=== PATIENT | male | born 1950 | race Caucasian/White ===

== ENCOUNTER 2018-08-09 09:21 | Emergency (ER) | payer MEDICARE, OTHER, SELFPAY ==
[2018-08-09] VITALS (7 sets, daily range): BP systolic 132–161; BP diastolic 91–117; PULSE 80–107; RESP 14–20; TEMP 36.9; O2SAT 94–97; BMI 27.0
--- NOTE | 2018-08-09 09:36 | EKG12_ITS ---
Test Reason : SOB Blood Pressure : / mmHG Vent. Rate : 080 BPM Atrial Rate : 080 BPM P-R Int : 136 ms QRS Dur : 080 ms QT Int : 420 ms P-R-T Axes : 073 059 070 degrees QTc Int : 484 ms Normal sinus rhythm Prolonged QT Abnormal ECG Confirmed by [facility] CHRISTIE, KAMLESH ([id number]), photograph editor JUAN BILLY ([id number]) on 08/11/2018 3:25:50 PM Referred By: DEBORAH Confirmed By:KAMLESH BENTLEY MD
--- NOTE | 2018-08-09 09:37 | CT_ITS ---
STUDY: CTA CHEST REASON FOR EXAM: Male, 67 years old. Dyspnea RADIATION DOSAGE (If Supplied By Facility): CTDIvol = ( 12.91 ) mGy, DLP = ( 697.30 ) mGycm TECHNIQUE: The examination was performed with the intravenous administration of 75ML ml of Isovue 370 contrast material. Post-processing of the angiographic images was performed, with multiplanar reformation and 3D reconstruction. Individualized dose optimization techniques were used for this CT. COMPARISON: The prior studies from January 29, 2013 chest x-ray was not provided for review. FINDINGS: Normal enhancement of the main pulmonary artery and right and left pulmonary arteries. Normal enhancement of the bilateral peripheral pulmonary arteries. There is no demonstrated pulmonary embolism. At the time of this study the distal descending thoracic aorta is noncontrasted. However the proximal aorta is well contrasted. The ascending thoracic aorta measures 3.8 x 4.0 cm. The left vertebral artery has its takeoff from the arch between the left carotid and the left subclavian. Distal to the subclavian aorta becomes mildly aneurysmal at the distal arch measuring up to 3.9 cm. It tapers towards the hiatus. The mid descending thoracic aorta measures 2.4 x 3.0 cm. Aorta is mildly tortuous as it enters the abdomen. There is no visualized proximal dissection. There is borderline cardiac enlargement. At the timing of this cardiac cycle there is a thickened appearance of the left ventricular wall. There are multiple small AP window lymph nodes measuring up to 1 cm. There is a lymph node measuring 1 cm anterior to the trachea. There is a lymph node measuring 1.6 x 1.0 cm. Normal hilar regions. Normal visualized trachea and bronchi. The lungs are well expanded. There is a thickened appearance of the right mainstem bronchus to some degree and thickened appearance of the wall of the right middle lobe bronchus. Within the right upper lobe bronchus image #258 series #2 there is a focus of filling defect within the bronchi. This measures approximately 4.6 mm. There is a thickened appearance of the right lower bronchus. Within the right lung base there are areas of air trapping and emphysematous change. There is mild thickening of the left upper lobe and lingular branches. Normal pleura. Normal chest wall structures. Normal osseous structures. There is a coarse calcification in the right renal parenchyma associated with focal cortical thinning. This calcification measures 1.0 x 0.9 cm. Is a minimal hiatal hernia. The aorta at the hiatus measures 3.[address]/CTA Chest W/WO Contrast IMPRESSION: Portable and aneurysmal dilatation of the ascending thoracic aorta. Mild aneurysmal dilatation of the descending thoracic aorta. Mild aneurysmal dilatation of the suprarenal abdominal aorta. No visualized pulmonary embolism Visualized pulmonary bronchial abnormality consistent with visualized areas in the right than left lung of bronchial wall thickening. On one image there is a small soft tissue density within the right upper lobe small bronchial airways. Findings are suspicious for inflammatory etiologies possible infectious etiology such as Atypical infiltrates, allergic bronchopulmonary aspergillosis, potentially Mycobacterium avium intracellular, given the apparent air trapping in the right greater than left lung bases could potentially consider bronchiolitis obliterans. An endobronchial tumor is thought to be less likely but should be followed accordingly. Recommend consideration for bronchoscopy. Electronically Signed: Denisse Watts MD at 11:23 EDT Tel , Service support ,
[2018-08-09] MEDS: Ipratropium/Albuterol Sulfate 3 ML AMPUL.NEB INHALATION (09:41)
[2018-08-09 09:53] LABS: Absolute Lymphocyte Count 2.44 X10^3/ul (0.83-4.51); Absolute Neutrophil Count 4.3 X10^3/uL (2.0-7.7); Basophil# 0.05 X10^3/uL; Basophil% 0.6 % (0-1); Eosinophil# 0.81 X10^3/uL; Eosinophils% 9.9 % (0-5); Hematocrit 47.8 % (40-54); Hemoglobin 16.5 g/dl (13.0-16.5); Lymphocyte # 2.44 X10^3/ul (4.0); Lymphocyte % 29.7 % (19-41); Mean Corp Hgb Conc 34.5 g/gl (32-36); Mean Corpuscular Hgb 30.1 pg (27.0-32.0); Mean Corpuscular Volume 87.2 fL (80-94); Mean Platelet Vol. 10.6 fl (6.2-12.0); Monocyte# 0.58 X10^3/uL; Monocyte% 7.1 % (0-10); Neutrophil # 4.33 X10^3/uL (2.7-7.7); Neutrophil % 52.6 % (47-70); POSITIVE DIFFERENTIAL NO; Platelet Count 167 K/mm3 (150-450); RBC Distribution Width CV 12.8 % (11.6-14.6); Red Blood Count 5.48 M/mm3 (4.6-6.2); White Blood Count 8.2 K/mm3 (4.4-11.0)
[2018-08-09 09:54] LABS: POSITIVE COUNT NO; POSITIVE MORPHOLOGY NO
[2018-08-09 10:05] LABS: Anion Gap 5 (5-15); BUN 23 mg/dL (7-18); BUN/Creat Ratio 18.9 RATIO (10-20); Calcium,Total 8.5 mg/dL (8.5-10.1); Chloride 101 mmol/L (98-107); Creatinine, Serum 1.22 mg/dL (0.70-1.30); EST Glomerular Filtration Rate 63 mL/min (>60); Est Glom Filt Rate - Afr Amer 77 mL/min (>60); Estimated Creatinine Clearance 72.15 ml/min; Glucose 94 mg/dL (74-106); Sodium Level 135 mmol/L (136-145)
[2018-08-09 10:17] LABS: BNP,B-Type NATRIURETIC PEPTIDE 15.9 pg/mL (0-100)
[2018-08-09] MEDS: predniSONE 20 MG Tablet PO (10:27)
[2018-08-09 10:41] LABS: AST(SGOT) 21 U/L (15-37); Alanine Aminotransfer ALT/SGPT 33 U/L (16-61); Albumin, Serum 3.8 g/dL (3.2-5.0); Alkaline Phosphatase 96 U/L (45-117); Bilirubin, Direct 0.19 mg/dL (0.00-0.30); Globulin 4.1 g/dL (2.2-4.2); Protein, Total 7.9 g/dL (6.4-8.2)
[2018-08-09] MEDS: Albuterol 2.5 MG/3 ML VIAL.NEB. INHALATION ×2 (11:51)
--- NOTE | 2018-08-09 11:54 | ED.DCSUM_ITS ---
- ER Visit Summary Date of Service: 08/09/18 Chief Complaint: [Burtness of breath] History of Present Illness: The patient is a 67 M [presents the emergency department complaint of shortness of breath that started 2 months ago. Patient has been on several rounds of antibiotics. Patient denies any chest pain. He does complain of a cough with wheezing. Patient's seen primary care physician and has ordered CT scan for next week of the chest. Patient is not had a fever. He denies recent travel. Patient does describe exertional dyspnea. Patient states that he had a heart catheterization in 2012 that was unremarkable. Patient states that he has not slept in the last 3 nights as he wakes up feeling very short of breath. Patient thinks he is gained about 15 pounds in the last month. He denies any leg swelling. Patient denies any hemoptysis.] Physical Examination: [HEENT-PERRLA, EOMI. Cranial nerves II through XII grossly intact. TMs clear. Mucous membranes moist. No adenopathy. Cardiovascular-regular rate and rhythm without murmur or ectopy Lungs-breath sounds bilaterally. Patient does have expiratory wheezes bilaterally. Patient has some mild tachypnea. No accessory muscle use or retractions. Abdomen-normoactive bowel sounds, soft, nontender, no rebound or rigidity, no peritoneal signs. Extremities-intact ?4, normal range of motion, normal pulses, atraumatic]. No edema. Test Results: [EKG obtained arrival shows sinus rhythm with a ventricular rate of 80 bpm with a prolonged QT. CBC with differential showing of 8.2, hemoglobin 16, hematocrit 48, platelets 167. Chemistries unremarkable. LFTs were normal. Troponin was 0.015. BNP was 15.9. CTA of the chest obtained showed aneurysmal dilatation of the aorta with no evidence of dissection. There is no evidence of PE. Patient had abnormal lung findings and cannot rule out atypical infiltrates versus bronchopulmonary aspergillosis versus possible Mycobacterium versus bronchiolitis obliterans. Patient had an Endobag bronchial lesion tumor is thought to be less likely but should be followed accordingly and they recommended obtaining bronchoscopy.] Emergency Department Course and Treatment: [Patient received DuoNeb and albuterol in the emergency department was started on prednisone 20 mg p.o. Patient was started on Zosyn 4.5 g IV.] Treatment Plan: [Admit] Disposition: [Admit] Impression: [Dyspnea- COPD exacerbation versus asthmatic bronchitis versus asthma.] This note was generated with [employer] dictation software. It may contain incorrect words, spelling, and punctuation that were not noted in review of the chart prior to signing ED Disposition - Plan for ED Patient: Chief Complaint: Shortness of Breath Referrals: Dax Barney III, MD [Primary Care Provider] -
--- NOTE | 2018-08-09 11:59 | NURSING ---
DR MAXIMO CABRERA
--- NOTE | 2018-08-09 12:36 | ED.VISSUMM ---
- ER Visit Summary Date of Service: 08/09/18 Chief Complaint: [] History of Present Illness: The patient is a 67 M [] Physical Examination: [] Test Results: [] Emergency Department Course and Treatment: [] Treatment Plan: [] Disposition: [] Impression: [] This note was generated with [employer] dictation software. It may contain incorrect words, spelling, and punctuation that were not noted in review of the chart prior to signing ED Disposition - Plan for ED Patient: Disposition: Home or Assisted Living Chief Complaint: Shortness of Breath Diagnosis: Bronchiectasis Prescriptions: Albuterol Inhaler [Ventolin Hfa] 1 - 2 puff INHALATION Q4H PRN PRN 1 Days #1 inhaler PRN Reason: Shortness Of Breath Codeine Phosphate/Guaifenesin [Guaifen-Codeine 100-10 mg/5 ml] 5 - 10 ml PO Q4H PRN PRN #250 ml PRN Reason: Cough Prednisone 10 mg PO DAILY #30 tablet traZODone [Desyrel] 100 mg PO QHS #14 tablet Referrals: Dxa Barney III, MD [Primary Care Provider] - Clayton Salamanca MD [STAFF PHYSICIAN] - 1-2 Weeks
--- NOTE | 2018-08-09 12:38 | PCM.CONS.GEN ---
Problem List (1) Bronchiectasis Status: Acute Qualifiers: Bronchiectasis type: with acute exacerbation Qualified Code(s): J47.1 - Bronchiectasis with (acute) exacerbation Reason for Consult Date of Consultation: 08/09/18 Reason for Consultation: cough. shortness of breath. insomnia. History of Present Illness: The patient is a 67 year old M who presents to the emergency room for persistent cough, shortness of breath and insomnia associated to above. Patient has seen his primary care provider and received rounds of prednisone, only 10 mg at a time as well as cefadroxil and. Patient has not gotten better overall over this time and I sought attention in the emergency room. Patient presented to the emergency room and his vital signs were stable and had new leukocytosis. He did undergo a CT of the chest that showed numerous abnormalities. The hospitalist service was contacted for admission for possible COPD exacerbation. [] Past Medical History Allergies metoclopramide HCl [From Reglan] Allergy (Verified 08/09/18 09:24) Swelling sumatriptan [From Imitrex] Allergy (Verified 08/09/18 09:24) Shortness of breath sumatriptan succinate [From Imitrex] Allergy (Verified 08/09/18 09:24) Shortness of breath prednisone Adverse Reaction (Verified 08/09/18 09:24) Other Home Medications: Ambulatory Orders Medication Instructions Recorded Metoclopramide [Reglan] 10 mg PO TID PRN #30 tablet 06/06/14 Hydrocodone Bitart/Apap 5-325 1 tablet PO Q4H PRN PRN #10 tablet 01/30/15 [[place] 5MG-325MG] Albuterol Inhaler [Ventolin Hfa] 1 - 2 puff INHALATION Q4H PRN PRN 08/09/18 1 Days #1 inhaler Codeine Phosphate/Guaifenesin 5 - 10 ml PO Q4H PRN PRN #250 ml 08/09/18 [Guaifen-Codeine 100-10 mg/5 ml] Prednisone 10 mg PO DAILY #30 tablet 08/09/18 traZODone [Desyrel] 100 mg PO QHS #14 tablet 08/09/18 Psychiatric History: No pertinent psych hx Lives: Spouse/ Significant Other Smoking Status: Former smoker Tobacco Use: Non-smoker Alcohol: None Drugs: None - *Family History Sibling History Items: Cancer - lung Review of Systems Constitutional: Denies: Anorexia, Chills, Fever Eyes: Denies: Blurred vision, Double vision HEENT: Denies: Head Aches, Sinus Congestion, Sinus Drainage Cardiovascular: Denies: Chest Pain, Palpitations Respiratory: Reports: Cough, Wheezing. Denies: Shortness of breath at rest, Sputum production Gastrointestinal: Denies: Abdominal Pain, Nausea, Vomiting Genitourinary: Denies: Dysuria Musculoskeletal: Denies: Joint Pain, Joint Tenderness Skin: Reports: Dryness, Rash Neurological: Denies: Numbness, Tingling, Focal weakness Psychiatric: Denies: Anxiety, Depression Endocrine: Reports: Change in Body Habitus - has gain 20+ pounds over the past several months.. Denies: Heat/ Cold Intolerance Hematologic/ Lymphatic: Denies: Easy Bruising, Easy Bleeding, Hx of blood clot Comment: A 10 point review of systems were negative except as mentioned in the history of present illness and the other review of systems. Patient Problems: Active and Suspected Problems Bronchiectasis (Acute) - Physical Exam General: Alert, Cooperative, No apparent distress, - - No respiratory distress. No conversational dyspnea. HEENT: Atraumatic, Normocephalic, - - No scleral icterus Oral: Moist Mucosa, No Gingival or Mucosal Lesions/ Ulcerations Neck: No Nodes, Thyroid Normal Size and Texture Lungs: Normal air movement, Wheezes Cardiovascular: Regular rate, Regular Rhythm, Normal S1, Normal S2, No murmurs Abdomen: Bowel Sounds Present, Soft, Non Tender, Non-Distended, No Hepato-splenomegaly Extremities: No edema, No Calf Tenderness Skin: No rashes, No breakdown Musculoskeletal: No Tenderness to Palpation of Joints or Extremities, No Muscle Wasting Neurological: - - No clonus. Lower extremity DTRs are intact. Psych/Mental Status: Normal Affect, Appropriate Vital Signs Temp Pulse Resp BP Pulse Ox 36.9 C 87 20 H 151/95 H 97 08/09/18 09:22 08/09/18 12:05 08/09/18 12:05 08/09/18 09:22 08/09/18 12:05 Oxygen Delivery Method Room Air Weight: 98.157 kg Body Mass Index (BMI) 27.0 Laboratory Tests Past 24 Hrs 08/09/18 08/09/18 08/09/18 09:40 09:40 09:40 WBC 8.2 RBC 5.48 Hgb 16.5 Hct 47.8 MCV 87.2 MCH 30.1 MCHC 34.5 RDW 12.8 RDW Differential 41.0 Plt Count 167 MPV 10.6 Immature Gran % (Auto) 0.100 Neut % (Auto) 52.6 Lymph % (Auto) 29.7 [place] % (Auto) 7.1 Eos % (Auto) 9.9 H Baso % (Auto) 0.6 Absolute Neuts (auto) 4.3 Absolute Lymphs (auto) 2.44 Total Counted Not Reportable Sodium 135 L Potassium 4.0 Chloride 101 Carbon Dioxide 29.0 Anion Gap 5 BUN 23 H Creatinine 1.22 Estim Creat Clear Calc 72.15 Est GFR (MDRD) Af Amer 77 Est GFR (MDRD) Non-Af 63 BUN/Creatinine Ratio 18.9 Glucose 94 Calcium 8.5 Total Bilirubin Direct Bilirubin AST ALT Alkaline Phosphatase Troponin I 0.015 B-Natriuretic Peptide 15.9 Total Protein Albumin Globulin 08/09/18 09:40 WBC RBC Hgb Hct MCV MCH MCHC RDW RDW Differential Plt Count MPV Immature Gran % (Auto) Neut % (Auto) Lymph % (Auto) [place] % (Auto) Eos % (Auto) Baso % (Auto) Absolute Neuts (auto) Absolute Lymphs (auto) Total Counted Sodium Potassium Chloride Carbon Dioxide Anion Gap BUN Creatinine Estim Creat Clear Calc Est GFR (MDRD) Af Amer Est GFR (MDRD) Non-Af BUN/Creatinine Ratio Glucose Calcium Total Bilirubin 0.90 Direct Bilirubin 0.19 AST 21 ALT 33 Alkaline Phosphatase 96 Troponin I B-Natriuretic Peptide Total Protein 7.9 Albumin 3.8 Globulin 4.1 Clinical Impression(s) from Imaging Studies Chest CTA 08/09/18 09:37 IMPRESSION: Portable and aneurysmal dilatation of the ascending thoracic aorta. Mild aneurysmal dilatation of the descending thoracic aorta. Mild aneurysmal dilatation of the suprarenal abdominal aorta. No visualized pulmonary embolism Visualized pulmonary bronchial abnormality consistent with visualized areas in the right than left lung of bronchial wall thickening. On one image there is a small soft tissue density within the right upper lobe small bronchial airways. Findings are suspicious for inflammatory etiologies possible infectious etiology such as Atypical infiltrates, allergic bronchopulmonary aspergillosis, potentially Mycobacterium avium intracellular, given the apparent air trapping in the right greater than left lung bases could potentially consider bronchiolitis obliterans. An endobronchial tumor is thought to be less likely but should be followed accordingly. Recommend consideration for bronchoscopy. Electronically Signed: Denisse Watts MD at 11:23 EDT Tel , Service support , Assessment/Plan All Active Problems Bronchiectasis (Acute) Diverticulitis (Acute) 1. Acute exacerbation of bronchiectasis I reviewed the [place] who did not feel that the patient had findings that were mentioned in the body of the report from radiology but felt that the patient had more diffuse bronchiectasis which would explain the patient's symptoms. As patient is afebrile and not septic, patient does not need to be admitted or be placed on additional antibiotics Dr. Salamanca did feel the patient would benefit from steroids and follow-up in their clinic as outpatient Patient is very apprehensive about steroids at the states that he gets very jittery with steroids. Explained to him that that is a common side effect of that. He is also concerned about his insomnia which is that he is just short of breath and wheezing. I did try to bashir some of his concerns with insomnia and see that we can try trazodone to help him sleep at night. Seems also that part of his recent was not sleeping as he is coughing and that patient to continue with the guaifenesin and codeine cough syrup. I did asked patient if he did have a hallucinations or bizarre behavior with the prednisone and it seems to me that some of what he was seeing what may be more associated him just being profoundly sleep deprived rather than direct because of the steroids themselves. Therefore I do not feel the patient had exhibited steroid-induced psychosis. I discussed about the potential for using Medrol but I fear that it would be more of a class effect in regards to steroids and more anxious and jittery with the steroids. Patient was in agreement to use steroids as well as a sleep aid with would be trazodone, while he is on steroids. 2. Thoracic ascending aortic aneurysm Incidental finding Measures 3.8 x [address] imaging in 6 months to ensure stability and if stable then annually thereafter Discharge home. Case discussed with Drs. Salamanca and Christiano. Code Visit Office Visits / Consults: [id number] OP Consult L5
--- NOTE | 2018-08-09 12:42 | CON.PCM_ITS ---
Problem List (1) Bronchiectasis Status: Acute Qualifiers: Bronchiectasis type: with acute exacerbation Qualified Code(s): J47.1 - Bronchiectasis with (acute) exacerbation Reason for Consult Date of Consultation: 08/09/18 Reason for Consultation: cough. shortness of breath. insomnia. History of Present Illness: The patient is a 67 year old M who presents to the emergency room for persistent cough, shortness of breath and insomnia associated to above. Patient has seen his primary care provider and received rounds of prednisone, only 10 mg at a time as well as cefadroxil and. Patient has not gotten better overall over this time and I sought attention in the emergency room. Patient presented to the emergency room and his vital signs were stable and had new leukocytosis. He did undergo a CT of the chest that showed numerous abnormalities. The hospitalist service was contacted for admission for possible COPD exacerbation. [] Past Medical History Allergies metoclopramide HCl [From Reglan] Allergy (Verified 08/09/18 09:24) Swelling sumatriptan [From Imitrex] Allergy (Verified 08/09/18 09:24) Shortness of breath sumatriptan succinate [From Imitrex] Allergy (Verified 08/09/18 09:24) Shortness of breath prednisone Adverse Reaction (Verified 08/09/18 09:24) Other Home Medications: Ambulatory Orders Medication Instructions Recorded Metoclopramide [Reglan] 10 mg PO TID PRN #30 tablet 06/06/14 Hydrocodone Bitart/Apap 5-325 1 tablet PO Q4H PRN PRN #10 tablet 01/30/15 [[place] 5MG-325MG] Albuterol Inhaler [Ventolin Hfa] 1 - 2 puff INHALATION Q4H PRN PRN 08/09/18 1 Days #1 inhaler Codeine Phosphate/Guaifenesin 5 - 10 ml PO Q4H PRN PRN #250 ml 08/09/18 [Guaifen-Codeine 100-10 mg/5 ml] Prednisone 10 mg PO DAILY #30 tablet 08/09/18 traZODone [Desyrel] 100 mg PO QHS #14 tablet 08/09/18 Psychiatric History: No pertinent psych hx Lives: Spouse/ Significant Other Smoking Status: Former smoker Tobacco Use: Non-smoker Alcohol: None Drugs: None - *Family History Sibling History Items: Cancer - lung Review of Systems Constitutional: Denies: Anorexia, Chills, Fever Eyes: Denies: Blurred vision, Double vision HEENT: Denies: Head Aches, Sinus Congestion, Sinus Drainage Cardiovascular: Denies: Chest Pain, Palpitations Respiratory: Reports: Cough, Wheezing. Denies: Shortness of breath at rest, S putum production Gastrointestinal: Denies: Abdominal Pain, Nausea, Vomiting Genitourinary: Denies: Dysuria Musculoskeletal: Denies: Joint Pain, Joint Tenderness Skin: Reports: Dryness, Rash Neurological: Denies: Numbness, Tingling, Focal weakness Psychiatric: Denies: Anxiety, Depression Endocrine: Reports: Change in Body Habitus - has gain 20+ pounds over the past several months.. Denies: Heat/ Cold Intolerance Hematologic/ Lymphatic: Denies: Easy Bruising, Easy Bleeding, Hx of blood clot Comment: A 10 point review of systems were negative except as mentioned in the h istory of present illness and the other review of systems. Patient Problems: Active and Suspected Problems Bronchiectasis (Acute) - Physical Exam General: Alert, Cooperative, No apparent distress, - - No respiratory distress. No conversational dyspnea. HEENT: Atraumatic, Normocephalic, - - No scleral icterus Oral: Moist Mucosa, No Gingival or Mucosal Lesions/ Ulcerations Neck: No Nodes, Thyroid Normal Size and Texture Lungs: Normal air movement, Wheezes Cardiovascular: Regular rate, Regular Rhythm, Normal S1, Normal S2, No murmurs Abdomen: Bowel Sounds Present, Soft, Non Tender, Non-Distended, No Hepato- splenomegaly Extremities: No edema, No Calf Tenderness Skin: No rashes, No breakdown Musculoskeletal: No Tenderness to Palpation of Joints or Extremities, No Muscle Wasting Neurological: - - No clonus. Lower extremity DTRs are intact. Psych/Mental Status: Normal Affect, Appropriate Vital Signs Temp Pulse Resp BP Pulse Ox 36.9 C 87 20 H 151/95 H 97 08/09/18 09:22 08/09/18 12:05 08/09/18 12:05 08/09/18 09:22 08/09/18 12:05 Oxygen Delivery Method Room Air Weight: 98.157 kg Body Mass Index (BMI) 27.0 Laboratory Tests Past 24 Hrs 08/09/18 08/09/18 08/09/18 09:40 09:40 09:40 WBC 8.2 RBC 5.48 Hgb 16.5 Hct 47.8 MCV 87.2 MCH 30.1 MCHC 34.5 RDW 12.8 RDW Differential 41.0 Plt Count 167 MPV 10.6 Immature Gran % (Auto) 0.100 Neut % (Auto) 52.6 Lymph % (Auto) 29.7 [place] % (Auto) 7.1 Eos % (Auto) 9.9 H Baso % (Auto) 0.6 Absolute Neuts (auto) 4.3 Absolute Lymphs (auto) 2.44 Total Counted Not Reportable Sodium 135 L Potassium 4.0 Chloride 101 Carbon Dioxide 29.0 Anion Gap 5 BUN 23 H Creatinine 1.22 Estim Creat Clear Calc 72.15 Est GFR (MDRD) Af Amer 77 Est GFR (MDRD) Non-Af 63 BUN/Creatinine Ratio 18.9 Glucose 94 Calcium 8.5 Total Bilirubin Direct Bilirubin AST ALT Alkaline Phosphatase Troponin I 0.015 B-Natriuretic Peptide 15.9 Total Protein Albumin Globulin 08/09/18 09:40 WBC RBC Hgb Hct MCV MCH MCHC RDW RDW Differential Plt Count MPV Immature Gran % (Auto) Neut % (Auto) Lymph % (Auto) [place] % (Auto) Eos % (Auto) Baso % (Auto) Absolute Neuts (auto) Absolute Lymphs (auto) Total Counted Sodium Potassium Chloride Carbon Dioxide Anion Gap BUN Creatinine Estim Creat Clear Calc Est GFR (MDRD) Af Amer Est GFR (MDRD) Non-Af BUN/Creatinine Ratio Glucose Calcium Total Bilirubin 0.90 Direct Bilirubin 0.19 AST 21 ALT 33 Alkaline Phosphatase 96 Troponin I B-Natriuretic Peptide Total Protein 7.9 Albumin 3.8 Globulin 4.1 Clinical Impression(s) from Imaging Studies Chest CTA 08/09/18 09:37 IMPRESSION: Portable and aneurysmal dilatation of the ascending thoracic aorta. Mild aneurysmal dilatation of the descending thoracic aorta. Mild aneurysmal dilatation of the suprarenal abdominal aorta. No visualized pulmonary embolism Visualized pulmonary bronchial abnormality consistent with visualized areas in the right than left lung of bronchial wall thickening. On one image there is a small soft tissue density within the right upper lobe small bronchial airways. Findings are suspicious for inflammatory etiologies possible infectious etiology such as Atypical infiltrates, allergic bronchopulmonary aspergillosis, potentially Mycobacterium avium intracellular, given the apparent air trapping in the right greater than left lung bases could potentially consider bronchiolitis obliterans. An endobronchial tumor is thought to be less likely but should be followed accordingly. Recommend consideration for bronchoscopy. Electronically Signed: Denisse Watts MD at 11:23 EDT Tel , Service support , Assessment/Plan All Active Problems Bronchiectasis (Acute) Diverticulitis (Acute) 1. Acute exacerbation of bronchiectasis * I reviewed the Cheikh who did not feel that the patient had findings that were mentioned in the body of the report from radiology but felt that the patient had more diffuse bronchiectasis which would explain the patient's symptoms. * As patient is afebrile and not septic, patient does not need to be admitted or be placed on additional antibiotics * Dr. Salamanca did feel the patient would benefit from steroids and follow-up in their clinic as outpatient * Patient is very apprehensive about steroids at the states that he gets very jittery with steroids. Explained to him that that is a common side effect of that. He is also concerned about his insomnia which is that he is just short of breath and wheezing. I did try to bashir some of his concerns with insomnia and see that we can try trazodone to help him sleep at night. Seems also that part of his recent was not sleeping as he is coughing and that patient to continue with the guaifenesin and codeine cough syrup. I did asked patient if he did have a hallucinations or bizarre behavior with the prednisone and it seems to me that some of what he was seeing what may be more associated him just being profoundly sleep deprived rather than direct because of the steroids themselves. Therefore I do not feel the patient had exhibited steroid-induced psychosis. I discussed about the potential for using Medrol but I fear that it would be more of a class effect in regards to steroids and more anxious and jittery with the steroids. Patient was in agreement to use steroids as well as a sleep aid with would be trazodone, while he is on steroids. 2. Thoracic ascending aortic aneurysm * Incidental finding * Measures 3.8 x 4 cm * Recommend repeat CT imaging in 6 months to ensure stability and if stable then annually thereafter Discharge home. Case discussed with Drs. Salamanca and Christiano. Code Visit Office Visits / Consults: [id number] OP Consult L5
== END 2018-08-09 16:16 | disposition home or self-care (01) ==
PROVIDERS: Emergency Provider Emergency Medicine; Family Provider Family Medicine; PCP Family Medicine
DX: J47.1 Bronchiectasis with (acute) exacerbation (principal); I71.2 Thoracic aortic aneurysm, without rupture; R06.00 Dyspnea, unspecified; Z87.891 Personal history of nicotine dependence; Z79.891 Long term (current) use of opiate analgesic; Z79.899 Other long term (current) drug therapy
CPT/HCPCS: 71275; 80048; 80076; 83880; 84484; 85025; 93005; 94640; 96360; 99285; J7040; J7050; Q9967; A4216

== ENCOUNTER → 2018-08-13 10:07 | Outpatient (CLI) | payer SELFPAY | PROVIDERS: Family Provider Family Medicine; PCP Family Medicine; Visit Provider Internal Medicine Critical Care Medicine | DX: J47.1 Bronchiectasis with (acute) exacerbation (principal) | CPT/HCPCS: 87070; 87205 ==

== ENCOUNTER 2018-08-31 17:39 | Inpatient (IN) | payer MEDICARE, OTHER, SELFPAY ==
[2018-08-31 17:39] VITALS: BP 165/97; PULSE 96; RESP 17; TEMP 36.4; O2SAT 96; BMI 26.9
--- NOTE | 2018-08-31 17:52 | EKG12_ITS ---
Test Reason : SOB Blood Pressure : / mmHG Vent. Rate : 086 BPM Atrial Rate : 086 BPM P-R Int : 140 ms QRS Dur : 078 ms QT Int : 388 ms P-R-T Axes : 079 063 080 degrees QTc Int : 464 ms Sinus rhythm with Premature atrial complexes Otherwise normal ECG Confirmed by [facility] CHRISTIE, KAMLESH ([id number]), restaurant expeditor EVANGELINA TAPIA ([id number]) on 09/02/2018 4:21:26 PM Referred By: DIMITRI Confirmed By:KAMLESH BENTLEY MD
[2018-08-31] MEDS: Ipratropium/Albuterol Sulfate 3 ML AMPUL.NEB INHALATION ×2 (18:05→22:10)
[2018-08-31] MEDS: Albuterol 2.5 MG/3 ML VIAL.NEB. INHALATION ×5 (18:05→19:09)
[2018-08-31 18:06] VITALS: PULSE 93; RESP 18
--- NOTE | 2018-08-31 18:17 | ED.VISSUMM ---
- ER Visit Summary Date of Service: 08/31/18 Chief Complaint: Shortness of breath History of Present Illness: The patient is a 67 M presents to the emergency department shortness of breath. Patient was seen about 2 weeks ago. He was diagnosed with bronchiectasis. He was placed on antibiotics and steroids. He states he was doing very well. He finishes steroids 10 days ago. He states that over the past few days, his shortness of breath is worsened. He feels like he cannot take a deep breath. He denies any fevers or chills. He denies any productive sputum but has had a scant cough. He is scheduled to see Dr. Salamanca for pulmonary function testing, but had to be rescheduled because he was on prednisone. He does have a remote history of smoking but does not currently smoke. He takes cholesterol medication but has no history of coronary vascular disease. Physical Examination: Vital signs reviewed General: Well-nourished, well-developed Head: Normocephalic, atraumatic Eyes: Pupils equal and reactive, extraocular muscles intact Neck, supple, no lymphadenopathy Heart: Regular rate and rhythm Respiratory: No distress, wheezing in all lung segal Abdomen: Soft, nontender, nondistended, no peritoneal signs Back: Nontender Extremities: Nontender, no edema, no cords Skin: Normal color no rash Neuro: Alert and oriented, no focal or lateralizing deficits Test Results: [] Emergency Department Course and Treatment: The patient presents with worsening shortness of breath. He has wheezing all lung segal. IV was established. He was given Solu-Medrol. His chest x-ray shows no evidence of focal infiltrative process. His labs are unremarkable. Despite multiple nebulized breathing treatments, the patient has persistent bronchospasm and is now requiring supplemental oxygen. He has a recent diagnosis of bronchiectasis and has been following with pulmonology, but despite outpatient therapy has worsened. I do feel that this patient is going to require admission. Patient was discussed with the hospitalist and will be admitted for continued pulmonary care. Treatment Plan: [] Disposition: Admission Impression: 1. Bronchiectasis with bronchospasm 2. Hypoxia requiring supplemental oxygen This note was generated with [employer] software. It may contain incorrect words, spelling, and punctuation that were not noted in review of the chart prior to signing ED Disposition - Plan for ED Patient: Chief Complaint: Shortness of Breath Referrals: Dax Barney III, MD [Primary Care Provider] -
[2018-08-31] MEDS: MethylPREDNISolone 125 MG/2 ML Vial IV (18:24)
[2018-08-31] MEDS: 0.9% Normal Saline 1,000 ML 150 ML IV (18:24)
[2018-08-31 18:34] LABS: Absolute Neutrophil Count 4.7 X10^3/uL (2.0-7.7); Basophil# 0.03 X10^3/uL; Basophil% 0.4 % (0-1); Eosinophil# 0.66 X10^3/uL; Eosinophils% 8.5 % (0-5); Hemoglobin 15.6 g/dl (13.0-16.5); Lymphocyte % 20.6 % (19-41); Mean Corp Hgb Conc 34.7 g/gl (32-36); Mean Corpuscular Hgb 29.9 pg (27.0-32.0); Mean Corpuscular Volume 86.4 fL (80-94); Mean Platelet Vol. 10.3 fl (6.2-12.0); Monocyte# 0.73 X10^3/uL; Monocyte% 9.4 % (0-10); Neutrophil # 4.72 X10^3/uL (2.7-7.7); Platelet Count 141 K/mm3 (150-450); RBC Distribution Width CV 12.8 % (11.6-14.6); RBC Distribution Width SD 40.6 fl (35.1-43.9); Red Blood Count 5.21 M/mm3 (4.6-6.2); White Blood Count 7.8 K/mm3 (4.4-11.0)
[2018-08-31 18:35] LABS: POSITIVE COUNT NO; POSITIVE DIFFERENTIAL NO; POSITIVE MORPHOLOGY NO
--- NOTE | 2018-08-31 18:40 | RAD_ITS ---
STUDY: X-RAY CHEST REASON FOR EXAM: Male, 67 years old. Worsening SOB. TECHNIQUE: PA and lateral chest. COMPARISON: CT chest 08/09/2018. FINDINGS: The lungs are clear and expanded. There is no demonstrated pleural abnormality. Normal size heart. Normal mediastinum and amrla. Normal visualized pulmonary arteries. Normal visualized aortic arch and descending thoracic aorta. Normal visualized thoracic spine. Normal visualized ribs, clavicles, and shoulders. There is no demonstrated abnormality of the visualized soft tissue structures of the upper abdomen. RAD/Chest PA and Lateral IMPRESSION: Normal x-ray examination of the chest. Electronically Signed: Alyson Kaplan MD at 19:46 EST Tel , Service support ,
[2018-08-31 18:59] LABS: Anion Gap 5 (5-15); BUN 14 mg/dL (7-18); BUN/Creat Ratio 14.1 RATIO (10-20); Calcium,Total 8.6 mg/dL (8.5-10.1); Chloride 106 mmol/L (98-107); Creatinine, Serum 0.99 mg/dL (0.70-1.30); EST Glomerular Filtration Rate 80 mL/min (>60); Est Glom Filt Rate - Afr Amer 97 mL/min (>60); Estimated Creatinine Clearance 88.91 ml/min; Glucose 94 mg/dL (74-106); Sodium Level 138 mmol/L (136-145)
[2018-08-31 19:08] VITALS: PULSE 99; RESP 18
--- NOTE | 2018-08-31 19:18 | HP.PCM_ITS ---
Problem List (1) Bronchiectasis Status: Acute Qualifiers: Bronchiectasis type: with acute exacerbation Qualified Code(s): J47.1 - Bronchiectasis with (acute) exacerbation (2) Former tobacco use Status: Chronic (3) Thoracoabdominal aortic aneurysm (TAAA) Status: Chronic Qualifiers: Presence of rupture: without rupture Qualified Code(s): I71.6 - Thoracoabdominal aortic aneurysm, without rupture (4) HLD (hyperlipidemia) Status: Chronic Qualifiers: Hyperlipidemia type: unspecified Qualified Code(s): E78.5 - Hyperlipidemia, unspecified (5) Dengue fever Status: Chronic History of Present Illness Date of Admission: 08/31/18 Chief Complaint: Dyspnea, wheezing, coughing without productive sputum The patient is a 67 y/o M w/ PMHx: Tobacco use (15 pack year), Known Thoracic ascending aortic aneurysm, HLD, history of ED visit 2 weeks prior secondary to dyspnea and productive cough with abx therapies ongoing x 3 months without marked improvement with then placement on oral steroids with CT upon ED evaluation w/ notable bronchiectasis with improvement w/ higher dose taper w/ recent follow-up with Pulmonary Medicine on 08/14/18 w/ planned sputum culture requested w/ planned PFTs in 2-3 weeks to establish baseline with possible need for inhaled corticosteroids with history of living in [facility] x 3 years with history of 2 week admission for dengue fever who now presents to the [facility] ED on 08/31/18 with history of progressively worsening dyspnea, inability to take a deep breath with minimally productive cough which began to worsen since last dose of his steroid taper. Markedly worsened over the last 25 hours. He notes the sputum he gave Dr. Salamanca was not marked appearing and he has difficulty bringing anything up. Work-up in the ED included T 97.6, heart rate 96, BP 165/97, respiratory rate 17, 96% on room air, CBC with WBC 7.8, hemoglobin 15.6, platelet 141 without market left shift but noted elevated eosinophils, BMP unremarkable, troponin < 0.015, ENT pending, prior BMP obtained on 08/09/18 was unremarkable, EKG with SR without acute evidence of ischemia, chest x-ray with no acute findings. In the ED patient administered Solu-Medrol, DuoNeb, albuterol as well as normal saline therapies. Past Medical History Past Medical History (Chronic Problems): Chronic Problems (Last Updated 08/12/18 @ 10:23 by Stephie Dai) Former tobacco use (Chronic) Thoracoabdominal aortic aneurysm (TAAA) (Chronic) HLD (hyperlipidemia) (Chronic) Dengue fever (Chronic) Medical History: Medical History (Last Updated 08/12/18 @ 10:23 by Stephie Dai) Diverticulitis (Acute) K57.92 HLD (hyperlipidemia) E78.5 Allergies metoclopramide HCl [From Reglan] Allergy (Verified 08/31/18 17:55) Swelling sumatriptan [From Imitrex] Allergy (Verified 08/31/18 17:55) Shortness of breath sumatriptan succinate [From Imitrex] Allergy (Verified 08/31/18 17:55) Shortness of breath prednisone Adverse Reaction (Verified 08/31/18 17:55) insomnia Home Medications: Ambulatory Orders Medication Instructions Recorded Codeine Phosphate/Guaifenesin 5 - 10 ml PO Q4H PRN PRN #250 ml 08/09/18 [Guaifen-Codeine 100-10 mg/5 ml] Prednisone 10 mg PO DAILY #30 tab 08/09/18 traZODone [Desyrel] 100 mg PO QHS #14 tab 08/09/18 atorvastatin 10 mg tablet 10 mg PO DAILY 08/12/18 Acapella #1 ea 08/27/18 Surgical History: Surgical History (Last Updated 08/12/18 @ 10:23 by Stephie Dai) H/O hernia repair Z98.890, Z87.19 age 11 Hx of cardiac cath Z98.890 Dr. Finley 2011 Veins stripped bilateral knee surgery Surgical History: - - R Inguinal hernia repair, cardiac catheterization without intervention, vein stripping, bilateral knee arthroscopic surgery, R eyelid cancer removal. Psychiatric History: No pertinent psych hx Lives: Spouse/ Significant Other Smoking Status: Former smoker - Quit October 2015 with a [id number] history. Tobacco Use: Non-smoker Alcohol: Occasional Drugs: None - *Family History Sibling Family History: Family History (Last Updated 08/12/18 @ 10:24 by Stephie Dai) Sister Lung cancer Father Lung cancer History Items: Cancer - lung Paternal Family History: Family History (Last Updated 08/12/18 @ 10:24 by Stephie Dai) Sister Lung cancer Father Lung cancer History Items: Cancer Maternal Family History: Family History (Last Updated 08/12/18 @ 10:24 by Stephie Dai) Sister Lung cancer Father Lung cancer History Items: - - Mother with history of parkinson's disease. Review of Systems Constitutional: Reports: Anorexia, Malaise, Weakness, Fatigue. Denies: Chills, Fever, Weight Change HEENT: Denies: Head Aches, Sinus Congestion, Sinus Drainage Cardiovascular: Denies: Chest Pain, Palpitations Respiratory: Reports: Cough, Shortness of Breath, Shortness of breath at rest, Shortness of breath upon exertion, Wheezing. Denies: Sputum production Gastrointestinal: Denies: Abdominal Pain, Nausea, Vomiting Genitourinary: Denies: Dysuria Musculoskeletal: Denies: Joint Pain, Joint Tenderness Skin: Denies: Rash, Wounds Neurological: Denies: Numbness, Tingling, Focal weakness Psychiatric: Denies: Anxiety, Depression, Homicidal Ideations, Suicidal Ideations Hematologic/ Lymphatic: Denies: Easy Bruising, Easy Bleeding VTE Information - Inpt Only VTE Present on Admission: No VTE Mechan Device Prophylaxis: SCD's VTE Pharm Prophylaxis ordered?: Yes Subjective: Seated upright in the ED bed, harsh cough ongoing, audible expiratory wheezing noted, fatigued appearance. Objective: Physical Examination: General: awake, alert, oriented x 3 and cooperative, seated upright in ED bed, fatigued appearance, harsh coughing. Skin: normal color, turgor, no icterus, cyanosis. HEENT: AT/NC, EOMI, PERRLA, dry MM, no carotid bruits or JVD noted. Lungs: Diminished BS diffusely, harsh non-productive cough ongoing, increased effort, expiratory wheezing throughout. Heart: Regular rate and rhythm; no gallop, rub audible. Abdomen: soft, NTTP, ND, normal BS, no HSM. Extremities: no cyanosis, clubbing, or edema. Neurological: patient awake, alert, oriented x 3; cognitive function intact; pupils equally reactive to light and accomodation; cranial nerves II-XII grossly normal, moving all 4 extremities, no focal deficits, strength moderately to severely globally decreased secondary to acute presentation. Psychiatric: affect appears fatigued, no acute evidence of depressive or anxiety feelings. - Physical Exam Vital Signs Temp Pulse Resp BP Pulse Ox 97.6 F L 96 17 165/97 H 96 08/31/18 17:39 08/31/18 17:39 08/31/18 17:39 08/31/18 17:39 08/31/18 17:39 Oxygen Delivery Method Room Air Weight: 215 lb Body Mass Index (BMI) 26.9 Laboratory Tests Past 24 Hrs 08/31/18 08/31/18 08/31/18 18:10 18:10 18:10 WBC 7.8 RBC 5.21 Hgb 15.6 Hct 45.0 MCV 86.4 MCH 29.9 MCHC 34.7 RDW 12.8 RDW Differential 40.6 Plt Count 141 L MPV 10.3 Immature Gran % (Auto) 0.100 Neut % (Auto) 61.0 Lymph % (Auto) 20.6 [place] % (Auto) 9.4 Eos % (Auto) 8.5 H Baso % (Auto) 0.4 Absolute Neuts (auto) 4.7 Absolute Lymphs (auto) 1.60 Total Counted Not Reportable Sodium 138 Potassium 4.0 Chloride 106 Carbon Dioxide 27.0 Anion Gap 5 BUN 14 Creatinine 0.99 Estim Creat Clear Calc 88.91 Est GFR (MDRD) Af Amer 97 Est GFR (MDRD) Non-Af 80 BUN/Creatinine Ratio 14.1 Glucose 94 Calcium 8.6 Troponin I < 0.015 B-Natriuretic Peptide Pending Assessment/Plan All Active Problems (Last Updated 08/12/18 @ 10:23 by Stephie Dai) Bronchiectasis (Acute) Diverticulitis (Acute) The patient is a 67 y/o M w/ PMHx: Tobacco use (15 pack year), Known Thoracic ascending aortic aneurysm, HLD, Dx bronchiectasis ~ [address] chest in the ED secondary to notable URI symptoms w/ recent follow-up with Pulmonary Medicine on 08/14/18 w/ planned sputum culture requested w/ planned PFTs in 2-3 weeks to establish baseline with possible need for inhaled corticosteroids with history of living in [facility] x 3 years with history of 2 week admission for dengue fever who now presents to the [facility] ED on 08/31/18 with history of progressively worsening dyspnea, inability to take a deep breath with minimally productive cough which began to worsen since last dose of his steroid taper. Markedly worsened over the last 25 hours. (1) Bronchiectasis with Acute exacerbation w/ Hypoxia: CXR w/ chronic changes, CBC on admission w/ no marked WBC elevation or L shift, increased eosinophils. Will admit to [facility], maintain on oxygen with wean as tolerated to room air, continue ATC duonebs, PRN albuterol, IV methylprednisolone with prednisone transition once appropriate with likely need for prolonged slow taper but defer to pulmonary, HOB, IS parameters, recent pulmonary sputum unremarkable but he notes poor sample thus will repeat sputum cultures, obtain respiratory viral panel. Pulmonary consulted, pending. (2) Elevated BP without diagnosis hypertension: Elevated BP upon ED presentation, will continue to monitor and if remains elevated over the next 24 hours may consider initiation of oral therapy, PRN hydralazine in interim. (3) Thoracic ascending aortic aneurysm: ED evaluation for pulmonary symptoms with noted ascending aortic aneurysm of 3.8 x 4 cm, encourage continued follow- up outpatient. (4) Hyperlipidemia: Continue home statin regimen. (5) Former Tobacco use: Encouraged continued cessation. Planned PFTs outpatient with pulmonary medicine once appropriate. (6) History of Dengue Fever: Lived in [facility] for 3 years, contracted Dengue fever, complicates presentation and may be associated per Dr. Cheikh cedillo pulmonary note with #1. (7) DVT Prophylaxis: SCDs, lovenox. Code Visit Inpatient E&M: 68998 Init Hosp L3
[2018-08-31 19:30] LABS: BNP,B-Type NATRIURETIC PEPTIDE 40.1 pg/mL (0-100)
[2018-08-31 19:40] VITALS: BP 131/90; PULSE 76; RESP 24; O2SAT 96
[2018-08-31 20:40] VITALS: BP 134/78; PULSE 88; RESP 20; TEMP 36.7; O2SAT 95
[2018-08-31 20:57] VITALS: BMI 26.9
[2018-08-31 21:25] VITALS: BMI 27.0
[2018-08-31 22:15] VITALS: PULSE 83; RESP 16; O2SAT 96
[2018-08-31] MEDS: traZODone 100 MG Tablet PO (22:48)
[2018-08-31] MEDS: 0.9% Normal Saline 1,000 ML 100 ML IV (22:48)
[2018-08-31] MEDS: Temazepam 15 MG Capsule PO (23:58)
[2018-09-01] VITALS (11 sets, daily range): BP systolic 100–117; BP diastolic 56–75; PULSE 82–96; RESP 16–22; TEMP 36.6–37.1; O2SAT 93–97
[2018-09-01] MEDS: Ipratropium/Albuterol Sulfate 3 ML AMPUL.NEB INHALATION ×6 (02:25→23:07)
[2018-09-01] MEDS: Acetaminophen 325 MG Tablet 650 MG PO ×2 (02:47→13:29)
[2018-09-01 06:42] LABS: Anion Gap 13 (5-15); BUN 19 mg/dL (7-18); BUN/Creat Ratio 16.4 RATIO (10-20); Calcium,Total 8.4 mg/dL (8.5-10.1); Chloride 106 mmol/L (98-107); Creatinine, Serum 1.16 mg/dL (0.70-1.30); EST Glomerular Filtration Rate 67 mL/min (>60); Est Glom Filt Rate - Afr Amer 81 mL/min (>60); Estimated Creatinine Clearance 75.88 ml/min; Glucose 191 mg/dL (74-106); Potassium 4.3 mmol/L (3.5-5.1); Sodium Level 140 mmol/L (136-145)
[2018-09-01 07:37] LABS: Absolute Lymphocyte Count 0.45 X10^3/ul (0.83-4.51); Absolute Neutrophil Count 6.3 X10^3/uL (2.0-7.7); Eosinophil# 0.01 X10^3/uL; Eosinophils% 0.1 % (0-5); Hematocrit 38.6 % (40-54); Lymphocyte # 0.45 X10^3/ul (4.0); Lymphocyte % 6.6 % (19-41); Mean Corp Hgb Conc 33.7 g/gl (32-36); Mean Corpuscular Hgb 29.3 pg (27.0-32.0); Mean Corpuscular Volume 87.1 fL (80-94); Mean Platelet Vol. 10.6 fl (6.2-12.0); Monocyte# 0.06 X10^3/uL; Monocyte% 0.9 % (0-10); Neutrophil % 92.4 % (47-70); Platelet Count 141 K/mm3 (150-450); RBC Distribution Width CV 12.9 % (11.6-14.6); RBC Distribution Width SD 41.8 fl (35.1-43.9); Red Blood Count 4.43 M/mm3 (4.6-6.2); White Blood Count 6.8 K/mm3 (4.4-11.0)
[2018-09-01 07:38] LABS: Differential Indicated SCAN CRITERIA MET; POSITIVE COUNT NO; POSITIVE DIFFERENTIAL YES; POSITIVE MORPHOLOGY NO
--- NOTE | 2018-09-01 09:30 | PN_ITS ---
Subjective: Chief complaint: Follow-up after admission for acute exacerbation of bronchiectasis with hypoxia. Patient seen and examined. No acute events overnight. Today, he states that his breathing is better, breathing easier and he has no more wheezing. He reported dry cough without sputum production. Denies fever chills. Denied chest pain or palpitations. He is maintaining his pulse ox at 93% on 2 L, blood pressure improved, other vital signs are stable. - Physical Exam General: Alert, Oriented x3, Cooperative, - - Minimally short of breath. HEENT: Atraumatic, PERRLA, EOMI, Normocephalic Oral: Moist Mucosa, No Gingival or Mucosal Lesions/ Ulcerations Neck: Supple, No JVD, Negative Carotid Bruits, Trachea Midline, Thyroid Normal Size and Texture Lungs: No wheeze, No rales, Diminished, Rhonchi, - - Diminished breath sounds bilateral, scattered rhonchi, otherwise clear. Cardiovascular: Regular rate, Regular Rhythm, Normal S1, Normal S2, No murmurs, PMI Normal Abdomen: Bowel Sounds Present, Soft, Non Tender, Non-Distended, No Hepato- splenomegaly Extremities: No clubbing, No cyanosis, No edema Skin: No rashes, No breakdown Lymphatic: No Cervical, Supraclavicular, or Inguinal Adenopathy Neurological: Cranial nerves II-XII grossly intact, Motor Exam 5/5 strength throughout Psych/Mental Status: Normal Affect, Appropriate, Alert and oriented to time, place, person, mood and affect Vital Signs Temp Pulse Resp BP Pulse Ox 98 F 82 17 114/75 93 09/01/18 02:38 09/01/18 06:40 09/01/18 06:40 09/01/18 02:38 09/01/18 08:01 Oxygen Flow Rate (L/min) 2 Oxygen Delivery Method Nasal Cannula Weight: 215 lb 13.321 oz Body Mass Index (BMI) 26.9 Intake and Output for Last 24 Hours 08/30/18 08/31/18 09/01/18 23:59 23:59 23:59 Intake Total 601 / 601 845 / 845 Output Total 375 / 375 650 / 650 Balance 226 / 226 195 / 195 Laboratory Tests Past 24 Hrs 08/31/18 08/31/18 08/31/18 18:10 18:10 18:10 WBC 7.8 RBC 5.21 Hgb 15.6 Hct 45.0 MCV 86.4 MCH 29.9 MCHC 34.7 RDW 12.8 RDW Differential 40.6 Plt Count 141 L MPV 10.3 Immature Gran % (Auto) 0.100 Neut % (Auto) 61.0 Lymph % (Auto) 20.6 [place] % (Auto) 9.4 Eos % (Auto) 8.5 H Baso % (Auto) 0.4 Absolute Neuts (auto) 4.7 Absolute Lymphs (auto) 1.60 Total Counted Not Reportable Differential Comment Sodium 138 Potassium 4.0 Chloride 106 Carbon Dioxide 27.0 Anion Gap 5 BUN 14 Creatinine 0.99 Estim Creat Clear Calc 88.91 Est GFR (MDRD) Af Amer 97 Est GFR (MDRD) Non-Af 80 BUN/Creatinine Ratio 14.1 Glucose 94 Calcium 8.6 Magnesium Troponin I < 0.015 B-Natriuretic Peptide 40.1 08/31/18 09/01/18 09/01/18 18:10 05:46 05:46 WBC 6.8 RBC 4.43 L Hgb 13.0 Hct 38.6 L MCV 87.1 MCH 29.3 MCHC 33.7 RDW 12.9 RDW Differential 41.8 Plt Count 141 L MPV 10.6 Immature Gran % (Auto) 0.000 Neut % (Auto) 92.4 H Lymph % (Auto) 6.[address] [place] % (Auto) 0.9 Eos % (Auto) 0.1 Baso % (Auto) 0.0 Absolute Neuts (auto) 6.3 Absolute Lymphs (auto) 0.45 L Total Counted Not Reportable Differential Comment COMMENT Sodium 140 Potassium 4.3 Chloride 106 Carbon Dioxide 21.0 Anion Gap 13 BUN 19 H Creatinine 1.16 Estim Creat Clear Calc 75.88 Est GFR (MDRD) Af Amer 81 Est GFR (MDRD) Non-Af 67 BUN/Creatinine Ratio 16.4 Glucose 191 H Calcium 8.4 L Magnesium 2.0 Troponin I B-Natriuretic Peptide Clinical Impression(s) from Imaging Studies Chest X-Ray 08/31/18 18:40 IMPRESSION: Normal x-ray examination of the chest. Electronically Signed: Alyson Kaplan MD at 19:46 EST Tel , Service support , Medical Necessity - Tobacco Use Smoking Status: Former smoker Tobacco Use: Non-smoker Assessment/Plan All Active Problems (Last Updated 08/12/18 @ 10:23 by Stephie Dai) Bronchiectasis (Acute) This is a 67 years old male patient presented to the emergency room because of shortness of breath, wheezing and dry cough and he was found to have acute exacerbation of bronchiectasis with hypoxia. #1 acute exacerbation of bronchiectasis/hypoxia: Patient was recently diagnosed with probable bronchiectasis. Chest x-ray done on admission and showed no acute findings, no infiltrate or consolidation. He is on bronchodilators and IV steroids. Respiratory panel for viruses is pending. Sputum cultures ordered. His routine blood work was unremarkable, no leukocytosis. His shortness of breath and wheezing improved, pulse ox is maintained at 95% on 2 L at this time. Blood pressure improved, has been afebrile. Pulmonology consulted. Plan to continue same treatment, wean off oxygen as tolerated. #2 thoracic aortic aneurysm: Stable, no acute issues. Had CTA chest on August 21, 2018 that revealed mild aneurysmal dilatation of the descending colon, ascending thoracic aorta measures 3.8 x 4 cm. No evidence of dissection. #3 hyperlipidemia: Continue statins. #4 history of Dengue fever: Patient lived in [facility] for 4 years,. This may have relation to the new diagnosis of bronchiectasis. Plan as above. #5 DVT prophylaxis: Subcu Lovenox. This note was generated with [employer] dictation software. It may contain incorrect words, spelling, and punctuation that were not noted in checking the note before signing. Code Visit Inpatient E&M: 44014 Subs Hosp L2
--- NOTE | 2018-09-01 10:15 | CASEMGMT ---
RN JEFFY Face to Face with patient for initial transition planning/care coordination assessment. RN CM introduced self and role at [facility]. Patient lying in bed, alert and oriented. Patient willing to participate in assessment and is able to answer all questions appropriately. Care providers, pharmacy, and demographics verified. Patient wishes to discharge home, denies need for home health at this time. Patient states he has no further needs or concerns at this time. CM to follow for discharge planning needs that may arise. PCP: Savita Specialists: Cheikh rheumatology nurse Preferred Pharmacy: [facility] Insurance: [facility] Prescription Benefit: [facility] Living Will/HPOA: None, would like to complete while at [facility] [place]: Living Arrangements: Patient lives with in 1 story home with ramp to enter the home. Patient independent at home. Transportation: Self/ DME/HHC: Patient has no DME at home. Currently on oxygen. Will monitor for need for home oxygen and nebulizer. Patient agreeable to [employer] for DME needs Disposition Plan: Patient to discharge home with family support and follow-up plans on place. Dorothy KAN, RN, CM
[2018-09-01] MEDS: 0.9% Normal Saline 1,000 ML 100 ML IV ×2 (10:35→21:22)
[2018-09-01] MEDS: Enoxaparin 40 MG/0.4 ML Syringe SC (10:36)
[2018-09-01] MEDS: guaiFENesin/Codeine 5 ML UDC PO (10:36)
[2018-09-01] MEDS: 0.9% NaCl Peripheral Flush Adult/Peds IV (13:24)
--- NOTE | 2018-09-01 14:07 | CON.PCM_ITS ---
Problem List (1) Former tobacco use Status: Chronic (2) Thoracoabdominal aortic aneurysm (TAAA) Status: Chronic Qualifiers: Presence of rupture: without rupture Qualified Code(s): I71.6 - Thoracoabdominal aortic aneurysm, without rupture (3) HLD (hyperlipidemia) Status: Chronic Qualifiers: Hyperlipidemia type: unspecified Qualified Code(s): E78.5 - Hyperlipidemia, unspecified (4) Dengue fever Status: Resolved (5) Bronchiectasis Status: Chronic Qualifiers: Bronchiectasis type: with acute exacerbation Qualified Code(s): J47.1 - Bronchiectasis with (acute) exacerbation Reason for Consult Date of Consultation: 09/01/18 Reason for Consultation: Bronchiectasis exacerbation History of Present Illness: The patient is a 67 year old M, with past medical history listed below, who presented to [facility] on 08/31/2018 secondary to shortness of breath. Patient has been seen by myself as an outpatient on one occasion and diagnosed with bronchiectasis. At that time, patient was on antibiotics and steroids and was doing very well. Patient stated that he completed his antibiotics and then a few days after started to get worsening shortness of breath. On presentation to the ER, patient reportedly had no fevers or chills, but did have a significant cough with scant production of sputum. The ER noted wheezing in all lung segal. Patient was placed on Solu-Medrol and admitted to the floor for evaluation. Since being admitted to the hospital, patient reports some improvement in overall condition. Patient has continued to have a cough that is minimally productive. Patient denies any current chest pain, abdominal pain, nausea or vomiting. Patient has not had any posttussive emesis, but is requiring low-dose nasal cannula oxygen to maintain saturations. History is grossly unchanged compared to my outpatient evaluation. 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 Patient had reported some people being sick over the holidays, but was unaware of any other diagnoses. Patient does have a history of smoking remotely. Review of systems otherwise negative x10 systems. Past Medical History Past Medical History (Chronic Problems): Chronic Problems (Last Updated 09/01/18 @ 11:27 by Garcia Henao MD) Former tobacco use (Chronic) Thoracoabdominal aortic aneurysm (TAAA) (Chronic) HLD (hyperlipidemia) (Chronic) Bronchiectasis (Chronic) Medical History: Medical History (Last Updated 09/01/18 @ 11:27 by Garcia Henao MD) HLD (hyperlipidemia) E78.5 Allergies metoclopramide HCl [From Reglan] Allergy (Verified 08/31/18 17:55) Swelling sumatriptan [From Imitrex] Allergy (Verified 08/31/18 17:55) Shortness of breath sumatriptan succinate [From Imitrex] Allergy (Verified 08/31/18 17:55) Shortness of breath Home Medications: Ambulatory Orders Medication Instructions Recorded Codeine Phosphate/Guaifenesin 5 - 10 ml PO Q4H PRN PRN #250 ml 08/09/18 [Guaifen-Codeine 100-10 mg/5 ml] atorvastatin 10 mg tablet 10 mg PO DAILY 08/12/18 traZODone [Desyrel] 100 mg PO QHS 08/31/18 Surgical History: Surgical History (Last Updated 08/12/18 @ 10:23 by Stephie Dai) H/O hernia repair Z98.890, Z87.19 age 11 Hx of cardiac cath Z98.890 Dr. Finley 2011 Veins stripped bilateral knee surgery Surgical History: - - R Inguinal hernia repair, cardiac catheterization without intervention, vein stripping, bilateral knee arthroscopic surgery, R eyelid cancer removal. Psychiatric History: No pertinent psych hx Lives: Spouse/ Significant Other Smoking Status: Former smoker Tobacco Use: Non-smoker Alcohol: Occasional Drugs: None - *Family History Sibling Family History: Family History (Last Updated 08/12/18 @ 10:24 by Stephie Dai) Sister Lung cancer Father Lung cancer History Items: Cancer - lung Paternal Family History: Family History (Last Updated 08/12/18 @ 10:24 by Stephie Dai) Sister Lung cancer Father Lung cancer History Items: Cancer Maternal Family History: Family History (Last Updated 08/12/18 @ 10:24 by Stephie Dai) Sister Lung cancer Father Lung cancer History Items: - - Mother with history of parkinson's disease. Review of Systems Comment: See HPI Objective: Chest x-ray was personally reviewed in addition to CTA from 08/09/2018. CTA showed significant bronchiectasis in all lung segal with no groundglass or fibrotic changes. No mediastinal lymphadenopathy was appreciated at that time. Patient does not have any recent echocardiogram or cardiac workup. Patient did have a left heart cath in 2013. - Physical Exam General: Alert, Oriented x3, Cooperative, Well developed, Well nourished, - - Some conversational dyspnea appreciated. HEENT: Atraumatic, PERRLA, EOMI, Normocephalic, - - No scleral icterus or i njection noted. Oral: Moist Mucosa, No Gingival or Mucosal Lesions/ Ulcerations Neck: Supple, No JVD, No Nodes, Trachea Midline Lungs: No rhonchi, No rales, Diminished, Wheezes, - - Symmetric expansion. No dullness to percussion. Cardiovascular: Regular rate, Regular Rhythm, Normal S1, Normal S2, No murmurs, No rub noted, No Gallop Abdomen: Bowel Sounds Present, Soft, Non Tender, Non-Distended, Obese Extremities: No clubbing, No cyanosis, No edema, Capillary Refill Less than 3 Seconds Skin: No rashes, No breakdown Musculoskeletal: No Tenderness to Palpation of Joints or Extremities Lymphatic: No Cervical, Supraclavicular, or Inguinal Adenopathy Neurological: Cranial nerves II-XII grossly intact, Neuro grossly intact, Motor Exam 5/5 strength throughout Psych/Mental Status: Alert and oriented to time, place, person, mood and affect Vital Signs Temp Pulse Resp BP Pulse Ox 36.9 C 89 22 H 117/68 95 09/01/18 09:07 09/01/18 11:47 09/01/18 11:47 09/01/18 09:07 09/01/18 09:07 Oxygen Flow Rate (L/min) 2 Oxygen Delivery Method Nasal Cannula Weight: 97.9 kg Body Mass Index (BMI) 26.9 Intake and Output for Last 24 Hours 08/30/18 08/31/18 09/01/18 23:59 23:59 23:59 Intake Total 601 / 601 1871 / 1871 Output Total 375 / 375 650 / 650 Balance 226 / 226 1221 / 1221 Microbiology Past 72 Hours 08/31/18 22:20 Respiratory Panel (PCR) - Final Mucosa - Nasopharyngeal Parainfluenza 3 Laboratory Tests Past 24 Hrs 08/31/18 08/31/18 08/31/18 18:10 18:10 18:10 WBC 7.8 RBC 5.21 Hgb 15.6 Hct 45.0 MCV 86.4 MCH 29.9 MCHC 34.7 RDW 12.8 RDW Differential 40.6 Plt Count 141 L MPV 10.3 Immature Gran % (Auto) 0.100 Neut % (Auto) 61.0 Lymph % (Auto) 20.6 [place] % (Auto) 9.4 Eos % (Auto) 8.5 H Baso % (Auto) 0.4 Absolute Neuts (auto) 4.7 Absolute Lymphs (auto) 1.60 Total Counted Not Reportable Differential Comment Sodium 138 Potassium 4.0 Chloride 106 Carbon Dioxide 27.0 Anion Gap 5 BUN 14 Creatinine 0.99 Estim Creat Clear Calc 88.91 Est GFR (MDRD) Af Amer 97 Est GFR (MDRD) Non-Af 80 BUN/Creatinine Ratio 14.1 Glucose 94 Calcium 8.6 Magnesium Troponin I < 0.015 B-Natriuretic Peptide 40.1 08/31/18 09/01/18 09/01/18 18:10 05:46 05:46 WBC 6.8 RBC 4.43 L Hgb 13.0 Hct 38.6 L MCV 87.1 MCH 29.3 MCHC 33.7 RDW 12.9 RDW Differential 41.8 Plt Count 141 L MPV 10.6 Immature Gran % (Auto) 0.000 Neut % (Auto) 92.4 H Lymph % (Auto) 6.6 L [place] % (Auto) 0.9 Eos % (Auto) 0.1 Baso % (Auto) 0.0 Absolute Neuts (auto) 6.3 Absolute Lymphs (auto) 0.45 L Total Counted Not Reportable Differential Comment COMMENT Sodium 140 Potassium 4.3 Chloride 106 Carbon Dioxide 21.0 Anion Gap 13 BUN 19 H Creatinine 1.16 Estim Creat Clear Calc 75.88 Est GFR (MDRD) Af Amer 81 Est GFR (MDRD) Non-Af 67 BUN/Creatinine Ratio 16.4 Glucose 191 H Calcium 8.4 L Magnesium 2.0 Troponin I B-Natriuretic Peptide Clinical Impression(s) from Imaging Studies Chest X-Ray 08/31/18 18:40 IMPRESSION: Normal x-ray examination of the chest. Electronically Signed: Alyson Kaplan MD at 19:46 EST Tel , Service support , Assessment/Plan All Active Problems (Last Updated 09/01/18 @ 11:27 by Garcia Henao MD) Dengue fever (Resolved) RECOMMENDATIONS: 1. Continue bronchodilators, IV steroids and transitioned to mucolytic only 2. Add vest therapy 3. Respiratory isolation 4. Outpatient complete PFT IMPRESSIONS: 1. Bronchiectasis exacerbation secondary to parainfluenza virus Patient does have sputum pending, but has also come back positive for parainfluenza virus. This may be a viral exacerbation alone. Await the results of sputum culture prior to initiation of any antibiotics. Agree with steroid therapy. Patient likely should not have codeine as a cough suppressant given high risk for multidrug-resistant organisms with scattered bronchiectasis. Mucolytic would be appropriate. Will attempt to add vest therapy for pulmonary toileting. Patient does not have any acute infiltrates on chest x-ray to suggest acute pneumonia at this time. No significant leukocytosis is noted, but patient is having elevated eosinophils on presentation. Outpatient pulmonary function testing would be appropriate for quantification and clarification of lung function. 2. History of dengue fever/hyperlipidemia/thoracic AAA/former tobacco use Complicates care, management, recovery and prognosis. Okay to continue with baseline medications. Code Visit Inpatient E&M: 75856 Init Hosp L2
--- NOTE | 2018-09-01 15:46 | CASEMGMT ---
Social Work Consult to see patient for advanced care planning. Met with patient and patient spouse in room. This social services explaining advance directives and the value of having advanced directives in place. Patient and patient spouse voicing understanding to this and interested in completing advanced directive documents, but not wanting to complete documents at this time due to friend coming to visit with patient at this time. Patient requesting for social work to follow up later with patient. Support given. Social work to continue to follow. Ynes Fofana, HALL WORKER, SPECIAL PROCEDURES NURSE
[2018-09-01] MEDS: Ibuprofen 600 MG Tablet PO (18:29)
[2018-09-01] MEDS: guaiFENesin 1,200 MG Tablet 1200 MG PO (21:20)
[2018-09-01] MEDS: traZODone 100 MG Tablet PO (21:20)
[2018-09-01] MEDS: Ketorolac 30 MG/ML Syringe IV (21:20)
[2018-09-01] MEDS: Atorvastatin Calcium 10 MG Tablet PO (21:20)
[2018-09-02] VITALS (10 sets, daily range): BP systolic 90–135; BP diastolic 52–80; PULSE 78–90; RESP 16–22; TEMP 36.4–37.2; O2SAT 93–98
[2018-09-02] MEDS: Ipratropium/Albuterol Sulfate 3 ML AMPUL.NEB INHALATION ×5 (02:51→19:00)
[2018-09-02] MEDS: 0.9% Normal Saline 1,000 ML 100 ML IV ×3 (06:19→22:08)
--- NOTE | 2018-09-02 07:54 | CPS ---
pt declined Vest @this time, will do during next tx.
[2018-09-02] MEDS: guaiFENesin 1,200 MG Tablet 1200 MG PO ×2 (10:39→20:04)
[2018-09-02] MEDS: Enoxaparin 40 MG/0.4 ML Syringe SC (10:39)
--- NOTE | 2018-09-02 11:07 | PCM.PROGNOTE ---
Subjective: Patient did okay overnight. Patient continues to report episodes of paroxysmal coughing with little to no sputum production. Patient remains on supplemental oxygen. Patient reports development of pleuritic chest pain at the right lower lung segal. Localized to the costochondral margin without radiation - Physical Exam General: Alert, Oriented x3, Cooperative, Well developed, Well nourished, - - Frequent coughing during examination HEENT: Atraumatic, PERRLA, EOMI, Normocephalic, - - No scleral icterus or injection noted. Oral: Moist Mucosa, No Gingival or Mucosal Lesions/ Ulcerations Neck: Supple, No JVD, No Nodes, Trachea Midline Lungs: No rhonchi, No rales, Diminished, Wheezes, - - Pain reproducible in right costochondritic margin Cardiovascular: Regular rate, Regular Rhythm, Normal S1, Normal S2, No murmurs, No rub noted, No Gallop Abdomen: Bowel Sounds Present, Soft, Non Tender, Non-Distended Extremities: No clubbing, No cyanosis, No edema, Capillary Refill Less than 3 Seconds Skin: No rashes, No breakdown Musculoskeletal: No Tenderness to Palpation of Joints or Extremities Lymphatic: No Cervical, Supraclavicular, or Inguinal Adenopathy Neurological: Cranial nerves II-XII grossly intact, Neuro grossly intact, Motor Exam 5/5 strength throughout Psych/Mental Status: Alert and oriented to time, place, person, mood and affect Vital Signs Temp Pulse Resp BP Pulse Ox 37.2 C 86 20 H 90/64 94 09/02/18 09:56 09/02/18 10:51 09/02/18 10:51 09/02/18 09:56 09/02/18 09:56 Oxygen Flow Rate (L/min) 1 Oxygen Delivery Method Nasal Cannula Weight: 97.9 kg Body Mass Index (BMI) 26.9 Intake and Output for Last 24 Hours 08/31/18 09/01/18 09/02/18 23:59 23:59 23:59 Intake Total 601 / 601 2776 / 2776 1606 / 1606 Output Total 375 / 375 650 / 650 1375 / 1375 Balance 226 / 226 2126 / 2126 231 / 231 Microbiology Past 72 Hours 09/01/18 11:30 Gram Stain - Final Sputum, Expectorated/Coughed Respiratory Culture - Preliminary Gram negative daniel 08/31/18 22:20 Respiratory Panel (PCR) - Final Mucosa - Nasopharyngeal Parainfluenza 3 Medical Necessity - Tobacco Use Smoking Status: Former smoker Tobacco Use: Non-smoker Assessment/Plan All Active Problems (Last Updated 09/01/18 @ 11:27 by Garcia Henao MD) Dengue fever (Resolved) RECOMMENDATIONS: 1. Continue bronchodilators, IV steroids and mucolytic 2. Continue Motrin, add Vicodin for pain control 3. Respiratory isolation, no antibiotics until species and sensitivity noted 4. Outpatient complete PFT IMPRESSIONS: 1. Bronchiectasis exacerbation secondary to parainfluenza virus Patient continues to have paroxysmal type coughing, which would be expected with parainfluenza. Patient did have significant eosinophilia on presentation, so ABPA as an etiology of bronchiectasis will need to be considered as an outpatient. Patient has a gram-negative growing in the sputum. High clinical suspicion for Pseudomonas. However patient is not acting like an acute pneumonia at this time and this may not need to be treated. This would be helpful for future exacerbations knowing susceptibility patterns. 2. History of dengue fever/hyperlipidemia/thoracic AAA/former tobacco use Complicates care, management, recovery and prognosis. Okay to continue with baseline medications.
[2018-09-02] MEDS: HYDROcodone Bitartrate/Apap 5/325 Tablet PO ×2 (12:26→20:04)
--- NOTE | 2018-09-02 13:45 | PCM.PROGNOTE ---
Subjective: Chief complaint: Follow-up after admission for acute exacerbation of bronchiectasis with hypoxia. Patient seen and examined. No acute events overnight. Today, he complained of right lateral chest discomfort which is probably due to muscle pull secondary to vigorous coughing. He mentioned that his breathing is getting better. Still complaining of cough without sputum. He has been afebrile, blood pressure stable, oxygen, has been decreasing, he is down to 1 L of oxygen and pulse ox is 94%. - Physical Exam General: Alert, Oriented x3, Cooperative, No apparent distress HEENT: Atraumatic, PERRLA, EOMI, Normocephalic Oral: Moist Mucosa, No Gingival or Mucosal Lesions/ Ulcerations Neck: Supple, No JVD, Negative Carotid Bruits, Trachea Midline, Thyroid Normal Size and Texture Lungs: Clear to auscultation, No rhonchi, No rales, Diminished, Periods of apnea, Wheezes Cardiovascular: Regular rate, Regular Rhythm, Normal S1, Normal S2, No murmurs Abdomen: Bowel Sounds Present, Soft, Non Tender, Non-Distended, No Hepato-splenomegaly Extremities: No clubbing, No cyanosis, No edema Skin: No rashes, No breakdown Lymphatic: No Cervical, Supraclavicular, or Inguinal Adenopathy Neurological: Cranial nerves II-XII grossly intact, Motor Exam 5/5 strength throughout Psych/Mental Status: Normal Affect, Appropriate, Alert and oriented to time, place, person, mood and affect Vital Signs Temp Pulse Resp BP Pulse Ox 98.6 F 86 18 135/52 H 94 09/02/18 12:17 09/02/18 12:17 09/02/18 12:17 09/02/18 12:17 09/02/18 12:17 Oxygen Flow Rate (L/min) 1 Oxygen Delivery Method Nasal Cannula Weight: 215 lb 13.321 oz Body Mass Index (BMI) 26.9 Intake and Output for Last 24 Hours 08/31/18 09/01/18 09/02/18 23:59 23:59 23:59 Intake Total 601 / 601 2776 / 2776 3020 / 3020 Output Total 375 / 375 650 / 650 2675 / 2675 Balance 226 / 226 2126 / 2126 345 / 345 Microbiology Past 72 Hours 09/01/18 11:30 Gram Stain - Final Sputum, Expectorated/Coughed Respiratory Culture - Preliminary Gram negative daniel 11/25/18 22:20 Respiratory Panel (PCR) - Final Mucosa - Nasopharyngeal Parainfluenza 3 Medical Necessity - Tobacco Use Smoking Status: Former smoker Tobacco Use: Non-smoker Assessment/Plan All Active Problems (Last Updated 09/01/18 @ 11:27 by Garcia Henao MD) Dengue fever (Resolved) This is a 67 years old male patient presented to the emergency room because of shortness of breath, wheezing and dry cough and he was found to have acute exacerbation of bronchiectasis with hypoxia. #1 acute exacerbation of bronchiectasis/hypoxia: Probably triggered by parainfluenza. He is on IV steroids and bronchodilators. Symptoms improved, oxygen requirement has been decreasing and he is down to monitor for oxygen with pulse ox of 94%. Respiratory panel for viruses came back positive for parainfluenza 3. Sputum culture revealed gram-negative rods, final is pending. No indication for IV antibiotics and is currently in the process likely a colonization. Pulmonary on the case. Plan to continue same treatment, wean off oxygen, ambulate. #2 thoracic aortic aneurysm: Stable, no acute issues. Had CTA chest on August 21, 2018 that revealed mild aneurysmal dilatation of the descending colon, ascending thoracic aorta measures 3.8 x 4 cm. No evidence of dissection. #3 hyperlipidemia: Continue statins. #4 history of Dengue fever: Patient lived in [facility] for 4 years,. This may have relation to the new diagnosis of bronchiectasis. Plan as above. #5 DVT prophylaxis: Subcu Lovenox. This note was generated with [employer] dictation software. It may contain incorrect words, spelling, and punctuation that were not noted in checking the note before signing. Code Visit Inpatient E&M: 28276 Subs Hosp L2
--- NOTE | 2018-09-02 13:48 | PN_ITS ---
Subjective: Chief complaint: Follow-up after admission for acute exacerbation of bronchiectasis with hypoxia. Patient seen and examined. No acute events overnight. Today, he complained of right lateral chest discomfort which is probably due to muscle pull secondary to vigorous coughing. He mentioned that his breathing is getting better. Still complaining of cough without sputum. He has been afebrile, blood pressure stable, oxygen, has been decreasing, he is down to 1 L of oxygen and pulse ox is 94%. - Physical Exam General: Alert, Oriented x3, Cooperative, No apparent distress HEENT: Atraumatic, PERRLA, EOMI, Normocephalic Oral: Moist Mucosa, No Gingival or Mucosal Lesions/ Ulcerations Neck: Supple, No JVD, Negative Carotid Bruits, Trachea Midline, Thyroid Normal Size and Texture Lungs: Clear to auscultation, No rhonchi, No rales, Diminished, Periods of apnea, Wheezes Cardiovascular: Regular rate, Regular Rhythm, Normal S1, Normal S2, No murmurs Abdomen: Bowel Sounds Present, Soft, Non Tender, Non-Distended, No Hepato- splenomegaly Extremities: No clubbing, No cyanosis, No edema Skin: No rashes, No breakdown Lymphatic: No Cervical, Supraclavicular, or Inguinal Adenopathy Neurological: Cranial nerves II-XII grossly intact, Motor Exam 5/5 strength throughout Psych/Mental Status: Normal Affect, Appropriate, Alert and oriented to time, place, person, mood and affect Vital Signs Temp Pulse Resp BP Pulse Ox 98.6 F 86 18 135/52 H 94 09/02/18 12:17 09/02/18 12:17 09/02/18 12:17 09/02/18 12:17 09/02/18 12:17 Oxygen Flow Rate (L/min) 1 Oxygen Delivery Method Nasal Cannula Weight: 215 lb 13.321 oz Body Mass Index (BMI) 26.9 Intake and Output for Last 24 Hours 08/31/18 09/01/18 09/02/18 23:59 23:59 23:59 Intake Total 601 / 601 2776 / 2776 3020 / 3020 Output Total 375 / 375 650 / 650 2675 / 2675 Balance 226 / 226 2126 / 2126 345 / 345 Microbiology Past 72 Hours 09/01/18 11:30 Gram Stain - Final Sputum, Expectorated/Coughed Respiratory Culture - Preliminary Gram negative daniel 11/25/18 22:20 Respiratory Panel (PCR) - Final Mucosa - Nasopharyngeal Parainfluenza 3 Medical Necessity - Tobacco Use Smoking Status: Former smoker Tobacco Use: Non-smoker Assessment/Plan All Active Problems (Last Updated 09/01/18 @ 11:27 by Garcia Henao MD) Dengue fever (Resolved) This is a 67 years old male patient presented to the emergency room because of shortness of breath, wheezing and dry cough and he was found to have acute exacerbation of bronchiectasis with hypoxia. #1 acute exacerbation of bronchiectasis/hypoxia: Probably triggered by parainfluenza. He is on IV steroids and bronchodilators. Symptoms improved, oxygen requirement has been decreasing and he is down to monitor for oxygen with pulse ox of 94%. Respiratory panel for viruses came back positive for parainfluenza 3. Sputum culture revealed gram-negative rods, final is pending. No indication for IV antibiotics and is currently in the process likely a colonization. Pulmonary on the case. Plan to continue same treatment, wean off oxygen, ambulate. #2 thoracic aortic aneurysm: Stable, no acute issues. Had CTA chest on August 21, 2018 that revealed mild aneurysmal dilatation of the descending colon, ascending thoracic aorta measures 3.8 x 4 cm. No evidence of dissection. #3 hyperlipidemia: Continue statins. #4 history of Dengue fever: Patient lived in [facility]Note 3] for 4 years,. This may have relation to the new diagnosis of bronchiectasis. Plan as above. #5 DVT prophylaxis: Subcu Lovenox. This note was generated with [employer] dictation software. It may contain incorrect words, spelling, and punctuation that were not noted in checking the note before signing. Code Visit Inpatient E&M: 54980 Subs Hosp L2
[2018-09-02] MEDS: 0.9% NaCl Peripheral Flush Adult/Peds IV (14:23)
[2018-09-02] MEDS: Ibuprofen 600 MG Tablet PO (18:19)
[2018-09-02] MEDS: Atorvastatin Calcium 10 MG Tablet PO (20:04)
[2018-09-03] VITALS (8 sets, daily range): BP systolic 105–137; BP diastolic 73–82; PULSE 68–88; RESP 16–20; TEMP 36.5–36.9; O2SAT 90–94
[2018-09-03] MEDS: HYDROcodone Bitartrate/Apap 5/325 Tablet PO ×3 (01:45→14:44)
[2018-09-03] MEDS: 0.9% Normal Saline 1,000 ML 100 ML IV (06:02)
[2018-09-03 07:09] LABS: Absolute Lymphocyte Count 0.84 X10^3/ul (0.83-4.51); Absolute Neutrophil Count 13.5 X10^3/uL (2.0-7.7); Hematocrit 36.3 % (40-54); Hemoglobin 11.9 g/dl (13.0-16.5); Lymphocyte # 0.84 X10^3/ul (4.0); Lymphocyte % 5.5 % (19-41); Mean Corp Hgb Conc 32.8 g/gl (32-36); Mean Corpuscular Hgb 29.7 pg (27.0-32.0); Mean Corpuscular Volume 90.5 fL (80-94); Monocyte# 0.81 X10^3/uL; Monocyte% 5.3 % (0-10); Neutrophil # 13.52 X10^3/uL (2.7-7.7); Neutrophil % 88.9 % (47-70); Platelet Count 143 K/mm3 (150-450); RBC Distribution Width CV 13.6 % (11.6-14.6); RBC Distribution Width SD 44.7 fl (35.1-43.9); Red Blood Count 4.01 M/mm3 (4.6-6.2); White Blood Count 15.2 K/mm3 (4.4-11.0)
[2018-09-03] MEDS: Ipratropium/Albuterol Sulfate 3 ML AMPUL.NEB INHALATION ×3 (07:10→15:40)
[2018-09-03 07:15] LABS: POSITIVE COUNT NO; POSITIVE DIFFERENTIAL NO; POSITIVE MORPHOLOGY NO
[2018-09-03 07:29] LABS: Anion Gap 5 (5-15); BUN 23 mg/dL (7-18); BUN/Creat Ratio 26.1 RATIO (10-20); Calcium,Total 8.2 mg/dL (8.5-10.1); Chloride 109 mmol/L (98-107); Creatinine, Serum 0.88 mg/dL (0.70-1.30); EST Glomerular Filtration Rate 92 mL/min (>60); Est Glom Filt Rate - Afr Amer 111 mL/min (>60); Estimated Creatinine Clearance 100.02 ml/min; Glucose 114 mg/dL (74-106); Potassium 4.2 mmol/L (3.5-5.1); Sodium Level 140 mmol/L (136-145)
[2018-09-03] MEDS: Enoxaparin 40 MG/0.4 ML Syringe SC (10:55)
[2018-09-03] MEDS: guaiFENesin 1,200 MG Tablet 1200 MG PO (10:55)
[2018-09-03] MEDS: Ibuprofen 600 MG Tablet PO (11:02)
--- NOTE | 2018-09-03 11:50 | DCINST_ITS ---
- Discharge Diagnoses Current Active Problems: Current Active and Chronic Problems (Last Updated 09/01/18 @ 11:27 by Garcia Henao MD) Former tobacco use (Chronic) Thoracoabdominal aortic aneurysm (TAAA) (Chronic) HLD (hyperlipidemia) (Chronic) You will use the following diet at home:: Regular Your food should be the consistency of: Regular Discharge Activity: Return to Normal Activity Weight Bearing Status: Weight bearing as tolerated Call your doctor if you observe: Fever of 101 or Higher, Shortness of breath, Dizziness, Fainting spells, Swelling in the ankles, Chest pain, Increased palpitations (irregular heartbeat), Uncontrolled pain Instructions: Discharge Instructions for Bronchiectasis Allergies/Adverse Reactions: Allergies metoclopramide HCl [From Reglan] Allergy (Verified 08/31/18 17:55) Swelling sumatriptan [From Imitrex] Allergy (Verified 08/31/18 17:55) Shortness of breath sumatriptan succinate [From Imitrex] Allergy (Verified 08/31/18 17:55) Shortness of breath Medications to take at Discharge Codeine Phosphate/Guaifenesin [Guaifen-Codeine 100-10 mg/5 ml] 5 - 10 ml PO Q4H PRN PRN #250 ml 08/09/18 atorvastatin 10 mg tablet 10 mg PO DAILY 08/12/18 traZODone [Desyrel] 100 mg PO QHS 08/31/18 Prednisone 10 mg PO DAILY #30 tab 09/03/18 The following prescriptions were given: Prednisone 10 mg PO DAILY #30 tab Primary Care Physician: Dax Barney III, MD [Primary Care Provider] - Please follow up with your Primary Care Physician in: 2 WEEKS. Test Results: Test results from this visit will be discussed in further detail at your follow- up appointment, if applicable. Please Follow Up With: Clayton Salamanca MD When: please call his office.
--- NOTE | 2018-09-03 13:45 | PN_ITS ---
Subjective: Patient feels subjectively improved compared to previous. Patient continues to have paroxysmal dry cough, but is not required any supplemental oxygen. Patient's chest pain is slightly improved compared to previous. Patient denies any hemoptysis. - Physical Exam General: Alert, Oriented x3, Cooperative, No apparent distress, Well developed, Well nourished, - - No conversational dyspnea HEENT: Atraumatic, PERRLA, EOMI, Normocephalic Oral: Moist Mucosa, No Gingival or Mucosal Lesions/ Ulcerations Neck: Supple, No JVD, No Nodes, Trachea Midline Lungs: No rhonchi, No rales, Diminished, Wheezes, - - Symmetric expansion. No dullness to percussion. Cardiovascular: Regular rate, Regular Rhythm, Normal S1, Normal S2, No murmurs, No rub noted, No Gallop Abdomen: Bowel Sounds Present, Soft, Non Tender, Non-Distended Extremities: No clubbing, No cyanosis, No edema, Capillary Refill Less than 3 Seconds Skin: No rashes, No breakdown Musculoskeletal: No Tenderness to Palpation of Joints or Extremities, No Muscle Wasting Lymphatic: No Cervical, Supraclavicular, or Inguinal Adenopathy Neurological: Cranial nerves II-XII grossly intact, Neuro grossly intact, Motor Exam 5/5 strength throughout Psych/Mental Status: Alert and oriented to time, place, person, mood and affect Vital Signs Temp Pulse Resp BP Pulse Ox 36.9 C 82 17 137/82 H 91 09/03/18 08:12 09/03/18 11:10 09/03/18 11:10 09/03/18 08:12 09/03/18 11:08 Oxygen Flow Rate (L/min) 2 Oxygen Delivery Method Room Air Weight: 97.9 kg Body Mass Index (BMI) 26.9 Intake and Output for Last 24 Hours 09/01/18 09/02/18 09/03/18 23:59 23:59 23:59 Intake Total 2776 / 2776 4400 / 4400 2153 / 2153 Output Total 650 / 650 2675 / 2675 1400 / 1400 Balance 6 / 2126 1725 / 1725 753 / 753 Microbiology Past 72 Hours 09/01/18 11:30 Gram Stain - Final Sputum, Expectorated/Coughed Respiratory Culture - Preliminary Pseudomonas aeroginosa 08/31/18 22:20 Respiratory Panel (PCR) - Final Mucosa - Nasopharyngeal Parainfluenza 3 Laboratory Tests Past 24 Hrs 09/03/18 09/03/18 06:52 06:52 WBC 15.2 H RBC 4.01 L Hgb 11.9 L Hct 36.3 L MCV 90.5 MCH 29.7 MCHC 32.8 RDW 13.6 RDW Differential 44.7 H Plt Count 143 L MPV 11.0 Immature Gran % (Auto) 0.300 Neut % (Auto) 88.9 H Lymph % (Auto) 5.[address] [place] % (Auto) 5.3 Eos % (Auto) 0.0 Baso % (Auto) 0.0 Absolute Neuts (auto) 13.5 H Absolute Lymphs (auto) 0.84 Total Counted Not Reportable Sodium 140 Potassium 4.2 Chloride 109 H Carbon Dioxide 26.0 Anion Gap 5 BUN 23 H Creatinine 0.88 Estim Creat Clear Calc 100.02 Est GFR (MDRD) Af Amer 111 Est GFR (MDRD) Non-Af 92 BUN/Creatinine Ratio 26.1 H Glucose 114 H Calcium 8.2 L Medical Necessity - Tobacco Use Smoking Status: Former smoker Tobacco Use: Non-smoker Assessment/Plan All Active Problems (Last Updated 09/01/18 @ 11:27 by Garcia Henao MD) Dengue fever (Resolved) RECOMMENDATIONS: 1. Continue bronchodilators and mucolytic 2. Continue Motrin, add Vicodin for pain control 3. Respiratory isolation, no antibiotics until species and sensitivity noted 4. Outpatient complete PFT 5. Transition to p.o. prednisone and wean over the next 12-14 days 6. Follow-up with nurse practitioner 2 weeks after discharge, okay to not complete PFT prior to follow-up IMPRESSIONS: 1. Bronchiectasis exacerbation secondary to parainfluenza virus Patient continues to have paroxysmal type coughing, which would be expected with parainfluenza. Patient did have significant eosinophilia on presentation, so ABPA as an etiology of bronchiectasis will need to be considered as an outpatient. Patient is growing a pansensitive Pseudomonas, but this is likely not the inciting organism. Clinical suspicion for colonization. Patient can be transition to prednisone therapy and wean over the next 12-14 days. Patient should follow-up in our office in 2 weeks. It is okay not to complete the pulmonary function test prior to that follow-up. Patient will need a CBC in the future, off steroids, to evaluate for eosinophilia. 2. History of dengue fever/hyperlipidemia/thoracic AAA/former tobacco use Complicates care, management, recovery and prognosis. Okay to continue with baseline medications. Code Visit Inpatient E&M: 75019 Subs Hosp L2
[2018-09-03] MEDS: 0.9% NaCl Peripheral Flush Adult/Peds IV (14:44)
--- NOTE | 2018-09-03 14:59 | PCM.DC.SUM ---
Discharge Date and Diagnosis Date of Admission: 08/31/18 Date of Discharge: 09/03/18 - Primary Discharge Diagnosis #1 acute exacerbation of bronchiectasis triggered by parainfluenza viral infection. #2 hypoxia. - Secondary Discharge Diagnosis Chronic Problems (Last Updated 09/01/18 @ 11:27 by Garcia Henao MD) Former tobacco use (Chronic) Thoracoabdominal aortic aneurysm (TAAA) (Chronic) HLD (hyperlipidemia) (Chronic) Bronchiectasis (Chronic) Hospital Course and Treatment Imaging Results: Clinical Impression(s) from Imaging Studies Chest X-Ray 08/31/18 18:40 IMPRESSION: Normal x-ray examination of the chest. Electronically Signed: Alyson Kaplan MD at 19:46 EST Tel , Service support , Dr. Salamanca, pulmonology. Operations: None Procedures: None Summary of Care Provided: Patient seen and examined on the day of discharge and appeared to be stable to be discharged home. Shortness of breath continued to improve. Still complaining of cough with minimal sputum. Walking pulse oximeter performed and his pulse ox was 91% on room air with ambulation and he did not qualify for home oxygen. His other vital signs were stable. The patient is a 67 year old M admitted because of shortness of breath, wheezing and dry cough and he was found to have acute exacerbation of bronchiectasis which is triggered by parainfluenza upper respiratory tract infection and complicated by hypoxia. His chest x-ray showed no acute findings. Pneumonia ruled out. He was treated with IV steroids, bronchodilators and mucolytic's. His sputum culture revealed Pseudomonas aeruginosa. Pulmonology consulted and recommended that there is no indication to treat the pseudomonas aeruginosa in the sputum at this time. His routine blood work was unremarkable. Apart from hypoxia, his other vital signs remained stable throughout admission and he remained afebrile. With above-mentioned treatment, patient symptoms improved slowly and he was able to come off oxygen. His walking pulse oximeter performed before discharge and his pulse ox was 91% with ambulation on room air and he did not qualify for home oxygen. Patient discharged home in a stable medical condition, discharged on tapering course of prednisone for 12 days, recommended follow-up with PCP in 2 weeks and follow-up with pulmonology according to Dr. Salamanca's recommendation. - Physical Exam General: Alert, Oriented x3, Cooperative, No apparent distress HEENT: Atraumatic, PERRLA, EOMI, Normocephalic Oral: Moist Mucosa, No Gingival or Mucosal Lesions/ Ulcerations Neck: Supple, No JVD, Negative Carotid Bruits, Trachea Midline, Thyroid Normal Size and Texture Lungs: Clear to auscultation, No rhonchi, No wheeze, No rales, Diminished Cardiovascular: Regular rate, Regular Rhythm, Normal S1, Normal S2, PMI Normal Abdomen: Bowel Sounds Present, Soft, Non Tender, Non-Distended, No Hepato-splenomegaly Extremities: No clubbing, No cyanosis, No edema Skin: No rashes, No breakdown Lymphatic: No Cervical, Supraclavicular, or Inguinal Adenopathy Neurological: Cranial nerves II-XII grossly intact, Neuro grossly intact Psych/Mental Status: Normal Affect, Appropriate Vital Signs Temp Pulse Resp BP Pulse Ox 98.5 F 68 20 H 105/73 94 09/03/18 14:42 09/03/18 14:42 09/03/18 14:42 09/03/18 14:42 09/03/18 14:42 Oxygen Flow Rate (L/min) 2 Oxygen Delivery Method Room Air Weight: 215 lb 13.321 oz Body Mass Index (BMI) 26.9 Intake and Output for Last 24 Hours 09/01/18 09/02/18 09/03/18 23:59 23:59 23:59 Intake Total 2776 / 2776 4400 / 4400 2153 / 2153 Output Total 650 / 650 2675 / 2675 1400 / 1400 Balance 2126 / 2126 1725 / 1725 753 / 753 Microbiology Past 72 Hours 09/01/18 11:30 Gram Stain - Final Sputum, Expectorated/Coughed Respiratory Culture - Preliminary Pseudomonas aeroginosa 08/31/18 22:20 Respiratory Panel (PCR) - Final Mucosa - Nasopharyngeal Parainfluenza 3 Laboratory Tests Past 24 Hrs 09/03/18 09/03/18 06:52 06:52 WBC 15.2 H RBC 4.01 L Hgb 11.9 L Hct 36.3 L MCV 90.5 MCH 29.7 MCHC 32.8 RDW 13.6 RDW Differential 44.7 H Plt Count 143 L MPV 11.0 Immature Gran % (Auto) 0.300 Neut % (Auto) 88.9 H Lymph % (Auto) 5.5 L [place] % (Auto) 5.3 Eos % (Auto) 0.0 Baso % (Auto) 0.0 Absolute Neuts (auto) 13.5 H Absolute Lymphs (auto) 0.84 Total Counted Not Reportable Sodium 140 Potassium 4.2 Chloride 109 H Carbon Dioxide 26.0 Anion Gap 5 BUN 23 H Creatinine 0.88 Estim Creat Clear Calc 100.02 Est GFR (MDRD) Af Amer 111 Est GFR (MDRD) Non-Af 92 BUN/Creatinine Ratio 26.1 H Glucose 114 H Calcium 8.2 L Microbiology 09/01/18 11:30 Sputum, Expectorated/Coughed Gram Stain - Final 09/01/18 11:30 Sputum, Expectorated/Coughed Respiratory Culture - Final Pseudomonas aeroginosa 08/31/18 22:20 Mucosa - Nasopharyngeal Respiratory Panel (PCR) - Final Parainfluenza 3 Discharge Activity: Return to Normal Activity Weight Bearing Status: Weight bearing as tolerated Call your doctor if you observe: Fever of 101 or Higher, Shortness of breath, Dizziness, Fainting spells, Swelling in the ankles, Chest pain, Increased palpitations (irregular heartbeat), Uncontrolled pain Home Medications: Medications to take at Discharge Codeine Phosphate/Guaifenesin [Guaifen-Codeine 100-10 mg/5 ml] 5 - 10 ml PO Q4H PRN PRN #250 ml 08/09/18 atorvastatin 10 mg tablet 10 mg PO DAILY 08/12/18 traZODone [Desyrel] 100 mg PO QHS 08/31/18 Prednisone 10 mg PO DAILY #30 tab 09/03/18 Following Prescrptions Were Given to Patient: Prednisone 10 mg PO DAILY #30 tab Primary Care Physician: Dax Barney III, MD [Primary Care Provider] - Please follow up with your Primary Care Physician in: 2 WEEKS. Please Follow Up With: Clayton Salamanca MD When: 2 weeks Please Follow Up With: Dax Barney III, MD When: 09/17/18 Patient Instructions: Discharge Instructions for Bronchiectasis Disposition: Home Minutes spent on discharge:: 27 Patient Condition:: Stable Medical Necessity - Tobacco Use Smoking Status: Former smoker Tobacco Use: Non-smoker Meaningful Use Info Meaningful Use Diagnoses (Choose all that apply): None applicable Code Visit Inpatient E&M: 85380 Disch Hosp
--- NOTE | 2018-09-04 16:55 | CASEMGMT ---
EUNICE BARDALES Discharge Follow-up Phone Call: BRO: Lianna Strata: 3 Call Date: 09/04/18 Discharge Date: 09/03/18 Time of Call: [id number] Duration: 3 minutes ? Admitting Diagnosis: Exacerbation of bronchiectasis secondary to parainfluenza virus This EUNICE BARDALES contacted pt via telephone for discharge follow-up. Pt states he feels about the same but does not feel worse which he felt was positive. He has obtained his prednisone and is taking it although states it makes him jittery and keeps him up at night. States he has his follow-up appointments and knows that if he begins to feel worse he can contact his physicians. Pt denied any questions, concerns or needs. Katie Larsen RN
== END 2018-09-03 16:10 | disposition home or self-care (01) | DRG 192 ==
LOC: ED 18:16 → MS3 20:16
PROVIDERS: Internal Medicine Critical Care Medicine; Admitting Provider Family Medicine; Emergency Provider Emergency Medicine; Family Provider Family Medicine; PCP Family Medicine; Visit Provider Hospitalist
DX: J47.1 Bronchiectasis with (acute) exacerbation (principal); E78.5 Hyperlipidemia, unspecified; R09.02 Hypoxemia; I71.6 Thoracoabdominal aortic aneurysm, without rupture; B34.8 Other viral infections of unspecified site; J98.01 Acute bronchospasm; Z86.19 Personal history of other infectious and parasitic diseases; Z87.891 Personal history of nicotine dependence; Z23 Encounter for immunization
CPT/HCPCS: 36415; 71046; 80048; 83735; 83880; 84484; 85025; 87070; 87077; 87184; 87186; 87205; 87633; 93005; 94640; 94667; 94668; 97802; 99283; J7030; 90686; A4216

== ENCOUNTER → 2018-10-02 10:47 | Outpatient (CLI) | payer MEDICARE, OTHER, SELFPAY ==
[2018-08-12 10:12] VITALS: BMI 27.3
--- NOTE | 2018-10-02 13:24 | PFTCOMP_ITS ---
COMPLETE PULMONARY FUNCTION TEST INTERPRETATION Brief HPI: Patient is a 68 year old male, currently under the care of myself, who presents to [facility] for complete pulmonary function tests secondary to diagnosis of bronchiectasis. Respiratory therapist reports good effort and reproducible results. Interpretation: Forced expiration spirometry shows a moderate large airways obstructive ventilatory defect with an FEV1 of 75% predicted. There is a significant bronchodilator response in FVC and FEV1 by strict ATS criteria. Spirograms are of good quality and plateau slowly, indicating slowly emptying areas of the lungs. The respiratory flow volume loop shows decreased expiratory flow rates at all lung volumes consistent with airway obstruction. Lung volumes by body plethysmography show a normal total lung capacity at 8.72 L, 109% predicted. FRC and RV are elevated out of proportion. Lung volume measurements are consistent with air-trapping. Diffusion capacity by carbon monoxide is normal at 102% predicted. The airway resistance is elevated. No previous pulmonary function tests were available for review. Impression: Partially reversible moderately severe large airways obstructive ventilatory defect resulting in air trapping
--- OUTSIDE RECORDS SUMMARY | 2018-10-31 11:02 | XMS RPT_ITS ---
:1950 Author Organization [place] Support Name Relationship Address Phone PAKO MCCLOUD Unavailable [address] + [place] [address] ANGELINA MCCLOUD Unavailable [address] + [place] [address] R Unavailable Unavailable Unavailable AME PAKO Unavailable [address] + [place] [address] ANGELINA MCCLOUD Unavailable [address] + [place] [address] R Unavailable Unavailable Unavailable PAKO MCCLOUD Unavailable [address] + [place] [address] ANGELINA MCCLOUD Unavailable [address] + [place] [address] R Unavailable Unavailable Unavailable AME PAKO Unavailable [address] + [place] [address] ANGELINA MCCLOUD Unavailable [address] + [place] [address] R Unavailable Unavailable Unavailable AMEMENGPAKO Unavailable [address] + [place] [address] ANGELINA MCCLOUD Unavailable [address] + [place] [address] R Unavailable Unavailable Unavailable AME PAKO Unavailable [address] + [place] [address] ANGELINA MCCLOUD Unavailable [address] + [place] [address] R Unavailable Unavailable Unavailable PAKO MCCLOUD Unavailable [address] + [place] [address] ANGELINA MCCLOUD Unavailable [address] + [place] [address] R Unavailable Unavailable Unavailable AME PAKO Unavailable [address] + [place] [address] ANGELINA CMCLOUD Unavailable [address] + [place] [address] R Unavailable Unavailable Unavailable PAKO MCCLOUD Unavailable [address] + [place] [address] ANGELINA MCCLOUD Unavailable [address] + [place] [address] R Unavailable Unavailable Unavailable PAKO MCCLOUD Unavailable [address] + [place] [address] ANGELINA MCCLOUD Unavailable [address] + [place] [address] R Unavailable Unavailable Unavailable PAKO MCCLOUD Unavailable [address] + [place] [address] ANGELINA MCCLOUD Unavailable [address] + [place] [address] R Unavailable Unavailable Unavailable PAKO MCCLOUD Unavailable [address] + [place] [address] ANGELINA MCCLOUD Unavailable [address] + [place] [address] R Unavailable Unavailable Unavailable PAKO MCCLOUD Unavailable [address] + [place] [address] ANGELINA MCCLOUD Unavailable [address] + [place] [address] R Unavailable Unavailable Unavailable PAKO MCCLOUD Unavailable [address] + [place] [address] ANGELINA MCCLOUD Unavailable [address] + [place] [address] R Unavailable Unavailable Unavailable Care Team Providers Name Role Phone JACINDA BLAKELY III Referring Unavailable CEBUL IIIJACINDA Attending Unavailable CEBUL IIIJACINDA Referring Unavailable LIYAH PAULA Admitting Unavailable LIYAH PAULA Attending Unavailable CEBUL IIIJACINDA Referring Unavailable DIMITRI CEVRANTES (TELEGRAPH OFFICE MANAGER) Attending Unavailable DIMITRI CERVANTES (TELEGRAPH OFFICE MANAGER) Referring Unavailable THELMA SAENZ (PA) Attending Unavailable CEBUL IIIJACINDA Referring Unavailable THELMA SAENZ (PA) Referring Unavailable THELMA SAENZ (PA) Attending Unavailable THELMA SAENZ (PA) Attending Unavailable THELMA SAENZ (PA) Referring Unavailable CEBUL IIIJACINDA Attending Unavailable CEBUL IIIJACINDA Attending Unavailable GARCIA HENAO Referring Unavailable Harriet Nelson Attending Unavailable Cebul III, Jacinda Referring Unavailable Cebul III, Jacinda Primary Care Unavailable Ungur, Remus Attending Unavailable Bull Armando Attending Unavailable Cebul III, Jacinda Primary Care Unavailable Cheikh, Clayton Attending Unavailable Cebul III, Jacinda Referring Unavailable Cheikh, Clayton Attending Unavailable Cebul III, Jacinda Primary Care Unavailable Cheikh, Clayton Attending Unavailable Cheikh, Clayton Referring Unavailable Cebul III, Jacinda Primary Care Unavailable Cheikh, Clayton Attending Unavailable Cheikh, Clayton Referring Unavailable Cebul III, Jacinda Primary Care Unavailable Cebul III, Jacinda Primary Care Unavailable White, Haley Admitting Unavailable Cheikh, Clayton Consulting Unavailable Ashelfah, Ghasem Attending Unavailable White, Haley Attending Unavailable Cebul III, Jacinda Primary Care Unavailable White, Haley Admitting Unavailable Ashelfah, Ghasem Attending Unavailable Cebul III, Jacinda Primary Care Unavailable Cheikh, Clayton Consulting Unavailable Ashelfah, Ghasem Consulting Unavailable White, Haley Admitting Unavailable Cheikh, Clayton Attending Unavailable Cebul III, Jacinda Primary Care Unavailable Cheikh, Clayton Consulting Unavailable Ashelfah, Ghasem Consulting Unavailable White, Haley Admitting Unavailable Ashelfah, Ghasem Attending Unavailable Cebul III, Jacinda Primary Care Unavailable Cheikh, Clayton Consulting Unavailable Ashelfah, Ghasem Consulting Unavailable White, Haley Admitting Unavailable Cheikh, Clayton Attending Unavailable Cebul III, Jacinda Primary Care Unavailable Cheikh, Clayton Consulting Unavailable Ashelfah, Ghasem Consulting Unavailable White, Haley Admitting Unavailable Ashelfah, Ghasem Attending Unavailable Cebul III, Jacinda Primary Care Unavailable Cheikh, Clayton Consulting Unavailable Ashelfah, Ghasem Consulting Unavailable PROBLEMS PROBLEMS DATE TYPE CONDITION / CODE ATTENDING STATUS SOURCE 09/17/2018 Unknown J47.9 - Omar, Active [place] [facility]chiectasis, [facility] uncomplicated / Hospital J47.9(ICD-10) Repository 09/19/2018 Unknown J47.1 - Clayton Salamanca Active [place] Bronchiectasis with [facility] (acute[facility] exacerbation Hospital / J47.1(ICD-10) Repository 08/06/2018 Active Cough / R05(ICD-10) NA Active [facility] Repository 08/06/2018 Active Shortness of breath NA Active [facility] / R06.02(ICD-10) [facility] [place] Repository 08/06/2018 Active Personal history of NA Active [facility] nicotine dependence [facility] / Z87.891(ICD-10) [facility] Repository 07/02/2018 Active Acute bronchitis, NA Active [facility] unspecified / Clinic Main J20.9(ICD-10) [facility] Repository 12/23/2017 Active Encounter for PAULA, Active [facility] screening for LIYAH [facility] malignant neoplasm [facility] of colon / Repository Z12.11(ICD-10) 10/31/2017 Active Wheezing / NA Active [facility] R06.2(ICD-10) [facility] Repository 10/31/2017 Active Other specified NA Active [facility] health status / Clinic Main Z78.9(ICD-10) [facility] Repository 09/08/2014 Active Hyperlipidemia, NA Active [facility] unspecified / [facility] E78.5(ICD-10) [facility] Repository 10/22/2017 Active Encounter for NA Active [facility] general adult [facility] medical examination [facility] with abnormal Repository findings / Z00.01(ICD-10) PROCEDURES PROCEDURES No Procedure Records FoundRESULTS RESULTS PULMONARY VISIT REPORT Observed: 09/17/2018 Status: F Source: [place] 4:31 PM [facility] REPOSITORY [facility] of [address] [place] [address] OFFICE VISIT Date of Service: 09/17/18 MR#: [id number] Acct: [id number] Name: SKYLER MCCLOUD Rep #: [id number] : 1950 Provider: Harriet Nelson Age/Sex: 67/M Location: [facility] [place] Status: Signed Assessment AND Plan Problems 1. Bronchiectasis with acute exacerbation J47.1 Plan Improving. Need to obtain baseline testing, PFTs in the next 3-4 weeks. CBC with differential at approximately the same time. Follow-up with Dr. Salamanca in 6 weeks. Contact the office with any new or worsening symptoms in the meantime. Orders Orders: Plan Detail Follow Up 1 Month (BWA) HPI HPI Comments Details: This is a 67 year old M, currently under the care of Jacinda Blakely, here to follow up after a recent hospitalization at [facility], from August 31 - September 03, 2018 for acute exacerbation of bronchiectasis secondary to parainfluenza viral infection. The hospital stay was complicated by hypoxia. 17 pages of hospital documentation was reviewed, and found to be significant for chest x-ray completed on the 2017 that showed a normal examination of the chest, respiratory panel was positive for parainfluenza 3. Upon discharge, the patient completed a 12 day course of prednisone. Today, presents to the office ambulatory and currently in room air. He states that he is feeling much improved since his hospital stay. He does admit to some right-sided rib pain with coughing. It is improved by splinting. His cough is less frequent now. It has always been nonproductive. He denies any wheezing, chest tightness, or palpitations. He denies any fever, chills or body aches. He completed the prednisone. He is not currently on any maintenance inhalers. He is not currently using a rescue inhaler. Intake Vital Signs09/17/18 Body Mass Index (BMI) 26.9 09/17/18 Height 6 ft 4 in Intake Visit Reasons: Hospital FU Chief Complaint: SOB / cough Is patient in pain?: Yes Allergies metoclopramide HCl [From Reglan] Allergy (Verified 09/17/18 12:45) Swelling sumatriptan [From Imitrex] Allergy (Verified 09/17/18 12:45) Shortness of breath sumatriptan succinate [From Imitrex] Allergy (Verified 09/17/18 12:45) Shortness of breath Medications Codeine Phosphate/Guaifenesin [Guaifen-Codeine 100-10 mg/5 ml] 5 - 10 ml PO Q4H PRN PRN #250 ml 08/09/18 [Rx Confirmed 09/17/18] atorvastatin 10 mg tablet 10 mg PO DAILY 08/12/18 [History Confirmed 09/17/18] traZODone [Desyrel] 100 mg PO QHS 08/31/18 [History Confirmed 09/17/18] meloxicam 7.5 mg tablet 7.5 mg PO BID #10 tab 09/08/18 [Rx Confirmed 09/17/18] PFSH Medical History HLD (hyperlipidemia) (Chronic) Surgical History H/O hernia repair (Resolved) Hx of cardiac cath (Resolved) Veins stripped (Resolved) bilateral knee surgery (Resolved) Family History Sister Lung cancer Father Lung cancer Social History Smoking Status: Former smoker quit date: 10/07/15 pack-years: 12 alcohol intake: current alcohol intake frequency: holidays/special occasions only substance use type: does not use Review of Systems Const CONSTITUTIONAL: Positive fatigue; negative anorexia, body ache, chills, daytime sleepiness, fever(s), night sweats, oral thrush, stops breathing during sleep, weight loss, sleeping in chair, weight loss, weight gain, frequent colds, seasonal allergies, other, headache(s) or orthopnea EETM Ear Nose Throat Mouth: Positive nasal congestion and sinus pressure; negative hard of hearing, hearing normal, hoarseness, dry mouth in morning, change in vision, itchy eyes, eye pain, swallowing Difficulty, ear pain, nose bleed, headache(s), mouth pain, nasal discharge, post nasal drip, sinus pain, sore throat or other Cardio Cardiovascular: Negative chest pain, chest pain at rest, chest pain with activity, irregular heart rhythm, edema, shortness of breath when lying down, palpitations, murmur or other Resp Respiratory: Positive cough cough: Positive non-productive and chest tightness; negative as per HPI, shortness of breath, pain with cough, wheezing, chest congestion, pain on inspiration, inhalers, increase use of rescue inhalers, snoring, apnea or other Gastro Gastrointestional: Negative bloody stools, change in appetite, difficulty swallowing, reflux, hematemesis, melena stool, loose stool, constipation or other Genitourinary: Negative blood in urine, nocturia, pain with urination or other Musc Musculoskeletal: Negative body pain, back pain, neck pain or other Skin/Breast Skin/Breast: Negative dry skin, itching, rash, unusual bruising, breast lump or other Neuro Neurological: Negative restless legs, confusion, weakness or other Psych Psychocological: Negative abnormal sleep pattern, anxiety, thoughts of hurting self/others, hopelessness or other Lymph Lymphatic: Negative easy bleeding, easy bruising, swollen lymph nodes or other Exam Const Constitutional: Positive conversant, cooperative, in no acute respiratory distress, healthy appearing, well developed, well nourished and good hygiene Head Head: Positive normocephalic and atraumatic; negative cyanosis of lips/distal nose Eyes Eye: Positive clear conjunctiva; negative nystagmus or scleral abnormality Ears Ear: Positive external ears normal; negative hard of hearing or hearing normal Nose Nose: Positive external nose normal and no nasal discharge; negative epistaxis Mouth Mouth: Positive oral mucosae normal, no lesions and posterior oropharynx is adequate; negative post nasal drip, malodorous breath or oral thrush present Mallampati Score: I: Mallampati Score Neck Neck: Positive normal visual inspection, full ROM and trachea midline; negative lymphadenopathy, JVD or tender Chest Wall Chest: Positive normal inspection of the chest and symmetric chest movement; negative increased A/P diameter Resp lung sounds: Positive clear to auscultation, good air exchange, normal expiratory time and normal respiratory effort; negative diminished, wheezes, rhonchi, rales, dullness to percussion or wheeze present on forced exhalation Cardio Cardiac: Positive regular rate, regular rhythm, S1 normal and S2 normal; negative murmur GI GI: Positive normal to inspection; negative distended Genitourinary: Positive deferred Musc Musculoskeletal: Positive steady gait and ROM normal; negative kyphosis or scoliosis Skin Pulmonary Skin Exam: Negative rash or intact Pulses Pulse: Yes pulses normal x4 extremities Extremities Extremities: Yes capillary refill normal, No clubbing, No cyanosis, No edema Neuro Neurologic: Yes conversant, Yes no focal neuro deficits, Yes cooperative, Yes normal cognition, Yes normal coordination, Yes normal concentration, Yes understands questions, No tremor Lymph Lymphatic: No lymphadenopathy, No tenderness, No cervical adenopathy Psych Appearance: Positive grossly normal, eye contact and well kempt Mental Status: Positive mental status grossly normal Mood: Positive congruent mood Affect: Positive normal affect Coding Level of Care Code Off vis,est,level 3 Diagnoses Bronchiectasis with acute exacerbation J47.1 Bronchiectasis type: with acute exacerbation 09/17/18 1631 <Electronically signed by Harriet SINGH> Date Harriet SINGH Cosigner Signature: Date (if applicable) CC: Jacinda Blakely III, MD PROGRESS Observed: 09/17/2018 Status: COMPLETED Source: [place] 10:49 AM [facility] [place] REPOSITORY [facility] ID: [id number] Author: Jacinda Blakely III Service: (none) Author Type: Physician Type: Progress Notes Filed: 09/17/2018 12:32 PM Note Text: Visit for Transitional Care Management CC: Skyler is a 67 year old male following 14, days after the Hospital/Halfway Discharge. Records reviewed. Acute exacerbation of bronchiectasis. Tx with prednisone, but which helped the congestion but caused jitteriness. sputum culture grew Pseudomonas and parainfluenza type III. No antibiotics were given. Chest x-ray did not show infiltrate HPI: Freq harsh cough caused R rib pain with click sensation. Severe pain with cough which disrupts sleep. Appt to see Dr Salamanca. 2. pred caused increase anxiety and some depression. Previous antidepressants caused side effects. Not suicidal. PAST MEDICAL HISTORY: PAST MEDICAL HISTORY Diagnosis Date - Bronchiectasis with acute exacerbation (HCC) - Chronic daily headache 01/16/2011 - Chronic depressive personality disorder - Cluster headache 06/09/2014 - Diverticulosis of colon (without mention of hemorrhage) - Hyperlipidemia 09/08/2014 - Internal hemorrhoids without mention of complication - Other abnormal heart sounds - Other rheumatic heart disease childhood - PMH - PAST MEDICAL HISTORY OF rheumatic fever - PMH - PAST MEDICAL HISTORY OF heart mumur - Tobacco abuse 06/05/2012 ALLERGIES: ALLERGIES Allergen Reactions - Prednisone Intolerance irritable MEDICATIONS: Current Outpatient Prescriptions: albuterol HFA (PROAIR HFA) 90 mcg/actuation inhaler Inhale 2 Puffs as instructed every 4 hours as needed. atorvastatin (LIPITOR) 20 mg tablet Take 1 tablet by mouth once daily. For cholesterol. sildenafil (VIAGRA) 50 mg tablet Take 1 tablet by mouth as needed. codeine-guaiFENesin (GUAIFENESIN AC) 10-100 mg/5 mL syrup Take 5 mL by mouth four times daily as needed for Cough for up to 7 days. cyclobenzaprine (FLEXERIL) 10 mg tablet Take 1 tablet by mouth three times daily as needed for Muscle Spasm. (Patient not taking: Reported on 09/17/2018 ) GUAIFENESIN ORAL Take 200 mg by mouth three times daily. Takes 2 tab q 8 hours. predniSONE (DELTASONE) 10 mg tablet DAILY traZODone (DESYREL) 100 mg tablet Take 1 tablet by mouth daily at bedtime. (Patient not taking: Reported on 09/17/2018 ) No current facility-administered medications for this visit. SOCIAL HISTORY: Social History Substance Use Topics - Smoking status: Former Smoker Packs/day: 0.50 Years: 5.00 Types: Cigarettes Quit date: 12/01/2016 - Smokeless tobacco: Never Used Comment: Quit May 2012 - Alcohol use Yes Comment: very rare beer FAMILY HISTORY: FAMILY HISTORY Problem Relation Age of Onset - Cancer Sister stage 4 lung cancer - Cancer Father lung cancer - Cancer Maternal Grandfather lung cancer/black lung - Cancer Paternal Grandfather lung cancer REVIEW OF SYSTEMS: NECK: Negative for lumps, goiter, pain and significant neck swelling RESPIRATORY: See HPI CARDIOVASCULAR: Negative for chest pain, leg swelling, hypertension, CHF or palpitations GI: No nausea, vomiting, or diarrhea PHYSICAL EXAMINATION BP 129/95 Pulse 91 Resp 16 Wt 213 lb (96.6kg) General appearance: well appearing, alert, in no acute distress and well-hydrated, well nourished Skin: Skin color, texture, turgor normal, no suspicious rashes or lesions Head: normal Eyes: Ears: Nose/Sinuses: Oropharynx: Neck: Supple, no adenopathy; thyroid symmetric, normal size, no bruits Back: no pain to palpation, motor and sensory appear to be normal Lungs: clear to auscultation no wheezing or rhonchi Heart: RRR without murmur, gallop, or rubs. No ectopy. No tenderness of the right chest wall to palpation Abdomen: Normal abdominal exam Extremities: No lower leg edema or tenderness IMP: acute exacerbation of bronchiectasis--improving depression--stable anxiety--stable chest muscle strain Plan robitussin AC 1-2 tsp every 4 hrs as needed for cough--use at bedtime naproxyn 500mg twice/day as needed for pain same other medications follow up with Dr Salamanca as appointed Jacinda Blakely III MD Plan September 17, 2018 10:50 AM [facility] Observed: 09/17/2018 Status: COMPLETED Source: [place] 10:40 AM [facility] REPOSITORY Office Visit (FAMPWS) SKYLER MCCLOUD ([id number]) 1950 M NFR Date Time Provider Department 09/17/18 10:40 AM JACINDA BLAKELY III During your visit today, we recorded the following information about you: Pulse Respiration Blood pressure Weight 91/minute 16/minute 129/95 96.6 kg Jacinda Blakely III MD 09/17/2018 12:32 PM Signed Visit for Transitional Care Management CC: Skyler is a 67 year old male following 14, days after the Hospital/Halfway Discharge. Records reviewed. Acute exacerbation of bronchiectasis. Tx with prednisone, but which helped the congestion but caused jitteriness. sputum culture grew Pseudomonas and parainfluenza type III. No antibiotics were given. Chest x-ray did not show infiltrate HPI: Freq harsh cough caused R rib pain with click sensation. Severe pain with cough which disrupts sleep. Appt to see Dr Salamanca. 2. pred caused increase anxiety and some depression. Previous antidepressants caused side effects. Not suicidal. PAST MEDICAL HISTORY: PAST MEDICAL HISTORY Diagnosis Date - Bronchiectasis with acute exacerbation (HCC) - Chronic daily headache 01/16/2011 - Chronic depressive personality disorder - Cluster headache 06/09/2014 - Diverticulosis of colon (without mention of hemorrhage) - Hyperlipidemia 09/08/2014 - Internal hemorrhoids without mention of complication - Other abnormal heart sounds - Other rheumatic heart disease childhood - PMH - PAST MEDICAL HISTORY OF rheumatic fever - PMH - PAST MEDICAL HISTORY OF heart mumur - Tobacco abuse 06/05/2012 ALLERGIES: ALLERGIES Allergen Reactions - Prednisone Intolerance irritable MEDICATIONS: Current Outpatient Prescriptions: albuterol HFA (PROAIR HFA) 90 mcg/actuation inhaler Inhale 2 Puffs as instructed every 4 hours as needed. atorvastatin (LIPITOR) 20 mg tablet Take 1 tablet by mouth once daily. For cholesterol. sildenafil (VIAGRA) 50 mg tablet Take 1 tablet by mouth as needed. codeine-guaiFENesin (GUAIFENESIN AC) 10-100 mg/5 mL syrup Take 5 mL by mouth four times daily as needed for Cough for up to 7 days. cyclobenzaprine (FLEXERIL) 10 mg tablet Take 1 tablet by mouth three times daily as needed for Muscle Spasm. (Patient not taking: Reported on 09/17/2018 ) GUAIFENESIN ORAL Take 200 mg by mouth three times daily. Takes 2 tab q 8 hours. predniSONE (DELTASONE) 10 mg tablet DAILY traZODone (DESYREL) 100 mg tablet Take 1 tablet by mouth daily at bedtime. (Patient not taking: Reported on 09/17/2018 ) No current facility-administered medications for this visit. SOCIAL HISTORY: Social History Substance Use Topics - Smoking status: Former Smoker Packs/day: 0.50 Years: 5.00 Types: Cigarettes Quit date: 12/01/2016 - Smokeless tobacco: Never Used Comment: Quit May 2012 - Alcohol use Yes Comment: very rare beer FAMILY HISTORY: FAMILY HISTORY Problem Relation Age of Onset - Cancer Sister stage 4 lung cancer - Cancer Father lung cancer - Cancer Maternal Grandfather lung cancer/black lung - Cancer Paternal Grandfather lung cancer REVIEW OF SYSTEMS: NECK: Negative for lumps, goiter, pain and significant neck swelling RESPIRATORY: See HPI CARDIOVASCULAR: Negative for chest pain, leg swelling, hypertension, CHF or palpitations GI: No nausea, vomiting, or diarrhea PHYSICAL EXAMINATION BP 129/95 Pulse 91 Resp 16 Wt 213 lb (96.6kg) General appearance: well appearing, alert, in no acute distress and well-hydrated, well nourished Skin: Skin color, texture, turgor normal, no suspicious rashes or lesions Head: normal Eyes: Ears: Nose/Sinuses: Oropharynx: Neck: Supple, no adenopathy; thyroid symmetric, normal size, no bruits Back: no pain to palpation, motor and sensory appear to be normal Lungs: clear to auscultation no wheezing or rhonchi Heart: RRR without murmur, gallop, or rubs. No ectopy. No tenderness of the right chest wall to palpation Abdomen: Normal abdominal exam Extremities: No lower leg edema or tenderness IMP: acute exacerbation of bronchiectasis--improving depression--stable anxiety--stable chest muscle strain Plan robitussin AC 1-2 tsp every 4 hrs as needed for cough--use at bedtime naproxyn 500mg twice/day as needed for pain same other medications follow up with Dr Salamanca as appointed Jacinda Blakely III MD Plan September 17, 2018 10:50 AM Jacinda Blakely III MD 09/17/2018 11:11 AM Signed Plan robitussin AC 1-2 tsp every 4 hrs as needed for cough--use at bedtime naproxyn 500mg twice/day as needed for pain same other medications follow up with Dr Salamanca as appointed Jacinda Blakely III MD Referring Provider: GARCIA HENAO [[id number]] Allergies As of Date: 09/17/2018 Noted Allergy Reaction PREDNISONE 04/16/2006 5 - Intolerance Comments: irritable Date Reviewed: 09/17/2018 Reviewed by: Zofia ([facility]) EARLINE Nelson - Fully Assessed Reason for Visit: Hospital F/U [57] Primary Visit Diagnosis:Hospital discharge follow-up [Z09] Other Visit Diagnoses:Bronchiectasis with acute exacerbation (HCC) [J47.1] Depression, unspecified depression type [F32.9] Muscle strain of chest wall, initial encounter [S29.011A] Order(s):sildenafil (VIAGRA) 50 mg tabletTake 1 tablet by mouth as needed.Disp: 30 tabletRfl: 5 atorvastatin (LIPITOR) 20 mg tabletTake 1 tablet by mouth once daily. For cholesterol.Disp: 90 tabletRfl: 3 codeine-guaiFENesin (GUAIFENESIN AC) 10-100 mg/5 mL syrupTake 5 mL by mouth three times daily as needed for up to 7 days.Disp: 240 mLRfl: 0 naproxen (NAPROSYN) 500 mg tabletTake 1 tablet by mouth twice daily as needed for Pain. Take with food.Disp: 60 tabletRfl: 1 Prescriptions as of 09/17/2018 Sig: ALBUTEROL SULFATE HFA 90 MCG/* Inhale 2 Puffs as instructed * ATORVASTATIN 20 MG TABLET Take 1 tablet by mouth once d* SILDENAFIL 50 MG TABLET Take 1 tablet by mouth as nee* CODEINE 10 MG-GUAIFENESIN 100* Take 5 mL by mouth three time* NAPROXEN 500 MG TABLET Take 1 tablet by mouth twice * Problem List As Of Date 09/17/2018 Noted Resolved Anxiety state [F41.1] INVALID FOR*10/31/2017 Sterilization [Z30.2] INVALID FOR*03/31/2014 Adjustment disorder with depressed mood [F43.21]INVALID FOR*10/31/2017 Phlebitis and thrombophlebitis of superficial v*INVALID FOR*03/31/2014 Varicose veins of lower extremities with other *INVALID FOR*10/31/2017 Chronic daily headache [R51] INVALID FOR*10/31/2017 More... Tobacco abuse [Z72.0] INVALID FOR*10/31/2017 Cluster headache [G44.009] INVALID FOR* Hyperlipidemia [E78.5] INVALID FOR* Vitamin D deficiency [E55.9] INVALID FOR*10/16/2017 Bronchiectasis with acute exacerbation (HCC) [J*INVALID FOR* Depression [F32.9] INVALID FOR* Chronic insomnia [F51.04] INVALID FOR* Thoracoabdominal aortic aneurysm (TAAA) (HCC) [*INVALID FOR* Other instructions from your clinician: Plan robitussin AC 1-2 tsp every 4 hrs as needed for cough--use at bedtime naproxyn 500mg twice/day as needed for pain same other medications follow up with Dr Salamanca as appointed Jacinda Blakely III Prescriptions ordered this encounter Disp Refills Start End SILDENAFIL 50 MG TABLET 30 t* 5 09/17/2018 Class: Print RX Route: ORAL Sig: Take 1 tablet by mouth as needed. ATORVASTATIN 20 MG TABLET 90 t* 3 09/17/2018 Route: ORAL Sig: Take 1 tablet by mouth once daily. For cholesterol. CODEINE 10 MG-GUAIFENESIN 100 MG/5 M* 240 * 0 09/17/2018 09/24/2018 Class: Print RX Route: ORAL Sig: Take 5 mL by mouth three times daily as needed for up to 7 days. NAPROXEN 500 MG TABLET 60 t* 1 09/17/2018 Route: ORAL Sig: Take 1 tablet by mouth twice daily as needed for Pain. Take with food. Medications Discontinued During This Encounter predniSONE (DELTASONE) 10 mg tablet 08/09/2018 09/17/2018 Class: Historical Med Sig: DAILY Disc: Course of therapy completed GUAIFENESIN ORAL 09/17/2018 Class: Historical Med Route: ORAL Sig: Take 200 mg by mouth three times daily. Takes 2 tab q 8 hours. Disc: Course of therapy completed cyclobenzaprine (FLEXERIL) 10 mg tab* 20 t* 0 03/06/2018 09/17/2018 Route: ORAL Sig: Take 1 tablet by mouth three times daily as needed for Muscle Spasm. Patient not taking: Reported on 09/17/2018 Disc: Course of therapy completed codeine-guaiFENesin (GUAIFENESIN AC)* 240 * 0 08/21/2018 09/17/2018 Class: Print RX Route: ORAL Sig: Take 5 mL by mouth four times daily as needed for Cough for up to 7 days. Disc: Course of therapy completed traZODone (DESYREL) 100 mg tablet 30 t* 11 08/21/2018 09/17/2018 Route: ORAL Sig: Take 1 tablet by mouth daily at bedtime. Patient not taking: Reported on 09/17/2018 Disc: Discontinued by Patient sildenafil (VIAGRA) 50 mg tablet 30 t* 5 01/31/2018 09/17/2018 Class: Print RX Route: ORAL Sig: Take 1 tablet by mouth as needed. Disc: Reason for discontinue is not on file. atorvastatin (LIPITOR) 20 mg tablet 90 t* 3 10/31/2017 09/17/2018 Route: ORAL Sig: Take 1 tablet by mouth once daily. For cholesterol. Disc: Reason for discontinue is not on file. Encounter Status:Closed by JACINDA BLAKELY III, MD on 09/17/18 12 LEAD ELECTROCARDIOGRAM Observed: 09/05/2018 Status: F Source: [place] 9:26 AM [facility] REPOSITORY [facility] Cardiovascular Services [address] [place] [address] [id number] Lead EKG 08/31/18 1802 MR#: [id number] Acct: [id number] Name: SKYLER MCCLOUD Rep #: [id number] : 1950 67 From: Rex Finley MD Attending Dr: Garcia Henao Status: DIS IN Ordering Dr: Alfredo Carmona MD Date: 08/31/18 Location: [facility] Sex: M C Admitted: 08/31/18 Test Reason : SOB Blood Pressure : / mmHG Vent. Rate : 086 BPM Atrial Rate : 086 BPM P-R Int : 140 ms QRS Dur : 078 ms QT Int : 388 ms P-R-T Axes : 079 063 080 degrees QTc Int : 464 ms Sinus rhythm with Premature atrial complexes Otherwise normal ECG Confirmed by REX FINLEY MD ([id number]), health editor EVANGELINA TAPIA ([id number]) on 09/02/2018 4:21:26 PM Referred By: DIMITRI Confirmed By:REX FINLEY MD 09/02/18 1621 Date Rex Finley MD CC: Jacinda Blakely III, MD; Garcia Henao; Alfredo Carmona MD Signed DISCHARGE SUMMARY Observed: 09/04/2018 Status: F Source: [place] 1:44 PM [facility] REPOSITORY [facility] Medical Records Department [address] [place] [address] Discharge Summary 09/03/18 1459 MR#: [id number] Acct: [id number] Name: SKYLER MCCLOUD Rep #: [id number] : 1950 67 From: Garcia Henao MD PCP: Jacinda Blakely III, MD Status: DIS IN Y [facility] Discharge Date and Diagnosis Date of Admission: 08/31/18 Date of Discharge: 09/03/18 - Primary Discharge Diagnosis #1 acute exacerbation of bronchiectasis triggered by parainfluenza viral infection. #2 hypoxia. - Secondary Discharge Diagnosis Chronic Problems (Last Updated 09/01/18 @ 11:27 by Garcia Henao MD) Former tobacco use (Chronic) Thoracoabdominal aortic aneurysm (TAAA) (Chronic) HLD (hyperlipidemia) (Chronic) Bronchiectasis (Chronic) Hospital Course and Treatment Imaging Results: Clinical Impression(s) from Imaging Studies Chest X-Ray 08/31/18 18:40 IMPRESSION: Normal x-ray examination of the chest. Electronically Signed: Alyson Kaplan MD at 19:46 EST Tel , Service support , Dr. Salamanca, pulmonology. Operations: None Procedures: None Summary of Care Provided: Patient seen and examined on the day of discharge and appeared to be stable to be discharged home. Shortness of breath continued to improve. Still complaining of cough with minimal sputum. Walking pulse oximeter performed and his pulse ox was 91% on room air with ambulation and he did not qualify for home oxygen. His other vital signs were stable. The patient is a 67 year old M admitted because of shortness of breath, wheezing and dry cough and he was found to have acute exacerbation of bronchiectasis which is triggered by parainfluenza upper respiratory tract infection and complicated by hypoxia. His chest x-ray showed no acute findings. Pneumonia ruled out. He was treated with IV steroids, bronchodilators and mucolytic's. His sputum culture revealed Pseudomonas aeruginosa. Pulmonology consulted and recommended that there is no indication to treat the pseudomonas aeruginosa in the sputum at this time. His routine blood work was unremarkable. Apart from hypoxia, his other vital signs remained stable throughout admission and he remained afebrile. With above-mentioned treatment, patient symptoms improved slowly and he was able to come off oxygen. His walking pulse oximeter performed before discharge and his pulse ox was 91% with ambulation on room air and he did not qualify for home oxygen. Patient discharged home in a stable medical condition, discharged on tapering course of prednisone for 12 days, recommended follow-up with PCP in 2 weeks and follow-up with pulmonology according to Dr. Salamanca's recommendation. - Physical Exam General: Alert, Oriented x3, Cooperative, No apparent distress HEENT: Atraumatic, PERRLA, EOMI, Normocephalic Oral: Moist Mucosa, No Gingival or Mucosal Lesions/ Ulcerations Neck: Supple, No JVD, Negative Carotid Bruits, Trachea Midline, Thyroid Normal Size and Texture Lungs: Clear to auscultation, No rhonchi, No wheeze, No rales, Diminished Cardiovascular: Regular rate, Regular Rhythm, Normal S1, Normal S2, PMI Normal Abdomen: Bowel Sounds Present, Soft, Non Tender, Non-Distended, No Hepato-splenomegaly Extremities: No clubbing, No cyanosis, No edema Skin: No rashes, No breakdown Lymphatic: No Cervical, Supraclavicular, or Inguinal Adenopathy Neurological: Cranial nerves II-XII grossly intact, Neuro grossly intact Psych/Mental Status: Normal Affect, Appropriate Vital Signs Temp Pulse Resp BP Pulse Ox 98.5 F 68 20 H 105/73 94 11/28/18 14:42 09/03/18 14:42 09/03/18 14:42 09/03/18 14:42 09/03/18 14:42 Oxygen Flow Rate (L/min) 2 Oxygen Delivery Method Room Air Weight: 215 lb 13.321 oz Body Mass Index (BMI) 26.9 Intake and Output for Last 24 Hours Intake Total 2776 / 2776 4400 / 4400 2153 / 2153 Output Total 650 / 650 2675 / 2675 1400 / 1400 Balance 2126 / 2126 1725 / 1725 753 / 753 Microbiology Past 72 Hours 09/01/18 11:30 Gram Stain - Final Laboratory Tests Past 24 Hrs WBC 15.2 H RBC 4.01 L Hgb 11.9 L Hct 36.3 L MCV 90.5 MCH 29.7 MCHC 32.8 RDW 13.6 Microbiology 09/01/18 11:30 Sputum, Expectorated/Coughed Gram Stain - Final 09/01/18 11:30 Sputum, Expectorated/Coughed Respiratory Culture - Final Pseudomonas aeroginosa 08/31/18 22:20 Mucosa - Nasopharyngeal Respiratory Panel (PCR) - Final Parainfluenza 3 Discharge Activity: Return to Normal Activity Weight Bearing Status: Weight bearing as tolerated Call your doctor if you observe: Fever of 101 or Higher, Shortness of breath, Dizziness, Fainting spells, Swelling in the ankles, Chest pain, Increased palpitations (irregular heartbeat), Uncontrolled pain Home Medications: Medications to take at Discharge Codeine Phosphate/Guaifenesin [Guaifen-Codeine 100-10 mg/5 ml] 5 - 10 ml PO Q4H PRN PRN #250 ml 08/09/18 atorvastatin 10 mg tablet 10 mg PO DAILY 08/12/18 traZODone [Desyrel] 100 mg PO QHS 08/31/18 Prednisone 10 mg PO DAILY #30 tab 09/03/18 Following Prescrptions Were Given to Patient: Prednisone 10 mg PO DAILY #30 tab Primary Care Physician: Jacinda Blakely III, MD [Primary Care Provider] - Please follow up with your Primary Care Physician in: 2 WEEKS. Please Follow Up With: Clayton Salamanca MD When: 2 weeks Please Follow Up With: Jacinda Blakely III, MD When: 09/17/18 Patient Instructions: Discharge Instructions for Bronchiectasis Disposition: Home Minutes spent on discharge:: 27 Patient Condition:: Stable Medical Necessity - Tobacco Use Smoking Status: Former smoker Tobacco Use: Non-smoker Meaningful Use Info Meaningful Use Diagnoses (Choose all that apply): None applicable Code Visit Inpatient [facility] M: [id number] Disch Hosp 09/04/18 1344 <Electronically signed by Garcia Henao MD> Date Garcia Henao MD Cosigner Signature (if applicable): Date CC: Clayton Salamanca MD; Jacinda Blakely III, MD; Garcia Henao Signed DISCHARGE INSTRUCTION Observed: 09/03/2018 Status: F Source: [place] 11:50 AM [facility] REPOSITORY [facility] Medical Records Department [address] [place] [address] Instructions for Home/Discharge Instructions 09/03/18 1148 MR#: [id number] Acct: [id number] Name: SKYLER MCCLOUD Rep #: [id number] : 1950 67 From: Garcia Henao MD PCP: Jacinda Blakely III, MD Status: ADM IN - Discharge Diagnoses Current Active Problems: Current Active and Chronic Problems (Last Updated 09/01/18 @ 11:27 by Garcia Henao MD) Former tobacco use (Chronic) Thoracoabdominal aortic aneurysm (TAAA) (Chronic) HLD (hyperlipidemia) (Chronic) You will use the following diet at home:: Regular Your food should be the consistency of: Regular Discharge Activity: Return to Normal Activity Weight Bearing Status: Weight bearing as tolerated Call your doctor if you observe: Fever of 101 or Higher, Shortness of breath, Dizziness, Fainting spells, Swelling in the ankles, Chest pain, Increased palpitations (irregular heartbeat), Uncontrolled pain Instructions: Discharge Instructions for Bronchiectasis Allergies/Adverse Reactions: Allergies metoclopramide HCl [From Reglan] Allergy (Verified 08/31/18 17:55) Swelling sumatriptan [From Imitrex] Allergy (Verified 08/31/18 17:55) Shortness of breath sumatriptan succinate [From Imitrex] Allergy (Verified 08/31/18 17:55) Shortness of breath Medications to take at Discharge Codeine Phosphate/Guaifenesin [Guaifen-Codeine 100-10 mg/5 ml] 5 - 10 ml PO Q4H PRN PRN #250 ml 08/09/18 atorvastatin 10 mg tablet 10 mg PO DAILY 08/12/18 traZODone [Desyrel] 100 mg PO QHS 08/31/18 Prednisone 10 mg PO DAILY #30 tab 09/03/18 The following prescriptions were given: Prednisone 10 mg PO DAILY #30 tab Primary Care Physician: Jacinda Blakely III, MD [Primary Care Provider] - Please follow up with your Primary Care Physician in: 2 WEEKS. Test Results: Test results from this visit will be discussed in further detail at your follow-up appointment, if applicable. Please Follow Up With: Clayton Salamanca MD When: please call his office. 09/03/18 1150 <Electronically signed by Garcia Henao MD> Date Garcia Henao MD CC: Clayton Salamanca MD; Jacinda Blakely III, MD CBC W/DIFF, AUTOMATED Collected: 09/03/2018 Status: F Source: [place] 6:52 AM [facility] REPOSITORY TYPE CODE TESTS RESULT OUT OF RANGE REFERENCE UNITS LAB L100.1000 4.4-11.0 K/mm3 High WBC 15.2 LAB L100.1200 4.6-6.2 M/mm3 Low RBC 4.01 LAB L100.1300 13.0-16.5 g/dl Low HGB 11.9 LAB L100.1400 40-54 % Low HCT 36.3 LAB L100.1500 80-94 fL Normal MCV 90.5 LAB L100.1600 27.0-32.0 pg Normal MCH 29.7 LAB L100.1700 32-36 g/gl Normal MCHC 32.8 LAB L100.1810 11.6-14.6 % Normal RDW CV 13.6 LAB L100.1820 35.1-43.9 fl High RDW SD 44.7 LAB L100.1900 150-450 K/mm3 Low PLT 143 LAB L100.2000 6.2-12.0 fl Normal MPV 11.0 LAB L100.2100 47-70 % High NEUT% 88.9 LAB L100.2200 19-41 % Low LY% 5.5 LAB L100.2300 0-10 % Normal MONO% 5.3 LAB L100.2400 0-5 % Normal EO% 0.0 LAB L100.2500 0-1 % Normal BASO% 0.0 LAB L100.2550 0.0-0.9 % Normal IM GRAN % 0.300 Result Comment: IG% - Immature Granulocytes (promyelocytes, myelocytes and metamyelocytes) > 1% indicates that a LEFT SHIFT is Present. LAB L100.2620 2.0-7.7 X10 3/uL High Absolute Neut 13.5 LAB L100.2720 0.83-4.51 X10 3/ul Normal Absolute Lymph 0.84 Performed By: #### L100.0100 #### [facility] [address] [place], [place], [address] BASIC METABOLIC Collected: 09/03/2018 Status: F Source: [place] PROFILE ([facility]) 6:52 AM [facility] REPOSITORY TYPE CODE TESTS RESULT OUT OF RANGE REFERENCE UNITS LAB L501.0100 74-106 mg/dL High GLU 114 Result Comment: Fasting Glucose result from 100 to 125 mg/dL suggests IMPAIRED HOMEOSTASIS per A.D.A. criteria. Please note revised GLUCOSE reference range effective 2017. LAB L501.1000 7-18 mg/dL High BUN 23 LAB L501.1100 0.70-1.30 mg/dL Normal CREAT,SERUM 0.88 Result Comment: The validity of the calculated GFR AND GFRAA in patients over 70 years has not been determined. Clinical correlation is essential. LAB L501.1110 >60 mL/min Normal EST GFR 92 Result Comment: Non- GFR Calc LAB L501.1115 >60 mL/min Normal EST GFR - AA 111 Result Comment: GFR Calc LAB L501.1255 ml/min Normal Estimated CRCL 100.02 LAB L501.1300 10-20 RATIO High BUN/CRE 26.1 LAB L501.2200 8.5-10 mg/dL Low .1 CA 8.2 LAB L501.5300 136-14 mmol/L 5 NA Normal 140 LAB L501.5600 3.5-5. mmol/L 1 K Normal 4.2 LAB L501.5900 98-107 mmol/L High CL 109 LAB L501.6100 21.0-3 mmol/L 2.0 CO2 Normal 26.0 LAB L501.6200 5-15 GAP Normal 5 Performed By: #### L500.2500 #### [facility] [address] [place], [address] CONSULTATION Observed: 09/02/2018 Status: F Source: [place] 5:42 AM [facility] REPOSITORY [facility] Medical Records Department [address] [place] [address] Consultation 09/01/18 1401 MR#: [id number] Acct: [id number] Name: SKYLER MCCLOUD Rep #: [id number] : 1950 67 From: Clayton Salamanca MD PCP: Jacinda Blakely III, MD Status: ADM IN Location: [place] [address] Problem List (1) Former tobacco use Status: Chronic (2) Thoracoabdominal aortic aneurysm (TAAA) Status: Chronic Qualifiers: Presence of rupture: without rupture Qualified Code(s): I71.6 - Thoracoabdominal aortic aneurysm, without rupture (3) HLD (hyperlipidemia) Status: Chronic Qualifiers: Hyperlipidemia type: unspecified Qualified Code(s): E78.5 - Hyperlipidemia, unspecified (4) Dengue fever Status: Resolved (5) Bronchiectasis Status: Chronic Qualifiers: Bronchiectasis type: with acute exacerbation Qualified Code(s): J47.1 - Bronchiectasis with (acute) exacerbation Reason for Consult Date of Consultation: 09/01/18 Reason for Consultation: Bronchiectasis exacerbation History of Present Illness: The patient is a 67 year old M, with past medical history listed below, who presented to [facility] on 08/31/2018 secondary to shortness of breath. Patient has been seen by myself as an outpatient on one occasion and diagnosed with bronchiectasis. At that time, patient was on antibiotics and steroids and was doing very well. Patient stated that he completed his antibiotics and then a few days after started to get worsening shortness of breath. On presentation to the ER, patient reportedly had no fevers or chills, but did have a significant cough with scant production of sputum. The ER noted wheezing in all lung segal. Patient was placed on Solu-Medrol and admitted to the floor for evaluation. Since being admitted to the hospital, patient reports some improvement in overall condition. Patient has continued to have a cough that is minimally productive. Patient denies any current chest pain, abdominal pain, nausea or vomiting. Patient has not had any posttussive emesis, but is requiring low-dose nasal cannula oxygen to maintain saturations. History is grossly unchanged compared to my outpatient evaluation. 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 Patient had reported some people being sick over the holidays, but was unaware of any other diagnoses. Patient does have a history of smoking remotely. Review of systems otherwise negative x10 systems. Past Medical History Past Medical History (Chronic Problems): Chronic Problems (Last Updated 09/01/18 @ 11:27 by Garcia Henao MD) Former tobacco use (Chronic) Thoracoabdominal aortic aneurysm (TAAA) (Chronic) HLD (hyperlipidemia) (Chronic) Bronchiectasis (Chronic) Medical History: Medical History (Last Updated 09/01/18 @ 11:27 by Garcia Henao MD) HLD (hyperlipidemia) E78.5 Allergies metoclopramide HCl [From Reglan] Allergy (Verified 08/31/18 17:55) Swelling sumatriptan [From Imitrex] Allergy (Verified 08/31/18 17:55) Shortness of breath sumatriptan succinate [From Imitrex] Allergy (Verified 08/31/18 17:55) Shortness of breath Home Medications: Ambulatory Orders Medication Instructions Recorded Codeine Phosphate/Guaifenesin 5 - 10 ml PO Q4H PRN PRN #250 ml 08/09/18 Surgical History: Surgical History (Last Updated 08/12/18 @ 10:23 by Stephie Dai) H/O hernia repair Z98.890, Z87.19 age 11 Hx of cardiac cath Z98.890 Dr. Finley 2011 Veins stripped bilateral knee surgery Surgical History: - - R Inguinal hernia repair, cardiac catheterization without intervention, vein stripping, bilateral knee arthroscopic surgery, R eyelid cancer removal. Psychiatric History: No pertinent psych hx Lives: Spouse/ Significant Other Smoking Status: Former smoker Tobacco Use: Non-smoker Alcohol: Occasional Drugs: None - *Family History Sibling Family History: Family History (Last Updated 08/12/18 @ 10:24 by Stephie Dai) Sister Lung cancer Father Lung cancer History Items: Cancer - lung Paternal Family History: Family History (Last Updated 08/12/18 @ 10:24 by Stephie Dai) Sister Lung cancer Father Lung cancer History Items: Cancer Maternal Family History: Family History (Last Updated 08/12/18 @ 10:24 by Stephie Dai) Sister Lung cancer Father Lung cancer History Items: - - Mother with history of parkinson's disease. Review of Systems Comment: See HPI Objective: Chest x-ray was personally reviewed in addition to CTA from 08/09/2018. CTA showed significant bronchiectasis in all lung segal with no groundglass or fibrotic changes. No mediastinal lymphadenopathy was appreciated at that time. Patient does not have any recent echocardiogram or cardiac workup. Patient did have a left heart cath in 2012. - Physical Exam General: Alert, Oriented x3, Cooperative, Well developed, Well nourished, - - Some conversational dyspnea appreciated. HEENT: Atraumatic, PERRLA, EOMI, Normocephalic, - - No scleral icterus or injection noted. Oral: Moist Mucosa, No Gingival or Mucosal Lesions/ Ulcerations Neck: Supple, No JVD, No Nodes, Trachea Midline Lungs: No rhonchi, No rales, Diminished, Wheezes, - - Symmetric expansion. No dullness to percussion. Cardiovascular: Regular rate, Regular Rhythm, Normal S1, Normal S2, No murmurs, No rub noted, No Gallop Abdomen: Bowel Sounds Present, Soft, Non Tender, Non-Distended, Obese Extremities: No clubbing, No cyanosis, No edema, Capillary Refill Less than 3 Seconds Skin: No rashes, No breakdown Musculoskeletal: No Tenderness to Palpation of Joints or Extremities Lymphatic: No Cervical, Supraclavicular, or Inguinal Adenopathy Neurological: Cranial nerves II-XII grossly intact, Neuro grossly intact, Motor Exam 5/5 strength throughout Psych/Mental Status: Alert and oriented to time, place, person, mood and affect Vital Signs Temp Pulse Resp BP Pulse Ox 36.9 C 89 22 H 117/68 95 09/01/18 09:07 09/01/18 11:47 09/01/18 11:47 09/01/18 09:07 09/01/18 09:07 Oxygen Flow Rate (L/min) 2 Oxygen Delivery Method Nasal Cannula Weight: 97.9 kg Body Mass Index (BMI) 26.9 Intake and Output for Last 24 Hours Intake Total 601 / 601 1871 / 1871 Output Total 375 / 375 650 / 650 Balance 226 / 226 1221 / 1221 Microbiology Past 72 Hours 08/31/18 22:20 Respiratory Panel (PCR) - Final Mucosa - Nasopharyngeal Parainfluenza 3 Laboratory Tests Past 24 Hrs WBC 7.8 WBC 6.8 RBC 4.43 L Clinical Impression(s) from Imaging Studies Chest X-Ray 08/31/18 18:40 IMPRESSION: Normal x-ray examination of the chest. Electronically Signed: Alyson Kaplan MD at 19:46 EST Tel , Service support , Assessment/Plan All Active Problems (Last Updated 09/01/18 @ 11:27 by Garcia Henao MD) Dengue fever (Resolved) RECOMMENDATIONS: 1. Continue bronchodilators, IV steroids and transitioned to mucolytic only 2. Add vest therapy 3. Respiratory isolation 4. Outpatient complete PFT IMPRESSIONS: 1. Bronchiectasis exacerbation secondary to parainfluenza virus Patient does have sputum pending, but has also come back positive for parainfluenza virus. This may be a viral exacerbation alone. Await the results of sputum culture prior to initiation of any antibiotics. Agree with steroid therapy. Patient likely should not have codeine as a cough suppressant given high risk for multidrug- resistant organisms with scattered bronchiectasis. Mucolytic would be appropriate. Will attempt to add vest therapy for pulmonary toileting. Patient does not have any acute infiltrates on chest x-ray to suggest acute pneumonia at this time. No significant leukocytosis is noted, but patient is having elevated eosinophils on presentation. Outpatient pulmonary function testing would be appropriate for quantification and clarification of lung function. 2. History of dengue fever/hyperlipidemia/thoracic AAA/former tobacco use Complicates care, management, recovery and prognosis. Okay to continue with baseline medications. Code Visit Inpatient E AND M: [id number] Init Hosp L2 09/02/18 0542 <Electronically signed by Clayton Salamanca MD> Date Clayton Salamanca MD Cosigner Signature (if applicable): Date CC: Clayton Salamanca MD; Jacinda Blakely III, MD Signed Observed: 09/01/2018 Status: F Source: [place] CULTURE, SPUTUM 11:30 AM [facility] REPOSITORY Gram Stain Acceptable Specimen? Yes (<25 Epithelial cells per/lpf) Gram Stain Rare Epithelial cells Rare White Blood Cells Rare Gram positive cocci Resp. Culture ORGANISM 1: Pseudomonas aeroginosa Amount Growth 3+ Pseudomonas aeroginosa: REACTION Aztreonam $$$ 25 S Pseudomonas aeroginosa: REACTION Amikacin $ 4 S Meropenem $ 1 S (NF) indicates non-formulary drug at [facility]. Approval by Infectious Disease Specialist required before non-formulary drugs may be ordered and/or dispensed. Pseudomonas aeroginosa: REACTION Cefepime $ <=1 S Ceftazidime *NF <=1 S Ciprofloxacin $ <=0.25 S Gentamicin $ <=1 S Imipenem *NF 2 S Levofloxacin $ 0.5 S Piperacillin/Tazobactam $$ <=4 S Tobramycin $ <=1 S (NF) indicates non-formulary drug at [facility]. Approval by Infectious Disease Specialist required before non-formulary drugs may be ordered and/or dispensed. Performed By: #### M100.0800 #### [facility] [address] [place], [address] BASIC METABOLIC Collected: 09/01/2018 Status: F Source: [place] PROFILE ([facility]) 5:46 AM [facility] REPOSITORY TYPE CODE TESTS RESULT OUT OF RANGE REFERENCE UNITS LAB L501.0100 74-106 mg/dL High GLU 191 Result Comment: Fasting Glucose result greater than or equal to 126 mg/dL suggests DIABETES MELLITUS per A.D.A. criteria. Please note revised GLUCOSE reference range effective 2017. LAB L501.1000 7-18 mg/dL High BUN 19 LAB L501.1100 0.70-1.30 mg/dL Normal CREAT,SERUM 1.16 Result Comment: The validity of the calculated GFR AND GFRAA in patients over 70 years has not been determined. Clinical correlation is essential. LAB L501.1110 >60 mL/min Normal EST GFR 67 Result Comment: Non- GFR Calc LAB L501.1115 >60 mL/min Normal EST GFR - AA 81 Result Comment: GFR Calc LAB L501.1255 ml/min Normal Estimated CRCL 75.88 LAB L501.1300 10-20 RATIO Normal BUN/CRE 16.4 LAB L501.2200 8.5-10 mg/dL Low .1 CA 8.4 LAB L501.5300 136-14 mmol/L Normal 5 NA 140 LAB L501.5600 3.5-5. mmol/L Normal 1 K 4.3 LAB L501.5900 98-107 mmol/L Normal CL 106 LAB L501.6100 21.0-3 mmol/L Normal 2.0 CO2 21.0 LAB L501.6200 5-15 Normal GAP 13 Performed By: #### L500.2500 #### [facility] [address] [place], [address] CBC W/DIFF, AUTOMATED Collected: 09/01/2018 Status: F Source: FRANCESCO 5:46 AM [facility] REPOSITORY TYPE CODE TESTS RESULT OUT OF RANGE REFERENCE UNITS LAB L100.1000 4.4-11.0 K/mm3 Normal WBC 6.8 LAB L100.1200 4.6-6.2 M/mm3 Low RBC 4.43 LAB L100.1300 13.0-16.5 g/dl Normal HGB 13.0 LAB L100.1400 40-54 % Low HCT 38.6 LAB L100.1500 80-94 fL Normal MCV 87.1 LAB L100.1600 27.0-32.0 pg Normal MCH 29.3 LAB L100.1700 32-36 g/gl Normal MCHC 33.7 LAB L100.1810 11.6-14.6 % Normal RDW CV 12.9 LAB L100.1820 35.1-43.9 fl Normal RDW SD 41.8 LAB L100.1900 150-450 K/mm3 Low PLT 141 LAB L100.2000 6.2-12.0 fl Normal MPV 10.6 LAB L100.2100 47-70 % High NEUT% 92.4 LAB L100.2200 19-41 % Low LY% 6.6 LAB L100.2300 0-10 % Normal MONO% 0.9 LAB L100.2400 0-5 % Normal EO% 0.1 LAB L100.2500 0-1 % Normal BASO% 0.0 LAB L100.2550 0.0-0.9 % Normal IM GRAN % 0.000 Result Comment: IG% - Immature Granulocytes (promyelocytes, myelocytes and metamyelocytes) > 1% indicates that a LEFT SHIFT is Present. LAB L100.2620 2.0-7.7 X10 3/uL Normal Absolute Neut 6.3 LAB L100.2720 0.83-4.51 X10 3/ul Low Absolute Lymph 0.45 LAB L100.4500 Normal SMEAR COMMENT COMMENT Result Comment: SLIDE SCANNED - LYMPHOPENIA NOTED. Performed By: #### L100.0100 #### [facility] [address] [place], [address] Observed: 08/31/2018 Status: F Source: KUNKLE RESPIRATORY PANEL 10:20 PM [facility] MOLECULAR REPOSITORY RP PANEL RESULTS CALLED TO Terrie OLIVARES 09/01/18 Larisa Davey. REPORT READ BACK BY PRO. Copy of report sent to Infection Control Printer MS#[id number] 09/01/18 1953 ELLI. Normal Reference Range = Not Detected ADENOVIRUS Not Detected HUMAN METAPHNEUMO Not Detected INFLUENZA A Not Detected INFLUENZA A (SUBTYPE H1) Not Detected INFLUENZA A (SUBTYPE H3) Not Detected INFLUENZA B Not Detected PARAINFLUENZA 1 Not Detected PARAINFLUENZA 2 Not Detected PARAINFLUENZA 3 Positive for PARAINFLUENZA 3 by NAAT technology PARAINFLUENZA 4 Not Detected RHINOVIRUS Not Detected RSV A Not Detected RSV B Not Detected NAAT METHOD Testing was performed using nucleic acid amplification ORGANISM 1: PARAINFLUENZA 3 Performed By: #### M100.638 #### [facility] [address] [place], [address] HISTORY AND PHYSICAL Observed: 08/31/2018 Status: F Source: KUNKLE EXAM 8:12 PM [facility] REPOSITORY [facility] Medical Records Department [address] [place] [address] History and Physical 08/31/18 191 MR#: [id number] Acct: [id number] Name: SKYLER MCCLOUD Rep #: [id number] : 1950 67 From: Haley Preciado PCP: Jacinda Blakely III, MD Status: REG ER Y Location: ED Problem List (1) Bronchiectasis Status: Acute Qualifiers: Bronchiectasis type: with acute exacerbation Qualified Code(s): J47.1 - Bronchiectasis with (acute) exacerbation (2) Former tobacco use Status: Chronic (3) Thoracoabdominal aortic aneurysm (TAAA) Status: Chronic Qualifiers: Presence of rupture: without rupture Qualified Code(s): I71.6 - Thoracoabdominal aortic aneurysm, without rupture (4) HLD (hyperlipidemia) Status: Chronic Qualifiers: Hyperlipidemia type: unspecified Qualified Code(s): E78.5 - Hyperlipidemia, unspecified (5) Dengue fever Status: Chronic History of Present Illness Date of Admission: 08/31/18 Chief Complaint: Dyspnea, wheezing, coughing without productive sputum The patient is a 67 y/o M w/ PMHx: Tobacco use (15 pack year), Known Thoracic ascending aortic aneurysm, HLD, history of ED visit 2 weeks prior secondary to dyspnea and productive cough with abx therapies ongoing x 3 months without marked improvement with then placement on oral steroids with CT upon ED evaluation w/ notable bronchiectasis with improvement w/ higher dose taper w/ recent follow-up with Pulmonary Medicine on 08/14/18 w/ planned sputum culture requested w/ planned PFTs in 2-3 weeks to establish baseline with possible need for inhaled corticosteroids with history of living in [place] x 3 years with history of 2 week admission for dengue fever who now presents to the [facility] ED on 08/31/18 with history of progressively worsening dyspnea, inability to take a deep breath with minimally productive cough which began to worsen since last dose of his steroid taper. Markedly worsened over the last 25 hours. He notes the sputum he gave Dr. Salamanca was not marked appearing and he has difficulty bringing anything up. Work-up in the ED included T 97.6, heart rate 96, BP 165/97, respiratory rate 17, 96% on room air, CBC with WBC 7.8, hemoglobin 15.6, platelet 141 without market left shift but noted elevated eosinophils, BMP unremarkable, troponin < 0.015, ENT pending, prior BMP obtained on 08/09/18 was unremarkable, EKG with SR without acute evidence of ischemia, chest x-ray with no acute findings. In the ED patient administered Solu-Medrol, DuoNeb, albuterol as well as normal saline therapies. Past Medical History Past Medical History (Chronic Problems): Chronic Problems (Last Updated 08/12/18 @ 10:23 by Stephie Dai) Former tobacco use (Chronic) Thoracoabdominal aortic aneurysm (TAAA) (Chronic) HLD (hyperlipidemia) (Chronic) Dengue fever (Chronic) Medical History: Medical History (Last Updated 08/12/18 @ 10:23 by Stephie Dai) Diverticulitis (Acute) K57.92 HLD (hyperlipidemia) E78.5 Allergies metoclopramide HCl [From Reglan] Allergy (Verified 08/31/18 17:55) Swelling sumatriptan [From Imitrex] Allergy (Verified 08/31/18 17:55) Shortness of breath sumatriptan succinate [From Imitrex] Allergy (Verified 08/31/18 17:55) Shortness of breath prednisone Adverse Reaction (Verified 08/31/18 17:55) insomnia Home Medications: Ambulatory Orders Medication Instructions Recorded Codeine Phosphate/Guaifenesin 5 - 10 ml PO Q4H PRN PRN #250 ml 08/09/18 [Guaifen-Codeine 100-10 mg/5 ml] Surgical History: Surgical History (Last Updated 08/12/18 @ 10:23 by Stephie Dai) H/O hernia repair Z98.890, Z87.19 age 11 Hx of cardiac cath Z98.890 Dr. Finley 2011 Veins stripped bilateral knee surgery Surgical History: - - R Inguinal hernia repair, cardiac catheterization without intervention, vein stripping, bilateral knee arthroscopic surgery, R eyelid cancer removal. Psychiatric History: No pertinent psych hx Lives: Spouse/ Significant Other Smoking Status: Former smoker - Quit October 2015 with a [id number] history. Tobacco Use: Non-smoker Alcohol: Occasional Drugs: None - *Family History Sibling Family History: Family History (Last Updated 08/12/18 @ 10:24 by Stephie Dai) Sister Lung cancer Father Lung cancer History Items: Cancer - lung Paternal Family History: Family History (Last Updated 08/12/18 @ 10:24 by Stephie Dai) Sister Lung cancer Father Lung cancer History Items: Cancer Maternal Family History: Family History (Last Updated 08/12/18 @ 10:24 by Stephie Dai) Sister Lung cancer Father Lung cancer History Items: - - Mother with history of parkinson's disease. Review of Systems Constitutional: Reports: Anorexia, Malaise, Weakness, Fatigue. Denies: Chills, Fever, Weight Change HEENT: Denies: Head Aches, Sinus Congestion, Sinus Drainage Cardiovascular: Denies: Chest Pain, Palpitations Respiratory: Reports: Cough, Shortness of Breath, Shortness of breath at rest, Shortness of breath upon exertion, Wheezing. Denies: Sputum production Gastrointestinal: Denies: Abdominal Pain, Nausea, Vomiting Genitourinary: Denies: Dysuria Musculoskeletal: Denies: Joint Pain, Joint Tenderness Skin: Denies: Rash, Wounds Neurological: Denies: Numbness, Tingling, Focal weakness Psychiatric: Denies: Anxiety, Depression, Homicidal Ideations, Suicidal Ideations Hematologic/ Lymphatic: Denies: Easy Bruising, Easy Bleeding VTE Information - Inpt Only VTE Present on Admission: No VTE Mechan Device Prophylaxis: SCD's VTE Pharm Prophylaxis ordered?: Yes Subjective: Seated upright in the ED bed, harsh cough ongoing, audible expiratory wheezing noted, fatigued appearance. Objective: Physical Examination: General: awake, alert, oriented x 3 and cooperative, seated upright in ED bed, fatigued appearance, harsh coughing. Skin: normal color, turgor, no icterus, cyanosis. HEENT: AT/NC, EOMI, PERRLA, dry MM, no carotid bruits or JVD noted. Lungs: Diminished BS diffusely, harsh non-productive cough ongoing, increased effort, expiratory wheezing throughout. Heart: Regular rate and rhythm; no gallop, rub audible. Abdomen: soft, NTTP, ND, normal BS, no HSM. Extremities: no cyanosis, clubbing, or edema. Neurological: patient awake, alert, oriented x 3; cognitive function intact; pupils equally reactive to light and accomodation; cranial nerves II-XII grossly normal, moving all 4 extremities, no focal deficits, strength moderately to severely globally decreased secondary to acute presentation. Psychiatric: affect appears fatigued, no acute evidence of depressive or anxiety feelings. - Physical Exam Vital Signs Temp Pulse Resp BP Pulse Ox 97.6 F L 96 17 165/97 H 96 08/31/18 17:39 08/31/18 17:39 08/31/18 17:39 08/31/18 17:39 08/31/18 17:39 Oxygen Delivery Method Room Air Weight: 215 lb Body Mass Index (BMI) 26.9 Laboratory Tests Past 24 Hrs Assessment/Plan All Active Problems (Last Updated 08/12/18 @ 10:23 by Stephie Dai) Bronchiectasis (Acute) Diverticulitis (Acute) The patient is a 67 y/o M w/ PMHx: Tobacco use (15 pack year), Known Thoracic ascending aortic aneurysm, HLD, Dx bronchiectasis [address] chest in the ED secondary to notable URI symptoms w/ recent follow-up with Pulmonary Medicine on 08/14/18 w/ planned sputum culture requested w/ planned PFTs in 2-3 weeks to establish baseline with possible need for inhaled corticosteroids with history of living in [place] x 3 years with history of 2 week admission for dengue fever who now presents to the [facility] ED on 08/31/18 with history of progressively worsening dyspnea, inability to take a deep breath with minimally productive cough which began to worsen since last dose of his steroid taper. Markedly worsened over the last 25 hours. (1) Bronchiectasis with Acute exacerbation w/ Hypoxia: CXR w/ chronic changes, CBC on admission w/ no marked WBC elevation or L shift, increased eosinophils. Will admit to [facility], maintain on oxygen with wean as tolerated to room air, continue ATC duonebs, PRN albuterol, IV methylprednisolone with prednisone transition once appropriate with likely need for prolonged slow taper but defer to pulmonary, HOB, IS parameters, recent pulmonary sputum unremarkable but he notes poor sample thus will repeat sputum cultures, obtain respiratory viral panel. Pulmonary consulted, pending. (2) Elevated BP without diagnosis hypertension: Elevated BP upon ED presentation, will continue to monitor and if remains elevated over the next 24 hours may consider initiation of oral therapy, PRN hydralazine in interim. (3) Thoracic ascending aortic aneurysm: ED evaluation for pulmonary symptoms with noted ascending aortic aneurysm of 3.8 x 4 cm, encourage continued follow-up outpatient. (4) Hyperlipidemia: Continue home statin regimen. (5) Former Tobacco use: Encouraged continued cessation. Planned PFTs outpatient with pulmonary medicine once appropriate. (6) History of Dengue Fever: Lived in [facility] for 3 years, contracted Dengue fever, complicates presentation and may be associated per Dr. Cheikh cdeillo pulmonary note with #1. (7) DVT Prophylaxis: SCDs, lovenox. Code Visit Inpatient E AND M: 96427 Init Hosp L3 08/31/182011 <Electronically signed by Haley Preciado > Date Haley Preciado Cosigner Signature: Date (if applicable) CC: Haley Preciado; Jacinda Blakely III, MD Signed EMERGENCY DEPARTMENT Observed: 08/31/2018 Status: F Source: KUNKLE SUMMARY 7:49 PM [facility] REPOSITORY [facility] Medical Records Department [address] [place] [address] Emergency Department Summary 08/31/18 1817 MR#: [id number] Acct: [id number] Name: SKLYER MCCLOUD Rep #: [id number] : 1950 67 From: Alfredo Carmona MD PCP: Jacinda Blakely III, MD Status: REG ER - ER Visit Summary Date of Service: 08/31/18 Chief Complaint: Shortness of breath History of Present Illness: The patient is a 67 M presents to the emergency department shortness of breath. Patient was seen about 2 weeks ago. He was diagnosed with bronchiectasis. He was placed on antibiotics and steroids. He states he was doing very well. He finishes steroids 10 days ago. He states that over the past few days, his shortness of breath is worsened. He feels like he cannot take a deep breath. He denies any fevers or chills. He denies any productive sputum but has had a scant cough. He is scheduled to see Dr. Salamanca for pulmonary function testing, but had to be rescheduled because he was on prednisone. He does have a remote history of smoking but does not currently smoke. He takes cholesterol medication but has no history of coronary vascular disease. Physical Examination: Vital signs reviewed General: Well-nourished, well-developed Head: Normocephalic, atraumatic Eyes: Pupils equal and reactive, extraocular muscles intact Neck, supple, no lymphadenopathy Heart: Regular rate and rhythm Respiratory: No distress, wheezing in all lung segal Abdomen: Soft, nontender, nondistended, no peritoneal signs Back: Nontender Extremities: Nontender, no edema, no cords Skin: Normal color no rash Neuro: Alert and oriented, no focal or lateralizing deficits Test Results: [] Emergency Department Course and Treatment: The patient presents with worsening shortness of breath. He has wheezing all lung segal. IV was established. He was given Solu-Medrol. His chest x-ray shows no evidence of focal infiltrative process. His labs are unremarkable. Despite multiple nebulized breathing treatments, the patient has persistent bronchospasm and is now requiring supplemental oxygen. He has a recent diagnosis of bronchiectasis and has been following with pulmonology, but despite outpatient therapy has worsened. I do feel that this patient is going to require admission. Patient was discussed with the hospitalist and will be admitted for continued pulmonary care. Treatment Plan: [] Disposition: Admission Impression: 1. Bronchiectasis with bronchospasm 2. Hypoxia requiring supplemental oxygen This note was generated with [employer] dictation software. It may contain incorrect words, spelling, and punctuation that were not noted in review of the chart prior to signing ED Disposition - Plan for ED Patient: Chief Complaint: Shortness of Breath Referrals: Jacinda Blakely III, MD [Primary Care Provider] - What to do if you have Problems For any increased pain, shortness of breath, bleeding, nausea or vomiting, chest pain, or any unexpected problems, contact your Primary Care Provider. Call [facility] ([phone]) or report to the closest Emergency Room. Call 911 if necessary. 08/31/181948 <Electronically signed by Alfredo Carmona MD> Date Alfredo Carmona MD Cosigner Signature (If Indicated): Date CC: Jacinda Blakely III, MD CBC W/DIFF, AUTOMATED Collected: 08/31/2018 Status: F Source: KUNKLE 6:10 PM [facility] REPOSITORY TYPE CODE TESTS RESULT OUT OF RANGE REFERENCE UNITS LAB L100.1000 4.4-11.0 K/mm3 Normal WBC 7.8 LAB L100.1200 4.6-6.2 M/mm3 Normal RBC 5.21 LAB L100.1300 13.0-16.5 g/dl Normal HGB 15.6 LAB L100.1400 40-54 % Normal HCT 45.0 LAB L100.1500 80-94 fL Normal MCV 86.4 LAB L100.1600 27.0-32.0 pg Normal MCH 29.9 LAB L100.1700 32-36 g/gl Normal MCHC 34.7 LAB L100.1810 11.6-14.6 % Normal RDW CV 12.8 LAB L100.1820 35.1-43.9 fl Normal RDW SD 40.6 LAB L100.1900 150-450 K/mm3 Low PLT 141 LAB L100.2000 6.2-12.0 fl Normal MPV 10.3 LAB L100.2100 47-70 % Normal NEUT% 61.0 LAB L100.2200 19-41 % Normal LY% 20.6 LAB L100.2300 0-10 % Normal MONO% 9.4 LAB L100.2400 0-5 % High EO% 8.5 LAB L100.2500 0-1 % Normal BASO% 0.4 LAB L100.2550 0.0-0.9 % Normal IM GRAN % 0.100 Result Comment: IG% - Immature Granulocytes (promyelocytes, myelocytes and metamyelocytes) > 1% indicates that a LEFT SHIFT is Present. LAB L100.2620 2.0-7.7 X10 3/uL Normal Absolute Neut 4.7 LAB L100.2720 0.83-4.51 X10 3/ul Normal Absolute Lymph 1.60 Performed By: #### L100.0100 #### [facility] [address] [place], [place], [address] BASIC METABOLIC Collected: 08/31/2018 Status: F Source: KUNKLE PROFILE (BMP) 6:10 PM [facility] REPOSITORY TYPE CODE TESTS RESULT OUT OF RANGE REFERENCE UNITS LAB L501.0100 74-106 mg/dL Normal GLU 94 Result Comment: Please note revised GLUCOSE reference range effective 2017. LAB L501.1000 7-18 mg/dL Normal BUN 14 LAB L501.1100 0.70-1.30 mg/dL Normal CREAT,SERUM 0.99 Result Comment: The validity of the calculated GFR AND GFRAA in patients over 70 years has not been determined. Clinical correlation is essential. LAB L501.1110 >60 mL/min Normal EST GFR 80 Result Comment: Non- GFR Calc LAB L501.1115 >60 mL/min Normal EST GFR - AA 97 Result Comment: GFR Calc LAB L501.1255 ml/min Normal Estimated CRCL 88.91 LAB L501.1300 10-20 RATIO Normal BUN/CRE 14.1 LAB L501.2200 8.5-10 mg/dL Normal .1 CA 8.6 LAB L501.5300 136-14 mmol/L Normal 5 NA 138 LAB L501.5600 3.5-5. mmol/L Normal 1 K 4.0 LAB L501.5900 98-107 mmol/L Normal CL 106 LAB L501.6100 21.0-3 mmol/L Normal 2.0 CO2 27.0 LAB L501.6200 5-15 Normal GAP 5 Performed By: #### L500.2500, L501.4010 #### [facility] [address] [place], [address] TROPONIN-I Collected: 08/31/2018 Status: F Source: FRANCESCO 6:10 PM [facility] REPOSITORY TYPE CODE TESTS RESULT OUT OF RANGE REFERENCE UNITS LAB L501.4010 <0.045 ng/mL Normal < 0.015 TROPONIN-I Result Comment: TROPONIN-I EXPECTED VALUES <0.045 Negative 0.045 - 0.590 Consistent with Cardiac Damage > OR = 0.600 Critical Value Not every elevated troponin is indicative of CT. These values should be used with clinical judgement in examining the patient's clinical picture for diagnosis. To establish a diagnosis of CT versus myocardial injury, there must be a demonstrated rise and/or fall in the troponin values, in addition to ischemic symptoms, EKG changes, new regional wall motion abnormality, and/or angiographical evidence. PLEASE NOTE: REFERENCE RANGES EDITED 18 Performed By: #### L500.2500, L501.4010 #### [facility] [address] [place], [address] BNP,B-TYPE NATRIURETIC Collected: 08/31/2018 Status: F Source: KUNKLE PEPTIDE 6:10 PM [facility] REPOSITORY TYPE CODE TESTS RESULT OUT OF RANGE REFERENCE UNITS LAB L503.6620 0-100 pg/mL Normal B-TYPE 40.1 MOHINI PEP Performed By: #### L503.6620 #### [facility] [address] [place], [address] MAGNESIUM Collected: 08/31/2018 Status: F Source: FRANCESCO 6:10 PM [facility] REPOSITORY TYPE CODE TESTS RESULT OUT OF RANGE REFERENCE UNITS LAB L501.5200 1.6-2.6 mg/dL Normal MG 2.0 Performed By: #### L501.5200 #### [facility] [address] [place], [address] CHEST PA AND LATERAL Observed: 08/31/2018 Status: F Source: FRANCESCO 5:53 PM [facility] REPOSITORY [facility] Imaging Services [address] [place] [address] Chest PA and Lateral MR#: [id number] Acct: [id number] Name: SKYLER MCCLOUD Rep #: [id number] : 1950 M 67 From: Alyson Kaplan MD PCP: Jacinda Blakely III, MD Status: REG ER Study: Chest PA and Lateral Date of Exam: 08/31/18 Exam# [id number] Ordering Dr: Alfredo Carmona MD STUDY: X-RAY CHEST REASON FOR EXAM: Male, 67 years old. Worsening SOB. TECHNIQUE: PA and lateral chest. COMPARISON: CT chest 08/09/2018. FINDINGS: The lungs are clear and expanded. There is no demonstrated pleural abnormality. Normal size heart. Normal mediastinum and marla. Normal visualized pulmonary arteries. Normal visualized aortic arch and descending thoracic aorta. Normal visualized thoracic spine. Normal visualized ribs, clavicles, and shoulders. There is no demonstrated abnormality of the visualized soft tissue structures of the upper abdomen. RAD/Chest PA and Lateral IMPRESSION: Normal x-ray examination of the chest. Electronically Signed: Alyson Kaplan MD at 19:46 EST Tel , Service support , CC: Jacinda Blakely III, MD; Alfredo Carmona MD Patient Flow Coordinator: Signed PROGRESS Observed: 08/21/2018 Status: COMPLETED Source: TIE SIDING 3:00 PM [facility] REPOSITORY O ID: [id number] Author: Jacinda Blakely III Service: (none) Author Type: Physician Type: Progress Notes Filed: 08/21/2018 4:28 PM Note Text: SUBJECTIVE: This is a 67 year old male that is here today for ER Follow Up. 08/09/18: Reports reviewed. Dx bronchiectasis. Also reviewed Dr Salamanca's pulmonary note. Course of prednisone improved the dyspnea and chest congestion but caused insomnia and mental confusion. He is to get PFTs w/i next few wks. He notes more easily dyspneic with singing, playing harmonica. Still feels some chest tightness. He was able to run 1/2 marathon 3.5 yrs ago, and then developed dengue fever in [place] 3 yrs ago. 2. persistent itching R arm helped by ice 3. more freq. urination, getting worse recently and also nocturia over past 3-4 mos. No FH of prostate cancer. PAST MEDICAL HISTORY Diagnosis Date - Bronchiectasis with acute exacerbation (HCC) - Chronic daily headache 01/16/2011 - Chronic depressive personality disorder - Cluster headache 06/09/2014 - Diverticulosis of colon (without mention of hemorrhage) - Hyperlipidemia 09/08/2014 - Internal hemorrhoids without mention of complication - Other abnormal heart sounds - Other rheumatic heart disease childhood - PMH - PAST MEDICAL HISTORY OF rheumatic fever - PMH - PAST MEDICAL HISTORY OF heart mumur - Tobacco abuse 06/05/2012 Current Outpatient Prescriptions on File Prior to Visit: GUAIFENESIN ORAL Take 200 mg by mouth three times daily. Takes 2 tab q 8 hours. albuterol HFA (PROAIR HFA) 90 mcg/actuation inhaler Inhale 2 Puffs as instructed every 4 hours as needed. cyclobenzaprine (FLEXERIL) 10 mg tablet Take 1 tablet by mouth three times daily as needed for Muscle Spasm. sildenafil (VIAGRA) 50 mg tablet Take 1 tablet by mouth as needed. atorvastatin (LIPITOR) 20 mg tablet Take 1 tablet by mouth once daily. For cholesterol. No current facility-administered medications on file prior to visit. FAMILY HISTORY Problem Relation Age of Onset - Cancer Sister stage 4 lung cancer - Cancer Father lung cancer - Cancer Maternal Grandfather lung cancer/black lung - Cancer Paternal Grandfather lung cancer Social History Substance Use Topics - Smoking status: Former Smoker Packs/day: 0.50 Years: 5.00 Types: Cigarettes Quit date: 12/01/2016 - Smokeless tobacco: Never Used Comment: Quit May 2012 - Alcohol use Yes Comment: very rare beer BP 143/90 (BP Site: Right Arm, BP Position: Sitting, BP Cuff Size: Regular Adult) Pulse 82 Temp 36.9 ?C (98.5 ?F) (Tympanic) Resp 16 Wt 97.5 kg (215 lb) SpO2 95% BMI 27.89 kg/m? OBJECTIVE: APPEARANCE Well appearing, alert, in no acute distress, well-hydrated, well nourished. Mildly anxious NECK Supple, no adenopathy; thyroid symmetric, normal size, no bruits HEART RRR with normal S1 and S2, no murmurs, no gallops, no JVD appreciated LUNG clear to auscultation ABDOMEN bowel sounds normoactive, no bruits, soft, non-tender, non-distended, without organomegaly or palpable masses, no tenderness to palpation RECTAL Anus normal, no anorectal masses, Prostate normal size, consistency, no nodules, and no tenderness ASSESSMENT: bronchiectasis--improving symptoms increased urinary frequency--?due to stress? PLAN: healthy diet and progress activity as able same medications keep appointment with Dr Salamanca as appointed 30 min visit--reviewed records, Answered all questions SANJAY Zamora MD, III MD CNOV Observed: 08/21/2018 Status: COMPLETED Source: [place] 2:[address] [facility] REPOSITORY [facility] SKYLER MCCLOUD ([id number]) 1950 M NFR Date Time Provider Department 08/21/18 2:40 PM JACINDA BLAKELY III During your visit today, we recorded the following information about you: Temperature Pulse Respiration Blood pressure 98.5 degrees 82/minute 16/minute 143/90 Weight 97.5 kg Jacinda Blakely III MD 08/21/2018 4:28 PM Signed SUBJECTIVE: This is a 67 year old male that is here today for ER Follow Up. 08/09/18: Reports reviewed. Dx bronchiectasis. Also reviewed Dr Salamanca's pulmonary note. Course of prednisone improved the dyspnea and chest congestion but caused insomnia and mental confusion. He is to get PFTs w/i next few wks. He notes more easily dyspneic with singing, playing harmonica. Still feels some chest tightness. He was able to run 1/2 marathon 3.5 yrs ago, and then developed dengue fever in [place] 3 yrs ago. 2. persistent itching R arm helped by ice 3. more freq. urination, getting worse recently and also nocturia over past 3-4 mos. No FH of prostate cancer. PAST MEDICAL HISTORY Diagnosis Date - Bronchiectasis with acute exacerbation (HCC) - Chronic daily headache 01/16/2011 - Chronic depressive personality disorder - Cluster headache 06/09/2014 - Diverticulosis of colon (without mention of hemorrhage) - Hyperlipidemia 09/08/2014 - Internal hemorrhoids without mention of complication - Other abnormal heart sounds - Other rheumatic heart disease childhood - PMH - PAST MEDICAL HISTORY OF rheumatic fever - PMH - PAST MEDICAL HISTORY OF heart mumur - Tobacco abuse 06/05/2012 Current Outpatient Prescriptions on File Prior to Visit: GUAIFENESIN ORAL Take 200 mg by mouth three times daily. Takes 2 tab q 8 hours. albuterol HFA (PROAIR HFA) 90 mcg/actuation inhaler Inhale 2 Puffs as instructed every 4 hours as needed. cyclobenzaprine (FLEXERIL) 10 mg tablet Take 1 tablet by mouth three times daily as needed for Muscle Spasm. sildenafil (VIAGRA) 50 mg tablet Take 1 tablet by mouth as needed. atorvastatin (LIPITOR) 20 mg tablet Take 1 tablet by mouth once daily. For cholesterol. No current facility-administered medications on file prior to visit. FAMILY HISTORY Problem Relation Age of Onset - Cancer Sister stage 4 lung cancer - Cancer Father lung cancer - Cancer Maternal Grandfather lung cancer/black lung - Cancer Paternal Grandfather lung cancer Social History Substance Use Topics - Smoking status: Former Smoker Packs/day: 0.50 Years: 5.00 Types: Cigarettes Quit date: 12/01/2016 - Smokeless tobacco: Never Used Comment: Quit May 2012 - Alcohol use Yes Comment: very rare beer BP 143/90 (BP Site: Right Arm, BP Position: Sitting, BP Cuff Size: Regular Adult) Pulse 82 Temp 36.9 ?C (98.5 ?F) (Tympanic) Resp 16 Wt 97.5 kg (215 lb) SpO2 95% BMI 27.89 kg/m? OBJECTIVE: APPEARANCE Well appearing, alert, in no acute distress, well- hydrated, well nourished. Mildly anxious NECK Supple, no adenopathy; thyroid symmetric, normal size, no bruits HEART RRR with normal S1 and S2, no murmurs, no gallops, no JVD appreciated LUNG clear to auscultation ABDOMEN bowel sounds normoactive, no bruits, soft, non-tender, non-distended, without organomegaly or palpable masses, no tenderness to palpation RECTAL Anus normal, no anorectal masses, Prostate normal size, consistency, no nodules, and no tenderness ASSESSMENT: bronchiectasis--improving symptoms increased urinary frequency--?due to stress? PLAN: healthy diet and progress activity as able same medications keep appointment with Dr Salamanca as appointed 30 min visit--reviewed records, Answered all questions SANJAY Zamora MD, III MD Frank A Cebul, III MD 08/21/2018 3:25 PM Signed PLAN: healthy diet and progress activity as able same medications keep appointment with Dr Salamanca as appointed Jacinda Blakely III MD Referring Provider: SELF [200] Allergies As of Date: 08/21/2018 Noted Allergy Reaction PREDNISONE 04/16/2006 5 - Intolerance Comments: irritable Date Reviewed: 08/21/2018 Reviewed by: Evelin Boswell Coin Machine Service Repairer - Fully Assessed Reason for Visit: ER F/U [41] Cmt: [facility]- ER F/U Cough and some SOB Primary Visit Diagnosis:Bronchiectasis with acute exacerbation (HCC) [J47.1] Other Visit Diagnoses:Polyuria [R35.8] Depression, unspecified depression type [F32.9] Chronic insomnia [F51.04] Order(s):traZODone (DESYREL) 100 mg tabletTake 1 tablet by mouth daily at bedtime.Disp: 30 tabletRfl: 11 codeine-guaiFENesin (GUAIFENESIN AC) 10-100 mg/5 mL syrupTake 5 mL by mouth four times daily as needed for Cough for up to 7 days.Disp: 240 mLRfl: 0 Prescriptions as of 08/21/2018 Sig: PREDNISONE 10 MG TABLET DAILY GUAIFENESIN ORAL Take 200 mg by mouth three ti* ALBUTEROL SULFATE HFA 90 MCG/* Inhale 2 Puffs as instructed * CYCLOBENZAPRINE 10 MG TABLET Take 1 tablet by mouth three * SILDENAFIL 50 MG TABLET Take 1 tablet by mouth as nee* ATORVASTATIN 20 MG TABLET Take 1 tablet by mouth once d* TRAZODONE 100 MG TABLET Take 1 tablet by mouth daily * CODEINE 10 MG-GUAIFENESIN 100* Take 5 mL by mouth four times* Problem List As Of Date 08/21/2018 Noted Resolved Anxiety state [F41.1] INVALID FOR*10/31/2017 Sterilization [Z30.2] INVALID FOR*03/31/2014 Adjustment disorder with depressed mood [F43.21]INVALID FOR*10/31/2017 Phlebitis and thrombophlebitis of superficial v*INVALID FOR*03/31/2014 Varicose veins of lower extremities with other *INVALID FOR*10/31/2017 Chronic daily headache [R51] INVALID FOR*10/31/2017 More... Tobacco abuse [Z72.0] INVALID FOR*10/31/2017 Cluster headache [G44.009] INVALID FOR* Hyperlipidemia [E78.5] INVALID FOR* Vitamin D deficiency [E55.9] INVALID FOR*10/16/2017 Bronchiectasis with acute exacerbation (HCC) [J*INVALID FOR* Depression [F32.9] INVALID FOR* Chronic insomnia [F51.04] INVALID FOR* Other instructions from your clinician: PLAN: healthy diet and progress activity as able same medications keep appointment with Dr Salamanca as appointed Jacinda Blakely III MD Prescriptions ordered this encounter Disp Refills Start End TRAZODONE 100 MG TABLET 30 t* 11 08/21/2018 Route: ORAL Sig: Take 1 tablet by mouth daily at bedtime. CODEINE 10 MG-GUAIFENESIN 100 MG/5 M* 240 * 0 08/21/2018 08/28/2018 Class: Print RX Route: ORAL Sig: Take 5 mL by mouth four times daily as needed for Cough for up to 7 days. Medications Discontinued During This Encounter traZODone (DESYREL) 100 mg tablet 08/09/2018 08/21/2018 Class: Historical Med Sig: AT BEDTIME Disc: Duplicate Entry codeine-guaiFENesin (ROBITUSSIN AC) * 08/09/2018 08/21/2018 Class: Historical Med Sig: EVERY 4 HOURS NEEDED PRN For Cough Disc: Duplicate Entry codeine-guaiFENesin (ROBITUSSIN AC) * 120 * 0 08/06/2018 08/21/2018 Class: Print RX Route: ORAL Sig: Take 5-10 mL by mouth four times daily as needed for Cough for up to 7 days. May cause drowsiness. Disc: Reason for discontinue is not on file. Encounter Status:Closed by JACINDA BLAKELY III, MD on 08/21/18 Observed: 08/13/2018 Status: F Source: [place] CULTURE, SPUTUM 10:08 AM [facility] REPOSITORY Gram Stain Acceptable Specimen? Yes (<25 Epithelial cells per/lpf) Gram Stain 3+ Gram positive cocci No White Blood Cells No Epithelial cells Resp. Culture Mixed normal respiratory zena. No Haemophilus, Streptococcus pneumoniae, beta-hemolytic Streptococcus or Staphylococcus aureus isolated. Performed By: #### [id number] #### [facility] [address] [place], [place], [id number] PULMONARY VISIT REPORT Observed: 08/12/2018 Status: F Source: [place] 11:19 AM [facility] REPOSITORY [facility] [address] [place], [place] [address] OFFICE VISIT Date of Service: 08/12/18 MR#: [id number] Acct: [id number] Name: SKYLER MCCLOUD Rep #: [id number] : 1950 Provider: Clayton Salamanca MD Age/Sex: 67/M Location: [facility] Status: Signed Assessment AND Plan Problems 1. Bronchiectasis with acute exacerbation J47.1 Plan Patient with bronchiectasis noted in all major lobes. Patient does not report any frequent infections that would be consistent with immune deficiency. Will hold off on obtaining IgG's and other immunologic workup. Patient is on appropriate prednisone burst at this time. Will obtain a sputum culture to examine for possible resistant organisms. Patient should get a pulmonary function test in the next 2-3 weeks to establish a baseline and quantification and clarification of lung function. Patient may need to be placed on an inhaled corticosteroid if symptoms persist. Clinical suspicion for onset secondary to dengue fever. Obtain complete PFT and sputum culture. Follow-up in 1 month with nurse practitioner. Orders Orders: Medications New: Plan Detail Follow Up 1 Month ([facility]) [facility] f/u: Chief Complaint: Recent ER visit Details: This 67-year-old male, currently under the care of Dr. Blakely, who presents for evaluation secondary to recent ER visit. Patient reports that he presented to the emergency room on Saturday secondary to shortness of breath and productive cough. Patient had been placed on antibiotics for the last 3 months without significant improvement. Patient had had issues tolerating steroids in the past, so was placed only on 10 mg. At the ER, patient had a CT scan looking for PE, but this showed only bronchiectasis. Patient was placed on a prednisone taper and then told to follow-up with us. Since being on 40 mg of prednisone, patient reports significant improvement in overall condition. Patient believes his breathing is almost back down to normal, but states that he feels funny on the prednisone therapy. Patient does report some insomnia, but states he is tolerating it better than he thought he would. Patient reports no history of recurrent infections in the past. Patient does have a history of a [id number]-[id number] smoking history. Patient denies any exposures to asbestos or tuberculosis, but states he lived in [facility] for 3 years. Patient states during this time he was admitted for 12 days in the hospital with dengue fever. Patient has never had pulmonary function test previously. Patient does not use inhalers at baseline. 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 Patient denies any occupational or exposures secondary to hobbies. Patient reports that he ran a half marathon approximately 3 years ago. Patient admits that he is not exercising as much, but does not feel that he has been losing any lung function. Documentation reviewed 14 pages of documentation were reviewed from patient's presentation was to [facility] on 08/09/2018. Patient had presented to the emergency room complaining of persistent cough, shortness of breath and insomnia. Patient had received prednisone therapy at 10 mg previously. Patient had a CT scan in the ER showing significant bronchiectasis, but was saturating 97% on room air with a WBC count of 8.2 hemoglobin of 16.5. There was noted thoracic ascending aortic aneurysm of 3.8 x 4 cm Imaging personally reviewed with the patient CT chest (08/09/2018): Diffuse bronchiectasis with some intraluminal defect, likely sputum. Thoracic aneurysm appreciated. HPI Comments Details: Intake Vital Signs08/12/18 Height 6 ft 3 in 08/12/18 Weight: 99.337 kg Intake Visit Reasons: hospital f/u Supervisor [employer] Required: No Accompanied by: Self Is patient in pain?: No Allergies metoclopramide HCl [From Reglan] Allergy (Verified 08/12/18 07:30) Swelling sumatriptan [From Imitrex] Allergy (Verified 08/12/18 07:30) Shortness of breath sumatriptan succinate [From Imitrex] Allergy (Verified 08/12/18 07:30) Shortness of breath prednisone Adverse Reaction (Verified 08/12/18 07:30) Other Medications Metoclopramide [Reglan] 10 mg PO TID PRN #30 tab 06/06/14 [Rx Confirmed 08/12/18] Hydrocodone Bitart/Apap 5-325 [[place] 5MG-325MG] 1 tab PO Q4H PRN PRN #10 tab 01/30/15 [Rx Confirmed 08/12/18] Codeine Phosphate/Guaifenesin [Guaifen-Codeine 100-10 mg/5 ml] 5 - 10 ml PO Q4H PRN PRN #250 ml 08/09/18 [Rx Confirmed 08/12/18] Prednisone 10 mg PO DAILY #30 tab 08/09/18 [Rx Confirmed 08/12/18] traZODone [Desyrel] 100 mg PO QHS #14 tab 08/09/18 [Rx Confirmed 08/12/18] atorvastatin 10 mg tablet 10 mg PO DAILY 08/12/18 [History Confirmed 08/12/18] PFSH Medical History Diverticulitis (Acute) HLD (hyperlipidemia) (Chronic) Surgical History H/O hernia repair (Resolved) Hx of cardiac cath (Resolved) Veins stripped (Resolved) bilateral knee surgery (Resolved) Family History Sister Lung cancer Father Lung cancer Social History Smoking Status: Former smoker quit date: 10/07/15 pack-years: 15 alcohol intake: current alcohol intake frequency: holidays/special occasions only substance use type: does not use Review of Systems Const CONSTITUTIONAL: Positive fatigue; negative anorexia, body ache, chills, daytime sleepiness, fever(s), night sweats, oral thrush, stops breathing during sleep, weight loss, sleeping in chair, weight loss, weight gain, frequent colds, seasonal allergies, other, headache(s) or orthopnea EETM Ear Nose Throat Mouth: Positive hoarseness and hearing normal; negative dry mouth in morning, change in vision, itchy eyes, eye pain, swallowing Difficulty, ear pain, headache(s), mouth pain, nasal congestion, nasal discharge, sinus pain, sinus pressure, sore throat, other, hard of hearing, nose bleed or post nasal drip Cardio Cardiovascular: Negative chest pain, chest pain at rest, chest pain with activity, irregular heart rhythm, edema, shortness of breath when lying down, palpitations, other or murmur Resp Respiratory: Positive as per HPI, shortness of breath, wheezing, chest congestion and cough cough: Positive productive color: Positive green; negative pain with cough, chest tightness, pain on inspiration, inhalers, increase use of rescue inhalers, snoring, apnea or other Gastro Gastrointestional: Negative bloody stools, change in appetite, difficulty swallowing, reflux, hematemesis, melena stool, loose stool, constipation or other Genitourinary: Negative blood in urine, nocturia, pain with urination or other Musc Musculoskeletal: Negative body pain, back pain, neck pain or other Skin/Breast Skin/Breast: Negative dry skin, itching, unusual bruising, breast lump, other or rash Neuro Neurological: Negative restless legs, confusion, weakness or other Psych Psychocological: Negative abnormal sleep pattern, anxiety, thoughts of hurting self/others, hopelessness or other Lymph Lymphatic: Negative easy bleeding, easy bruising, other or swollen lymph nodes Exam Const Constitutional: Positive conversant, cooperative, in no acute respiratory distress, healthy appearing, well developed, well nourished and good hygiene; negative wearing supplemental oxygen, frail appearing, smells of smoke or appears older than stated age Head Head: Positive normocephalic and atraumatic; negative cyanosis of lips/distal nose, frontal sinus tenderness or maxillary sinus tenderness Eyes Eye: Positive clear conjunctiva; negative nystagmus, scleral abnormality or cataract present Ears Ear: Positive hearing normal and external ears normal; negative hard of hearing Nose Nose: Positive external nose normal, septum normal and no nasal discharge; negative epistaxis or nasal polyp Mouth Mouth: Positive oral mucosae normal, no lesions and posterior oropharynx is adequate; negative post nasal drip, malodorous breath or oral thrush present Mallampati Score: II: Mallampati Score Neck Neck: Positive normal visual inspection, full ROM and trachea midline; negative lymphadenopathy or JVD Chest Wall Chest: Positive normal inspection of the chest and symmetric chest movement; negative crepitus or tenderness Resp lung sounds: Positive clear to auscultation, normal expiratory time, diminished and normal respiratory effort; negative wheezes, rhonchi, rales, use of accessory muscles, wheeze present on forced exhalation or dullness to percussion Cardio Cardiac: Positive regular rate, regular rhythm, S2 normal and S1 normal; negative murmur, rub or gallop GI GI: Positive normal to inspection and normal bowel sounds; negative distended, ascites or epigastric tenderness Genitourinary: Positive deferred Musc Musculoskeletal: Positive steady gait; negative using an assistive device for ambulation, kyphosis or scoliosis Skin Pulmonary Skin Exam: Positive intact and dermal atrophy; negative rash, lesion, ulcers or erythema Pulses Pulse: Yes radial pulses present Extremities Extremities: Yes capillary refill normal, No clubbing, No cyanosis, No edema, No stasis dermatitis Neuro Neurologic: Yes conversant, Yes no focal neuro deficits, Yes normal concentration, Yes understands questions, Yes cooperative, Yes normal cognition, Yes normal coordination Lymph Lymphatic: No lymphadenopathy Psych Appearance: Positive grossly normal Mental Status: Positive mental status grossly normal Mood: Positive congruent mood Affect: Positive normal affect Coding Level of Care Code Off vis,new,level 4 Diagnoses Bronchiectasis with acute exacerbation J47.1 Bronchiectasis type: with acute exacerbation 08/12/18 1119 <Electronically signed by Clayton Salmaanca MD> Date Clayton Salamanca MD Cosigner Signature: Date (if applicable) CC: Jacinda Blakely III, MD EMERGENCY DEPARTMENT Observed: 08/11/2018 Status: F Source: KUNKLE SUMMARY 5:38 PM [facility] REPOSITORY [facility] Medical Records Department [address] [place] [address] Emergency Department Summary 08/09/18 1154 MR#: [id number] Acct: [id number] Name: SKYLER MCCLOUD Rep #: [id number] : 1950 67 From: Kya Scruggs DO PCP: Jacinda Blakely III, MD Status: DEP ER - ER Visit Summary Date of Service: 08/09/18 Chief Complaint: [Burtness of breath] History of Present Illness: The patient is a 67 M [presents the emergency department complaint of shortness of breath that started 2 months ago. Patient has been on several rounds of antibiotics. Patient denies any chest pain. He does complain of a cough with wheezing. Patient's seen primary care physician and has ordered CT scan for next week of the chest. Patient is not had a fever. He denies recent travel. Patient does describe exertional dyspnea. Patient states that he had a heart catheterization in 2012 that was unremarkable. Patient states that he has not slept in the last 3 nights as he wakes up feeling very short of breath. Patient thinks he is gained about 15 pounds in the last month. He denies any leg swelling. Patient denies any hemoptysis.] Physical Examination: [HEENT-PERRLA, EOMI. Cranial nerves II through XII grossly intact. TMs clear. Mucous membranes moist. No adenopathy. Cardiovascular-regular rate and rhythm without murmur or ectopy Lungs-breath sounds bilaterally. Patient does have expiratory wheezes bilaterally. Patient has some mild tachypnea. No accessory muscle use or retractions. Abdomen-normoactive bowel sounds, soft, nontender, no rebound or rigidity, no peritoneal signs. Extremities-intact 4, normal range of motion, normal pulses, atraumatic]. No edema. Test Results: [EKG obtained arrival shows sinus rhythm with a ventricular rate of 80 bpm with a prolonged QT. CBC with differential showing of 8.2, hemoglobin 16, hematocrit 48, platelets 167. Chemistries unremarkable. LFTs were normal. Troponin was 0.015. BNP was 15.9. CTA of the chest obtained showed aneurysmal dilatation of the aorta with no evidence of dissection. There is no evidence of PE. Patient had abnormal lung findings and cannot rule out atypical infiltrates versus bronchopulmonary aspergillosis versus possible Mycobacterium versus bronchiolitis obliterans. Patient had an Endobag bronchial lesion tumor is thought to be less likely but should be followed accordingly and they recommended obtaining bronchoscopy.] Emergency Department Course and Treatment: [Patient received DuoNeb and albuterol in the emergency department was started on prednisone 20 mg p.o. Patient was started on Zosyn 4.5 g IV.] Treatment Plan: [Admit] Disposition: [Admit] Impression: [Dyspnea- COPD exacerbation versus asthmatic bronchitis versus asthma.] This note was generated with [employer] dictation software. It may contain incorrect words, spelling, and punctuation that were not noted in review of the chart prior to signing ED Disposition - Plan for ED Patient: Chief Complaint: Shortness of Breath Referrals: Jacinda Blakely III, MD [Primary Care Provider] - What to do if you have Problems For any increased pain, shortness of breath, bleeding, nausea or vomiting, chest pain, or any unexpected problems, contact your Primary Care Provider. Call [facility] ([phone]) or report to the closest Emergency Room. Call 911 if necessary. 08/11/18 1738 <Electronically signed by Kya Scruggs DO> Date Kya Scruggs DO Cosigner Signature (If Indicated): Date CC: Jacinda Blakely III, MD 12 LEAD ELECTROCARDIOGRAM Observed: 08/11/2018 Status: F Source: KUNKLE 3:26 PM [facility] REPOSITORY [facility] Cardiovascular Services [address] [place] [id number] 12 Lead EKG 08/09/18 0933 MR#: [id number] Acct: [id number] Name: SKYLER MCCLOUD Rep #: [id number] : 1950 67 From: Rex Finley MD Attending Dr: Status: DEP ER Ordering Dr: Kya Scruggs DO Date: 08/09/18 Location: ED Sex: M C Admitted: Test Reason : SOB Blood Pressure : / mmHG Vent. Rate : 080 BPM Atrial Rate : 080 BPM P-R Int : 136 ms QRS Dur : 080 ms QT Int : 420 ms P-R-T Axes : 073 059 070 degrees QTc Int : 484 ms Normal sinus rhythm Prolonged QT Abnormal ECG Confirmed by REX FINLEY MD ([id number]), health editor JUAN BILLY ([id number]) on 08/11/2018 3:25:50 PM Referred By: DEBORAH Confirmed By:REX FINLEY MD 08/11/18 1525 Date Rex Finley MD CC: Jacinda Blakely III, MD; Kya Scruggs DO Signed CONSULTATION Observed: 08/09/2018 Status: F Source: [place] 12:51 PM [facility] REPOSITORY [facility] Medical Records Department [address] [place] [address] Consultation 08/09/18 1238 MR#: [id number] Acct: [id number] Name: SKYLER MCCLOUD Rep #: [id number] : 1950 67 From: Bull Armando DO PCP: Jacinda Blakely III, MD Status: REG ER Y Location: ED Problem List (1) Bronchiectasis Status: Acute Qualifiers: Bronchiectasis type: with acute exacerbation Qualified Code(s): J47.1 - Bronchiectasis with (acute) exacerbation Reason for Consult Date of Consultation: 08/09/18 Reason for Consultation: cough. shortness of breath. insomnia. History of Present Illness: The patient is a 67 year old M who presents to the emergency room for persistent cough, shortness of breath and insomnia associated to above. Patient has seen his primary care provider and received rounds of prednisone, only 10 mg at a time as well as cefadroxil and. Patient has not gotten better overall over this time and I sought attention in the emergency room. Patient presented to the emergency room and his vital signs were stable and had new leukocytosis. He did undergo a CT of the chest that showed numerous abnormalities. The hospitalist service was contacted for admission for possible COPD exacerbation. [] Past Medical History Allergies metoclopramide HCl [From Reglan] Allergy (Verified 08/09/18 09:24) Swelling sumatriptan [From Imitrex] Allergy (Verified 08/09/18 09:24) Shortness of breath sumatriptan succinate [From Imitrex] Allergy (Verified 08/09/18 09:24) Shortness of breath prednisone Adverse Reaction (Verified 08/09/18 09:24) Other Home Medications: Ambulatory Orders Medication Instructions Recorded Metoclopramide [Reglan] 10 mg PO TID PRN #30 tablet 06/06/14 Hydrocodone Bitart/Apap 5-325 1 tablet PO Q4H PRN PRN #10 tablet 01/30/15 Psychiatric History: No pertinent psych hx Lives: Spouse/ Significant Other Smoking Status: Former smoker Tobacco Use: Non-smoker Alcohol: None Drugs: None - *Family History Sibling History Items: Cancer - lung Review of Systems Constitutional: Denies: Anorexia, Chills, Fever Eyes: Denies: Blurred vision, Double vision HEENT: Denies: Head Aches, Sinus Congestion, Sinus Drainage Cardiovascular: Denies: Chest Pain, Palpitations Respiratory: Reports: Cough, Wheezing. Denies: Shortness of breath at rest, Sputum production Gastrointestinal: Denies: Abdominal Pain, Nausea, Vomiting Genitourinary: Denies: Dysuria Musculoskeletal: Denies: Joint Pain, Joint Tenderness Skin: Reports: Dryness, Rash Neurological: Denies: Numbness, Tingling, Focal weakness Psychiatric: Denies: Anxiety, Depression Endocrine: Reports: Change in Body Habitus - has gain 20+ pounds over the past several months.. Denies: Heat/ Cold Intolerance Hematologic/ Lymphatic: Denies: Easy Bruising, Easy Bleeding, Hx of blood clot Comment: A 10 point review of systems were negative except as mentioned in the history of present illness and the other review of systems. Patient Problems: Active and Suspected Problems Bronchiectasis (Acute) - Physical Exam General: Alert, Cooperative, No apparent distress, - - No respiratory distress. No conversational dyspnea. HEENT: Atraumatic, Normocephalic, - - No scleral icterus Oral: Moist Mucosa, No Gingival or Mucosal Lesions/ Ulcerations Neck: No Nodes, Thyroid Normal Size and Texture Lungs: Normal air movement, Wheezes Cardiovascular: Regular rate, Regular Rhythm, Normal S1, Normal S2, No murmurs Abdomen: Bowel Sounds Present, Soft, Non Tender, Non-Distended, No Hepato-splenomegaly Extremities: No edema, No Calf Tenderness Skin: No rashes, No breakdown Musculoskeletal: No Tenderness to Palpation of Joints or Extremities, No Muscle Wasting Neurological: - - No clonus. Lower extremity DTRs are intact. Psych/Mental Status: Normal Affect, Appropriate Vital Signs Temp Pulse Resp BP Pulse Ox 36.9 C 87 20 H 151/95 H 97 08/09/18 09:22 08/09/18 12:05 08/09/18 12:05 08/09/18 09:22 08/09/18 12:05 Oxygen Delivery Method Room Air Weight: 98.157 kg Body Mass Index (BMI) 27.0 Laboratory Tests Past 24 Hrs WBC 8.2 RBC 5.48 Hgb 16.5 Hct 47.8 MCV 87.2 MCH 30.1 MCHC 34.5 RDW 12.8 WBC RBC Hgb Hct MCV MCH MCHC RDW RDW Differential Clinical Impression(s) from Imaging Studies Chest CTA 08/09/18 09:37 IMPRESSION: Portable and aneurysmal dilatation of the ascending thoracic aorta. Mild aneurysmal dilatation of the descending thoracic aorta. Mild aneurysmal dilatation of the suprarenal abdominal aorta. No visualized pulmonary embolism Visualized pulmonary bronchial abnormality consistent with visualized areas in the right than left lung of bronchial wall thickening. On one image there is a small soft tissue density within the right upper lobe small bronchial airways. Findings are suspicious for inflammatory etiologies possible infectious etiology such as Atypical infiltrates, allergic bronchopulmonary aspergillosis, potentially Mycobacterium avium intracellular, given the apparent air trapping in the right greater than left lung bases could potentially consider bronchiolitis obliterans. An endobronchial tumor is thought to be less likely but should be followed accordingly. Recommend consideration for bronchoscopy. Electronically Signed: Denisse Watts MD at 11:23 EDT Tel , Service support , Assessment/Plan All Active Problems Bronchiectasis (Acute) Diverticulitis (Acute) 1. Acute exacerbation of bronchiectasis * I reviewed the Cheikh who did not feel that the patient had findings that were mentioned in the body of the report from radiology but felt that the patient had more diffuse bronchiectasis which would explain the patient's symptoms. * As patient is afebrile and not septic, patient does not need to be admitted or be placed on additional antibiotics * Dr. Salamanca did feel the patient would benefit from steroids and follow-up in their clinic as outpatient * Patient is very apprehensive about steroids at the states that he gets very jittery with steroids. Explained to him that that is a common side effect of that. He is also concerned about his insomnia which is that he is just short of breath and wheezing. I did try to bashir some of his concerns with insomnia and see that we can try trazodone to help him sleep at night. Seems also that part of his recent was not sleeping as he is coughing and that patient to continue with the guaifenesin and codeine cough syrup. I did asked patient if he did have a hallucinations or bizarre behavior with the prednisone and it seems to me that some of what he was seeing what may be more associated him just being profoundly sleep deprived rather than direct because of the steroids themselves. Therefore I do not feel the patient had exhibited steroid-induced psychosis. I discussed about the potential for using Medrol but I fear that it would be more of a class effect in regards to steroids and more anxious and jittery with the steroids. Patient was in agreement to use steroids as well as a sleep aid with would be trazodone, while he is on steroids. 2. Thoracic ascending aortic aneurysm * Incidental finding * Measures 3.8 x 4 cm * Recommend repeat CT imaging in 6 months to ensure stability and if stable then annually thereafter Discharge home. Case discussed with Drs. Salamanca and Christiano. Code Visit Office Visits / Consults: [id number] OP Consult L5 08/09/18 1251 <Electronically signed by Bull Armando DO> Date Bull Armando DO Cosigner Signature (if applicable): Date CC: Clayton Salamanca MD; Jacinda Blakely III, MD Signed EMERGENCY DEPARTMENT Observed: 08/09/2018 Status: F Source: KUNKLE SUMMARY 12:37 PM [facility] REPOSITORY [facility] Medical Records Department [address] [place] [address] Emergency Department Summary 08/09/18 1236 MR#: [id number] Acct: [id number] Name: SKYLER MCCLOUD Rep #: [id number] : 1950 67 From: Bull Armando DO PCP: Jacinda Blakely III, MD Status: REG ER - ER Visit Summary Date of Service: 08/09/18 Chief Complaint: [] History of Present Illness: The patient is a 67 M [] Physical Examination: [] Test Results: [] Emergency Department Course and Treatment: [] Treatment Plan: [] Disposition: [] Impression: [] This note was generated with GetPriceation software. It may contain incorrect words, spelling, and punctuation that were not noted in review of the chart prior to signing ED Disposition - Plan for ED Patient: Disposition: Home or Assisted Living Chief Complaint: Shortness of Breath Diagnosis: Bronchiectasis Prescriptions: Albuterol Inhaler [Ventolin Hfa] 1 - 2 puff INHALATION Q4H PRN PRN 1 Days #1 inhaler PRN Reason: Shortness Of Breath Codeine Phosphate/Guaifenesin [Guaifen-Codeine 100-10 mg/5 ml] 5 - 10 ml PO Q4H PRN PRN #250 ml PRN Reason: Cough Prednisone 10 mg PO DAILY #30 tablet traZODone [Desyrel] 100 mg PO QHS #14 tablet Referrals: Jacinda Blakely III, MD [Primary Care Provider] - Clayton Salamanca MD [STAFF PHYSICIAN] - 1-2 Weeks What to do if you have Problems For any increased pain, shortness of breath, bleeding, nausea or vomiting, chest pain, or any unexpected problems, contact your Primary Care Provider. Call [facility] ([phone]) or report to the closest Emergency Room. Call 911 if necessary. 08/09/18 1237 <Electronically signed by Bull Armando DO> Date Bull Armando DO Cosigner Signature (If Indicated): Date CC: Jacinda Blakely III, MD CBC W/DIFF, AUTOMATED Collected: 08/09/2018 Status: F Source: [place] 9:40 AM [facility] REPOSITORY TYPE CODE TESTS RESULT OUT OF RANGE REFERENCE UNITS LAB L100.1000 4.4-11.0 K/mm3 Normal WBC 8.2 LAB L100.1200 4.6-6.2 M/mm3 Normal RBC 5.48 LAB L100.1300 13.0-16.5 g/dl Normal HGB 16.5 LAB L100.1400 40-54 % Normal HCT 47.8 LAB L100.1500 80-94 fL Normal MCV 87.2 LAB L100.1600 27.0-32.0 pg Normal MCH 30.1 LAB L100.1700 32-36 g/gl Normal MCHC 34.5 LAB L100.1810 11.6-14.6 % Normal RDW CV 12.8 LAB L100.1820 35.1-43.9 fl Normal RDW SD 41.0 LAB L100.1900 150-450 K/mm3 Normal PLT 167 LAB L100.2000 6.2-12.0 fl Normal MPV 10.6 LAB L100.2100 47-70 % Normal NEUT% 52.6 LAB L100.2200 19-41 % Normal LY% 29.7 LAB L100.2300 0-10 % Normal MONO% 7.1 LAB L100.2400 0-5 % High EO% 9.9 LAB L100.2500 0-1 % Normal BASO% 0.6 LAB L100.2550 0.0-0.9 % Normal IM GRAN % 0.100 Result Comment: IG% - Immature Granulocytes (promyelocytes, myelocytes and metamyelocytes) > 1% indicates that a LEFT SHIFT is Present. LAB L100.2620 2.0-7.7 X10 3/uL Normal Absolute Neut 4.3 LAB L100.2720 0.83-4.51 X10 3/ul Normal Absolute Lymph 2.44 Performed By: #### L100.0100 #### [facility] [place], [address] BASIC METABOLIC Collected: 08/09/2018 Status: F Source: [place] PROFILE (BMP) 9:40 AM [facility] REPOSITORY TYPE CODE TESTS RESULT OUT OF RANGE REFERENCE UNITS LAB L501.0100 74-106 mg/dL Normal GLU 94 Result Comment: Please note revised GLUCOSE reference range effective 2017. LAB L501.1000 7-18 mg/dL High BUN 23 LAB L501.1100 0.70-1.30 mg/dL Normal CREAT,SERUM 1.22 Result Comment: The validity of the calculated GFR AND GFRAA in patients over 70 years has not been determined. Clinical correlation is essential. LAB L501.1110 >60 mL/min Normal EST GFR 63 Result Comment: Non- GFR Calc LAB L501.1115 >60 mL/min Normal EST GFR - AA 77 Result Comment: GFR Calc LAB L501.1255 ml/min Normal Estimated CRCL 72.15 LAB L501.1300 10-20 RATIO Normal BUN/CRE 18.9 LAB L501.2200 8.5-10 mg/dL Normal .1 CA 8.5 LAB L501.5300 136-14 mmol/L Low 5 NA 135 LAB L501.5600 3.5-5. mmol/L Normal 1 K 4.0 LAB L501.5900 98-107 mmol/L Normal CL 101 LAB L501.6100 21.0-3 mmol/L Normal 2.0 CO2 29.0 LAB L501.6200 5-15 Normal GAP 5 Performed By: #### L500.2500, L501.4010 #### [facility] [address] [place], [address] TROPONIN-I Collected: 08/09/2018 Status: F Source: KUNKLE 9:40 AM [facility] REPOSITORY TYPE CODE TESTS RESULT OUT OF RANGE REFERENCE UNITS LAB L501.4010 <0.045 ng/mL Normal 0.015 TROPONIN-I Result Comment: TROPONIN-I EXPECTED VALUES <0.045 Negative 0.045 - 0.590 Consistent with Cardiac Damage > OR = 0.600 Critical Value Not every elevated troponin is indicative of CT. These values should be used with clinical judgement in examining the patient's clinical picture for diagnosis. To establish a diagnosis of CT versus myocardial injury, there must be a demonstrated rise and/or fall in the troponin values, in addition to ischemic symptoms, EKG changes, new regional wall motion abnormality, and/or angiographical evidence. PLEASE NOTE: REFERENCE RANGES EDITED 18 Performed By: #### L500.2500, L501.4010 #### [facility] [address] [place], [address] BNP,B-TYPE NATRIURETIC Collected: 08/09/2018 Status: F Source: [place] PEPTIDE 9:40 AM [facility] REPOSITORY TYPE CODE TESTS RESULT OUT OF RANGE REFERENCE UNITS LAB L503.6620 0-100 pg/mL Normal B-TYPE 15.9 MOHINI PEP Performed By: #### L503.6620 #### [facility] [address] [place], [address] LIVER PROFILE Collected: 08/09/2018 Status: F Source: [place] 9:40 AM [facility] REPOSITORY TYPE CODE TESTS RESULT OUT OF RANGE REFERENCE UNITS LAB L501.1500 6.4-8.2 g/dL Normal T PROT 7.9 LAB L501.1800 3.2-5.0 g/dL Normal ALB 3.8 LAB L501.1950 2.2-4.2 g/dL Normal GLOB 4.1 LAB L501.4100 15-37 U/L Normal AST 21 LAB L501.4305 45-117 U/L Normal ALK P 96 LAB L501.4405 16-61 U/L Normal ALT 33 LAB L501.4600 0.20-1.00 mg/dL Normal T BILI 0.90 LAB L501.4700 0.00-0.30 mg/dL Normal D BILI 0.19 Performed By: #### L500.3400 #### [facility] [address] [place], [address] CTA CHEST W/WO Observed: 08/09/2018 Status: F Source: [place] CONTRAST 9:38 AM [facility] REPOSITORY [facility] Imaging Services [address] [place] [address] CTA Chest W/WO Contrast MR#: [id number] Acct: [id number] Name: SKYLER MCCLOUD Rep #: [id number] : 1950 M 67 From: Denisse Watts MD PCP: Jacinda Blakely III, MD Status: REG ER Study: CTA Chest W/WO Contrast Date of Exam: 08/09/18 Exam# [id number] Ordering Dr: Kya Scruggs DO STUDY: CTA CHEST REASON FOR EXAM: Male, 67 years old. Dyspnea RADIATION DOSAGE (If Supplied By Facility): CTDIvol = ( 12.91 ) mGy, DLP = ( 697.30 ) mGycm TECHNIQUE: The examination was performed with the intravenous administration of 75ML ml of Isovue 370 contrast material. Post-processing of the angiographic images was performed, with multiplanar reformation and 3D reconstruction. Individualized dose optimization techniques were used for this CT. COMPARISON: The prior studies from January 29, 2013 chest x- ray was not provided for review. FINDINGS: Normal enhancement of the main pulmonary artery and right and left pulmonary arteries. Normal enhancement of the bilateral peripheral pulmonary arteries. There is no demonstrated pulmonary embolism. At the time of this study the distal descending thoracic aorta is noncontrasted. However the proximal aorta is well contrasted. The ascending thoracic aorta measures 3.8 x 4.0 cm. The left vertebral artery has its takeoff from the arch between the left carotid and the left subclavian. Distal to the subclavian aorta becomes mildly aneurysmal at the distal arch measuring up to 3.9 cm. It tapers towards the hiatus. The mid descending thoracic aorta measures 2.4 x 3.0 cm. Aorta is mildly tortuous as it enters the abdomen. There is no visualized proximal dissection. There is borderline cardiac enlargement. At the timing of this cardiac cycle there is a thickened appearance of the left ventricular wall. There are multiple small AP window lymph nodes measuring up to 1 cm. There is a lymph node measuring 1 cm anterior to the trachea. There is a lymph node measuring 1.6 x 1.0 cm. Normal hilar regions. Normal visualized trachea and bronchi. The lungs are well expanded. There is a thickened appearance of the right mainstem bronchus to some degree and thickened appearance of the wall of the right middle lobe bronchus. Within the right upper lobe bronchus image #258 series #2 there is a focus of filling defect within the bronchi. This measures approximately 4.6 mm. There is a thickened appearance of the right lower bronchus. Within the right lung base there are areas of air trapping and emphysematous change. There is mild thickening of the left upper lobe and lingular branches. Normal pleura. Normal chest wall structures. Normal osseous structures. There is a coarse calcification in the right renal parenchyma associated with focal cortical thinning. This calcification measures 1.0 x 0.9 cm. Is a minimal hiatal hernia. The aorta at the hiatus measures 3.[address]/CTA Chest W/WO Contrast IMPRESSION: Portable and aneurysmal dilatation of the ascending thoracic aorta. Mild aneurysmal dilatation of the descending thoracic aorta. Mild aneurysmal dilatation of the suprarenal abdominal aorta. No visualized pulmonary embolism Visualized pulmonary bronchial abnormality consistent with visualized areas in the right than left lung of bronchial wall thickening. On one image there is a small soft tissue density within the right upper lobe small bronchial airways. Findings are suspicious for inflammatory etiologies possible infectious etiology such as Atypical infiltrates, allergic bronchopulmonary aspergillosis, potentially Mycobacterium avium intracellular, given the apparent air trapping in the right greater than left lung bases could potentially consider bronchiolitis obliterans. An endobronchial tumor is thought to be less likely but should be followed accordingly. Recommend consideration for bronchoscopy. Electronically Signed: Denisse Watts MD at 11:23 EDT Tel , Service support , CC: Jacinda Blakely III, MD; Kya Scruggs DO Patient Flow Coordinator: Signed CBC AND DIFFERENTIAL Collected: 08/06/2018 Status: F Source: [place] 3:38 PM [facility] REPOSITORY TYPE CODE TESTS RESULT OUT OF REFERENCE UNITS RANGE LAB WBC 3.70-11.00 k/uL WBC 6.44 LAB RBC 4.20-6.00 m/uL RBC 5.42 LAB HGB 13.0-17.0 g/dL Hemoglobin 15.9 LAB HCT 39.0-51.0 % Hematocrit 47.6 LAB MCV 80.0-100.0 fL MCV 87.8 LAB MCH 26.0-34.0 pG MCH 29.3 LAB MCHC 30.5-36.0 g/dL MCHC 33.4 LAB RDWCV 11.5-15.0 % RDW-CV 12.5 LAB PLTCT 150-400 k/uL Platelet Count 210 LAB MPV 9.0-12.7 fL MPV 11.7 LAB ANEUT % Neut% 45.1 LAB AANEUT 1.45-7.50 k/uL Abs Neut 2.88 LAB ALYMP % Lymph% 34.6 LAB AALYMP 1.00-4.00 k/uL Abs Lymph 2.23 LAB AMONO % Sierra% 9.3 LAB AAMONO <0.87 k/uL Abs Sierra 0.60 LAB AEOS % Eosin% 9.6 LAB AAEOS <0.46 k/uL Abs High Eosin 0.62 LAB ABASO % Baso% 1.4 LAB AABASO <0.11 k/uL Abs Baso 0.09 LAB AUNRBC 0 /100 WBC NRBCs 0.0 LAB ABNRBC <0.01 k/uL Absolute nRBC <0.01 LAB DTYP DTYPE Auto Diff Performed By: #### CBCDIF, CMP, NTBNP #### [facility] [address] [place], [place] [address] COMP METABOLIC PANEL Collected: 08/06/2018 Status: F Source: [place] 3:38 PM [facility] REPOSITORY TYPE CODE TESTS RESULT OUT OF REFERENCE UNITS RANGE LAB TP 6.3-8.0 g/dL Protein, Total 7.3 LAB ALB 3.9-4.9 g/dL Albumin 4.1 LAB CA 8.5-10.2 mg/dL Calcium, Total 9.4 LAB TBIL 0.2-1.3 mg/dL Bilirubin, Total 0.5 LAB ALKP 38-113 U/L Alkaline Phosphatase 95 LAB AST 14-40 U/L AST 26 LAB GLU 74-99 mg/dL Glucose 82 Result Comment: The [place] [employer] (ADA) provides guidance for cutoff values for fasting glucose and random glucose. The ADA defines fasting as no caloric intake for at least 8 hours. Fas ting plasma glucose results between 100 to 125 mg/dL indicate increased risk for diabetes (prediabetes). Fasting plasma glucose results greater than or equal to 126 mg/dL meet the criteria for diagnosis of diabetes. In the absence of unequivocal hyperglycemia, results should be confirmed by repeat testing. In a patient with classic symptoms of hyperglycemia or hyperglycemic crisis, random plasma glucose results greater than or equal to 200 mg/dL meet the criteria for diagnosis of diabetes. Reference: Standards of Medical Care in Diabetes 2016, [place] [employer]. Diabetes Care. 2016.39(Suppl 1). LAB BUN 9-24 mg/dL BUN 16 LAB CRET 0.73-1.22 mg/dL Creatinine 1.20 LAB NA 136-144 mmol/L Sodium 141 LAB K 3.7-5.1 mmol/L Potassium 4.5 LAB CL 97-105 mmol/L Chloride 101 LAB CO2 22-30 mmol/L CO2 28 LAB AGAP 9-18 mmol/L Anion Gap 12 LAB ALT 10-54 U/L ALT 25 LAB GFRAA eGFR- Amer. >60 LAB GFRNAA . eGFR-All Other Races >60 Result Comment: eGFR (Estimated GFR) Units of measure: mL/min/1.73 meters squared eGFR is derived from the reexpressed MDRD Study equation using the following parameters: serum creatinine, age, gender and race. The creatinine assay has been calibrated to be traceable to IDMS. An eGFR <60 mL/min/1.73m2 for >3 months is consistent with chronic kidney disease. Refer to KDOQI guidelines for clinical interpretation. In patients with unstable renal function, e.g. those with acute kidney injury, the eGFR may not accurately reflect actual GFR. Performed By: #### CBCDIF, CMP, NTBNP #### [facility] [address] [place] [id number] NT PRO BNP Collected: 08/06/2018 Status: F Source: [place]IE SIDING 3:[address] [facility] REPOSITORY TYPE CODE TESTS RESULT OUT OF REFERENCE UNITS RANGE LAB PBNP <125 pg/mL High PRO B Natr 185 Peptide Performed By: #### CBCDIF, CMP, NTBNP #### [facility] [address] [place], [place] [address] PROGRESS Observed: 08/06/2018 Status: COMPLETED Source: [place]IE SIDING 3:[address] [facility] REPOSITORY HNO ID: [id number] Author: Mohan Saenz Service: (none) Author Type: Physician Waist Cutter Type: Progress Notes Filed: 08/06/2018 3:41 PM Note Text: Chief Complaint No chief complaint on file. HPI Skyler Mccloud is a 67 year old male who presents here today for Recheck.. Patient has had cough, shortness of breath and wheezing for about 2 months now. Was originally seen on Jun 29 and put on doxy. Then zpak was added with prednisone. [address] on duricef and jul 31 another round of prednisone was added. Doesn't feel like the inhaler helps any Did feel like he was feeling a little better on Saturday but not much. Patient was smoker in past Quit about 2 years ago. Smoked 1ppd for 18 years. Last 3 Encounter Wt Readings: Date: Wt: 08/06/2018 98.9 kg (218 lb) 07/25/2018 97.5 kg (215 lb) 07/02/2018 95.7 kg (211 lb) Does feel like he seems a little more short of breath with laying down. No swelling in the legs. Denies CP Past medical history, appointments, medications, allergies reviewed. Previous Medical History PAST MEDICAL HISTORY Diagnosis Date - Chronic daily headache 01/16/2011 - Chronic depressive personality disorder - Cluster headache 06/09/2014 - Diverticulosis of colon (without mention of hemorrhage) - Hyperlipidemia 09/08/2014 - Internal hemorrhoids without mention of complication - Other abnormal heart sounds - Other rheumatic heart disease childhood - PMH - PAST MEDICAL HISTORY OF rheumatic fever - PMH - PAST MEDICAL HISTORY OF heart mumur - Tobacco abuse 06/05/2012 Previous Surgical History PAST SURGICAL HISTORY Procedure Laterality Date - COLONOSCOP W/ OR W/O [facility] SPEC 05/13/2006 Colonoscopy - COLONOSCOP W/ OR W/O [facility] SPEC 12/18/12 Colonoscopy - COLONOSCOP W/ OR W/O [facility] SPEC 12/23/2017 Colonoscopy - COM L HRT CATH WILFRED W/A ROOT AORT 02/02/13 - PAST SURGICAL HISTORY OF right inguinal hernia surgery as a teenager - PAST SURGICAL HISTORY OF 08/2007 scope on knee Right - REMOVAL OF TONSILS,<12 Y/O Tonsillectomy - VASECTOMY 12/06/06 Family History FAMILY HISTORY Problem Relation Age of Onset - Cancer Sister stage 4 lung cancer - Cancer Father lung cancer - Cancer Maternal Grandfather lung cancer/black lung - Cancer Paternal Grandfather lung cancer Patient Allergies ALLERGIES Allergen Reactions - Prednisone Intolerance irritable Current Medications Current Outpatient Prescriptions on File Prior to Visit: albuterol HFA (PROAIR HFA) 90 mcg/actuation inhaler Inhale 2 Puffs as instructed every 4 hours as needed. sildenafil (VIAGRA) 50 mg tablet Take 1 tablet by mouth as needed. atorvastatin (LIPITOR) 20 mg tablet Take 1 tablet by mouth once daily. For cholesterol. GUAIFENESIN ORAL Take 200 mg by mouth three times daily. Takes 2 tab q 8 hours. cyclobenzaprine (FLEXERIL) 10 mg tablet Take 1 tablet by mouth three times daily as needed for Muscle Spasm. No current facility-administered medications on file prior to visit. Social History Social History Marital status: Single Spouse name: Years of education: Number of children: 2 Occupational History Occupation Employer Comment [employer]* Social History Main Topics Smoking status: Former Smoker Packs/day: 0.50 Years: 5.00 Types: Cigarettes Quit date: 12/01/2016 Smokeless tobacco: Never Used Comment: Quit May 2012 Alcohol use: Yes Comment: very rare beer Drug use: No Sexual activity: Yes Partners with: Female control/protection: Condom Other Topics Concern No BLOOD TRANSFUSIONS No CAFFEINE No OCCUPATIONAL EXPOSURE No HOBBY HAZARD No SLEEP CONCERN No STRESS CONCERN Yes WEIGHT CONCERN No DIET No BACK CARE No EXERCISE No BIKE HELMET No SEAT BELT No SELF EXAMS No Review of Symptoms REVIEW OF SYSTEMS see hpi EXAM: BP 148/92 (BP Site: Left Arm, BP Position: Sitting, BP Cuff Size: Large Adult) Pulse 72 Temp 36.9 ?C (98.5 ?F) (Tympanic) Resp 12 Wt 98.9 kg (218 lb) BMI 28.28 kg/m? General Appearance: Well appearing, alert, in no acute distress, well-hydrated, well nourished.. Ears: External ears normal, canals clear. Nose/Sinuses: Nares normal, septum midline, mucosa normal, no drainage or sinus tenderness. Oropharynx: Lips, mucosa, and tongue normal, teeth and gums normal, oropharynx normal. Lungs: Positive findings: wheezing b/l Heart: RRR without murmur, gallop, or rubs. No ectopy. Extremities: No deformities, edema, skin discoloration, clubbing or cyanosis. Good capillary refill. . Peripheral Pulses: Normal. Health Maintenance List PNEUMOVAX AGE 65 AND OVER WITH 5YR LOOKBACK(1) due on 2017 INFLUENZA(1) due on 06/07/2018 DIABETES SCREEN due on 10/22/2020 COLORECTAL CANCER SCREENING,SEE MODIFIER due on 12/23/2020 LIPID SCREEN due on 10/22/2022 DTAP,TDAP,TD(4 - Td) due on 08/07/2026 PROSTATE CANCER SCREENING DISCUSSION Completed ADULT PREVNAR-13 Completed HEPATITIS C SCREENING Completed Data reviewed 07/02/2018 ?8:43 PM - Radiology, CXR AP/LAT Impression IMPRESSION: No acute radiographic abnormality. ASSESSMENT/PLAN: 1. Cough - ICD9: 786.2, ICD10: R05 (primary diagnosis) Will treat with one last antibiotic-levaquin Continue cough medication Will also set up for eval for Chronic lung diseases with PFT and rule out lung mass with ct. - SPIROMETRY - BASELINE AND POST DILATOR - CT CHEST W IVCON - NT PRO BNP - COMP METABOLIC PANEL - CBC + DIFF - CODEINE 10 MG-GUAIFENESIN 100 MG/5 ML ORAL LIQUID 2. Wheezing - ICD9: 786.07, ICD10: R06.2 As above - SPIROMETRY - BASELINE AND POST DILATOR - CT CHEST W IVCON - NT PRO BNP - COMP METABOLIC PANEL - CBC + DIFF 3. Former smoker - ICD9: V15.82, ICD10: Z87.891 As above - CT CHEST W IVCON - CBC + DIFF 4. SOB (shortness of breath) - ICD9: 786.05, ICD10: R06.02 As above. - SPIROMETRY - BASELINE AND POST DILATOR - CT CHEST W IVCON - NT PRO BNP - COMP METABOLIC PANEL - CBC + DIFF 5. Bronchitis - ICD9: 490, ICD10: J40 - CODEINE 10 MG-GUAIFENESIN 100 MG/5 ML ORAL LIQUID 6. Shortness of breath - ICD9: 786.05, ICD10: R06.02 - CT CHEST W IVCON Prescription instructions reviewed with patient as applicable. Patient advised if symptoms do not improve or if symptoms worsen sooner, to contact their primary care physician. Potential red flag symptoms discussed with the patient. Reviewed appropriate action plan to take if red flag symptoms occur. Patient agreeable to treatment plan. NISHANT OSPINA Observed: 08/06/2018 Status: COMPLETED Source: [place] 3:00 PM [facility] REPOSITORY Office Visit ([facility]) SKYLER MCCLOUD ([id number]) 1950 M NFR Date Time Provider Department 08/06/18 3:00 PM RICKY SAENZ) [facility] During your visit today, we recorded the following information about you: Temperature Pulse Respiration Blood pressure 98.5 degrees 72/minute 12/minute 148/92 Weight 98.9 kg THELMA SAENZ PA-C 08/06/2018 3:41 PM Signed Chief Complaint No chief complaint on file. HILDA Skyler Mccloud is a 67 year old male who presents here today for Recheck.. Patient has had cough, shortness of breath and wheezing for about 2 months now. Was originally seen on Jun 29 and put on doxy. Then zpak was added with prednisone. [address] [facility] and jul 31 another round of prednisone was added. Doesn't feel like the inhaler helps any Did feel like he was feeling a little better on Saturday but not much. Patient was smoker in past Quit about 2 years ago. Smoked 1ppd for 18 years. Last 3 Encounter Wt Readings: Date: Wt: 08/06/2018 98.9 kg (218 lb) 07/25/2018 97.5 kg (215 lb) 07/02/2018 95.7 kg (211 lb) Does feel like he seems a little more short of breath with laying down. No swelling in the legs. Denies CP Past medical history, appointments, medications, allergies reviewed. Previous Medical History PAST MEDICAL HISTORY Diagnosis Date - Chronic daily headache 01/16/2011 - Chronic depressive personality disorder - Cluster headache 06/09/2014 - Diverticulosis of colon (without mention of hemorrhage) - Hyperlipidemia 09/08/2014 - Internal hemorrhoids without mention of complication - Other abnormal heart sounds - Other rheumatic heart disease childhood - PMH - PAST MEDICAL HISTORY OF rheumatic fever - PMH - PAST MEDICAL HISTORY OF heart mumur - Tobacco abuse 06/05/2012 Previous Surgical History PAST SURGICAL HISTORY Procedure Laterality Date - COLONOSCOP W/ OR W/O [facility] SPEC 05/13/2006 Colonoscopy - COLONOSCOP W/ OR W/O [facility] SPEC 12/18/12 Colonoscopy - COLONOSCOP W/ OR W/O [facility] SPEC 12/23/2017 Colonoscopy - COM L HRT CATH WILFRED W/A ROOT AORT 02/02/13 - PAST SURGICAL HISTORY OF right inguinal hernia surgery as a teenager - PAST SURGICAL HISTORY OF 08/2007 scope on knee Right - REMOVAL OF TONSILS,<12 Y/O Tonsillectomy - VASECTOMY 12/06/06 Family History FAMILY HISTORY Problem Relation Age of Onset - Cancer Sister stage 4 lung cancer - Cancer Father lung cancer - Cancer Maternal Grandfather lung cancer/black lung - Cancer Paternal Grandfather lung cancer Patient Allergies ALLERGIES Allergen Reactions - Prednisone Intolerance irritable Current Medications Current Outpatient Prescriptions on File Prior to Visit: albuterol HFA (PROAIR HFA) 90 mcg/actuation inhaler Inhale 2 Puffs as instructed every 4 hours as needed. sildenafil (VIAGRA) 50 mg tablet Take 1 tablet by mouth as needed. atorvastatin (LIPITOR) 20 mg tablet Take 1 tablet by mouth once daily. For cholesterol. GUAIFENESIN ORAL Take 200 mg by mouth three times daily. Takes 2 tab q 8 hours. cyclobenzaprine (FLEXERIL) 10 mg tablet Take 1 tablet by mouth three times daily as needed for Muscle Spasm. No current facility-administered medications on file prior to visit. Social History Social History Marital status: Single Spouse name: Years of education: Number of children: 2 Occupational History Occupation Employer Comment [employer]* Social History Main Topics Smoking status: Former Smoker Packs/day: 0.50 Years: 5.00 Types: Cigarettes Quit date: 12/01/2016 Smokeless tobacco: Never Used Comment: Quit May 2012 Alcohol use: Yes Comment: very rare beer Drug use: No Sexual activity: Yes Partners with: Female control/protection: Condom Other Topics Concern No BLOOD TRANSFUSIONS No CAFFEINE No OCCUPATIONAL EXPOSURE No HOBBY HAZARD No SLEEP CONCERN No STRESS CONCERN Yes WEIGHT CONCERN No DIET No BACK CARE No EXERCISE No BIKE HELMET No SEAT BELT No SELF EXAMS No Review of Symptoms REVIEW OF SYSTEMS see hpi EXAM: BP 148/92 (BP Site: Left Arm, BP Position: Sitting, BP Cuff Size: Large Adult) Pulse 72 Temp 36.9 ?C (98.5 ?F) (Tympanic) Resp 12 Wt 98.9 kg (218 lb) BMI 28.28 kg/m? General Appearance: Well appearing, alert, in no acute distress, well-hydrated, well nourished.. Ears: External ears normal, canals clear. Nose/Sinuses: Nares normal, septum midline, mucosa normal, no drainage or sinus tenderness. Oropharynx: Lips, mucosa, and tongue normal, teeth and gums normal, oropharynx normal. Lungs: Positive findings: wheezing b/l Heart: RRR without murmur, gallop, or rubs. No ectopy. Extremities: No deformities, edema, skin discoloration, clubbing or cyanosis. Good capillary refill. . Peripheral Pulses: Normal. Health Maintenance List PNEUMOVAX AGE 65 AND OVER WITH 5YR LOOKBACK(1) due on 2017 INFLUENZA(1) due on 06/07/2018 DIABETES SCREEN due on 10/22/2020 COLORECTAL CANCER SCREENING,SEE MODIFIER due on 12/23/2020 LIPID SCREEN due on 10/22/2022 DTAP,TDAP,TD(4 - Td) due on 08/07/2026 PROSTATE CANCER SCREENING DISCUSSION Completed ADULT PREVNAR-13 Completed HEPATITIS C SCREENING Completed Data reviewed 07/02/2018 ?8:43 PM - Radiology, CXR AP/LAT Impression IMPRESSION: No acute radiographic abnormality. ASSESSMENT/PLAN: 1. Cough - ICD9: 786.2, ICD10: R05 (primary diagnosis) Will treat with one last antibiotic-levaquin Continue cough medication Will also set up for eval for Chronic lung diseases with PFT and rule out lung mass with ct. - SPIROMETRY - BASELINE AND POST DILATOR - CT CHEST W IVCON - NT PRO BNP - COMP METABOLIC PANEL - CBC + DIFF - CODEINE 10 MG-GUAIFENESIN 100 MG/5 ML ORAL LIQUID 2. Wheezing - ICD9: 786.07, ICD10: R06.2 As above - SPIROMETRY - BASELINE AND POST DILATOR - CT CHEST W IVCON - NT PRO BNP - COMP METABOLIC PANEL - CBC + DIFF 3. Former smoker - ICD9: V15.82, ICD10: Z87.891 As above - CT CHEST W IVCON - CBC + DIFF 4. SOB (shortness of breath) - ICD9: 786.05, ICD10: R06.02 As above. - SPIROMETRY - BASELINE AND POST DILATOR - CT CHEST W IVCON - NT PRO BNP - COMP METABOLIC PANEL - CBC + DIFF 5. Bronchitis - ICD9: 490, ICD10: J40 - CODEINE 10 MG-GUAIFENESIN 100 MG/5 ML ORAL LIQUID 6. Shortness of breath - ICD9: 786.05, ICD10: R06.02 - CT CHEST W IVCON Prescription instructions reviewed with patient as applicable. Patient advised if symptoms do not improve or if symptoms worsen sooner, to contact their primary care physician. Potential red flag symptoms discussed with the patient. Reviewed appropriate action plan to take if red flag symptoms occur. Patient agreeable to treatment plan. THELMA SAENZ PA-C Referring Provider: SELF [[id number]] Allergies As of Date: 08/06/2018 Noted Allergy Reaction PREDNISONE 04/16/2006 5 - Intolerance Comments: irritable Date Reviewed: 08/06/2018 Reviewed by: Ricky) Dany - Fully Assessed Primary Visit Diagnosis:Cough [R05] Other Visit Diagnoses:Wheezing [R06.2] Former smoker [Z87.891] SOB (shortness of breath) [R06.02] Bronchitis [J40] Shortness of breath [R06.02] Order(s):SPIROMETRY - BASELINE AND POST DILATOR [2295015] Order #: [id number] FUTURE CT CHEST W IVCON [[id number]] Order #: [id number] FUTURE iv contrast (will be provided with radiology test)CT Chest W -Inject, intravenously, once for 1 dose.No IV access, insert saline lock prior to the beginning of sedation, infusion, injection of imaging exam. Discontinue saline lock post exam. If Pt. has a central line or IVAD, may access for administration according to line specific nursing protocol. Once exam is complete flush line and de- access according to line specific nursing protocol in the CT contrast administration guidelines link.Disp: 1 EachRfl: 0 NT PRO BNP [SQNTBNP] Order #: [id number] FUTURE COMP METABOLIC PANEL [SQCMP] Order #: [id number] FUTURE CBC + DIFF [SQCBCDIF] Order #: [id number] FUTURE codeine-guaiFENesin (ROBITUSSIN AC) 10-100 mg/5 mL syrupTake 5-10 mL by mouth four times daily as needed for Cough for up to 7 days. May cause drowsiness.Disp: 120 mLRfl: 0 levoFLOXacin (LEVAQUIN) 500 mg tabletTake 1 tablet by mouth once daily for 10 days.Disp: 7 tabletRfl: 0 Prescriptions as of 08/06/2018 Sig: ALBUTEROL SULFATE HFA 90 MCG/* Inhale 2 Puffs as instructed * SILDENAFIL 50 MG TABLET Take 1 tablet by mouth as nee* ATORVASTATIN 20 MG TABLET Take 1 tablet by mouth once d* IV CONTRAST (RADIOLOGY PROCED* CT Chest W -Inject, intraveno* CODEINE 10 MG-GUAIFENESIN 100* Take 5-10 mL by mouth four ti* LEVOFLOXACIN 500 MG TABLET Take 1 tablet by mouth once d* GUAIFENESIN ORAL Take 200 mg by mouth three ti* CYCLOBENZAPRINE 10 MG TABLET Take 1 tablet by mouth three * Problem List As Of Date 08/06/2018 Noted Resolved Anxiety state [F41.1] INVALID FOR*10/31/2017 Sterilization [Z30.2] INVALID FOR*03/31/2014 Adjustment disorder with depressed mood [F43.21]INVALID FOR*10/31/2017 Phlebitis and thrombophlebitis of superficial v*INVALID FOR*03/31/2014 Varicose veins of lower extremities with other *INVALID FOR*10/31/2017 Chronic daily headache [R51] INVALID FOR*10/31/2017 More... Tobacco abuse [Z72.0] INVALID FOR*10/31/2017 Cluster headache [G44.009] INVALID FOR* Hyperlipidemia [E78.5] INVALID FOR* Vitamin D deficiency [E55.9] INVALID FOR*10/16/2017 Prescriptions ordered this encounter Disp Refills Start End IV CONTRAST (RADIOLOGY PROCEDURE) 1 Ea* 0 08/06/2018 08/07/2018 Class: In Office Sig: CT Chest W -Inject, intravenously, once for 1 dose.No IV access, insert saline lock prior to the beginning of sedation, infusion, injection of imaging exam. Discontinue saline lock post exam. If Pt. has a central line or IVAD, may access for administration according to line specific nursing protocol. Once exam is complete flush line and de-access according to line specific nursing protocol in the CT contrast administration guidelines link. CODEINE 10 MG-GUAIFENESIN 100 MG/5 M* 120 * 0 08/06/2018 08/13/2018 Class: Print RX Route: ORAL Sig: Take 5-10 mL by mouth four times daily as needed for Cough for up to 7 days. May cause drowsiness. LEVOFLOXACIN 500 MG TABLET 7 ta* 0 08/06/2018 08/16/2018 Route: ORAL Sig: Take 1 tablet by mouth once daily for 10 days. Medications Discontinued During This Encounter codeine-guaiFENesin (ROBITUSSIN AC) * 120 * 0 07/25/2018 08/06/2018 Class: Print RX Route: ORAL Sig: Take 5-10 mL by mouth four times daily as needed for Cough for up to 7 days. May cause drowsiness. Disc: Reason for discontinue is not on file. Encounter Status:Closed by THELMA BOATENG on 08/06/18 VALENTINE Observed: 07/31/2018 Status: COMPLETED Source: [place] 12:[address] [facility] REPOSITORY [facility] SKYLER MCCLOUD ([id number]) 1950 NF Date Time Provider Department 07/31/18 JACINDA BLAKELY III [facility] During your visit today, we recorded the following information about you: Vanessa Amos RN 07/31/2018 10:15 AM Signed Patient calling to report that he feels that he is not improving and may be feeling a little worse. He says he still has a cough with congestion. Cough is now productive of dark green sputum. He says he is wheezing at times and short of breath Cough is keeping him awake at night so he is also fatigued. Denies fever/chills. He has 5 days left on his Duricef prescription. He is asking for recommendation. Vanessa SAENZ PA-C 07/31/2018 12:31 PM Signed i'll send in prednisone for him to take. If still no improvement over the weekend. Needs to get scheduled for OV to discuss next steps. Make sure he is still using his inhaler. NISHANT Ospina Ma 07/31/2018 1:12 PM Signed Patient notified. Melecio Rodrigez, RN, RN 08/06/2018 9:09 AM Signed Pt calls in, stating he still is not feeling better. Schedule same day appt. Allergies As of Date: 07/31/2018 Noted Allergy Reaction PREDNISONE 04/16/2006 5 - Intolerance Comments: irritable Date Reviewed: 07/25/2018 Reviewed by: Melecio Degroot Ma - Fully Assessed Reason for Visit: condition update [Other] Order(s):[] predniSONE (DELTASONE) 10 mg tabletTake 1 tablet by mouth once daily for 5 days.Disp: 5 tabletRfl: 0 Prescriptions as of 07/31/2018 Sig: PREDNISONE 10 MG TABLET Take 1 tablet by mouth once d* CEFADROXIL 500 MG CAPSULE Take 1 capsule by mouth twice* CODEINE 10 MG-GUAIFENESIN 100* Take 5-10 mL by mouth four ti* GUAIFENESIN ORAL Take 200 mg by mouth three ti* ALBUTEROL SULFATE HFA 90 MCG/* Inhale 2 Puffs as instructed * CYCLOBENZAPRINE 10 MG TABLET Take 1 tablet by mouth three * SILDENAFIL 50 MG TABLET Take 1 tablet by mouth as nee* ATORVASTATIN 20 MG TABLET Take 1 tablet by mouth once d* Problem List As Of Date 07/31/2018 Noted Resolved Anxiety state [F41.1] INVALID FOR*10/31/2017 Sterilization [Z30.2] INVALID FOR*03/31/2014 Adjustment disorder with depressed mood [F43.21]INVALID FOR*10/31/2017 Phlebitis and thrombophlebitis of superficial v*INVALID FOR*03/31/2014 Varicose veins of lower extremities with other *INVALID FOR*10/31/2017 Chronic daily headache [R51] INVALID FOR*10/31/2017 More... Tobacco abuse [Z72.0] INVALID FOR*10/31/2017 Cluster headache [G44.009] INVALID FOR* Hyperlipidemia [E78.5] INVALID FOR* Vitamin D deficiency [E55.9] INVALID FOR*10/16/2017 Prescriptions ordered this encounter Disp Refills Start End PREDNISONE 10 MG TABLET 5 ta* 0 07/31/2018 08/05/2018 Route: ORAL Sig: Take 1 tablet by mouth once daily for 5 days. Medications Discontinued During This Encounter predniSONE (DELTASONE) 10 mg tablet 5 ta* 0 07/02/2018 07/31/2018 Route: ORAL Sig: Take 1 tablet by mouth once daily. Disc: Reason for discontinue is not on file. Encounter Status:Closed by MELECIO DEGROOT MA on 07/31/18 PROGRESS Observed: 07/25/2018 Status: COMPLETED Source: [place] 2:21 PM [facility] REPOSITORY HNO ID: [id number] Author: Mohan Saenz Service: (none) Author Type: Physician Waist Cutter Type: Progress Notes Filed: 07/25/2018 2:42 PM Note Text: Patient presents with: Chest Congestion: Patient is here chest congestion x 1 month; wheezing at night time; cough; fatigue Patient was seen last month for similar symptoms. Was treated with zpak and prednisone 10mg and was feeling better. Still had some chest congestion but over the past week symptoms returned 67 year old male with c/o URI sx over the last 7 days with Sore throat: No. Nasal congestion: No. Nasal drip: No. Sinus pain/ pressure: No. Headache Yes. Body aches No. Ear pain: No. Cough: Yes. Production: Not typically Shortness of Breath: Yes. Wheezing: Yes. Fever: No. Tmax n/a. Hx asthma No. Hx pneumonia No. Smoker: No. Former smoker OTC meds tried: mucinex. ACTIVE PROBLEM LIST Cluster Headache Hyperlipidemia Current Outpatient Prescriptions: GUAIFENESIN ORAL Take 200 mg by mouth three times daily. Takes 2 tab q 8 hours. Disp: Rfl: albuterol HFA (PROAIR HFA) 90 mcg/actuation inhaler Inhale 2 Puffs as instructed every 4 hours as needed. Disp: 1 Inhaler Rfl: 0 sildenafil (VIAGRA) 50 mg tablet Take 1 tablet by mouth as needed. Disp: 30 tablet Rfl: 5 atorvastatin (LIPITOR) 20 mg tablet Take 1 tablet by mouth once daily. For cholesterol. Disp: 90 tablet Rfl: 3 predniSONE (DELTASONE) 10 mg tablet Take 1 tablet by mouth once daily. Disp: 5 tablet Rfl: 0 cyclobenzaprine (FLEXERIL) 10 mg tablet Take 1 tablet by mouth three times daily as needed for Muscle Spasm. Disp: 20 tablet Rfl: 0 No current facility-administered medications for this visit. ROS: SEE HPI OBJECTIVE: BP 138/94 (BP Site: Left Arm, BP Position: Sitting, BP Cuff Size: Regular Adult) Pulse 72 Temp 36.6 ?C (97.8 ?F) (Tympanic) Resp 12 Wt 97.5 kg (215 lb) BMI 27.89 kg/m? General appearance: Well appearing, alert, in no acute distress, well-hydrated, well nourished., Head: Normocephalic, no masses, lesions, tenderness or abnormalities; Ears: External ears normal, canals clear, TM's normal Nose/Sinuses: Nares normal, septum midline, mucosa normal, no drainage or sinus tenderness Oropharynx: Lips, mucosa, and tongue normal, teeth and gums normal, oropharynx normal Neck: Supple, no adenopathy; thyroid symmetric, normal size, no bruits Lungs: Lungs clear to auscultation. No wheezing, rhonchi, rales Heart: RRR without murmur, gallop, or rubs. No ectopy ASSESSMENT/PLAN: 1. Bronchitis - ICD9: 490, ICD10: J40 (primary diagnosis) Will cover with another round of antibiotic Rest and fluids - CODEINE 10 MG-GUAIFENESIN 100 MG/5 ML ORAL LIQUID 2. Cough - ICD9: 786.2, ICD10: R05 As above - CEFADROXIL 500 MG CAPSULE - CODEINE 10 MG-GUAIFENESIN 100 MG/5 ML ORAL LIQUID Discussed if still no improvement will consider further workup for CLD based on patients smoking hx. Prescription instructions reviewed with patient as applicable. Patient advised if symptoms do not improve or if symptoms worsen sooner, to contact their primary care physician. Potential red flag symptoms discussed with the patient. Reviewed appropriate action plan to take if red flag symptoms occur. Patient agreeable to treatment plan. NISHANT OSPINA Observed: 07/25/2018 Status: COMPLETED Source: [place] 2:[address] [facility] REPOSITORY [facility] SKYLER MCCLOUD ([id number]) 1950 M NFR Date Time Provider Department 07/25/18 2:20 PM RICKY SAEZN) GALLO During your visit today, we recorded the following information about you: Temperature Pulse Respiration Blood pressure 97.8 degrees 72/minute 12/minute 138/94 Weight 97.5 kg THELMA SAENZ PA-C 07/25/2018 2:42 PM Signed Patient presents with: Chest Congestion: Patient is here chest congestion x 1 month; wheezing at night time; cough; fatigue Patient was seen last month for similar symptoms. Was treated with zpak and prednisone 10mg and was feeling better. Still had some chest congestion but over the past week symptoms returned 67 year old male with c/o URI sx over the last 7 days with Sore throat: No. Nasal congestion: No. Nasal drip: No. Sinus pain/ pressure: No. Headache Yes. Body aches No. Ear pain: No. Cough: Yes. Production: Not typically Shortness of Breath: Yes. Wheezing: Yes. Fever: No. Tmax n/a. Hx asthma No. Hx pneumonia No. Smoker: No. Former smoker OTC meds tried: mucinex. ACTIVE PROBLEM LIST Cluster Headache Hyperlipidemia Current Outpatient Prescriptions: GUAIFENESIN ORAL Take 200 mg by mouth three times daily. Takes 2 tab q 8 hours. Disp: Rfl: albuterol HFA (PROAIR HFA) 90 mcg/actuation inhaler Inhale 2 Puffs as instructed every 4 hours as needed. Disp: 1 Inhaler Rfl: 0 sildenafil (VIAGRA) 50 mg tablet Take 1 tablet by mouth as needed. Disp: 30 tablet Rfl: 5 atorvastatin (LIPITOR) 20 mg tablet Take 1 tablet by mouth once daily. For cholesterol. Disp: 90 tablet Rfl: 3 predniSONE (DELTASONE) 10 mg tablet Take 1 tablet by mouth once daily. Disp: 5 tablet Rfl: 0 cyclobenzaprine (FLEXERIL) 10 mg tablet Take 1 tablet by mouth three times daily as needed for Muscle Spasm. Disp: 20 tablet Rfl: 0 No current facility-administered medications for this visit. ROS: SEE HPI OBJECTIVE: BP 138/94 (BP Site: Left Arm, BP Position: Sitting, BP Cuff Size: Regular Adult) Pulse 72 Temp 36.6 ?C (97.8 ?F) (Tympanic) Resp 12 Wt 97.5 kg (215 lb) BMI 27.89 kg/m? General appearance: Well appearing, alert, in no acute distress, well-hydrated, well nourished., Head: Normocephalic, no masses, lesions, tenderness or abnormalities; Ears: External ears normal, canals clear, TM's normal Nose/Sinuses: Nares normal, septum midline, mucosa normal, no drainage or sinus tenderness Oropharynx: Lips, mucosa, and tongue normal, teeth and gums normal, oropharynx normal Neck: Supple, no adenopathy; thyroid symmetric, normal size, no bruits Lungs: Lungs clear to auscultation. No wheezing, rhonchi, rales Heart: RRR without murmur, gallop, or rubs. No ectopy ASSESSMENT/PLAN: 1. Bronchitis - ICD9: 490, ICD10: J40 (primary diagnosis) Will cover with another round of antibiotic Rest and fluids - CODEINE 10 MG-GUAIFENESIN 100 MG/5 ML ORAL LIQUID 2. Cough - ICD9: 786.2, ICD10: R05 As above - CEFADROXIL 500 MG CAPSULE - CODEINE 10 MG-GUAIFENESIN 100 MG/5 ML ORAL LIQUID Discussed if still no improvement will consider further workup for CLD based on patients smoking hx. Prescription instructions reviewed with patient as applicable. Patient advised if symptoms do not improve or if symptoms worsen sooner, to contact their primary care physician. Potential red flag symptoms discussed with the patient. Reviewed appropriate action plan to take if red flag symptoms occur. Patient agreeable to treatment plan. THELMA SAENZ PA-C Referring Provider: SELF [[id number]] Allergies As of Date: 07/25/2018 Noted Allergy Reaction PREDNISONE 04/16/2006 5 - Intolerance Comments: irritable Date Reviewed: 07/25/2018 Reviewed by: Melecio Degroot Ma - Fully Assessed Reason for Visit: Chest Congestion [236] Cmt: Patient is here chest congestion x 1 month; wheezing at night time; cough; fatigue Reason For Visit History Recorded Primary Visit Diagnosis:Bronchitis [J40] Other Visit Diagnosis:Cough [R05] Order(s):cefADROxil (DURICEF) 500 mg capsuleTake 1 capsule by mouth twice daily for 10 days.Disp: 20 capsuleRfl: 0 codeine-guaiFENesin (ROBITUSSIN AC) 10-100 mg/5 mL syrupTake 5-10 mL by mouth four times daily as needed for Cough for up to 7 days. May cause drowsiness.Disp: 120 mLRfl: 0 Prescriptions as of 07/25/2018 Sig: GUAIFENESIN ORAL Take 200 mg by mouth three ti* ALBUTEROL SULFATE HFA 90 MCG/* Inhale 2 Puffs as instructed * SILDENAFIL 50 MG TABLET Take 1 tablet by mouth as nee* ATORVASTATIN 20 MG TABLET Take 1 tablet by mouth once d* CEFADROXIL 500 MG CAPSULE Take 1 capsule by mouth twice* CODEINE 10 MG-GUAIFENESIN 100* Take 5-10 mL by mouth four ti* PREDNISONE 10 MG TABLET Take 1 tablet by mouth once d* CYCLOBENZAPRINE 10 MG TABLET Take 1 tablet by mouth three * Problem List As Of Date 07/25/2018 Noted Resolved Anxiety state [F41.1] INVALID FOR*10/31/2017 Sterilization [Z30.2] INVALID FOR*03/31/2014 Adjustment disorder with depressed mood [F43.21]INVALID FOR*10/31/2017 Phlebitis and thrombophlebitis of superficial v*INVALID FOR*03/31/2014 Varicose veins of lower extremities with other *INVALID FOR*10/31/2017 Chronic daily headache [R51] INVALID FOR*10/31/2017 More... Tobacco abuse [Z72.0] INVALID FOR*10/31/2017 Cluster headache [G44.009] INVALID FOR* Hyperlipidemia [E78.5] INVALID FOR* Vitamin D deficiency [E55.9] INVALID FOR*10/16/2017 Prescriptions ordered this encounter Disp Refills Start End CEFADROXIL 500 MG CAPSULE 20 c* 0 07/25/2018 08/04/2018 Route: ORAL Sig: Take 1 capsule by mouth twice daily for 10 days. CODEINE 10 MG-GUAIFENESIN 100 MG/5 M* 120 * 0 07/25/2018 08/01/2018 Class: Print RX Route: ORAL Sig: Take 5-10 mL by mouth four times daily as needed for Cough for up to 7 days. May cause drowsiness. Disposition: Return if symptoms worsen or fail to improve. Follow-up and Disposition History Recorded Encounter Status:Closed by THELMA BOATENG on 07/25/18 PROGRESS Observed: 07/02/2018 Status: COMPLETED Source: [place] 3:[address] [facility] REPOSITORY HNO ID: [id number] Author: TO Valles (Ct) Service: (none) Author Type: Clinical Electrical Equipment Assembler Type: Progress Notes Filed: 07/02/2018 3:10 PM Note Text: Radiology Service Progress Note PATIENT NAME: Skyler Mccloud DATE OF SERVICE: July 02, 2018 TIME: 3:10 PM PATIENT IDENTITY VERIFICATION COMPLETED USING TWO (2) METHODS: Patient confirmed name verbally and Date of . PATIENT GENDER DATA: Male PATIENT RELEVANT IMPLANT DATA REVIEWED: Not Applicable RADIOLOGY DEPARTMENT: General X-ray: Exam(s) Completed: Chest X-Ray PERIPHERAL IV DATA: Not applicable SIGNED BY: TO Valles July 02, 2018 3:10 PM XR CHEST 2V FRONTAL/LAT Observed: 07/02/2018 Status: F Source: [place] 3:[address] [facility] REPOSITORY * * *Final Report* * * DATE OF EXAM: Jul 02 2018 3:10PM WOX [id number] - XR CHEST 2V FRONTAL/LAT / PROCEDURE REASON: Acute bronchitis, unspecified * * * * Physician Interpretation * * * * EXAMINATION: CHEST RADIOGRAPH (2 VIEW FRONTAL and LATERAL) CLINICAL HISTORY: Acute bronchitis, unspecified MQ: XC2_5 Comparison: 10/31/2017 RESULT: Lines, tubes, and devices: None. Lungs and pleura: No consolidation. No lung mass. No pleural effusion. Cardiomediastinal silhouette: Normal cardiomediastinal silhouette. Other: . IMPRESSION: No acute radiographic abnormality. Patient Flow Coordinator: PSCB Transcribe Date/Time: Jul 02 2018 8:40P Dictated by : ZANE BERTRAND MD This examination was interpreted and the report reviewed and electronically signed by: ZANE BERTRAND MD on Jul 02 2018 8:41PM EST [id number] PROGRESS Observed: 07/02/2018 Status: COMPLETED Source: [place] 2:[address] [facility] REPOSITORY HNO ID: [id number] Author: Mohan Saenz Service: (none) Author Type: Physician Waist Cutter Type: Progress Notes Filed: 07/02/2018 3:16 PM Note Text: Patient presents with: Follow Up: Seen in 06/29/18, Dxd with bronchitis, Sx worse 67 year old male with c/o URI sx over the last 2 weeks with Sore throat: No. Nasal congestion: Yes. Nasal drip: No. Sinus pain/ pressure: Yes. Headache Yes. Body aches No. Ear pain: No. Cough: Yes. Production: No. Shortness of Breath: Yes. Wheezing: Yes. Fever: subjective. Tmax none. Hx asthma No. Hx pneumonia Yes. Smoker: former. OTC meds tried: n/a. Patient was seen by on 06/29 and was started on doxycycline and albuterol inhaler. Overall feeling worse. ACTIVE PROBLEM LIST Cluster Headache Hyperlipidemia Current Outpatient Prescriptions: GUAIFENESIN ORAL Take 200 mg by mouth three times daily. Takes 2 tab q 8 hours. Disp: Rfl: doxycycline monohydrate 100 mg tablet Take 1 tablet by mouth twice daily for 10 days. Disp: 20 tablet Rfl: 0 albuterol HFA (PROAIR HFA) 90 mcg/actuation inhaler Inhale 2 Puffs as instructed every 4 hours as needed. Disp: 1 Inhaler Rfl: 0 cyclobenzaprine (FLEXERIL) 10 mg tablet Take 1 tablet by mouth three times daily as needed for Muscle Spasm. Disp: 20 tablet Rfl: 0 sildenafil (VIAGRA) 50 mg tablet Take 1 tablet by mouth as needed. Disp: 30 tablet Rfl: 5 atorvastatin (LIPITOR) 20 mg tablet Take 1 tablet by mouth once daily. For cholesterol. Disp: 90 tablet Rfl: 3 No current facility-administered medications for this visit. ROS: SEE HPI OBJECTIVE: BP 128/86 Pulse 76 Temp 36.4 ?C (97.5 ?F) (Tympanic) Resp 18 Wt 95.7 kg (211 lb) SpO2 99% BMI 27.37 kg/m? General appearance: Well appearing, alert, in no acute distress, well-hydrated, well nourished., Head: Normocephalic, no masses, lesions, tenderness or abnormalities; Ears: External ears normal, canals clear, TM's normal Nose/Sinuses: Positive findings: mucosa erythematous and swollen, sinus pressure to palp Oropharynx: Lips, mucosa, and tongue normal, teeth and gums normal, oropharynx normal Neck: Supple, no adenopathy; Lungs: scattered wheezes L>R Heart: RRR without murmur, gallop, or rubs. No ectopy ASSESSMENT/PLAN: 1. Acute bronchitis, unspecified organism - ICD9: 466.0, ICD10: J20.9 Start low dose prednisone- instructed not to take if developing SE of agitation. Add z-agnieszka but continue doxycycline. CXR today Follow up in 5 days if no improvement. - PREDNISONE 10 MG TABLET - AZITHROMYCIN 250 MG TABLET - XR CHEST 2V FRONTAL/LAT THELMA SAENZ PA-C CNOV Observed: 07/02/2018 Status: COMPLETED Source: [place] 2:[address] [facility] REPOSITORY Office Visit ([facility]WS) SKYLER MCCLOUD ([id number]) 1950 M NFR Date Time Provider Department 07/02/18 2:40 PM RICKY SAENZ) [facility] During your visit today, we recorded the following information about you: Temperature Pulse Respiration Blood pressure 97.5 degrees 76/minute 18/minute 128/86 Weight 95.7 kg THELMA SAENZ PA-C 07/02/2018 3:16 PM Signed Patient presents with: Follow Up: Seen in 06/29/18, Dxd with bronchitis, Sx worse 67 year old male with c/o URI sx over the last 2 weeks with Sore throat: No. Nasal congestion: Yes. Nasal drip: No. Sinus pain/ pressure: Yes. Headache Yes. Body aches No. Ear pain: No. Cough: Yes. Production: No. Shortness of Breath: Yes. Wheezing: Yes. Fever: subjective. Tmax none. Hx asthma No. Hx pneumonia Yes. Smoker: former. OTC meds tried: n/a. Patient was seen by on 06/29 and was started on doxycycline and albuterol inhaler. Overall feeling worse. ACTIVE PROBLEM LIST Cluster Headache Hyperlipidemia Current Outpatient Prescriptions: GUAIFENESIN ORAL Take 200 mg by mouth three times daily. Takes 2 tab q 8 hours. Disp: Rfl: doxycycline monohydrate 100 mg tablet Take 1 tablet by mouth twice daily for 10 days. Disp: 20 tablet Rfl: 0 albuterol HFA (PROAIR HFA) 90 mcg/actuation inhaler Inhale 2 Puffs as instructed every 4 hours as needed. Disp: 1 Inhaler Rfl: 0 cyclobenzaprine (FLEXERIL) 10 mg tablet Take 1 tablet by mouth three times daily as needed for Muscle Spasm. Disp: 20 tablet Rfl: 0 sildenafil (VIAGRA) 50 mg tablet Take 1 tablet by mouth as needed. Disp: 30 tablet Rfl: 5 atorvastatin (LIPITOR) 20 mg tablet Take 1 tablet by mouth once daily. For cholesterol. Disp: 90 tablet Rfl: 3 No current facility-administered medications for this visit. ROS: SEE HPI OBJECTIVE: BP 128/86 Pulse 76 Temp 36.4 ?C (97.5 ?F) (Tympanic) Resp 18 Wt 95.7 kg (211 lb) SpO2 99% BMI 27.37 kg/m? General appearance: Well appearing, alert, in no acute distress, well-hydrated, well nourished., Head: Normocephalic, no masses, lesions, tenderness or abnormalities; Ears: External ears normal, canals clear, TM's normal Nose/Sinuses: Positive findings: mucosa erythematous and swollen, sinus pressure to palp Oropharynx: Lips, mucosa, and tongue normal, teeth and gums normal, oropharynx normal Neck: Supple, no adenopathy; Lungs: scattered wheezes L>R Heart: RRR without murmur, gallop, or rubs. No ectopy ASSESSMENT/PLAN: 1. Acute bronchitis, unspecified organism - ICD9: 466.0, ICD10: J20.9 Start low dose prednisone- instructed not to take if developing SE of agitation. Add z-agnieszka but continue doxycycline. CXR today Follow up in 5 days if no improvement. - PREDNISONE 10 MG TABLET - AZITHROMYCIN 250 MG TABLET - XR CHEST 2V FRONTAL/LAT NISHANT OSPINA PA-C 07/02/2018 2:56 PM Signed Please get x-ray today Saturday please call with update. Return if no improvement in 5 days. Take all of the antibiotic as directed per prescription. If you should breakout in a rash, stop the medicine and call the office. Any antibiotic has the potential to cause diarrhea due to alteration in the normal bacterial zena of the gut. This can be reduced by eating yogurt with active cultures daily while on the medication. If diarrhea becomes severe (watery, large volumes or more than 3-4/day) call the office. Women may experience yeast vaginitis due to alteration in the vaginal zena. Symptoms include vaginal itching, irritation, and often a clumpy white discharge. If this occurs, there are several effective over the counter remedies available, including one-dose treatments. If these are unsuccessful, call the office. Antibiotics may interfer with control. If you are on oral contraceptives, use another form of protection (condoms, foams, jellies, diaphragm) for the next 1 month. THELMA SAENZ PA-C Referring Provider: JACINDA BLAKELY III [[id number]] Allergies As of Date: 07/02/2018 Noted Allergy Reaction PREDNISONE 04/16/2006 5 - Intolerance Comments: irritable Date Reviewed: 07/02/2018 Reviewed by: Karyn Patel LPN - Fully Assessed Reason for Visit: Follow Up [171] Cmt: Seen in 06/29/18, Dxd with bronchitis, Sx worse Primary Visit Diagnosis:Acute bronchitis, unspecified organism [J20.9] Order(s):predniSONE (DELTASONE) 10 mg tabletTake 1 tablet by mouth once daily.Disp: 5 tabletRfl: 0 azithromycin (ZITHROMAX Z-AGNIESZKA) 250 mg tabletTake 2 tablets day one, then, 1 tablet daily until gone.Disp: 1 PackageRfl: 0 XR CHEST 2V FRONTAL/LAT [[id number]] Order #: [id number] FUTURE Prescriptions as of 07/02/2018 Sig: GUAIFENESIN ORAL Take 200 mg by mouth three ti* DOXYCYCLINE MONOHYDRATE 100 M* Take 1 tablet by mouth twice * ALBUTEROL SULFATE HFA 90 MCG/* Inhale 2 Puffs as instructed * CYCLOBENZAPRINE 10 MG TABLET Take 1 tablet by mouth three * SILDENAFIL 50 MG TABLET Take 1 tablet by mouth as nee* ATORVASTATIN 20 MG TABLET Take 1 tablet by mouth once d* PREDNISONE 10 MG TABLET Take 1 tablet by mouth once d* AZITHROMYCIN 250 MG TABLET Take 2 tablets day one, then,* Problem List As Of Date 07/02/2018 Noted Resolved Anxiety state [F41.1] INVALID FOR*10/31/2017 Sterilization [Z30.2] INVALID FOR*03/31/2014 Adjustment disorder with depressed mood [F43.21]INVALID FOR*10/31/2017 Phlebitis and thrombophlebitis of superficial v*INVALID FOR*03/31/2014 Varicose veins of lower extremities with other *INVALID FOR*10/31/2017 Chronic daily headache [R51] INVALID FOR*10/31/2017 More... Tobacco abuse [Z72.0] INVALID FOR*10/31/2017 Cluster headache [G44.009] INVALID FOR* Hyperlipidemia [E78.5] INVALID FOR* Vitamin D deficiency [E55.9] INVALID FOR*10/16/2017 Other instructions from your clinician: Please get x-ray today Saturday please call with update. Return if no improvement in 5 days. Take all of the antibiotic as directed per prescription. If you should breakout in a rash, stop the medicine and call the office. Any antibiotic has the potential to cause diarrhea due to alteration in the normal bacterial zena of the gut. This can be reduced by eating yogurt with active cultures daily while on the medication. If diarrhea becomes severe (watery, large volumes or more than 3-4/day) call the office. Women may experience yeast vaginitis due to alteration in the vaginal zena. Symptoms include vaginal itching, irritation, and often a clumpy white discharge. If this occurs, there are several effective over the counter remedies available, including one-dose treatments. If these are unsuccessful, call the office. Antibiotics may interfer with control. If you are on oral contraceptives, use another form of protection (condoms, foams, jellies, diaphragm) for the next 1 month. THELMA SAENZ PA-C Prescriptions ordered this encounter Disp Refills Start End PREDNISONE 10 MG TABLET 5 ta* 0 07/02/2018 Route: ORAL Sig: Take 1 tablet by mouth once daily. AZITHROMYCIN 250 MG TABLET 1 Pa* 0 07/02/2018 07/07/2018 Sig: Take 2 tablets day one, then, 1 tablet daily until gone. Disposition: Return if symptoms worsen or fail to improve. Follow-up and Disposition History Recorded Encounter Status:Closed by THELMA BOATENG on 07/02/18 PROGRESS Observed: 06/29/2018 Status: COMPLETED Source: [place] 12:[address] [facility] REPOSITORY HNO ID: [id number] Author: Pako Alvarez Service: (none) Author Type: Nurse Practitioner Type: Progress Notes Filed: 06/29/2018 1:28 PM Note Text: Subjective HPI HPI Skyler Mccloud is a 67 year old male who presents today for CC of cough, chest congestion. This started almost 2 weeks ago. Has tried otc medications. Symptoms are worsened by nothing. Remote hx of smoking, quit smoking 5 years ago. Had nasal congestion in beginning, resolved. .Patient presents with: Chest Congestion: chest congestion, cough PAST MEDICAL HISTORY Diagnosis Date - Chronic daily headache 01/16/2011 - Chronic depressive personality disorder - Cluster headache 06/09/2014 - Diverticulosis of colon (without mention of hemorrhage) - Hyperlipidemia 09/08/2014 - Internal hemorrhoids without mention of complication - Other abnormal heart sounds - Other rheumatic heart disease childhood - PMH - PAST MEDICAL HISTORY OF rheumatic fever - PMH - PAST MEDICAL HISTORY OF heart mumur - Tobacco abuse 06/05/2012 PAST SURGICAL HISTORY Procedure Laterality Date - COLONOSCOP W/ OR W/O [facility] SPEC 05/13/2006 Colonoscopy - COLONOSCOP W/ OR W/O [facility] SPEC 12/18/12 Colonoscopy - COLONOSCOP W/ OR W/O [facility] SPEC 12/23/2017 Colonoscopy - COM L HRT CATH [facility] W/A ROOT AORT 02/02/13 - PAST SURGICAL HISTORY OF right inguinal hernia surgery as a teenager - PAST SURGICAL HISTORY OF 08/2007 scope on knee Right - REMOVAL OF TONSILS,<14 Y/O Tonsillectomy - VASECTOMY 12/06/06 ALLERGIES Prednisone MEDICATIONS cyclobenzaprine (FLEXERIL) 10 mg tablet Take 1 tablet by mouth three times daily as needed for Muscle Spasm. sildenafil (VIAGRA) 50 mg tablet Take 1 tablet by mouth as needed. atorvastatin (LIPITOR) 20 mg tablet Take 1 tablet by mouth once daily. For cholesterol. FAMILY HISTORY Problem Relation Age of Onset - Cancer Sister stage 4 lung cancer - Cancer Father lung cancer - Cancer Maternal Grandfather lung cancer/black lung - Cancer Paternal Grandfather lung cancer Social History Substance Use Topics - Smoking status: Former Smoker Packs/day: 0.50 Years: 5.00 Types: Cigarettes Quit date: 12/01/2016 - Smokeless tobacco: Never Used Comment: Quit May 2012 - Alcohol use Yes Comment: very rare beer Review of Systems Constitutional: Negative for chills, fever and weight loss. HENT: Positive for congestion and sore throat. Negative for ear pain and nosebleeds. Respiratory: Positive for cough, shortness of breath and wheezing. Cardiovascular: Negative for chest pain. Musculoskeletal: Negative for neck pain. Objective Blood pressure 132/86, pulse 78, temperature 37.2 ?C (98.9 ?F), temperature source Tympanic, weight 96.2 kg (212 lb), SpO2 96 %. Physical Exam Constitutional: He is oriented to person, place, and time and well-developed, well-nourished, and in no distress. Non-toxic appearance. He does not have a sickly appearance. No distress. HENT: Head: Normocephalic and atraumatic. Right Ear: Hearing, tympanic membrane, external ear and ear canal normal. Left Ear: Hearing, tympanic membrane, external ear and ear canal normal. Nose: Nose normal. Mouth/Throat: Uvula is midline, oropharynx is clear and moist and mucous membranes are normal. Eyes: Pupils are equal, round, and reactive to light. Conjunctivae and lids are normal. Right eye exhibits no discharge. Left eye exhibits no discharge. No scleral icterus. Neck: Trachea normal and normal range of motion. Neck supple. Cardiovascular: Normal rate, regular rhythm and normal heart sounds. Pulmonary/Chest: Effort normal and breath sounds normal. Lymphadenopathy: He has no cervical adenopathy. Neurological: He is alert and oriented to person, place, and time. Skin: No rash noted. He is not diaphoretic. ASSESSMENT/PLAN: 1. Bronchitis - ICD9: 490, ICD10: J40 - Discussed supportive care, given educational handout - Limit exposure to smoke and other inhaled irritants - Discussed possible red flags and when to seek medical attention - Follow up in 3-5 days or sooner if no better or worse - declined chest xray today -If you experience chest pain/shortness of breath go to ER - DOXYCYCLINE MONOHYDRATE 100 MG TABLET Prescription instructions reviewed with patient as applicable. Patient advised if symptoms do not improve or if symptoms worsen sooner, to contact the office for further evaluation by their primary care physician. Potential red flag symptoms discussed with the patient. Reviewed appropriate action plan to take if red flag symptoms occur. Patient agreeable to treatment plan. Pako Alvarez APRN.DATA CAPTURE SPECIALIST CNOV Observed: 06/29/2018 Status: COMPLETED Source: [place] 12:[address] [facility] REPOSITORY Office Visit ([facility]) SKYLER MCCLOUD ([id number]) 1950 M NFR Date Time Provider Department 06/29/18 12:45 PM PAKO ALVAREZ (RADHA) [facility] During your visit today, we recorded the following information about you: Temperature Pulse Blood pressure Weight 98.9 degrees 78/minute 132/86 96.2 kg Pako Alvarez APRN.CNP 06/29/2018 1:28 PM Signed Subjective HPI HPI Skyler Mccloud is a 67 year old male who presents today for CC of cough, chest congestion. This started almost 2 weeks ago. Has tried otc medications. Symptoms are worsened by nothing. Remote hx of smoking, quit smoking 5 years ago. Had nasal congestion in beginning, resolved. .Patient presents with: Chest Congestion: chest congestion, cough PAST MEDICAL HISTORY Diagnosis Date - Chronic daily headache 01/16/2011 - Chronic depressive personality disorder - Cluster headache 06/09/2014 - Diverticulosis of colon (without mention of hemorrhage) - Hyperlipidemia 09/08/2014 - Internal hemorrhoids without mention of complication - Other abnormal heart sounds - Other rheumatic heart disease childhood - PMH - PAST MEDICAL HISTORY OF rheumatic fever - PMH - PAST MEDICAL HISTORY OF heart mumur - Tobacco abuse 06/05/2012 PAST SURGICAL HISTORY Procedure Laterality Date - COLONOSCOP W/ OR W/O [facility] SPEC 05/13/2006 Colonoscopy - COLONOSCOP W/ OR W/O [facility] SPEC 12/18/12 Colonoscopy - COLONOSCOP W/ OR W/O [facility] SPEC 12/23/2017 Colonoscopy - COM L HRT CATH [facility] W/A ROOT AORT 02/02/13 - PAST SURGICAL HISTORY OF right inguinal hernia surgery as a teenager - PAST SURGICAL HISTORY OF 08/2007 scope on knee Right - REMOVAL OF TONSILS,<14 Y/O Tonsillectomy - VASECTOMY 3/2/07 ALLERGIES Prednisone MEDICATIONS cyclobenzaprine (FLEXERIL) 10 mg tablet Take 1 tablet by mouth three times daily as needed for Muscle Spasm. sildenafil (VIAGRA) 50 mg tablet Take 1 tablet by mouth as needed. atorvastatin (LIPITOR) 20 mg tablet Take 1 tablet by mouth once daily. For cholesterol. FAMILY HISTORY Problem Relation Age of Onset - Cancer Sister stage 4 lung cancer - Cancer Father lung cancer - Cancer Maternal Grandfather lung cancer/black lung - Cancer Paternal Grandfather lung cancer Social History Substance Use Topics - Smoking status: Former Smoker Packs/day: 0.50 Years: 5.00 Types: Cigarettes Quit date: 12/01/2016 - Smokeless tobacco: Never Used Comment: Quit May 2012 - Alcohol use Yes Comment: very rare beer Review of Systems Constitutional: Negative for chills, fever and weight loss. HENT: Positive for congestion and sore throat. Negative for ear pain and nosebleeds. Respiratory: Positive for cough, shortness of breath and wheezing. Cardiovascular: Negative for chest pain. Musculoskeletal: Negative for neck pain. Objective Blood pressure 132/86, pulse 78, temperature 37.2 ?C (98.9 ?F), temperature source Tympanic, weight 96.2 kg (212 lb), SpO2 96 %. Physical Exam Constitutional: He is oriented to person, place, and time and well-developed, well-nourished, and in no distress. Non-toxic appearance. He does not have a sickly appearance. No distress. HENT: Head: Normocephalic and atraumatic. Right Ear: Hearing, tympanic membrane, external ear and ear canal normal. Left Ear: Hearing, tympanic membrane, external ear and ear canal normal. Nose: Nose normal. Mouth/Throat: Uvula is midline, oropharynx is clear and moist and mucous membranes are normal. Eyes: Pupils are equal, round, and reactive to light. Conjunctivae and lids are normal. Right eye exhibits no discharge. Left eye exhibits no discharge. No scleral icterus. Neck: Trachea normal and normal range of motion. Neck supple. Cardiovascular: Normal rate, regular rhythm and normal heart sounds. Pulmonary/Chest: Effort normal and breath sounds normal. Lymphadenopathy: He has no cervical adenopathy. Neurological: He is alert and oriented to person, place, and time. Skin: No rash noted. He is not diaphoretic. ASSESSMENT/PLAN: 1. Bronchitis - ICD9: 490, ICD10: J40 - Discussed supportive care, given educational handout - Limit exposure to smoke and other inhaled irritants - Discussed possible red flags and when to seek medical attention - Follow up in 3-5 days or sooner if no better or worse - declined chest xray today -If you experience chest pain/shortness of breath go to ER - DOXYCYCLINE MONOHYDRATE 100 MG TABLET Prescription instructions reviewed with patient as applicable. Patient advised if symptoms do not improve or if symptoms worsen sooner, to contact the office for further evaluation by their primary care physician. Potential red flag symptoms discussed with the patient. Reviewed appropriate action plan to take if red flag symptoms occur. Patient agreeable to treatment plan. DAVID Montilla APRN.CNP 06/29/2018 1:12 PM Signed ACUTE BRONCHITIS: You have acute bronchitis. This means the airway passages in your lungs are inflamed. Bronchitis may be caused by viruses or bacteria. Inhaling cigarette smoke will always make it worse. Exposure to irritating chemicals or second hand smoke as well as allergies can contribute to bronchitis. Repeat episodes of bronchitis may cause lifelong lung problems. Acute bronchitis is usually treated with rest, fluids, cough medicine, and possibly antibiotics or inhaled medicine to open up the small airways. It is very important that you avoid smoke and drink increased amounts of fluids. A cool air vaporizer can help thin bronchial secretions. This makes it easier to cough and clear your chest. If you are a cigarette smoker, consider using nicotine gum or skin patches to help you withdraw. Recovery from bronchitis is often slow, but you should start feeling better after 2-3 days of treatment. Please call your doctor or return here if you have any of the following symptoms: - Increased fever, chills, or chest pain. - Severe shortness of breath or bloody sputum. - Do not improve after 3 days of proper treatment. Referring Provider: SELF [[id number]] Allergies As of Date: 06/29/2018 Noted Allergy Reaction PREDNISONE 04/16/2006 5 - Intolerance Comments: irritable Date Reviewed: 06/29/2018 Reviewed by: Pako Alvarez - Fully Assessed Reason for Visit: Chest Congestion [236] Cmt: chest congestion, cough Primary Visit Diagnosis:Bronchitis [J40] Order(s):doxycycline monohydrate 100 mg tabletTake 1 tablet by mouth twice daily for 10 days.Disp: 20 tabletRfl: 0 albuterol HFA (PROAIR HFA) 90 mcg/actuation inhalerInhale 2 Puffs as instructed every 4 hours as needed.Disp: 1 InhalerRfl: 0 Prescriptions as of 06/29/2018 Sig: CYCLOBENZAPRINE 10 MG TABLET Take 1 tablet by mouth three * SILDENAFIL 50 MG TABLET Take 1 tablet by mouth as nee* ATORVASTATIN 20 MG TABLET Take 1 tablet by mouth once d* DOXYCYCLINE MONOHYDRATE 100 M* Take 1 tablet by mouth twice * ALBUTEROL SULFATE HFA 90 MCG/* Inhale 2 Puffs as instructed * Problem List As Of Date 06/29/2018 Noted Resolved Anxiety state [F41.1] INVALID FOR*10/31/2017 Sterilization [Z30.2] INVALID FOR*03/31/2014 Adjustment disorder with depressed mood [F43.21]INVALID FOR*10/31/2017 Phlebitis and thrombophlebitis of superficial v*INVALID FOR*03/31/2014 Varicose veins of lower extremities with other *INVALID FOR*10/31/2017 Chronic daily headache [R51] INVALID FOR*10/31/2017 More... Tobacco abuse [Z72.0] INVALID FOR*10/31/2017 Cluster headache [G44.009] INVALID FOR* Hyperlipidemia [E78.5] INVALID FOR* Vitamin D deficiency [E55.9] INVALID FOR*10/16/2017 Other instructions from your clinician: ACUTE BRONCHITIS: You have acute bronchitis. This means the airway passages in your lungs are inflamed. Bronchitis may be caused by viruses or bacteria. Inhaling cigarette smoke will always make it worse. Exposure to irritating chemicals or second hand smoke as well as allergies can contribute to bronchitis. Repeat episodes of bronchitis may cause lifelong lung problems. Acute bronchitis is usually treated with rest, fluids, cough medicine, and possibly antibiotics or inhaled medicine to open up the small airways. It is very important that you avoid smoke and drink increased amounts of fluids. A cool air vaporizer can help thin bronchial secretions. This makes it easier to cough and clear your chest. If you are a cigarette smoker, consider using nicotine gum or skin patches to help you withdraw. Recovery from bronchitis is often slow, but you should start feeling better after 2-3 days of treatment. Please call your doctor or return here if you have any of the following symptoms: - Increased fever, chills, or chest pain. - Severe shortness of breath or bloody sputum. - Do not improve after 3 days of proper treatment. Prescriptions ordered this encounter Disp Refills Start End DOXYCYCLINE MONOHYDRATE 100 MG TABLET 20 t* 0 06/29/2018 07/09/2018 Route: ORAL Sig: Take 1 tablet by mouth twice daily for 10 days. ALBUTEROL SULFATE HFA 90 MCG/ACTUATI* 1 In* 0 06/29/2018 Route: INHALATION Sig: Inhale 2 Puffs as instructed every 4 hours as needed. Medications Discontinued During This Encounter albuterol (PROVENTIL) 5 mg/mL nebu 1 mL 0 08/18/2016 06/29/2018 Class: Back Office Route: INHALATION Sig: Inhale 0.5 mL as instructed one time only for 1 dose. 1 DOSE NOW - BACK OFFICE. PLACE 0.5 ML PER DROPPER AND 2.5 ML OF NORMAL SALINE INTO RESERVOIR. Disc: Reason for discontinue is not on file. Encounter Status:Closed by PAKO ALVAREZ CNP on 06/29/18 CNNURSE Observed: 02/24/2018 Status: COMPLETED Source: [place] 12:[address] [facility] REPOSITORY Nurse Visit (FAMPWS) SKYLER MCCLOUD ([id number]) 1950 M NFR Date Time Provider Department 02/24/18 12:[address] NURSE FAMPWS During your visit today, we recorded the following information about you: Pulse Blood pressure 78/minute 114/80 Meghan Leggett LPN 02/24/2018 12:48 PM Signed Manual Readin/80 Pulse: 78 Reason for blood pressure check - Last BP elevated Patient is: Taking medication as prescribed Yes Took medication today Yes If no, date medication last taken N/A Experiencing side effects No BP was elevated at last appt with Dimitri Cervantes NP, on 01/31/18. No BP medication changes were made at that time. Denies any chest pain, shortness of breath, dizziness, or headaches. Daily caffeine use. Past personal history of tobacco use; no current exposure. Alert and oriented. Pt has been identified by name and birthdate: Yes Allergies reviewed: Yes Latex allergy: no. Medication - prescribed and OTC reviewed and updated: Yes Do you need any prescription refills prior to your next visit: No Health Maintenance: Reviewed and not up to date and provider notified Patient advised to continue with current medications and would be contacted with any further instructions after review by PCP. Meghan Leggett LPN Referring Provider: DIMITRI CERVANTES (TELEGRAPH OFFICE MANAGER) [[id number]] Allergies As of Date: 02/24/2018 Noted Allergy Reaction PREDNISONE 04/16/2006 5 - Intolerance Comments: irritable Date Reviewed: 01/31/2018 Reviewed by: Zofia ([facility]) EARLINE Nelson - Fully Assessed Reason for Visit: Blood Pressure Check [195] Primary Visit Diagnosis:Elevated blood pressure reading without diagnosis of hypertension [R03.0] Prescriptions as of 02/24/2018 Sig: SILDENAFIL 50 MG TABLET Take 1 tablet by mouth as nee* CYCLOBENZAPRINE 10 MG TABLET Take 1 tablet by mouth three * ATORVASTATIN 20 MG TABLET Take 1 tablet by mouth once d* Problem List As Of Date 02/24/2018 Noted Resolved Anxiety state [F41.1] INVALID FOR*10/31/2017 Sterilization [Z30.2] INVALID FOR*03/31/2014 Adjustment disorder with depressed mood [F43.21]INVALID FOR*10/31/2017 Phlebitis and thrombophlebitis of superficial v*INVALID FOR*03/31/2014 Varicose veins of lower extremities with other *INVALID FOR*10/31/2017 Chronic daily headache [R51] INVALID FOR*10/31/2017 More... Tobacco abuse [Z72.0] INVALID FOR*10/31/2017 Cluster headache [G44.009] INVALID FOR* Hyperlipidemia [E78.5] INVALID FOR* Vitamin D deficiency [E55.9] INVALID FOR*10/16/2017 Encounter Status:Closed by MEGHAN LEGGETT LPN on 02/24/18 PROGRESS Observed: 02/24/2018 Status: COMPLETED Source: [place] 12:43 PM [facility] REPOSITORY HNO ID: [id number] Author: Meghan Leggett LPN Service: (none) Author Type: (none) Type: Progress Notes Filed: 02/24/2018 12:48 PM Note Text: Manual Readin/80 Pulse: 78 Reason for blood pressure check - Last BP elevated Patient is: Taking medication as prescribed Yes Took medication today Yes If no, date medication last taken N/A Experiencing side effects No BP was elevated at last appt with Dimitri Cervantes NP, on 01/31/18. No BP medication changes were made at that time. Denies any chest pain, shortness of breath, dizziness, or headaches. Daily caffeine use. Past personal history of tobacco use; no current exposure. Alert and oriented. Pt has been identified by name and birthdate: Yes Allergies reviewed: Yes Latex allergy: no. Medication - prescribed and OTC reviewed and updated: Yes Do you need any prescription refills prior to your next visit: No Health Maintenance: Reviewed and not up to date and provider notified Patient advised to continue with current medications and would be contacted with any further instructions after review by PCP. Meghan Leggett LPN PROGRESS Observed: 01/31/2018 Status: COMPLETED Source: [place] 11:[address] [facility] REPOSITORY O ID: [id number] Author: Dimitri Razo (Paty) Billy Service: (none) Author Type: Nurse Practitioner Type: Progress Notes Filed: 01/31/2018 5:46 PM Note Text: Chief Complaint Patient presents with: Recheck: Lower back pain HPI Skyler Mccloud is a 67 year old male who presents here today for follow up lower back pain. Seen in one week ago, note reviewed. Reports was bent over sanding old table top for prolonged period and felt instantly, lower back locked up, difficult to move and change positions. Has been using Advil 400 mg at a time and FLexeril wth benefit. Still notes mild stiffness with certain positions but overall significantly better. Last 3 Encounter BP Readings: Date: BP: 01/31/2018 130/90 01/24/2018 112/90 11/01/2017 131/86 The ROS is otherwise negative. Past medical history, appointments, medications, allergies reviewed. Patient Allergies ALLERGIES Allergen Reactions - Prednisone Intolerance irritable Current Medications Current Outpatient Prescriptions on File Prior to Visit: cyclobenzaprine (FLEXERIL) 10 mg tablet Take 1 tablet by mouth three times daily as needed for Muscle Spasm. atorvastatin (LIPITOR) 20 mg tablet Take 1 tablet by mouth once daily. For cholesterol. sildenafil (VIAGRA) 25 mg tablet Take 1 tablet by mouth as needed. No current facility-administered medications on file prior to visit. Previous Medical History PAST MEDICAL HISTORY Diagnosis Date - Chronic daily headache 01/16/2011 - Chronic depressive personality disorder - Cluster headache 06/09/2014 - Diverticulosis of colon (without mention of hemorrhage) - Hyperlipidemia 09/08/2014 - Internal hemorrhoids without mention of complication - Other abnormal heart sounds - Other rheumatic heart disease childhood - PMH - PAST MEDICAL HISTORY OF rheumatic fever - PMH - PAST MEDICAL HISTORY OF heart mumur - Tobacco abuse 06/05/2012 Previous Surgical History PAST SURGICAL HISTORY Procedure Laterality Date - COLONOSCOP W/ OR W/O [facility]SH SPEC 05/13/2006 Colonoscopy - COLONOSCOP W/ OR W/O BRSH SPEC 12/18/12 Colonoscopy - COLONOSCOP W/ OR W/O BRS SPEC 12/23/2017 Colonoscopy - COM L HRT CATH WILFRED W/A ROOT AORT 02/02/13 - PAST SURGICAL HISTORY OF right inguinal hernia surgery as a teenager - PAST SURGICAL HISTORY OF 08/2007 scope on knee Right - REMOVAL OF TONSILS,<14 Y/O Tonsillectomy - VASECTOMY 12/06/06 Family History FAMILY HISTORY Problem Relation Age of Onset - Cancer Sister stage 4 lung cancer - Cancer Father lung cancer - Cancer Maternal Grandfather lung cancer/black lung - Cancer Paternal Grandfather lung cancer Social History Social History Marital status: Single Spouse name: Years of education: Number of children: 2 Occupational History Occupation Employer Comment [employer]* Social History Main Topics Smoking status: Former Smoker Packs/day: 0.50 Years: 5.00 Types: Cigarettes Quit date: 12/01/2016 Smokeless status: Never Used Comment: Quit May 2012 Alcohol use: Yes Comment: very rare beer Drug use: No Sexual activity: Yes Partners with: Female control/protection: Condom Other Topics Concern No BLOOD TRANSFUSIONS No CAFFEINE No OCCUPATIONAL EXPOSURE No HOBBY HAZARD No SLEEP CONCERN No STRESS CONCERN Yes WEIGHT CONCERN No DIET No BACK CARE No EXERCISE No BIKE HELMET No SEAT BELT No SELF EXAMS No EXAM: BP 130/90 Pulse 79 Resp 16 Wt 97.1 kg (214 lb) BMI 27.76 kg/m2 General Appearance: Well appearing, alert, in no acute distress, well-hydrated, well nourished.. Back:no pain to palpation of vertebrae, good flexion and extension, good range of motion, no muscle tenderness, motor and sensory appear to be normal, no evidence of scoliosis ASSESSMENT/PLAN: 1. Acute midline low back pain without sciatica - ICD9: 724.2, ICD10: M54.5 Mechanical low back pain - Warm moist heat for 20 min three times a day - Muscle relaxant- see orders - May continue with Advil 400-600 mg every 4-6 hours prn. - Follow up prn. - CYCLOBENZAPRINE 10 MG TABLET Dimitri Cervantes MSN SUPERINTENDENT MEASUREMENT.DATA CAPTURE SPECIALIST CNOV Observed: 01/31/2018 Status: COMPLETED Source: [place] 10:[address] [facility] REPOSITORY Office Visit (FAMPWS) SKYLER MCCLOUD ([id number]) 1950 M NFR Date Time Provider Department 01/31/18 10:40 AM DIMITRI CERVANTES (TELEGRAPH OFFICE MANAGER) FAMPWS During your visit today, we recorded the following information about you: Pulse Respiration Blood pressure Weight 79/minute 16/minute 130/90 97.1 kg SURESH Suazo SUPERINTENDENT MEASUREMENT.DATA CAPTURE SPECIALIST 01/31/2018 5:46 PM Signed Chief Complaint Patient presents with: Recheck: Lower back pain HPI Skyler Razo Ame is a 67 year old male who presents here today for follow up lower back pain. Seen in one week ago, note reviewed. Reports was bent over sanding old table top for prolonged period and felt instantly, lower back locked up, difficult to move and change positions. Has been using Advil 400 mg at a time and FLexeril wth benefit. Still notes mild stiffness with certain positions but overall significantly better. Last 3 Encounter BP Readings: Date: BP: 01/31/2018 130/90 01/24/2018 112/90 11/01/2017 131/86 The ROS is otherwise negative. Past medical history, appointments, medications, allergies reviewed. Patient Allergies ALLERGIES Allergen Reactions - Prednisone Intolerance irritable Current Medications Current Outpatient Prescriptions on File Prior to Visit: cyclobenzaprine (FLEXERIL) 10 mg tablet Take 1 tablet by mouth three times daily as needed for Muscle Spasm. atorvastatin (LIPITOR) 20 mg tablet Take 1 tablet by mouth once daily. For cholesterol. sildenafil (VIAGRA) 25 mg tablet Take 1 tablet by mouth as needed. No current facility-administered medications on file prior to visit. Previous Medical History PAST MEDICAL HISTORY Diagnosis Date - Chronic daily headache 01/16/2011 - Chronic depressive personality disorder - Cluster headache 06/09/2014 - Diverticulosis of colon (without mention of hemorrhage) - Hyperlipidemia 09/08/2014 - Internal hemorrhoids without mention of complication - Other abnormal heart sounds - Other rheumatic heart disease childhood - PMH - PAST MEDICAL HISTORY OF rheumatic fever - PMH - PAST MEDICAL HISTORY OF heart mumur - Tobacco abuse 06/05/2012 Previous Surgical History PAST SURGICAL HISTORY Procedure Laterality Date - COLONOSCOP W/ OR W/O [facility] SPEC 05/13/2006 Colonoscopy - COLONOSCOP W/ OR W/O [facility]SH SPEC 12/18/12 Colonoscopy - COLONOSCOP W/ OR W/O [facility] SPEC 12/23/2017 Colonoscopy - COM L HRT CATH WILFRED W/A ROOT AORT 02/02/13 - PAST SURGICAL HISTORY OF right inguinal hernia surgery as a teenager - PAST SURGICAL HISTORY OF 08/2007 scope on knee Right - REMOVAL OF TONSILS,ANDlt;14 Y/O Tonsillectomy - VASECTOMY 12/06/06 Family History FAMILY HISTORY Problem Relation Age of Onset - Cancer Sister stage 4 lung cancer - Cancer Father lung cancer - Cancer Maternal Grandfather lung cancer/black lung - Cancer Paternal Grandfather lung cancer Social History Social History Marital status: Single Spouse name: Years of education: Number of children: 2 Occupational History Occupation Employer Comment [employer]* Social History Main Topics Smoking status: Former Smoker Packs/day: 0.50 Years: 5.00 Types: Cigarettes Quit date: 12/01/2016 Smokeless status: Never Used Comment: Quit May 2012 Alcohol use: Yes Comment: very rare beer Drug use: No Sexual activity: Yes Partners with: Female control/protection: Condom Other Topics Concern No BLOOD TRANSFUSIONS No CAFFEINE No OCCUPATIONAL EXPOSURE No HOBBY HAZARD No SLEEP CONCERN No STRESS CONCERN Yes WEIGHT CONCERN No DIET No BACK CARE No EXERCISE No BIKE HELMET No SEAT BELT No SELF EXAMS No EXAM: BP 130/90 Pulse 79 Resp 16 Wt 97.1 kg (214 lb) BMI 27.76 kg/m2 General Appearance: Well appearing, alert, in no acute distress, well-hydrated, well nourished.. Back:no pain to palpation of vertebrae, good flexion and extension, good range of motion, no muscle tenderness, motor and sensory appear to be normal, no evidence of scoliosis ASSESSMENT/PLAN: 1. Acute midline low back pain without sciatica - ICD9: 724.2, ICD10: M54.5 Mechanical low back pain - Warm moist heat for 20 min three times a day - Muscle relaxant- see orders - May continue with Advil 400-600 mg every 4-6 hours prn. - Follow up prn. - CYCLOBENZAPRINE 10 MG TABLET Dimitri Cervantes, MSN SUPERINTENDENT MEASUREMENT.DATA CAPTURE SPECIALIST Referring Provider: SELF [[id number]] Allergies As of Date: 01/31/2018 Noted Allergy Reaction PREDNISONE 04/16/2006 5 - Intolerance Comments: irritable Date Reviewed: 01/31/2018 Reviewed by: Zofia ([facility]) EARLINE Nelson - Fully Assessed Reason for Visit: Recheck [92] Cmt: Lower back pain Primary Visit Diagnosis:Acute midline low back pain without sciatica [M54.5] Order(s):sildenafil (VIAGRA) 50 mg tabletTake 1 tablet by mouth as needed.Disp: 30 tabletRfl: 5 cyclobenzaprine (FLEXERIL) 10 mg tabletTake 1 tablet by mouth three times daily as needed for Muscle Spasm.Disp: 20 tabletRfl: 0 Prescriptions as of 01/31/2018 Sig: CYCLOBENZAPRINE 10 MG TABLET Take 1 tablet by mouth three * ATORVASTATIN 20 MG TABLET Take 1 tablet by mouth once d* SILDENAFIL 50 MG TABLET Take 1 tablet by mouth as nee* Problem List As Of Date 01/31/2018 Noted Resolved Anxiety state [F41.1] INVALID FOR*10/31/2017 Sterilization [Z30.2] INVALID FOR*03/31/2014 Adjustment disorder with depressed mood [F43.21]INVALID FOR*10/31/2017 Phlebitis and thrombophlebitis of superficial v*INVALID FOR*03/31/2014 Varicose veins of lower extremities with other *INVALID FOR*10/31/2017 Chronic daily headache [R51] INVALID FOR*10/31/2017 More... Tobacco abuse [Z72.0] INVALID FOR*10/31/2017 Cluster headache [G44.009] INVALID FOR* Hyperlipidemia [E78.5] INVALID FOR* Vitamin D deficiency [E55.9] INVALID FOR*10/16/2017 Prescriptions ordered this encounter Disp Refills Start End SILDENAFIL 50 MG TABLET 30 t* 5 01/31/2018 Class: Print RX Route: ORAL Sig: Take 1 tablet by mouth as needed. CYCLOBENZAPRINE 10 MG TABLET 20 t* 0 01/31/2018 Route: ORAL Sig: Take 1 tablet by mouth three times daily as needed for Muscle Spasm. Medications Discontinued During This Encounter sildenafil (VIAGRA) 25 mg tablet 15 t* 11 10/31/2017 01/31/2018 Class: Print RX Route: ORAL Sig: Take 1 tablet by mouth as needed. Disc: Changing Therapy/Dosage Form cyclobenzaprine (FLEXERIL) 10 mg tab* 20 t* 0 01/24/2018 01/31/2018 Route: ORAL Sig: Take 1 tablet by mouth three times daily as needed for Muscle Spasm. Disc: Reason for discontinue is not on file. Encounter Status:Closed by DIMITRI CERVANTES CNP on 01/31/18 PROGRESS Observed: 01/24/2018 Status: COMPLETED Source: [place] 10:04 AM [facility] REPOSITORY HNO ID: [id number] Author: Pako Amaya) Service: (none) Author Type: Nurse Practitioner Type: Progress Notes Filed: 01/24/2018 10:54 AM Note Text: Subjective HPI HPI Skyler Mccloud is a 67 year old male who presents today for CC of low back pain, starting after spent a lot of time bent over sanding wood, no injury to cause. This started 2 days ago. Has tried tylenol without relief. Symptoms are worsened by ROM. Risk factors none, no hx of back pain. .Patient presents with: Back Pain PAST MEDICAL HISTORY Diagnosis Date - Chronic daily headache 01/16/2011 - Chronic depressive personality disorder - Cluster headache 06/09/2014 - Diverticulosis of colon (without mention of hemorrhage) - Hyperlipidemia 09/08/2014 - Internal hemorrhoids without mention of complication - Other abnormal heart sounds - Other rheumatic heart disease childhood - PMH - PAST MEDICAL HISTORY OF rheumatic fever - PMH - PAST MEDICAL HISTORY OF heart mumur - Tobacco abuse 06/05/2012 PAST SURGICAL HISTORY Procedure Laterality Date - COLONOSCOP W/ OR W/O [facility] SPEC 05/13/2006 Colonoscopy - COLONOSCOP W/ OR W/O [facility] SPEC 12/18/12 Colonoscopy - COLONOSCOP W/ OR W/O [facility] SPEC 12/23/2017 Colonoscopy - COM L HRT CATH WILFRED W/A ROOT AORT 02/02/13 - PAST SURGICAL HISTORY OF right inguinal hernia surgery as a teenager - PAST SURGICAL HISTORY OF 08/2007 scope on knee Right - REMOVAL OF TONSILS,<14 Y/O Tonsillectomy - VASECTOMY 12/06/06 ALLERGIES Prednisone MEDICATIONS atorvastatin (LIPITOR) 20 mg tablet Take 1 tablet by mouth once daily. For cholesterol. sildenafil (VIAGRA) 25 mg tablet Take 1 tablet by mouth as needed. cyclobenzaprine (FLEXERIL) 10 mg tablet Take 1 tablet by mouth three times daily as needed for Muscle Spasm. FAMILY HISTORY Problem Relation Age of Onset - Cancer Sister stage 4 lung cancer - Cancer Father lung cancer - Cancer Maternal Grandfather lung cancer/black lung - Cancer Paternal Grandfather lung cancer Social History Substance Use Topics - Smoking status: Former Smoker Packs/day: 0.50 Years: 5.00 Types: Cigarettes Quit date: 12/01/2016 - Smokeless tobacco: Never Used Comment: Quit May 2012 - Alcohol use Yes Comment: very rare beer Review of Systems Constitutional: Negative for chills, fever and weight loss. Cardiovascular: Negative for leg swelling. Gastrointestinal: Negative for abdominal pain, constipation, diarrhea, nausea and vomiting. Genitourinary: Negative for dysuria, flank pain, frequency, hematuria and urgency. Musculoskeletal: Positive for back pain. Skin: Negative for rash. Neurological: Negative for sensory change and focal weakness. Objective Blood pressure 112/90, pulse 66, temperature 36.2 ?C (97.1 ?F), temperature source Left Tympanic, resp. rate 16, weight 96.6 kg (213 lb). Physical Exam Constitutional: He is oriented to person, place, and time. Non-toxic appearance. He does not have a sickly appearance. He appears distressed (mild with back ROM). Cardiovascular: Pulses: Dorsalis pedis pulses are 2+ on the right side, and 2+ on the left side. Posterior tibial pulses are 2+ on the right side, and 2+ on the left side. Abdominal: Soft. Normal appearance and bowel sounds are normal. There is no hepatosplenomegaly. There is no tenderness. There is no CVA tenderness. Musculoskeletal: Lumbar back: He exhibits decreased range of motion, pain and spasm. Lumbar paraspinal muscles tender with palpation Neurological: He is alert and oriented to person, place, and time. He has a normal Straight Leg Raise Test. Gait normal. Gait normal. Reflex Scores: Patellar reflexes are 2+ on the right side and 2+ on the left side. Achilles reflexes are 2+ on the right side and 2+ on the left side. Skin: He is not diaphoretic. ASSESSMENT/PLAN: 1. Acute midline low back pain without sciatica - ICD9: 724.2, ICD10: M54.5 -given exercises/stretches -discussed ibuprofen 600mg po 2-3 times per day, push fluids -will schedule f/u with primary care in 7-10 days -follow up sooner if symptoms worsen -discussed red flags and reasons for urgent follow up -will schedule recheck/follow up with pcp as patient has never had back pain before. - CYCLOBENZAPRINE 10 MG TABLET Prescription instructions reviewed with patient as applicable. Patient advised if symptoms do not improve or if symptoms worsen sooner, to contact the office for further evaluation by their primary care physician. Potential red flag symptoms discussed with the patient. Reviewed appropriate action plan to take if red flag symptoms occur. Patient agreeable to treatment plan. DAVID MontillaOV Observed: 01/24/2018 Status: COMPLETED Source: [place] 9:[address] [facility] REPOSITORY Office Visit (WSTR) SKYLER MCCLOUD ([id number]) 1950 M NFR Date Time Provider Department 01/24/18 9:00 AM PAKO ALVAREZ (RADHA) [facility] During your visit today, we recorded the following information about you: Temperature Pulse Respiration Blood pressure 97.1 degrees 66/minute 16/minute 112/90 Weight 96.6 kg Pako Alvarez APRN.CNP 01/24/2018 9:34 AM Signed ASSESSMENT/PLAN: 1. Acute midline low back pain without sciatica - ICD9: 724.2, ICD10: M54.5 -given exercises/stretches -discussed ibuprofen 600mg po 2-3 times per day, push fluids -will schedule f/u with primary care in 7-10 days -follow up sooner if symptoms worsen -discussed red flags and reasons for urgent follow up - CYCLOBENZAPRINE 10 MG TABLET Pako Alvarez APRN.CNP 01/24/2018 10:54 AM Signed Subjective HPI HPI Skyler Mccloud is a 67 year old male who presents today for CC of low back pain, starting after spent a lot of time bent over sanding wood, no injury to cause. This started 2 days ago. Has tried tylenol without relief. Symptoms are worsened by ROM. Risk factors none, no hx of back pain. .Patient presents with: Back Pain PAST MEDICAL HISTORY Diagnosis Date - Chronic daily headache 01/16/2011 - Chronic depressive personality disorder - Cluster headache 06/09/2014 - Diverticulosis of colon (without mention of hemorrhage) - Hyperlipidemia 09/08/2014 - Internal hemorrhoids without mention of complication - Other abnormal heart sounds - Other rheumatic heart disease childhood - PMH - PAST MEDICAL HISTORY OF rheumatic fever - PMH - PAST MEDICAL HISTORY OF heart mumur - Tobacco abuse 06/05/2012 PAST SURGICAL HISTORY Procedure Laterality Date - COLONOSCOP W/ OR W/O [facility] SPEC 05/13/2006 Colonoscopy - COLONOSCOP W/ OR W/O [facility] SPEC 12/18/12 Colonoscopy - COLONOSCOP W/ OR W/O [facility] SPEC 12/23/2017 Colonoscopy - COM L HRT CATH WILFRED W/A ROOT AORT 02/02/13 - PAST SURGICAL HISTORY OF right inguinal hernia surgery as a teenager - PAST SURGICAL HISTORY OF 08/2007 scope on knee Right - REMOVAL OF TONSILS,ANDlt;14 Y/O Tonsillectomy - VASECTOMY 12/06/06 ALLERGIES Prednisone MEDICATIONS atorvastatin (LIPITOR) 20 mg tablet Take 1 tablet by mouth once daily. For cholesterol. sildenafil (VIAGRA) 25 mg tablet Take 1 tablet by mouth as needed. cyclobenzaprine (FLEXERIL) 10 mg tablet Take 1 tablet by mouth three times daily as needed for Muscle Spasm. FAMILY HISTORY Problem Relation Age of Onset - Cancer Sister stage 4 lung cancer - Cancer Father lung cancer - Cancer Maternal Grandfather lung cancer/black lung - Cancer Paternal Grandfather lung cancer Social History Substance Use Topics - Smoking status: Former Smoker Packs/day: 0.50 Years: 5.00 Types: Cigarettes Quit date: 12/01/2016 - Smokeless tobacco: Never Used Comment: Quit May 2012 - Alcohol use Yes Comment: very rare beer Review of Systems Constitutional: Negative for chills, fever and weight loss. Cardiovascular: Negative for leg swelling. Gastrointestinal: Negative for abdominal pain, constipation, diarrhea, nausea and vomiting. Genitourinary: Negative for dysuria, flank pain, frequency, hematuria and urgency. Musculoskeletal: Positive for back pain. Skin: Negative for rash. Neurological: Negative for sensory change and focal weakness. Objective Blood pressure 112/90, pulse 66, temperature 36.2 ?C (97.1 ?F), temperature source Left Tympanic, resp. rate 16, weight 96.6 kg (213 lb). Physical Exam Constitutional: He is oriented to person, place, and time. Non-toxic appearance. He does not have a sickly appearance. He appears distressed (mild with back ROM). Cardiovascular: Pulses: Dorsalis pedis pulses are 2+ on the right side, and 2+ on the left side. Posterior tibial pulses are 2+ on the right side, and 2+ on the left side. Abdominal: Soft. Normal appearance and bowel sounds are normal. There is no hepatosplenomegaly. There is no tenderness. There is no CVA tenderness. Musculoskeletal: Lumbar back: He exhibits decreased range of motion, pain and spasm. Lumbar paraspinal muscles tender with palpation Neurological: He is alert and oriented to person, place, and time. He has a normal Straight Leg Raise Test. Gait normal. Gait normal. Reflex Scores: Patellar reflexes are 2+ on the right side and 2+ on the left side. Achilles reflexes are 2+ on the right side and 2+ on the left side. Skin: He is not diaphoretic. ASSESSMENT/PLAN: 1. Acute midline low back pain without sciatica - ICD9: 724.2, ICD10: M54.5 -given exercises/stretches -discussed ibuprofen 600mg po 2-3 times per day, push fluids -will schedule f/u with primary care in 7-10 days -follow up sooner if symptoms worsen -discussed red flags and reasons for urgent follow up -will schedule recheck/follow up with pcp as patient has never had back pain before. - CYCLOBENZAPRINE 10 MG TABLET Prescription instructions reviewed with patient as applicable. Patient advised if symptoms do not improve or if symptoms worsen sooner, to contact the office for further evaluation by their primary care physician. Potential red flag symptoms discussed with the patient. Reviewed appropriate action plan to take if red flag symptoms occur. Patient agreeable to treatment plan. Pako Alvarez APRN.DATA CAPTURE SPECIALIST Referring Provider: SELF [[id number]] Allergies As of Date: 01/24/2018 Noted Allergy Reaction PREDNISONE 04/16/2006 5 - Intolerance Comments: irritable Date Reviewed: 01/24/2018 Reviewed by: Pako (Radha) - Fully Assessed Reason for Visit: Back Pain [12] Primary Visit Diagnosis:Acute midline low back pain without sciatica [M54.5] Order(s):cyclobenzaprine (FLEXERIL) 10 mg tabletTake 1 tablet by mouth three times daily as needed for Muscle Spasm.Disp: 20 tabletRfl: 0 Prescriptions as of 01/24/2018 Sig: ATORVASTATIN 20 MG TABLET Take 1 tablet by mouth once d* SILDENAFIL 25 MG TABLET Take 1 tablet by mouth as nee* CYCLOBENZAPRINE 10 MG TABLET Take 1 tablet by mouth three * Problem List As Of Date 01/24/2018 Noted Resolved Anxiety state [F41.1] INVALID FOR*10/31/2017 Sterilization [Z30.2] INVALID FOR*03/31/2014 Adjustment disorder with depressed mood [F43.21]INVALID FOR*10/31/2017 Phlebitis and thrombophlebitis of superficial v*INVALID FOR*03/31/2014 Varicose veins of lower extremities with other *INVALID FOR*10/31/2017 Chronic daily headache [R51] INVALID FOR*10/31/2017 More... Tobacco abuse [Z72.0] INVALID FOR*10/31/2017 Cluster headache [G44.009] INVALID FOR* Hyperlipidemia [E78.5] INVALID FOR* Vitamin D deficiency [E55.9] INVALID FOR*10/16/2017 Other instructions from your clinician: ASSESSMENT/PLAN: 1. Acute midline low back pain without sciatica - ICD9: 724.2, ICD10: M54.5 -given exercises/stretches -discussed ibuprofen 600mg po 2-3 times per day, push fluids -will schedule f/u with primary care in 7-10 days -follow up sooner if symptoms worsen -discussed red flags and reasons for urgent follow up - CYCLOBENZAPRINE 10 MG TABLET Prescriptions ordered this encounter Disp Refills Start End CYCLOBENZAPRINE 10 MG TABLET 20 t* 0 01/24/2018 Route: ORAL Sig: Take 1 tablet by mouth three times daily as needed for Muscle Spasm. Encounter Status:Closed by PAKO ALVAREZ CNP on 01/24/18 NURSING PROG Observed: 12/23/2017 Status: COMPLETED Source: [place] 1:[address] [facility] REPOSITORY HNO ID: [id number] Author: Bianca PaigeRn) EUNICE Orozco Service: Nursing Author Type: Registered Nurse Type: Nursing Progress Note Filed: 12/23/2017 1:33 PM Note Text: Patient did not experience a fall prior to discharge. Patient did not experience a burn prior to discharge. Bianca Orozco RN NURSING PROG Observed: 12/23/2017 Status: COMPLETED Source: [place] 1:[address] [facility] REPOSITORY HNO ID: [id number] Author: Bianca PaigeRn) EUNICE Orozco Service: Nursing Author Type: Registered Nurse Type: Nursing Progress Note Filed: 12/23/2017 1:29 PM Note Text: Dr Paula to talk to the patient. Ready to go home., in the care of his spouse. NURSING PROG Observed: 12/23/2017 Status: COMPLETED Source: [place] 1:[address] [facility] REPOSITORY HNO ID: [id number] Author: Bianca Mehta) EUNICE Orozco Service: Nursing Author Type: Registered Nurse Type: Nursing Progress Note Filed: 12/23/2017 1:22 PM Note Text: Dressing to go home, at his side. NURSING PROG Observed: 12/23/2017 Status: COMPLETED Source: [place] 1:[address] [facility] REPOSITORY HNO ID: [id number] Author: Bianca PaigeRn) EUNICE Orozco Service: Nursing Author Type: Registered Nurse Type: Nursing Progress Note Filed: 12/23/2017 1:12 PM Note Text: Waiting to talk to Dr Paula. Drinking coffee at his side. PT ED Observed: 12/23/2017 Status: COMPLETED Source: [place] 1:[address] [facility] REPOSITORY HNO ID: [id number] Author: Bianca PaigeRn) EUNICE Orozco Service: Nursing Author Type: Registered Nurse Type: Patient Education Filed: 12/23/2017 1:07 PM Note Text: POST OP LEARNING RESPONSE INSTRUCTION PROVIDED TO: Patient and family member METHOD OF INSTRUCTION: Individual instruction Written instruction - handouts Verbal instruction PATIENT / FAMILY RESPONSE: Information received as demonstrated by interest and questions FOLLOW-UP PLAN: Patient instructed to call with any further issues SUPPLEMENTAL MATERIAL: None REFERRAL (RECOMMENDATION): None Electronically Signed By: Bianca Orozco RN In Department: AMBULATORY SURGERY NURSING PROG Observed: 12/23/2017 Status: COMPLETED Source: [place] 1:[address] [facility] REPOSITORY HNO ID: [id number] Author: Bianca PaigeRn) EUNICE Orozco Service: Nursing Author Type: Registered Nurse Type: Nursing Progress Note Filed: 12/23/2017 1:07 PM Note Text: Tolerated snack well, no complaints, waiting to talk to Dr Paula. NURSING PROG Observed: 12/23/2017 Status: COMPLETED Source: [place] 12:[address] [facility] REPOSITORY HNO ID: [id number] Author: Bianca PaigeRn) EUNICE Orozco Service: Nursing Author Type: Registered Nurse Type: Nursing Progress Note Filed: 12/23/2017 12:30 PM Note Text: Pt into Endo recovery room in satisfactory condition. Resting on left side. Pt. sleepy but arousable. Abdomen soft, no complaints, all safety maintained. Will continue to monitor. NURSING PROG Observed: 12/23/2017 Status: COMPLETED Source: [place] 12:[address] [facility] REPOSITORY HNO ID: [id number] Author: Genesis Pond (Rn) EUNICE Norman Service: (none) Author Type: Registered Nurse Type: Nursing Progress Note Filed: 12/23/2017 12:24 PM Note Text: Patient did not experience a fall within the Intraoperative area. Patient did not experience a burn within the Intraoperative area. Genesis Norman RN NURSING PROG Observed: 12/23/2017 Status: COMPLETED Source: [place] 11:[address] [facility] REPOSITORY HNO ID: [id number] Author: Cha Cannon (Rn) EUNICE Carvalho Service: Nursing Author Type: Registered Nurse Type: Nursing Progress Note Filed: 12/23/2017 11:57 AM Note Text: [facility] PRE-OP NURSING HAND OFF NOTE SBAR Hand off given to Genesis Norman RN. Hand off was communicated verbally and at the patient's bedside and all questions were answered. FALLS/ROBERTO Patient did not experience a fall within the Preoperative area. Patient did not experience a burn within the Preoperative area. Cha Carvalho, RN PT ED Observed: 12/23/2017 Status: COMPLETED Source: [place] 11:[address] [facility] REPOSITORY HNO ID: [id number] Author: Aide (Rn) EUNICE Hwang Service: (none) Author Type: Registered Nurse Type: Patient Education Filed: 12/23/2017 11:19 AM Note Text: Discharge Instructions were reviewed pre-operatively with the patient. All questions and concerns were addressed. Aide Hwang RN PRE OP LEARNING ASSESSMENT PROCEDURE/SURGERY: GI PROCEDURES: Colonoscopy READINESS TO LEARN COGNITIVE ABILITY: Alert and oriented MOTIVATION TO LEARN: Interested FAMILY SUPPORT: Unable to assess - Family not present PATIENT LEARNS BEST BY: Multiple Methods FACTORS AFFECTING LEARNING: None PHYSICAL LIMITATIONS AFFECTING LEARNING: None Electronically Signed By: Aide Hwang RN In Department: AMBULATORY SURGERY SURGICAL PATHOLOGY Observed: 12/23/2017 Status: F Source: [place] 12:[address] [facility] REPOSITORY Specimen originated from [facility] Specimen #: [id number] Submitting Physician: LIYAH PAULA MD FINAL DIAGNOSIS Cecum, biopsy - Tubular adenoma. [facility]/gljuanjo 12/24/2017 El Childress M.D. (Electronic Signature) SPECIMEN SUBMITTED A: CECUM POLYP CLINICAL DATA COLON CANCER SCREENING [Z12.11] COLD SNARE GROSS DESCRIPTION A. Received in formalin is a single segment of mcwilliams brown polypoid tissue measuring 0.2 x 0.2 x 0.2 cm. No stalk is noted. The line of resection is noted. The specimen is not sectioned and submitted in one cassette. Gross examination performed at [facility], [address] [place] [address] MMD 12/24/2017 2:07:31 AM Date of Report: 12/24/2017 Date of Procedure: 12/23/2017 Date of Receipt: 12/23/2017 Submitted by: LIYAH PAULA MD Location: [id number] Diagnostic interpretation performed at [facility], [address] [place] [address]. PROGRESS Observed: 11/01/2017 Status: COMPLETED Source: [place] 7:[address] [facility] REPOSITORY HNO ID: [id number] Author: Jacinda Blakely III Service: (none) Author Type: Physician Type: Progress Notes Filed: 11/01/2017 7:17 PM Note Text: Chris, There is no abnormality in the chest x-ray. No evidence of tuberculosis. Report any change in symptoms. Perhaps the cough is related to inhaled dust affecting the bronchial tubes. I can refer you to a lung specialist if you'd like to have evaluation. Otherwise I would observe for any symptoms. Jacinda Blakely III, MD, [facility] PROGRESS Observed: 11/01/2017 Status: COMPLETED Source: [place] 9:[address] [facility] REPOSITORY HNO ID: [id number] Author: Stefany Cheung Service: (none) Author Type: (none) Type: Progress Notes Filed: 11/01/2017 9:31 AM Note Text: Patient scheduled for colonoscopy with Dr. Paula on 12/23/2017 Stefany Cheung HOSP Observed: 11/01/2017 Status: COMPLETED Source: [place] 12:[address] [facility] REPOSITORY Patient:Skyler Mccloud MRN: <[id number]> Height:6' 1.622(1.87 m) Weight:No patient weight recorded within the last 30 days. Outpatient Medications as of 12/23/17: atorvastatin (LIPITOR) 20 mg tablet sildenafil (VIAGRA) 25 mg tablet Admission/Clinic Administered Medications as of 12/23/17: lactated ringers infusion Problem List: Cluster headache [G44.009] Hyperlipidemia [E78.5] Allergies: Prednisone Date Verified: 12/23/17 Lab Values No results within the last 30 days for the following basenames: K,HCT No progress notes entered within the past 30 days XR CHEST 2V FRONTAL/LAT Observed: 10/31/2017 Status: F Source: [place] 4:[address] [facility] REPOSITORY * * *Final Report* * * DATE OF EXAM: Oct 31 2017 4:27PM WOX [id number] - XR CHEST 2V FRONTAL/LAT / PROCEDURE REASON: multiple diagnoses * * * * Physician Interpretation * * * * EXAMINATION: CHEST RADIOGRAPH (2 VIEW FRONTAL and LATERAL) Clinical History: Wheezing Other specified health status M: XC2_3 Comparison: 08/18/2016 RESULT: Lines, tubes, and devices: None. Lungs and pleura: No consolidation. No lung mass. No pleural effusion. Bibasilar atelectasis/scar. Cardiomediastinal silhouette: Normal cardiomediastinal silhouette. Other: IMPRESSION: No acute radiographic abnormality. Patient Flow Coordinator: PSCB Transcribe Date/Time: Oct 31 2017 5:34P Dictated by : ZANE BERTRAND MD This examination was interpreted and the report reviewed and electronically signed by: ZANE BERTRAND MD on Oct 31 2017 5:35PM EST [id number] PROGRESS Observed: 10/31/2017 Status: COMPLETED Source: [place] 4:[address] [facility] REPOSITORY HNO ID: [id number] Author: Shivani Mcgee Service: (none) Author Type: (none) Type: Progress Notes Filed: 10/31/2017 4:27 PM Note Text: Radiology Service Progress Note PATIENT NAME: Skyler Mccloud DATE OF SERVICE: October 31, 2017 TIME: 4:20 PM PATIENT IDENTITY VERIFICATION COMPLETED USING TWO (2) METHODS: Patient confirmed name verbally and Date of . PATIENT GENDER DATA: Male PATIENT RELEVANT IMPLANT DATA REVIEWED: Not Applicable RADIOLOGY DEPARTMENT: General X-ray: Exam(s) Completed: Chest X-Ray PERIPHERAL IV DATA: Not applicable SIGNED BY: Shivani Mcgee October 31, 2017 4:20 PM PROGRESS Observed: 10/31/2017 Status: COMPLETED Source: [place] 3:[address] [facility] REPOSITORY HNO ID: [id number] Author: Jacinda Blakely III Service: (none) Author Type: Physician Type: Progress Notes Filed: 10/31/2017 4:52 PM Note Text: SUBJECTIVE: Chief Complaint: Skyler Mccloud is a 67 year old male who presents for comprehensive problem evaluation. New concerns today include 1. hx of colon polyps on colonoscopy in Nov 2016: needs colonoscopy this yr. No change in BM or rectal bleeding or abd pain 2. hx of Dengue fever in January, 3. hyperlipidemia: previously on lipitor but not now. 4. cluster QUINONES: in remission for several yrs. 5. ED: 6. wheezing for past 6 mos with occasional cough. Smoked intermittently for ~10 yrs--quit yrs ago. has lived in [facility] for most of the past 3 yrs. No known TB exposure. No hemoptysis or fever Exercises regularly No Prostate cancer screening up to date No Colon cancer screening is up to date Yes Last colonoscopy was done 11/2016 Cholesterol screening up to date No No current outpatient prescriptions on file prior to visit. No current facility-administered medications on file prior to visit. PAST MEDICAL HISTORY Diagnosis Date - Chronic daily headache 01/16/2011 - Chronic depressive personality disorder - Cluster headache 06/09/2014 - Diverticulosis of colon (without mention of hemorrhage) - Hyperlipidemia 09/08/2014 - Internal hemorrhoids without mention of complication - Other abnormal heart sounds - Other rheumatic heart disease childhood - PMH - PAST MEDICAL HISTORY OF rheumatic fever - PMH - PAST MEDICAL HISTORY OF heart mumur - Tobacco abuse 06/05/2012 PAST SURGICAL HISTORY Procedure Laterality Date - COLONOSCOP W/ OR W/O [facility] SPEC 05/13/2006 Colonoscopy - COLONOSCOP W/ OR W/O [facility] SPEC 12/18/12 Colonoscopy - COM L HRT CATH WILFRED W/A ROOT AORT 02/02/13 - PAST SURGICAL HISTORY OF right inguinal hernia surgery as a teenager - PAST SURGICAL HISTORY OF 08/2007 scope on knee Right - REMOVAL OF TONSILS,<12 Y/O Tonsillectomy - VASECTOMY 12/06/06 FAMILY HISTORY Problem Relation Age of Onset - Cancer Sister stage 4 lung cancer - Cancer Father lung cancer - Cancer Maternal Grandfather lung cancer/black lung - Cancer Paternal Grandfather lung cancer Social History Marital status: Single Spouse name: Years of education: Number of children: 2 Occupational History Occupation Employer Comment [employer]* Social History Main Topics Smoking status: Former Smoker Packs/day: 0.50 Years: 5.00 Types: Cigarettes Quit date: 12/01/2016 Smokeless status: Never Used Comment: Quit May 2012 Alcohol use: Yes Comment: very rare beer Drug use: No Sexual activity: Yes Partners with: Female control/protection: Condom Other Topics Concern No BLOOD TRANSFUSIONS No CAFFEINE No OCCUPATIONAL EXPOSURE No HOBBY HAZARD No SLEEP CONCERN No STRESS CONCERN Yes WEIGHT CONCERN No DIET No BACK CARE No EXERCISE No BIKE HELMET No SEAT BELT No SELF EXAMS No Immunization History Administered Date(s) Administered DT(PEDIATRIC) 01/19/1993 DTaP (Age<7) 02/06/2006 Hepatitis A Adult 05/12/2015 Hepatitis B Adult 05/12/2015 Influenza Seasonal Inj ID Pres Free 07/08/2014 Influenza Seasonal Inj Quadrivalent Age 3+ 08/07/2016 Influenza Vaccine, Split-Non Spec 08/28/2011 09/02/2012 Tdap (Age 7+) 08/07/2016 ACTIVE PROBLEM LIST Anxiety State Adjustment Disorder With Depressed Mood Varicose Veins of Lower Extremities With Other Complications Chronic Daily Headache Tobacco Abuse Cluster Headache Hyperlipidemia REVIEW OF SYSTEMS General: Denies fever, chills, night sweats, or changes in weight. Dermatologic: Denies any new skin conditions, rashes or changing moles. Eyes: ENT: Respiratory: Positive for wheezing. Cardiovascular: Denies any chest pain with exertion or at rest, palpitations, syncope, or edema. Gastrointestinal: Denies any nausea, vomiting, abdominal pain, heartburn, changes in bowel habit, Denies any rectal bleeding. Genitourinary: Denies Denies problems with urinary stream., Denies dysuria, frequency, urgency, incontinence, erectile dysfunction, hematuria and nocturia. Musculoskeletal: Denies any joint swelling, crepitus, joint pain, or loss of range of motion., Denies back pain. Neurologic: Denies any headaches, tremors, dizziness, vertigo, memory loss, confusion., Denies weakness, numbness or tingling. Psychiatric: Denies any sleeping problems, history of abuse, marital discord., Denies any anxiety or depression. Hematologic/Lymphatic/Immunologic: Denies anemia, bruising, bleeding abnormalities. Endocrine: Denies any heat or cold intolerance, polyuria or polydipsia. OBJECTIVE: PHYSICAL EXAMINATION: BP 144/100 Pulse 68 Resp 16 Wt 95.3 kg (210 lb) BMI 27.24 kg/m2 GENERAL APPEARANCE Well appearing, alert, in no acute distress, well-hydrated, well nourished. SKIN: Skin color, texture, turgor normal, no suspicious rashes or lesions HEAD: No significant findings. NECK: Supple, no lymphadenopathy, normal thyroid, no carotid bruits and no JVD BACK: Back symmetric, Normal curvature, No CVAT. LUNGS: normal pulmonary exam and clear to auscultation and percussion HEART: Normal PMI, Regular rate and rhythm, Normal heart sounds, S1 and S2 and No murmurs. BREASTS: ABDOMEN: Soft, Flat, Non-tender, No palpable masses and No hepatosplenomegaly. EXTREMTIES: extremities normal, no deformities, no skin discoloration, no edema, normal pulses bilaterally. NEURO: Awake, alert and oriented x 3, Normal gait, No involuntary motions., muscle tone normal, muscle strength normal GENITALIA: Penis normal, no urethral discharge, scrotum normal to palpation, no hernias RECTAL: Anus normal, no anorectal masses, Prostate normal size, consistency, no nodules, and no tenderness lab Results for SKYLER MCCLOUD ( ) as of 10/31/2017 15:26 Ref. Range 10/22/2017 10:28 Sodium Latest Ref Range: 136 - 144 mmol/L 139 Potassium Latest Ref Range: 3.7 - 5.1 mmol/L 4.4 Chloride Latest Ref Range: 97 - 105 mmol/L 99 CO2 Latest Ref Range: 22 - 30 mmol/L 28 BUN Latest Ref Range: 9 - 24 mg/dL 23 Creatinine Latest Ref Range: 0.73 - 1.22 mg/dL 1.24 (H) Glucose Latest Ref Range: 74 - 99 mg/dL 88 Protein, Total Latest Ref Range: 6.3 - 8.0 g/dL 7.4 Calcium Latest Ref Range: 8.5 - 10.2 mg/dL 9.2 Albumin Latest Ref Range: 3.9 - 4.9 g/dL 4.1 Bilirubin, Total Latest Ref Range: 0.2 - 1.3 mg/dL 0.6 Alkaline Phosphatase Latest Ref Range: 36 - 108 U/L 70 ALT Latest Ref Range: 10 - 54 U/L 17 AST Latest Ref Range: 14 - 40 U/L 20 Anion Gap Latest Ref Range: 9 - 18 mmol/L 12 eGFR- Unknown >60 eGFR-All Other Races Latest Units: . 59 Cholesterol, Total Latest Ref Range: <200 mg/dL 298 (H) Triglyceride Latest Ref Range: <150 mg/dL 152 (H) Fasting Time Latest Units: hrs 12 HDL Cholesterol Latest Ref Range: >39 mg/dL 52 LDL Cholesterol Latest Ref Range: <100 mg/dL 216 (H) VLDL Cholesterol Latest Ref Range: <30 mg/dL 30 (H) TC:HDL Ratio Latest Ref Range: <5.10 5.73 (H) LDL:HDL Ratio Latest Ref Range: <2.54 4.15 (H) Non HDL Cholesterol Latest Ref Range: <130 mg/dL 246 (H) ASSESSMENT: erectile dysfunction hyperlipidemia--not at goal wheezing with recent history of foreign travel PLAN: healthy diet and regular exercise lipitor 20mg daily chest xray viagra 25mg as needed flu shot and prevnar 13 vaccines given recheck fasting lipids in 1 mo. colonoscopy for follow up of polyps follow bp SANJAY Zamora MD, III MD PROGRESS Observed: 10/31/2017 Status: COMPLETED Source: [place] 3:[address] [facility] REPOSITORY [facility] ID: [id number] Author: Zofia Nelson MA Service: (none) Author Type: Hardware Press Operator Type: Progress Notes Filed: 10/31/2017 4:52 PM Note Text: 67 year old male here for INACTIVATED INFLUENZA VACCINE. [id number] Season Patient is identified by name and date of : Yes [] CONTRAINDICATIONS color enhanced section Age less than 6 months? No Allergy to eggs, chicken, chicken feathers, or chicken dander? No Allergy to thimerosal (a preservative) or formaldehyde? No History of severe reaction to any vaccine component or a previous dose of influenza vaccination? No History of Guillain-Montague Syndrome within 6 weeks after a previous influenza vaccine? No Current moderate or severe illness? No Current temperature greater or equal to 100.4F? No History of Bone Marrow Transplant in past 6 months or solid organ transplant in the past 3 months ? No [] VERIFICATION color enhanced section Was the answer Yes for any of the above contraindications? No contraindications present. Acceptable to proceed with vaccine. Patient/guardian agrees the above answers are true to the best of their knowledge? Yes Flu vaccine information sheet given? Yes See immunization activity in [facility] for details of immunizations adminstered today. Patient age: [age] year old For The [id number] Flu Season 6-35 months old: Fluzone 0.25 ml - IM (Preservative Free) 3 years of age: Fluzone 0.5 ml - IM (Preservative Free) 3 years and older: Fluzone 0.5 ml- IM-(with Preservatives) 65+ years old: Fluzone High-Dose 0.5 ml - IM (Preservative Free) REMEMBER: If patient is less than 9 years of age and this is the first vaccine of Influenza to be received in any flu season, they should receive a second dose in one months time. [facility] OPEN ACCESS QUESTIONNAIRE 1. Are you or could you be ? No 2. Are you currently having any stomach/gastrointestinal issues at this time such as constipation, diarrhea, abdominal pain, rectal bleeding etc? No 3. Do you have an implanted device such as a defibrillator, pacemaker, Cardiac Stent or deep brain stimulation device? No 4. Do you have any new or past cardiac (heart) or pulmonary (lung) issues? No 5. Is the patient's BMI 40 or greater? No:There is no height or weight on file to calculate BMI.. Last Wt 08/18/16 : 85.7 kg (189 lb) Last Ht 08/07/16 : 187 cm (6' 1.62) 6. Have you had difficulty with prior sedations or complications with other procedures? No 7. Have you had difficulty with anesthesia previously re: ? Difficult intubation? No ? Other difficulty or allergic reaction to anesthesia other than post op N/V? No 8. Do you currently use oxygen or a breathing machine at night? No 9. Do you take any narcotics, depression or anti-Anxiety medications or 3 or more prescription drugs on a daily basis? No 10. Do you use any illegal or recreational drugs? No 11. Have you been hospitalized in the past 6 weeks? No 12. Are you on dialysis or have Chronic Kidney Disease? No 13. Have you been diagnosed with chronic liver disease such as hepatitis or cirrhosis? No 14. Do you have a seizure disorder? No 15. Do you have difficulty swallowing? No 16. Do you have ulcerative colitis or Crohn's disease? No 17. Do you take any Blood thinners, including Aspirin or fish oil? No 18. Do you have any blood disorders (re:hemophiliac)? No 19. Are you Diabetic? No 20. Any other important health information we should be made aware of prior to your colonoscopy? No Checklist: Prior to closing the encounter: ? Complete questionnaire: Yes ? Confirm Prep order has been Ordered/Pended: Yes. ? Patient's procedure could be delayed if not given the script for the prep. Please ensure the prep is escripted to pharmacy or printed. Instructions for the prep will print upon filing or pending this smartset. ? Please send all open access questionnaires to [facility] Sched Pool #[id number] CNOV Observed: 10/31/2017 Status: COMPLETED Source: [facility] [place] 3:[address] [facility] REPOSITORY Office Visit (FAMPWS) SKYLER MCCLOUD ([id number]) 1950 M NFR Date Time Provider Department 10/31/17 3:00 PM JACINDA BLAKELY III FAMPWS During your visit today, we recorded the following information about you: Pulse Respiration Blood pressure Weight 68/minute 16/minute 138/102 95.3 kg Zofia Nelson CMA, MA 10/31/2017 4:52 PM Signed 67 year old male here for INACTIVATED INFLUENZA VACCINE. 6178-1102 Season Patient is identified by name and date of : Yes [] CONTRAINDICATIONS color enhanced section Age less than 6 months? No Allergy to eggs, chicken, chicken feathers, or chicken dander? No Allergy to thimerosal (a preservative) or formaldehyde? No History of severe reaction to any vaccine component or a previous dose of influenza vaccination? No History of Guillain-Montague Syndrome within 6 weeks after a previous influenza vaccine? No Current moderate or severe illness? No Current temperature greater or equal to 100.4F? No History of Bone Marrow Transplant in past 6 months or solid organ transplant in the past 3 months ? No [] VERIFICATION color enhanced section Was the answer ANDquot;YesANDquot; for any of the above contraindications? No contraindications present. Acceptable to proceed with vaccine. Patient/guardian agrees the above answers are true to the best of their knowledge? Yes Flu vaccine information sheet given? Yes See immunization activity in [facility] for details of immunizations adminstered today. Patient age: [age] year old For The 6283-5979 Flu Season 6-35 months old: Fluzone 0.25 ml - IM (Preservative Free) 3 years of age: Fluzone 0.5 ml - IM (Preservative Free) 3 years and older: Fluzone 0.5 ml- IM-(with Preservatives) 65+ years old: Fluzone High-Dose 0.5 ml - IM (Preservative Free) REMEMBER: If patient is less than 9 years of age and this is the first vaccine of Influenza to be received in any flu season, they should receive a second dose in one months time. [facility] OPEN ACCESS QUESTIONNAIRE 1. Are you or could you be ? No 2. Are you currently having any stomach/gastrointestinal issues at this time such as constipation, diarrhea, abdominal pain, rectal bleeding etc? No 3. Do you have an implanted device such as a defibrillator, pacemaker, Cardiac Stent or deep brain stimulation device? No 4. Do you have any new or past cardiac (heart) or pulmonary (lung) issues? No 5. Is the patient's BMI 40 or greater? No:There is no height or weight on file to calculate BMI.. Last Wt 08/18/16 : 85.7 kg (189 lb) Last Ht 08/07/16 : 187 cm (6' 1.62ANDquot;) 6. Have you had difficulty with prior sedations or complications with other procedures? No 7. Have you had difficulty with anesthesia previously re: ? Difficult intubation? No ? Other difficulty or allergic reaction to anesthesia other than post op N/V? No 8. Do you currently use oxygen or a breathing machine at night? No 9. Do you take any narcotics, depression or anti-Anxiety medications or 3 or more prescription drugs on a daily basis? No 10. Do you use any illegal or recreational drugs? No 11. Have you been hospitalized in the past 6 weeks? No 12. Are you on dialysis or have Chronic Kidney Disease? No 13. Have you been diagnosed with chronic liver disease such as hepatitis or cirrhosis? No 14. Do you have a seizure disorder? No 15. Do you have difficulty swallowing? No 16. Do you have ulcerative colitis or Crohn's disease? No 17. Do you take any Blood thinners, including Aspirin or fish oil? No 18. Do you have any blood disorders (re:hemophiliac)? No 19. Are you Diabetic? No 20. Any other important health information we should be made aware of prior to your colonoscopy? No Checklist: Prior to closing the encounter: ? Complete questionnaire: Yes ? Confirm Prep order has been Ordered/Pended: Yes. ? Patient's procedure could be delayed if not given the script for the prep. Please ensure the prep is escripted to pharmacy or printed. Instructions for the prep will print upon filing or pending this smartset. ? Please send all open access questionnaires to [facility] Sched Pool #[id number] Zofia Nelson CMA, MA 10/31/2017 3:09 PM Addendum Health Information For Patients and the Community How to Prepare for Your Colonoscopy Using Golytely, Nulytely, Trilyte or Colyte Preparations IMPORTANT - Please Read These Instructions at Least 2 Weeks Before Your Colonoscopy [place] Instructions: ?Your bowel must be empty so that your doctor can clearly view your colon. Follow all of the instructions in this handout EXACTLY as they are written. If you do NOT follow the directions for when to start drinking the bowel preparation (see next page), your colonoscopy WILL be cancelled. ?Do NOT eat any solid food the ENTIRE day before your colonoscopy. ?Buy your bowel preparation at least 5 days before your colonoscopy. ?Do NOT mix the solution until the day before your colonoscopy. Designated Regeneration Operator on the Day of Your Exam A responsible family member or friend MUST come with you to your colonoscopy and REMAIN in the endoscopy area until you are discharged! You are NOT ALLOWED to drive, take a taxi or bus, or leave the Endoscopy Center ALONE. If you do not have a responsible transport driver (family member or friend) with you to take you home, your exam cannot be done with sedation and will be cancelled. Medications Some of the medicines you take may need to be stopped or adjusted before your colonoscopy. You MUST call the doctor who ordered any of the following medicines at least 2 weeks before your colonoscopy. ?Blood thinners -- such as Coumadin? (warfarin), Plavix? (clopidogrel), Ticlid? (ticlopidine hydrochloride), Agrylin? (anagrelide), Xarelto? (Rivaroxaban), Pradaxa? (Dabigatran), Eliquis? (Apixaban), and Effient? (Prasugrel). ?Insulin or diabetes pills. Please call the doctor that monitors your glucose levels. Your insulin dosage may need to be adjusted due to the diet restrictions required with this bowel preparation. (Please bring your diabetes medicines with you on the day of your procedure.) If you take aspirin, take it and ALL other medications prescribed by your doctor. On the day of your colonoscopy, take your medications with a sip of water. Revised 11/2016 1 Five (5) Days Before Your Colonoscopy ?Do NOT take medicines that stop diarrhea -- such as Imodium?, Kaopectate?, or Pepto Bismol?. ?Do NOT take fiber supplements -- such as Metamucil?, Citrucel?, or Perdiem?. ?Do NOT take products that contain iron -- such as multi-vitamins -- (the label lists what is in the products). ?Do NOT take vitamin E. Buy the prescription bowel preparation solution at your local pharmacy or drugstore pharmacy. Three (3) Days Before Your Colonoscopy Do NOT eat high-fiber foods -- such as popcorn, beans, seeds (flax, sunflower, quinoa), multigrain bread, nuts, salad/vegetables, or fresh and dried fruit. One (1) Day Before Your Colonoscopy Only drink clear liquids the ENTIRE DAY before your colonoscopy. Do NOT eat any solid foods. Drink at least 8 ounces of clear liquids every hour after waking up. The clear liquids you can drink include: ?water, apple, or white grape juice; broth; coffee or tea (without milk or creamer); clear carbonated beverages such as pratima alina or lemon-yakutat soda; Gatorade? or other sports drinks (not red); Kervin-Aid? or other flavored drinks (not red). You may eat plain jello or other gelatins (not red) or popsicles (not red). Do NOT drink alcohol on the day before or the day of the procedure. 2 Revised 11/2016 When to Mix and Drink Your Bowel Prep Follow the instructions on the label. After mixing, place the solution in the refrigerator for a couple of hours before drinking. You may add the flavor packet that came with the bowel preparation. DO NOT add ice, sugar or any flavorings to the solution. Evening Before Your Colonoscopy ?Start drinking the bowel preparation at 6 PM the evening before your colonoscopy. Drink an 8-oz glass of bowel preparation every 10 minutes. You must finish drinking the solution by 9 PM the night before your scheduled procedure. ?You may continue to drink clear liquids only until midnight. Do NOT eat or drink ANYTHING after midnight the night before your procedure or your procedure may be cancelled. This is for your safety and will reduce the risk of having any food or liquid in your stomach move into your lungs (aspiration) during a procedure. If you take aspirin, take it and ALL other prescribed medicines with a sip of water on the day of your colonoscopy. Contact Information: If you are unable to keep your appointment or have any questions about the instructions, please call the facility where the procedure is being performed. Call between the hours of 8:00 AM and 5:00 PM. If you are calling after 5:00 PM, please call Nurse bulk station agent at [phone]. [facility] [address] [address] Index # [id number] Revised 11/2016 3 Colonoscopy Procedure Overview Please Read Prior to the Procedure What is a Colonoscopy A colonoscopy is an outpatient procedure in which the inside of the large intestine (colon and rectum) is examined. A colonoscopy is commonly used to evaluate gastrointestinal symptoms, such as rectal and intestinal bleeding, abdominal pain, or changes in bowel habits. Colonoscopies are also performed in individuals without symptoms to check for colorectal polyps or cancer. A screening colonoscopy is recommended for anyone 50 years of age and older, and for anyone with parents, siblings or children with a history of colorectal cancer or polyps. What Happens Before a Colonoscopy To have a successful colonoscopy, your bowel must be empty so that your physician can clearly view the colon. To do this, it is very important to read and follow all of the instructions given to you at least 2 weeks BEFORE your exam. If your bowel is not empty, your colonoscopy will not be successful and may have to be repeated. If you feel nauseated or vomit while taking the bowel preparation, wait 30 minutes before drinking more fluid and start with small sips of solution. Some activity (such as walking) or a few soda crackers may help decrease the nausea you are feeling. If the nausea persists, please contact nurse interventional cardiologist at [phone]. You may experience skin irritation around the anus due to the passage of liquid stools. To prevent and treat skin irritation, you should: ?Apply Vaseline? or Desitin? ointment to the skin around the anus before drinking the bowel preparation medications. These products can be purchased at any drugstore. ?Wipe the skin after each bowel movement with disposable wet wipes instead of toilet paper. These are found in the toilet paper area of the store. ?Sit in a bathtub filled with warm water for 10 to 15 minutes after you finish passing a stool; after soaking, blot the skin dry with a soft cloth, apply Vaseline? or Desitin? ointment to the anal area, and place a cotton ball just outside your anus to absorb leaking fluid. What Happens During a Colonoscopy During a colonoscopy, an experienced physician uses a colonoscope (a long, flexible instrument about 1/2 inch in diameter) to view the lining of the colon. The colonoscope is inserted into the rectum and advanced through the large intestine. If necessary during a colonoscopy, small amounts of tissue can be removed for analysis (a biopsy) and polyps can be identified and entirely removed. In many cases, a colonoscopy allows accurate diagnosis and treatment of colorectal problems without the need for a major operation. Revised 11/2016 5 ?You are asked to wear a hospital gown and an IV will be started. ?You are given a pain reliever and a sedative intravenously (in your vein). You will feel relaxed and somewhat drowsy. ?You will lie on your left side, with your knees drawn up towards your chest. ?A small amount of air is used to expand the colon so the physician can see the colon shen. ?You may feel mild cramping during the procedure. Cramping can be reduced by taking slow, deep breaths. ?The colonoscope is slowly withdrawn while the lining of your bowel is carefully examined. ?The procedure lasts from 30 minutes to 1 hour. What Happens After a Colonoscopy ?You will stay in a recovery room for observation until you are ready for discharge. ?You may feel some cramping or a sensation of having gas, but this quickly passes. ?If sedation has been given, a responsible family member or friend must drive you home. ?Avoid alcohol, driving, and operating machinery for 24 hours following the procedure. ?Unless otherwise instructed, you may immediately return to your normal diet. We recommend you wait until the day after your procedure to resume normal activities. ?If polyps were removed or a biopsy was taken, the physician performing your colonoscopy will tell you when it is safe to resume taking your blood thinners. ?If a biopsy was taken or a polyp was removed, you may notice a little amount of rectal bleeding for 1 to 2 days after the procedure. If you have a large amount of rectal bleeding, high or persistent fevers, or severe abdominal pain within the next 2 weeks, please go to your local emergency room and call the physician who performed your exam. 6 Revised 11/2016 ?Copyright 8564-4851 The [facility]. All rights reserved. Revised 11/2016 PLAN: healthy diet and regular exercise lipitor 20mg daily chest xray viagra 25mg as needed flu shot and prevnar 13 vaccines given recheck fasting lipids in 1 mo. colonoscopy for follow up of polyps follow bp SANJAY Zamora MD, III MD 10/31/2017 4:52 PM Signed SUBJECTIVE: Chief Complaint: Skyler Mccloud is a 67 year old male who presents for comprehensive problem evaluation. New concerns today include 1. hx of colon polyps on colonoscopy in Nov 2016: needs colonoscopy this yr. No change in BM or rectal bleeding or abd pain 2. hx of Dengue fever in January, 3. hyperlipidemia: previously on lipitor but not now. 4. cluster QUINONES: in remission for several yrs. 5. ED: 6. wheezing for past 6 mos with occasional cough. Smoked intermittently for ~10 yrs--quit yrs ago. has lived in [facility] for most of the past 3 yrs. No known TB exposure. No hemoptysis or fever Exercises regularly No Prostate cancer screening up to date No Colon cancer screening is up to date Yes Last colonoscopy was done 11/2016 Cholesterol screening up to date No No current outpatient prescriptions on file prior to visit. No current facility-administered medications on file prior to visit. PAST MEDICAL HISTORY Diagnosis Date - Chronic daily headache 01/16/2011 - Chronic depressive personality disorder - Cluster headache 06/09/2014 - Diverticulosis of colon (without mention of hemorrhage) - Hyperlipidemia 09/08/2014 - Internal hemorrhoids without mention of complication - Other abnormal heart sounds - Other rheumatic heart disease childhood - PMH - PAST MEDICAL HISTORY OF rheumatic fever - PMH - PAST MEDICAL HISTORY OF heart mumur - Tobacco abuse 06/05/2012 PAST SURGICAL HISTORY Procedure Laterality Date - COLONOSCOP W/ OR W/O [facility] SPEC 05/13/2006 Colonoscopy - COLONOSCOP W/ OR W/O [facility] SPEC 12/18/12 Colonoscopy - COM L HRT CATH WILFRED W/A ROOT AORT 02/02/13 - PAST SURGICAL HISTORY OF right inguinal hernia surgery as a teenager - PAST SURGICAL HISTORY OF 08/2007 scope on knee Right - REMOVAL OF TONSILS,ANDlt;14 Y/O Tonsillectomy - VASECTOMY 12/06/06 FAMILY HISTORY Problem Relation Age of Onset - Cancer Sister stage 4 lung cancer - Cancer Father lung cancer - Cancer Maternal Grandfather lung cancer/black lung - Cancer Paternal Grandfather lung cancer Social History Marital status: Single Spouse name: Years of education: Number of children: 2 Occupational History Occupation Employer Comment [employer]* Social History Main Topics Smoking status: Former Smoker Packs/day: 0.50 Years: 5.00 Types: Cigarettes Quit date: 12/01/2016 Smokeless status: Never Used Comment: Quit May 2012 Alcohol use: Yes Comment: very rare beer Drug use: No Sexual activity: Yes Partners with: Female control/protection: Condom Other Topics Concern No BLOOD TRANSFUSIONS No CAFFEINE No OCCUPATIONAL EXPOSURE No HOBBY HAZARD No SLEEP CONCERN No STRESS CONCERN Yes WEIGHT CONCERN No DIET No BACK CARE No EXERCISE No BIKE HELMET No SEAT BELT No SELF EXAMS No Immunization History Administered Date(s) Administered DT(PEDIATRIC) 01/19/1993 DTaP (AgeANDlt;7) 02/06/2006 Hepatitis A Adult 05/12/2015 Hepatitis B Adult 05/12/2015 Influenza Seasonal Inj ID Pres Free 07/08/2014 Influenza Seasonal Inj Quadrivalent Age 3+ 08/07/2016 Influenza Vaccine, Split-Non Spec 08/28/2011 09/02/2012 Tdap (Age 7+) 08/07/2016 ACTIVE PROBLEM LIST Anxiety State Adjustment Disorder With Depressed Mood Varicose Veins of Lower Extremities With Other Complications Chronic Daily Headache Tobacco Abuse Cluster Headache Hyperlipidemia REVIEW OF SYSTEMS General: Denies fever, chills, night sweats, or changes in weight. Dermatologic: Denies any new skin conditions, rashes or changing moles. Eyes: ENT: Respiratory: Positive for wheezing. Cardiovascular: Denies any chest pain with exertion or at rest, palpitations, syncope, or edema. Gastrointestinal: Denies any nausea, vomiting, abdominal pain, heartburn, changes in bowel habit, Denies any rectal bleeding. Genitourinary: Denies Denies problems with urinary stream., Denies dysuria, frequency, urgency, incontinence, erectile dysfunction, hematuria and nocturia. Musculoskeletal: Denies any joint swelling, crepitus, joint pain, or loss of range of motion., Denies back pain. Neurologic: Denies any headaches, tremors, dizziness, vertigo, memory loss, confusion., Denies weakness, numbness or tingling. Psychiatric: Denies any sleeping problems, history of abuse, marital discord., Denies any anxiety or depression. Hematologic/Lymphatic/Immunologic: Denies anemia, bruising, bleeding abnormalities. Endocrine: Denies any heat or cold intolerance, polyuria or polydipsia. OBJECTIVE: PHYSICAL EXAMINATION: BP 144/100 Pulse 68 Resp 16 Wt 95.3 kg (210 lb) BMI 27.24 kg/m2 GENERAL APPEARANCE Well appearing, alert, in no acute distress, well-hydrated, well nourished. SKIN: Skin color, texture, turgor normal, no suspicious rashes or lesions HEAD: No significant findings. NECK: Supple, no lymphadenopathy, normal thyroid, no carotid bruits and no JVD BACK: Back symmetric, Normal curvature, No CVAT. LUNGS: normal pulmonary exam and clear to auscultation and percussion HEART: Normal PMI, Regular rate and rhythm, Normal heart sounds, S1 and S2 and No murmurs. BREASTS: ABDOMEN: Soft, Flat, Non-tender, No palpable masses and No hepatosplenomegaly. EXTREMTIES: extremities normal, no deformities, no skin discoloration, no edema, normal pulses bilaterally. NEURO: Awake, alert and oriented x 3, Normal gait, No involuntary motions., muscle tone normal, muscle strength normal GENITALIA: Penis normal, no urethral discharge, scrotum normal to palpation, no hernias RECTAL: Anus normal, no anorectal masses, Prostate normal size, consistency, no nodules, and no tenderness lab Results for SKYLER MCCLOUD ( ) as of 10/31/2017 15:26 Ref. Range 10/22/2017 10:28 Sodium Latest Ref Range: 136 - 144 mmol/L 139 Potassium Latest Ref Range: 3.7 - 5.1 mmol/L 4.4 Chloride Latest Ref Range: 97 - 105 mmol/L 99 CO2 Latest Ref Range: 22 - 30 mmol/L 28 BUN Latest Ref Range: 9 - 24 mg/dL 23 Creatinine Latest Ref Range: 0.73 - 1.22 mg/dL 1.24 (H) Glucose Latest Ref Range: 74 - 99 mg/dL 88 Protein, Total Latest Ref Range: 6.3 - 8.0 g/dL 7.4 Calcium Latest Ref Range: 8.5 - 10.2 mg/dL 9.2 Albumin Latest Ref Range: 3.9 - 4.9 g/dL 4.1 Bilirubin, Total Latest Ref Range: 0.2 - 1.3 mg/dL 0.6 Alkaline Phosphatase Latest Ref Range: 36 - 108 U/L 70 ALT Latest Ref Range: 10 - 54 U/L 17 AST Latest Ref Range: 14 - 40 U/L 20 Anion Gap Latest Ref Range: 9 - 18 mmol/L 12 eGFR- Unknown ANDgt;60 eGFR-All Other Races Latest Units: . 59 Cholesterol, Total Latest Ref Range: ANDlt;200 mg/dL 298 (H) Triglyceride Latest Ref Range: ANDlt;150 mg/dL 152 (H) Fasting Time Latest Units: hrs 12 HDL Cholesterol Latest Ref Range: ANDgt;39 mg/dL 52 LDL Cholesterol Latest Ref Range: ANDlt;100 mg/dL 216 (H) VLDL Cholesterol Latest Ref Range: ANDlt;30 mg/dL 30 (H) TC:HDL Ratio Latest Ref Range: ANDlt;5.10 5.73 (H) LDL:HDL Ratio Latest Ref Range: ANDlt;2.54 4.15 (H) Non HDL Cholesterol Latest Ref Range: ANDlt;130 mg/dL 246 (H) ASSESSMENT: erectile dysfunction hyperlipidemia--not at goal wheezing with recent history of foreign travel PLAN: healthy diet and regular exercise lipitor 20mg daily chest xray viagra 25mg as needed flu shot and prevnar 13 vaccines given recheck fasting lipids in 1 mo. colonoscopy for follow up of polyps follow bp SANJAY Zamora MD, III MD Ashley Larrison 11/01/2017 9:31 AM Signed Patient scheduled for colonoscopy with Dr. Paula on 12/23/2017 Stefany Cheung Referring Provider: SELF [[id number]] Allergies As of Date: 10/31/2017 Noted Allergy Reaction PREDNISONE 04/16/2006 5 - Intolerance Comments: irritable Date Reviewed: 10/31/2017 Reviewed by: Zofia ([facility]) EARLINE Nelson - Fully Assessed Reason for Visit: Physical [83] Imm/Inj [58] Cmt: Flu Vaccine Reason For Visit History Recorded Primary Visit Diagnosis:Need for vaccination [Z23] Other Visit Diagnoses:Special screening for malignant neoplasms, colon [Z12.11] Wheezing [R06.2] History of recent foreign travel [Z78.9] Encounter for routine adult medical exam with abnormal findings [Z00.01] Erectile dysfunction, unspecified erectile dysfunction type [N52.9] Hyperlipidemia LDL goal <130 [E78.5] Order(s):PNEUMOCOCCAL-13 VACCINE PCV-13 [[id number]] Order #: [id number] INFLUENZA SEASONAL HIGH DOSE AGE 65+ [[id number]] Order #: [id number] [] peg 3350-electrolytes (COLYTE) 240-22.72-6.72 -5.84 gram solutionTake 4,000 mL by mouth one time only for 1 dose.Disp: 4000 mLRfl: 0 COLONOSCOPY SCRN NOT HIGH RISK [[id number]] Order #: [id number] FUTURE atorvastatin (LIPITOR) 20 mg tabletTake 1 tablet by mouth once daily. For cholesterol.Disp: 90 tabletRfl: 3 sildenafil (VIAGRA) 25 mg tabletTake 1 tablet by mouth as needed.Disp: 15 tabletRfl: 11 XR CHEST 2V FRONTAL/LAT [[id number]] Order #: [id number] FUTURE LIPID PANEL BASIC [SQLIPB] Order #: [id number] FUTURE Prescriptions as of 10/31/2017 Sig: PEG 3350 240 GRAM-ELECTROLYTE* Take 4,000 mL by mouth one ti* ATORVASTATIN 20 MG TABLET Take 1 tablet by mouth once d* SILDENAFIL 25 MG TABLET Take 1 tablet by mouth as nee* Problem List As Of Date 10/31/2017 Noted Resolved Anxiety state [F41.1] INVALID FOR*10/31/2017 Sterilization [Z30.2] INVALID FOR*03/31/2014 Adjustment disorder with depressed mood [F43.21]INVALID FOR*10/31/2017 Phlebitis and thrombophlebitis of superficial v*INVALID FOR*03/31/2014 Varicose veins of lower extremities with other *INVALID FOR*10/31/2017 Chronic daily headache [R51] INVALID FOR*10/31/2017 More... Tobacco abuse [Z72.0] INVALID FOR*10/31/2017 Cluster headache [G44.009] INVALID FOR* Hyperlipidemia [E78.5] INVALID FOR* Vitamin D deficiency [E55.9] INVALID FOR*10/16/2017 Other instructions from your clinician: Health Information For Patients and the Community How to Prepare for Your Colonoscopy Using Golytely, Nulytely, Trilyte or Colyte Preparations IMPORTANT - Please Read These Instructions at Least 2 Weeks Before Your Colonoscopy [place]ano Instructions: ?Your bowel must be empty so that your doctor can clearly view your colon. Follow all of the instructions in this handout EXACTLY as they are written. If you do NOT follow the directions for when to start drinking the bowel preparation (see next page), your colonoscopy WILL be cancelled. ?Do NOT eat any solid food the ENTIRE day before your colonoscopy. ?Buy your bowel preparation at least 5 days before your colonoscopy. ?Do NOT mix the solution until the day before your colonoscopy. Designated Regeneration Operator on the Day of Your Exam A responsible family member or friend MUST come with you to your colonoscopy and REMAIN in the endoscopy area until you are discharged! You are NOT ALLOWED to drive, take a taxi or bus, or leave the Endoscopy Center ALONE. If you do not have a responsible transport driver (family member or friend) with you to take you home, your exam cannot be done with sedation and will be cancelled. Medications Some of the medicines you take may need to be stopped or adjusted before your colonoscopy. You MUST call the doctor who ordered any of the following medicines at least 2 weeks before your colonoscopy. ?Blood thinners -- such as Coumadin? (warfarin), Plavix? (clopidogrel), Ticlid? (ticlopidine hydrochloride), Agrylin? (anagrelide), Xarelto? (Rivaroxaban), Pradaxa? (Dabigatran), Eliquis? (Apixaban), and Effient? (Prasugrel). ?Insulin or diabetes pills. Please call the doctor that monitors your glucose levels. Your insulin dosage may need to be adjusted due to the diet restrictions required with this bowel preparation. (Please bring your diabetes medicines with you on the day of your procedure.) If you take aspirin, take it and ALL other medications prescribed by your doctor. On the day of your colonoscopy, take your medications with a sip of water. Revised 11/2016 1 Five (5) Days Before Your Colonoscopy ?Do NOT take medicines that stop diarrhea -- such as Imodium?, Kaopectate?, or Pepto Bismol?. ?Do NOT take fiber supplements -- such as Metamucil?, Citrucel?, or Perdiem?. ?Do NOT take products that contain iron -- such as multi- vitamins -- (the label lists what is in the products). ?Do NOT take vitamin E. Buy the prescription bowel preparation solution at your local pharmacy or drugstore pharmacy. Three (3) Days Before Your Colonoscopy Do NOT eat high-fiber foods -- such as popcorn, beans, seeds (flax, sunflower, quinoa), multigrain bread, nuts, salad/vegetables, or fresh and dried fruit. One (1) Day Before Your Colonoscopy Only drink clear liquids the ENTIRE DAY before your colonoscopy. Do NOT eat any solid foods. Drink at least 8 ounces of clear liquids every hour after waking up. The clear liquids you can drink include: ?water, apple, or white grape juice; broth; coffee or tea (without milk or creamer); clear carbonated beverages such as pratima alina or lemon-yakutat soda; Gatorade? or other sports drinks (not red); Kervin-Aid? or other flavored drinks (not red). You may eat plain jello or other gelatins (not red) or popsicles (not red). Do NOT drink alcohol on the day before or the day of the procedure. 2 Revised 11/2016 When to Mix and Drink Your Bowel Prep Follow the instructions on the label. After mixing, place the solution in the refrigerator for a couple of hours before drinking. You may add the flavor packet that came with the bowel preparation. DO NOT add ice, sugar or any flavorings to the solution. Evening Before Your Colonoscopy ?Start drinking the bowel preparation at 6 PM the evening before your colonoscopy. Drink an 8-oz glass of bowel preparation every 10 minutes. You must finish drinking the solution by 9 PM the night before your scheduled procedure. ?You may continue to drink clear liquids only until midnight. Do NOT eat or drink ANYTHING after midnight the night before your procedure or your procedure may be cancelled. This is for your safety and will reduce the risk of having any food or liquid in your stomach move into your lungs (aspiration) during a procedure. If you take aspirin, take it and ALL other prescribed medicines with a sip of water on the day of your colonoscopy. Contact Information: If you are unable to keep your appointment or have any questions about the instructions, please call the facility where the procedure is being performed. Call between the hours of 8:00 AM and 5:00 PM. If you are calling after 5:00 PM, please call Nurse bulk station agent at [phone]. [facility] [address] [place] [address] Index # [id number] Revised 11/2016 3 Colonoscopy Procedure Overview Please Read Prior to the Procedure What is a Colonoscopy A colonoscopy is an outpatient procedure in which the inside of the large intestine (colon and rectum) is examined. A colonoscopy is commonly used to evaluate gastrointestinal symptoms, such as rectal and intestinal bleeding, abdominal pain, or changes in bowel habits. Colonoscopies are also performed in individuals without symptoms to check for colorectal polyps or cancer. A screening colonoscopy is recommended for anyone 50 years of age and older, and for anyone with parents, siblings or children with a history of colorectal cancer or polyps. What Happens Before a Colonoscopy To have a successful colonoscopy, your bowel must be empty so that your physician can clearly view the colon. To do this, it is very important to read and follow all of the instructions given to you at least 2 weeks BEFORE your exam. If your bowel is not empty, your colonoscopy will not be successful and may have to be repeated. If you feel nauseated or vomit while taking the bowel preparation, wait 30 minutes before drinking more fluid and start with small sips of solution. Some activity (such as walking) or a few soda crackers may help decrease the nausea you are feeling. If the nausea persists, please contact nurse interventional cardiologist at [phone]. You may experience skin irritation around the anus due to the passage of liquid stools. To prevent and treat skin irritation, you should: ?Apply Vaseline? or Desitin? ointment to the skin around the anus before drinking the bowel preparation medications. These products can be purchased at any [employer]. ?Wipe the skin after each bowel movement with disposable wet wipes instead of toilet paper. These are found in the toilet paper area of the store. ?Sit in a bathtub filled with warm water for 10 to 15 minutes after you finish passing a stool; after soaking, blot the skin dry with a soft cloth, apply Vaseline? or Desitin? ointment to the anal area, and place a cotton ball just outside your anus to absorb leaking fluid. What Happens During a Colonoscopy During a colonoscopy, an experienced physician uses a colonoscope (a long, flexible instrument about 1/2 inch in diameter) to view the lining of the colon. The colonoscope is inserted into the rectum and advanced through the large intestine. If necessary during a colonoscopy, small amounts of tissue can be removed for analysis (a biopsy) and polyps can be identified and entirely removed. In many cases, a colonoscopy allows accurate diagnosis and treatment of colorectal problems without the need for a major operation. Revised 11/2016 5 ?You are asked to wear a hospital gown and an IV will be started. ?You are given a pain reliever and a sedative intravenously (in your vein). You will feel relaxed and somewhat drowsy. ?You will lie on your left side, with your knees drawn up towards your chest. ?A small amount of air is used to expand the colon so the physician can see the colon shen. ?You may feel mild cramping during the procedure. Cramping can be reduced by taking slow, deep breaths. ?The colonoscope is slowly withdrawn while the lining of your bowel is carefully examined. ?The procedure lasts from 30 minutes to 1 hour. What Happens After a Colonoscopy ?You will stay in a recovery room for observation until you are ready for discharge. ?You may feel some cramping or a sensation of having gas, but this quickly passes. ?If sedation has been given, a responsible family member or friend must drive you home. ?Avoid alcohol, driving, and operating machinery for 24 hours following the procedure. ?Unless otherwise instructed, you may immediately return to your normal diet. We recommend you wait until the day after your procedure to resume normal activities. ?If polyps were removed or a biopsy was taken, the physician performing your colonoscopy will tell you when it is safe to resume taking your blood thinners. ?If a biopsy was taken or a polyp was removed, you may notice a little amount of rectal bleeding for 1 to 2 days after the procedure. If you have a large amount of rectal bleeding, high or persistent fevers, or severe abdominal pain within the next 2 weeks, please go to your local emergency room and call the physician who performed your exam. 6 Revised 11/2016 ?Copyright 3053-5021 The [facility]. All rights reserved. Revised 11/2016 PLAN: healthy diet and regular exercise lipitor 20mg daily chest xray viagra 25mg as needed flu shot and prevnar 13 vaccines given recheck fasting lipids in 1 mo. colonoscopy for follow up of polyps follow bp Jacinda Blakely III MD Prescriptions ordered this encounter Disp Refills Start End PEG 3350 240 GRAM-ELECTROLYTES 22.72* 4000* 0 10/31/2017 10/31/2017 Route: ORAL Sig: Take 4,000 mL by mouth one time only for 1 dose. ATORVASTATIN 20 MG TABLET 90 t* 3 10/31/2017 Route: ORAL Sig: Take 1 tablet by mouth once daily. For cholesterol. SILDENAFIL 25 MG TABLET 15 t* 11 10/31/2017 Class: Print RX Route: ORAL Sig: Take 1 tablet by mouth as needed. Medications Discontinued During This Encounter albuterol HFA (PROVENTIL HFA, VENTOL* 1 In* 2 08/18/2016 10/31/2017 Route: INHALATION Sig: Inhale 2 Puffs as instructed every 6 hours as needed for Wheezing/Shortness of Breath. Disc: Course of therapy completed atorvastatin (LIPITOR) 20 mg tablet 90 t* 3 08/10/2016 10/31/2017 Route: ORAL Sig: Take 1 tablet by mouth once daily. For cholesterol. Disc: Discontinued by Patient clonazePAM (KLONOPIN) 1 mg tablet 30 t* 0 08/31/2016 10/31/2017 Class: Print RX Route: ORAL Sig: Take 1 tablet by mouth twice daily as needed for Anxiety. Disc: Discontinued by Patient codeine-guaiFENesin (GUAIFENESIN AC)* 240 * 0 08/27/2016 10/31/2017 Class: Call Rx Route: ORAL Sig: Take 10 mL by mouth four times daily as needed. Disc: Course of therapy completed guaiFENesin (MUCINEX) 600 mg 12 hr t* 30 t* 0 08/18/2016 10/31/2017 Route: ORAL Sig: Take 2 tablets by mouth twice daily. Disc: Course of therapy completed Follow-up and Disposition History Recorded Encounter Status:Closed by JACINDA BLAKELY III, MD on 10/31/17 PROGRESS Observed: 10/23/2017 Status: COMPLETED Source: [place] 1:[address] [facility] REPOSITORY HNO ID: [id number] Author: Jacinda Blakely III Service: (none) Author Type: Physician Type: Progress Notes Filed: 10/23/2017 1:33 PM Note Text: Chris, The cholesterol panel is out of control but the other lab results are fine. We will discuss in more detail at the upcoming appointment. Jacinda Blakely III, MD, [facility] COMP METABOLIC PANEL Collected: 10/22/2017 Status: F Source: [place] 10:[address] [facility] REPOSITORY TYPE CODE TESTS RESULT OUT OF REFERENCE UNITS RANGE LAB TP 6.3-8.0 g/dL Protein, Total 7.4 LAB ALB 3.9-4.9 g/dL Albumin 4.1 LAB CA 8.5-10.2 mg/dL Calcium, Total 9.2 LAB TBIL 0.2-1.3 mg/dL Bilirubin, Total 0.6 LAB ALKP 36-108 U/L Alkaline Phosphatase 70 LAB AST 14-40 U/L AST 20 LAB GLU 74-99 mg/dL Glucose 88 Result Comment: The [place] Diabetes Association (ADA) provides guidance for cutoff values for fasting glucose and random glucose. The ADA defines fasting as no caloric intake for at least 8 hours. Fas ting plasma glucose results between 100 to 125 mg/dL indicate increased risk for diabetes (prediabetes). Fasting plasma glucose results greater than or equal to 126 mg/dL meet the criteria for diagnosis of diabetes. In the absence of unequivocal hyperglycemia, results should be confirmed by repeat testing. In a patient with classic symptoms of hyperglycemia or hyperglycemic crisis, random plasma glucose results greater than or equal to 200 mg/dL meet the criteria for diagnosis of diabetes. Reference: Standards of Medical Care in Diabetes 2016, [place] [employer] Association. Diabetes Care. 2016.39(Suppl 1). LAB BUN 9-24 mg/dL BUN 23 LAB CRET 0.73-1.22 mg/dL Creatinine High 1.24 LAB NA 136-144 mmol/L Sodium 139 LAB K 3.7-5.1 mmol/L Potassium 4.4 LAB CL 97-105 mmol/L Chloride 99 LAB CO2 22-30 mmol/L CO2 28 LAB AGAP 9-18 mmol/L Anion Gap 12 LAB ALT 10-54 U/L ALT 17 LAB GFRAA eGFR- Amer. >60 LAB GFRNAA . eGFR-All Other Races 59 Result Comment: eGFR (Estimated GFR) Units of measure: mL/min/1.73 meters squared eGFR is derived from the reexpressed MDRD Study equation using the following parameters: serum creatinine, age, gender and race. The creatinine assay has been calibrated to be traceable to IDMS. An eGFR <60 mL/min/1.73m2 for >3 months is consistent with chronic kidney disease. Refer to KDOQI guidelines for clinical interpretation. In patients with unstable renal function, e.g. those with acute kidney injury, the eGFR may not accurately reflect actual GFR. Performed By: #### CMP, LIPB #### [facility] [address] [place], [place] [address] LIPID PANEL, BASIC Collected: 10/22/2017 Status: F Source: [place] 10:28 AM [facility] REPOSITORY TYPE CODE TESTS RESULT OUT OF REFERENCE UNITS RANGE LAB CHOL <200 mg/dL Cholesterol High 298 Result Comment: <200 mg/dL, Desirable 200-239 mg/dL, Borderline high >239 mg/dL, High LAB TRIGLY <150 mg/dL Triglyceride High 152 Result Comment: <150 mg/dL, Normal 150-199 mg/dL, Borderline high 200-499 mg/dL, High >499 mg/dL, Very high LAB HDL >39 mg/dL HDL-Cholesterol 52 Result Comment: 40-59 mg/dL, Acceptable >59 mg/dL, High: Negative risk factor for coronary heart disease <40 mg/dL, Low: Positive risk factor for coronary heart disease LAB LDL <100 mg/dL LDL-Cholesterol High 216 Result Comment: <100 mg/dL, Optimal 100-129 mg/dL, Near optimal/above optimal 130-159 mg/dL, Borderline high 160-189 mg/dL, High >189 mg/dL, Very high Secondary prevention optimal LDL Cholesterol levels are recommended to be < 70 mg/dL LAB NONHDL <130 mg/dL Non HDL High Cholesterol 246 Result Comment: <130 mg/dL, Optimal 130-159 mg/dL, Near optimal/above optimal 160-189 mg/dL, Borderline high 190-219 mg/dL, High >219 mg/dL, Very high Secondary prevention optimal non HDL Cholesterol levels are recommended to be < 100 mg/dL LAB FT hrs Fasting Time 12 LAB VLDL <30 mg/dL High VLDL Cholesterol 30 LAB TCHDL <5.10 High TC:HDL Ratio 5.73 LAB LDLHDL <2.54 High LDL:HDL Ratio 4.15 Result Comment: Reference: 1. National Cholesterol Education Program ATP III Guideline At-A-Glance Quick Desk Reference: National Heart, Lung, and Blood Rupert. National Institutes of Health. 2001: NIH Publication No. 01-3305. 2. An International Atherosclerosis Society position paper: global recommendations for the management of dyslipidemia: executive summary, Atherosclerosis. 2014: 232(2):410-413. Performed By: #### CMP, LIPB #### [facility] [employer] [address] [place], [place] [address] ALLERGIES ALLERGIES DATE TYPE / NAME / CODE REACTION SEVERITY SOURCE CODE 09/17/2018 Drug metoclopramide Swelling Unknown [place] Allergy/41 HCl/[id number](RXNOR Community 4275649([facility]) [facility]) Repository 09/17/2018 Drug sumatriptan Shortness of Unknown [place] Allergy/41 succinate/[id number] breath Community 4713621( (RXNORM) [facility]) Repository 09/17/2018 Drug sumatriptan/[id number] Shortness of Unknown [place] Allergy/41 44(RXNORM) breath Community 9485810([facility]) Repository 08/31/2018 Drug prednisone/[id number] INSOMNIA Unknown [place] Allergy/41 4(RXNORM) Community 1400028([facility]) Repository 04/16/2006 DRUG PREDNISONE INTOLERANCE Jane INGREDI/41 [facility] [id number]([facility]) Repository ENCOUNTERS ENCOUNTERS ADMIT/DISCHARGE ACCOUNT ADMITTING ENCOUNTER LOCATION SOURCE NUMBER CLASS 09/17/2018/09/17/20 [id number] Ambulatory BMSBuilding:B [place] 18 MS.[facility] Repository 09/17/2018/09/18/20 [id number] Ambulatory [address] Repository 08/31/2018/09/03/20 [id number] White, Haley Inpatient [address] ing:OY8Fgkn: Repository GO820Mul: 1 08/31/2018 [id number] White, Haley Ambulatory BMSBuilding:B [place].[facility] Repository 08/31/2018 [id number] White, Haley Ambulatory BMSBuilding:B [place] MS.CF.[facility] Repository 08/31/2018 [id number] White, Haley Ambulatory BMSBuilding:B [place].[facility] Repository 08/31/2018 [id number] White, Haley Ambulatory BMSBuilding:B [place].CF.[facility] Repository 08/31/2018 [id number] White, Haley Ambulatory BMSBuilding:B [place] Repository 08/31/2018 [id number] Ambulatory BMSBuilding:B [place] Repository 08/27/2018 [id number] [facility] ing:PSN Repository 08/27/2018 [id number] Ambulatory [facility] ing:PSN Repository 08/21/2018/08/22/20 [id number] Ambulatory [address] Repository 08/13/2018 [id number] Ambulatory [facility] ing:LABSPEC Repository 08/12/2018/08/12/20 [id number] Ambulatory BMSBuilding:[place] 18 MS.[facility] Repository 08/09/2018 [id number] Ambulatory BMSBuilding:[place] MS.WIP [facility] Repository 08/09/2018/08/09/20 [id number] Emergency [address] ing:ED Repository 08/06/2018/08/06/20 [id number] Ambulatory [address] Repository 08/06/2018/08/07/20 [id number] Ambulatory [address] Repository 07/25/2018/07/28/20 [id number] Ambulatory [address] Repository 07/02/2018/07/02/20 [id number] Ambulatory [address] [place] Repository 07/02/2018/07/03/20 [id number] Ambulatory [address] Main [place] Repository 06/29/2018/06/30/20 [id number] Ambulatory [address] Main [place] Repository 02/24/2018/02/26/20 [id number] Ambulatory [address] Main [place] Repository 01/31/2018/02/04/20 [id number] Ambulatory [address] Main [place] Repository 01/24/2018/01/28/20 [id number] Ambulatory [place] [facility] [place] Repository 12/23/2017/12/24/19 [id number] [facility] Ambulatory [address] Repository 10/31/2017/10/31/19 [id number] Ambulatory [address] Main [place] Repository 10/31/2017/11/07/19 [id number] Ambulatory [address] Repository 10/22/2017/10/22/19 [id number] Ambulatory [address] Repository PAYERS PAYERS ENCOUNTER GUARANTOR PAYER SUBSCRIBER SOURCE 09/17/2018 SKYLER Razo Primary SKYLER Chavisoster [id number] TR Insurance:MEDICARE EDWARDSDOB: [address] PART A [facility] [id number] Hospital [address]Zka: (740) Number: Repository [phone] () [id number] Date:2018-09-03 09/17/2018 Secondary SKYLER S [place] Insurance:[facility] SHARED EDWARDSDOB: [facility] [id number] Hospital Number: Repository [id number] Date:8152-04-73WX [address] [place] [address]KU: 09/17/2018 Tertiary NOT GIVENUNK [place] Insurance:SELF PAY [facility] Number: Effective Repository Date:2018-09-09 08/31/2018 SKYLER S Primary SKYLER S [place] [id number] TR Insurance:MEDICARE EDWARDSDOB: [address] PART A [facility] [id number] Hospital [address]Dyg: (740) Number: Repository [phone] () [id number] Date:2018-08-31 08/31/2018 Secondary SKYLER S [place] Insurance:[facility] SHARED EDWARDSDOB: [facility] [id number] Hospital Number: Repository [id number] Date:[id number] [address] [place] [address]BQ: 08/31/2018 Tertiary NOT GIVENUNK [place] Insurance:SELF PAY [facility] Number: Effective Repository Date:2018-08-31 08/31/2018 SKYLER S Primary SKYLER S [place] [id number] TR Insurance:MEDICARE EDWARDSDOB: [address] PART A [facility] [id number] Hospital [address]Gqe: (740) Number: Repository [phone] () [id number] Date:2018-08-31 08/31/2018 Secondary SKYLER S [place] Insurance:[facility] SHARED EDWARDSDOB: [facility] [id number] Hospital Number: Repository [id number] Date:0681-93-06WE [address] [place] [address]NB: 08/31/2018 Tertiary NOT GIVENUNK [place] Insurance:SELF PAY [facility] Number: Effective Repository Date:2018-08-31 08/31/2018 SKYLER S Primary SKYLER S [place] [id number] TR Insurance:MEDICARE EDWARDSDOB: Community [address] [place] [address] PART A [facility] [id number] Hospital 17[address]Wlj: (740) Number: Repository [phone] () [id number] Date:2018-08-31 08/31/2018 Secondary SKYLER S [place] Insurance:[facility] SHARED EDWARDSDOB: [facility] [id number] Hospital Number: Repository [id number] Date:0329-04-57OP [address] [address]FL: 08/31/2018 Tertiary NOT GIVENUNK [place] Insurance:SELF PAY [facility] Number: Effective Repository Date:2018-08-31 08/31/2018 SKYLER S Primary SKYLER S [place] [id number] TR Insurance:MEDICARE EDWARDSDOB: [address] PART A [facility] [id number] Hospital [address]Oxx: (740) Number: Repository [phone] () [id number] Date:2018-08-31 08/31/2018 Secondary SKYLER S [place] Insurance:[facility] SHARED EDWARDSDOB: [facility] [id number] Hospital Number: Repository [id number] Date:5138-08-34BK [address] [place] [address]WF: 08/31/2018 Tertiary NOT GIVENUNK [place] Insurance:SELF PAY [facility] Number: Effective Repository Date:2018-08-31 08/31/2018 SKYLER S Primary SKYLER S [place] [id number] TR Insurance:MEDICARE EDWARDSDOB: Community [address] [place] [address] PART A [facility] [id number] Hospital [address]Eiv: (740) Number: Repository [phone] () [id number] Date:2018-08-31 08/31/2018 Secondary SKYLER S [place] Insurance:[facility] SHARED EDWARDSDOB: [facility] [id number] Hospital Number: Repository [id number] Date:3632-51-49AR [address] [place] [address]VV: 08/31/2018 Tertiary NOT GIVENUNK [place] Insurance:SELF PAY [facility] Number: Effective Repository Date:2018-08-31 08/31/2018 SKYLER S Primary SKYLER S [place] [id number] TR Insurance:MEDICARE EDWARDSDOB: [address] PART A [facility] [id number] Hospital [address]Tsb: (740) Number: Repository [phone] () [id number] Date:2018-08-31 08/31/2018 Secondary SKYLER S [place] Insurance:[facility] SHARED EDWARDSDOB: [facility] [id number] Hospital Number: Repository [id number] Date:9973-77-66QH [address] [place] [address]JU: 08/31/2018 Tertiary NOT GIVENUNK [place] Insurance:SELF PAY [facility] Number: Effective Repository Date:2018-08-31 08/31/2018 SKYLER S Primary SKYLER S [place] [id number] TR Insurance:MEDICARE EDWARDSDOB: [address] PART A [facility] [id number] Hospital [address]Wms: (740) Number: Repository [phone] () [id number] Date:2018-08-31 08/31/2018 Secondary SKYLER S [place] Insurance:[facility] SHARED EDWARDSDOB: [facility] [id number] Hospital Number: Repository [id number] Date:[id number] [address] [place] [id number]: 08/31/2018 Tertiary NOT GIVENUNK [place] Insurance:SELF PAY [facility] INSURANCEPolicy Hospital Number: Effective Repository Date:2018-08-31 08/27/2018 SKYLER S Primary SKYLER S [place] [id number] TR Insurance:MEDICARE EDWARDSDOB: [address] A [facility] [id number] Hospital [address]Zgr: (740) Number: Repository [phone] (HP) [id number] Date:2018-08-12 08/27/2018 Secondary SKYLER S [place] Insurance:[facility] SHARED EDWARDSDOB: [facility] [id number] Hospital Number: Repository [id number] Date:[id number] [address] [place] [id number]: 08/27/2018 Tertiary NOT GIVENUNK [place] Insurance:SELF PAY [facility] Number: Effective Repository Date:2018-08-25 08/27/2018 SKYLER S Primary SKYLER S [place] [id number] TR Insurance:MEDICARE EDWARDSDOB: [address] [id number] Hospital [address]Zoq: [phone]) Number: Repository [phone] () [id number] Date:2018-08-27 08/27/2018 Secondary SKYLER S [place] Insurance:[facility] SHARED EDWARDSDOB: [facility] [id number] Hospital Number: Repository [id number] Date:[id number] [address] [place] [id number]: 08/27/2018 Tertiary NOT GIVENUNK [place] Insurance:SELF PAY [facility] Number: Effective Repository Date:2018-08-27 08/13/2018 SKYLER S Primary NOT GIVENUNK [place] [id number] TR Insurance:SELF PAY [address] [address]Rfq: [phone]) Number: Effective Repository [phone] (HP) Date:2018-08-13 08/12/2018 SKYLER S Primary SKYLER S [place] [id number] TR Insurance:MEDICARE EDWARDSDOB: [address] [facility] [id number] Hospital [address]Uhf: [phone]) Number: Repository [phone] () [id number] Date:2018-08-11 08/12/2018 Secondary SKYLER S [place] Insurance:[facility] SHARED EDWARDSDOB: [facility] [id number] Hospital Number: Repository [id number] Date:[id number] [address]ON: 08/12/2018 Tertiary NOT GIVENUNK [place] Insurance:SELF PAY [facility] Number: Effective Repository Date:2018-08-11 08/09/2018 SKYLER S Primary SKYLER S [place] [id number] TR Insurance:MEDICARE EDWARDSDOB: [address] PART A [facility] [id number] Hospital [address]Lok: [phone]) Number: Repository [phone] () [id number] Date:2018-08-09 08/09/2018 Secondary SKYLER S [place] Insurance:[facility] SHARED EDWARDSDOB: [facility] [id number] Hospital Number: Repository [id number] Date:[id number] [address]PP: 08/09/2018 Tertiary NOT GIVENUNK [place] Insurance:SELF PAY [facility] Number: Effective Repository Date:2018-08-09 08/09/2018 SKYLER S Primary SKYLER S [place] [id number] TR Insurance:MEDICARE EDWARDSDOB: [address] PART A [facility] [id number] Hospital [address]Odm: [phone]) Number: Repository [phone] () [id number] Date:2018-08-09 08/09/2018 Secondary SKYLER S [place] Insurance:[facility] SHARED EDWARDSDOB: [facility] [id number] Hospital Number: Repository [id number] Date:[id number] [address]DN: 08/09/2018 Tertiary NOT GIVENUNK [place] Insurance:SELF PAY [facility] Effective Repository Date:2018-08-09
== END ==
PROVIDERS: Family Provider Family Medicine; PCP Family Medicine; Referring Provider Internal Medicine Critical Care Medicine; Visit Provider Internal Medicine Critical Care Medicine
DX: J47.9 Bronchiectasis, uncomplicated (principal)
CPT/HCPCS: 87070; 87077; 87205; 94060; 94667; 94726; 94729

== ENCOUNTER → 2018-10-08 10:58 | Outpatient (CLI) | payer MEDICARE, OTHER, SELFPAY ==
[2018-09-17 12:58] VITALS: BMI 26.9
[2018-10-08 13:09] LABS: Absolute Lymphocyte Count 1.63 X10^3/ul (0.83-4.51); Basophil% 1.7 % (0-1); Eosinophil# 0.62 X10^3/uL; Eosinophils% 10.2 % (0-5); Lymphocyte # 1.63 X10^3/ul (4.0); Lymphocyte % 26.9 % (19-41); Mean Corp Hgb Conc 34.1 g/gl (32-36); Mean Corpuscular Hgb 29.4 pg (27.0-32.0); Mean Corpuscular Volume 86.3 fL (80-94); Mean Platelet Vol. 10.7 fl (6.2-12.0); Monocyte# 0.68 X10^3/uL; Monocyte% 11.2 % (0-10); Neutrophil # 3.02 X10^3/uL (2.7-7.7); Neutrophil % 49.8 % (47-70); Platelet Count 226 K/mm3 (150-450); RBC Distribution Width SD 41.5 fl (35.1-43.9); White Blood Count 6.1 K/mm3 (4.4-11.0)
[2018-10-08 13:10] LABS: POSITIVE COUNT NO; POSITIVE DIFFERENTIAL NO; POSITIVE MORPHOLOGY NO
== END ==
PROVIDERS: Nurse Practitioner Acute Care; Family Provider Family Medicine; PCP Family Medicine; Referring Provider Internal Medicine Critical Care Medicine; Visit Provider Internal Medicine Critical Care Medicine
DX: J47.9 Bronchiectasis, uncomplicated (principal)
CPT/HCPCS: 36415; 85025

== ENCOUNTER → 2018-11-06 12:59 | Outpatient (CLI) | payer MEDICARE, OTHER, SELFPAY ==
[2018-10-10 10:02] VITALS: BMI 26.6
[2018-11-06 13:24] LABS: Absolute Lymphocyte Count 1.95 X10^3/ul (0.83-4.51); Absolute Neutrophil Count 3.1 X10^3/uL (2.0-7.7); Basophil# 0.05 X10^3/uL; Basophil% 0.8 % (0-1); Eosinophil# 0.72 X10^3/uL; Eosinophils% 11.3 % (0-5); Hematocrit 45.9 % (40-54); Hemoglobin 15.3 g/dl (13.0-16.5); Lymphocyte # 1.95 X10^3/ul (4.0); Lymphocyte % 30.5 % (19-41); Mean Corp Hgb Conc 33.3 g/gl (32-36); Mean Corpuscular Hgb 29.8 pg (27.0-32.0); Mean Corpuscular Volume 89.3 fL (80-94); Mean Platelet Vol. 10.2 fl (6.2-12.0); Monocyte# 0.61 X10^3/uL; Monocyte% 9.5 % (0-10); Neutrophil # 3.05 X10^3/uL (2.7-7.7); Neutrophil % 47.7 % (47-70); Platelet Count 198 K/mm3 (150-450); RBC Distribution Width CV 13.2 % (11.6-14.6); RBC Distribution Width SD 43.1 fl (35.1-43.9); Red Blood Count 5.14 M/mm3 (4.6-6.2); White Blood Count 6.4 K/mm3 (4.4-11.0)
[2018-11-06 13:25] LABS: POSITIVE COUNT NO; POSITIVE DIFFERENTIAL NO; POSITIVE MORPHOLOGY NO
== END ==
PROVIDERS: Family Provider Family Medicine; PCP Family Medicine; Referring Provider Internal Medicine Critical Care Medicine; Visit Provider Internal Medicine Critical Care Medicine
DX: J47.9 Bronchiectasis, uncomplicated (principal); Z87.891 Personal history of nicotine dependence
CPT/HCPCS: 36415; 85025

== ENCOUNTER → 2019-03-31 | Outpatient (CLI) | payer MEDICARE, OTHER, SELFPAY ==
[2019-01-14 07:32] VITALS: BMI 27.5
[2019-03-11 09:38] VITALS: BMI 27.5
--- NOTE | 2019-03-31 15:34 | PFTCOMP ---
COMPLETE PULMONARY FUNCTION TEST INTERPRETATION Brief HPI: Patient is a 68 year old male, currently under the care of myself, who presents to [facility] for complete pulmonary function tests secondary to diagnosis of asthma. Respiratory therapist reports good effort and reproducible results. Interpretation: Forced expiration spirometry shows no large airways obstructive ventilatory defect with an FEV1 of 104% predicted. There is no significant bronchodilator response by strict ATS criteria. Spirograms are of good quality and plateau normally. The respiratory flow volume loop shows a normal pattern. Lung volumes by body plethysmography show slightly elevated total lung capacity at 8.96 L, 114% predicted. All other lung volumes are within normal limits. Diffusion capacity by carbon monoxide is normal at 120% predicted. The airway resistance is normal. Compared to previous pulmonary function tests from 10/02/2018, there is been a significant improvement in FVC, FEV1 and DLCO by 34%, 51% and 18% respectively. Impression: Since last study, patient has had normalization of pulmonary function testing, consistent with his diagnosis of asthma.
== END | disposition home or self-care (01) ==
PROVIDERS: Family Provider Family Medicine; PCP Family Medicine; Referring Provider Internal Medicine Critical Care Medicine; Visit Provider Internal Medicine Critical Care Medicine
DX: J45.50 Severe persistent asthma, uncomplicated (principal)
CPT/HCPCS: 94060; 94726; 94729

== ENCOUNTER → 2019-04-14 | Outpatient (CLI) | payer MEDICARE, OTHER, SELFPAY ==
[2019-04-14 13:34] VITALS: BMI 27.5
[2019-04-14 14:51] LABS: Absolute Lymphocyte Count 1.87 X10^3/ul (0.83-4.51); Absolute Neutrophil Count 2.9 X10^3/uL (2.0-7.7); Basophil# 0.04 X10^3/uL; Basophil% 0.7 % (0-1); Eosinophil# 0.26 X10^3/uL; Eosinophils% 4.6 % (0-5); Hematocrit 46.4 % (40-54); Hemoglobin 15.8 g/dl (13.0-16.5); Lymphocyte # 1.87 X10^3/ul (4.0); Lymphocyte % 33.1 % (19-41); Mean Corp Hgb Conc 34.1 g/gl (32-36); Mean Corpuscular Hgb 29.6 pg (27.0-32.0); Mean Corpuscular Volume 87.1 fL (80-94); Mean Platelet Vol. 10.8 fl (6.2-12.0); Monocyte# 0.54 X10^3/uL; Monocyte% 9.6 % (0-10); Neutrophil # 2.94 X10^3/uL (2.7-7.7); POSITIVE COUNT NO; POSITIVE DIFFERENTIAL NO; POSITIVE MORPHOLOGY NO; Platelet Count 169 K/mm3 (150-450); RBC Distribution Width SD 41.4 fl (35.1-43.9); Red Blood Count 5.33 M/mm3 (4.6-6.2); White Blood Count 5.7 K/mm3 (4.4-11.0)
[2019-04-18 16:13] LABS: Alternaria alternata <0.10 kU/L (Class 0); Bermuda Grass 0.17 kU/L (Class 0/I); Bluegrass, Kentucky 0.16 kU/L (Class 0/I); Cat Hair/Dander, Standard <0.10 kU/L (Class 0); D farinae Mite 0.22 kU/L (Class 0/I); D pteronyssinus <0.10 kU/L (Class 0); Dog Epithelia <0.10 kU/L (Class 0); Elm, American White 0.17 kU/L (Class 0/I); Oak, White 0.16 kU/L (Class 0/I); Plantain, English 0.19 kU/L (Class 0/I); Ragweed, Short/Common 0.17 kU/L (Class 0/I)
[2019-04-18 20:07] LABS: Aspirgillus flavus Negative (Neg:<1:1); Aspirgillus fumigatus Negative (Neg:<1:1); Aspirgillus niger Negative (Neg:<1:1)
[2019-04-19 13:47] LABS: Immunoglobulin E 122 IU/mL (6-495)
[2019-04-19 13:51] LABS: Mouse Urine <0.10 kU/L (Class 0)
== END | disposition home or self-care (01) ==
LOC: PAVLAB 14:20
PROVIDERS: Nurse Practitioner Acute Care; Family Provider Family Medicine; PCP Family Medicine; Referring Provider Internal Medicine Critical Care Medicine; Visit Provider Internal Medicine Critical Care Medicine
DX: J45.50 Severe persistent asthma, uncomplicated (principal)
CPT/HCPCS: 36415; 82785; 85025; 86003; 86606

== ENCOUNTER → 2019-12-02 12:35 | Outpatient (CLI) | payer MEDICARE, OTHER, SELFPAY ==
[2019-10-30 10:39] VITALS: BMI 26.5
--- NOTE | 2019-12-02 12:41 | CT_ITS ---
STUDY: CTA CHEST REASON FOR EXAM: Male, 69 years old. Follow-up thoracic aortic aneurysm. Smoker 1/2 PPD x10 years. RADIATION DOSAGE (If Supplied By Facility): CTDIvol = ( 11.69 ) mGy, DLP = ( 556.21 ) mGycm TECHNIQUE: The examination was performed with the intravenous administration of 100 mL of Isovue 300. Post-processing of the angiographic images was performed, with multiplanar reformation and 3D reconstruction. Individualized dose optimization techniques were used for this CT. COMPARISON: None. FINDINGS: Normal enhancement of the main pulmonary artery and right and left pulmonary arteries. Normal enhancement of the bilateral peripheral pulmonary arteries. There is no demonstrated pulmonary embolism. Mild dilatation of the ascending aorta with a diameter of 3.9 cm is unchanged versus 3.4 cm for the descending thoracic aorta. The 3.9 cm. Normal transverse aorta and descending thoracic aorta. There is no demonstrated aortic dissection. Normal cardiac size and pericardium. Normal mediastinum. Normal hilar regions. Normal visualized trachea and bronchi. The lungs are well expanded. No suspicious pulmonary nodules or infiltrates. Small paraseptal cyst in the right lung base. Normal pleura. Normal chest wall structures. Normal osseous structures. Normal visualized upper abdomen. CT/Chest WITH Contrast IMPRESSION: 1. Mild dilatation of the ascending aorta with a diameter of 3.9 cm is unchanged. 2. No definite descending thoracic aortic aneurysm with a diameter of 3.4 cm and unchanged. 3. No CTA evidence of thoracic aortic dissection. 4. No CTA evidence of pulmonary thromboemboli. 5. Paraseptal cyst in the right lung base is unchanged. 6. No significant interval change when compared to 08/09/2018. Electronically Signed: wDight Montoya MD at 16:30 EST , Service support ,
== END ==
PROVIDERS: PCP Family Medicine; Referring Provider Family Medicine; Visit Provider Family Medicine
DX: I71.6 Thoracoabdominal aortic aneurysm, without rupture (principal)
CPT/HCPCS: 71260; Q9967

== ENCOUNTER 2020-08-17 14:35 | Emergency (ER) | payer MEDICARE, OTHER, SELFPAY ==
[2020-07-27 10:39] VITALS: BMI 26.7
[2020-08-17 14:35] VITALS: BP 158/107; PULSE 86; RESP 15; TEMP 36.4; O2SAT 96; BMI 26.7
--- NOTE | 2020-08-17 15:19 | EKG12_ITS ---
Test Reason : COUGH Blood Pressure : / mmHG Vent. Rate : 074 BPM Atrial Rate : 074 BPM P-R Int : 144 ms QRS Dur : 074 ms QT Int : 444 ms P-R-T Axes : 072 008 054 degrees QTc Int : 492 ms Normal sinus rhythm with sinus arrhythmia Low voltage QRS (Limb Leads) Prolonged QT Abnormal ECG Confirmed by ABI CHRISTIE, ZAY ([id number]), editor dictionary MAYTE KHAN ([id number]) on 08/19/2020 11:05:52 AM Referred By: FLACA Confirmed By:ZAY ALEX MD
--- NOTE | 2020-08-17 15:20 | ED.VIS.DYS ---
History of Present Illness Chief Complaint: Cough Informant: Patient Onset: Days Timing: Continuous Quality: Dyspnea on exertion, Wheezing Associated Symptoms: Cough. Negative for: Fever, Rhinorrhea, Sore throat Chest Pain: Pressure Narrative: Patient is a 69-year-old male with history of bronchiectasis, followed by Dr. Salamanca, presenting with worsening shortness of breath and cough. He states he said symptoms for the past 2 weeks or so which he describes as a cold. He has been on a course of amoxicillin is 3 days left. He is continued to cough and feel like he cannot sleep at night because of his cough. He also feels like there is a lot of mucus in his chest that he cannot get out. He is not wear home oxygen. His oxygen has been between 91 and 94% on room air. He is been using his home nebulizer with albuterol and Acapella device with no significant improvement. Feels like he is continuing to wheeze. He feels short of breath with his daily activities. He describes some chest tightness but no chest pain. No sick contacts. No URI symptoms no other complaints at this time. Past Medical History - Allergies and Home Meds Allergies/Adverse Reactions: Allergies metoclopramide HCl [From Reglan] Allergy (Verified 08/17/20 14:38) Swelling sumatriptan [From Imitrex] Allergy (Verified 08/17/20 14:38) Shortness of breath sumatriptan succinate [From Imitrex] Allergy (Verified 08/17/20 14:38) Shortness of breath Primary Care Physician: Dax Barney III, MD [Primary Care Provider] - Past Medical History: - - Hyperlipidemia, bronchiectasis, hyper severe persistent asthma, history of thoracoabdominal aortic aneurysm Surgical History: - - R Inguinal hernia repair, cardiac catheterization without intervention, vein stripping, bilateral knee arthroscopic surgery, R eyelid cancer removal. Smoking Status: Former smoker - Family History Sibling Family History: Family History (Last Reviewed 07/27/20 @ 10:25 by Stephie Jarrett) Sister Lung cancer Father Lung cancer Family History: Reports: Cancer - lung Paternal Family History: Family History (Last Reviewed 07/27/20 @ 10:25 by Stephie Jarrett) Sister Lung cancer Father Lung cancer Family History: Reports: Cancer Maternal Family History: Family History (Last Reviewed 07/27/20 @ 10:25 by Stephie Jarrett) Sister Lung cancer Father Lung cancer Family History: Reports: - - Mother with history of parkinson's disease. Review of Systems General: Denies: Chills, Fever, Sweats Eyes: Denies: Visual changes - bilaterally, Diplopia ENT: Denies: Rhinorrhea, Sore throat Cardiovascular: Reports: Chest pain - Tightness. Denies: Palpitations Respiratory: Reports: Dyspnea, Cough, Sputum, Dyspnea on exertion Gastrointestinal: Denies: Abdominal pain, Nausea, Vomiting, Diarrhea, Melena, Hematochezia Genitourinary: Denies: Dysuria, Hematuria, Frequency Musculoskeletal: Denies: Back pain, Extremity Pain Skin: Denies: Rash, Wounds Neurological: Denies: Headache, Weakness, Numbness Physical Exam Vital Signs/Narrative: Vital Signs Temp Pulse Resp BP Pulse Ox 08/17/20 14:35 97.5 F L 86 15 158/107 H 96 Inital Vital Signs reviewed: Yes General: Well nourished, Well developed, No Acute Distress Head: Normocephalic, Atraumatic Eyes: Perrl, EOMI ENT: Moist mucous membranes, No rhinorrhea Neck: Supple, Nontender Cardiovascular: Regular rate, Regular rhythm, No murmurs Respiratory: No distress, Chest nontender, Rhonchi - Bibasilar, Diminished, Decreased Air Movement. Negative for: Wheezing Abdomen: Soft, Nontender, Nondistended, Normal bowel sounds Back: Nontender, Normal Inspection Extremities: Nontender, No edema Skin: Normal color, No rash Neurological: Alert, Oriented x3, Cranial nerves II-XII grossly intact, Normal Strength, Normal Sensation Psychological: Normal affect, Normal Mood Diagnostic/Tx/Re-eval Chest X-Ray - ED: 1 View, Read by ED Physician, Read by Radiologist, No Acute Disease Clinical Impression(s) from Imaging Studies Chest X-Ray 08/17/20 15:48 IMPRESSION: Hyperinflation. Mild increased linear markings at the lung bases suggestive of bibasilar linear atelectasis. Electronically Signed: Yoni Tadeo, at 16:03 EST , Service support , Laboratory Data 11/08/2608/17/20 08/17/20 15:35 15:35 15:35 WBC 5.3 RBC 5.04 Hgb 14.8 Hct 44.0 MCV 87.3 MCH 29.4 MCHC 33.6 RDW Std Deviation 40.5 RDW Coeff of Lisa 12.7 Plt Count 175 MPV 10.8 Immature Gran % (Auto) 0.200 Neut % (Auto) 53.3 Lymph % (Auto) 25.3 Lipscomb % (Auto) 10.8 H Eos % (Auto) 8.9 H Baso % (Auto) 1.5 H Absolute Neuts (auto) 2.8 Absolute Lymphs (auto) 1.34 Nucleated RBC % 0 Sodium 140 Potassium 4.1 Chloride 110 H Carbon Dioxide 26.0 Anion Gap 4 L BUN 19 H Creatinine 1.12 Estim Creat Clear Calc 78.58 Est GFR (MDRD) Af Amer 84 Est GFR (MDRD) Non-Af 69 BUN/Creatinine Ratio 17.0 Glucose 96 Calcium 8.9 Troponin I 0.017 B-Natriuretic Peptide 109.6 H - Rhythm Strip Rhythm Strip: Sinus Rhythm Rate: 74 Ectopy: None - EKG Initial EKG Interpretation: Sinus Rhythm, - - Normal sinus rhythm at a rate of 74PR interval 144QRS 74QTc 492Normal axisNormal ST segmentsCompared to prior EKG on 08/31/2018 there are no significant changes - Medical Decision Making Patient evaluated for worsening cough and chest congestion. Patient does have a history of bronchiectasis and follows with pulmonology. Chest x-rays not show any acute infiltrate. Lab work is grossly unremarkable. I do not think this is cardiac in nature. Patient does have some rhonchorous breath sounds. Likely this is of exacerbation of his COPD/bronchiectasis. I did touch base with his gaggerman, Dr. Salamanca, who is agreeable with discharge home with outpatient Covid testing as well as course of steroids. Patient is agreeable this plan of care as well. He is ambulated in the ER and does not desaturate past 95%. Do not think he requires admission at this time. Patient is counseled on isolation precautions was Covid test is pending. Patient is counseled on signs and symptoms requiring return to the emergency room. Patient verbalizes agreement and understand this plan. Patient discharged home in stable and improved condition. ED Disposition - Plan for ED Patient: Disposition: Home or Assisted Living Diagnosis: Bronchitis, COPD with acute exacerbation Instructions: ED COPD Flare Prescriptions: Prednisone [Deltasone] 40 mg PO DAILY #8 tab Transmission Status: Received by [id number] Referrals: Dax Barney III, MD [Primary Care Provider] -
[2020-08-17 15:29] VITALS: O2SAT 96
--- NOTE | 2020-08-17 15:48 | RAD_ITS ---
STUDY: X-RAY CHEST REASON FOR EXAM: Male, 69 years old. COUGH, HX OF BRONCHOLECTASIS. TECHNIQUE: Single AP portable view of the chest. COMPARISON: Comparison is made with prior study dated 08/31/2018. FINDINGS: EKG electrodes are seen. Hyperinflation. Mild increased linear markings at the lung bases suggestive of bibasilar linear atelectasis. There is no demonstrated pleural abnormality. Normal size heart. Normal mediastinum and marla. Normal visualized pulmonary arteries. There is atherosclerotic tortuosity of the aortic arch and descending thoracic aorta. Normal visualized thoracic spine. Normal visualized ribs, clavicles, and shoulders. There is no demonstrated abnormality of the visualized soft tissue structures of the upper abdomen. RAD/Chest 1 View (Portable) IMPRESSION: Hyperinflation. Mild increased linear markings at the lung bases suggestive of bibasilar linear atelectasis. Electronically Signed: Yoni Tadeo, at 16:03 EST , Service support ,
[2020-08-17 16:08] LABS: Anion Gap 4 (5-15); BUN 19 mg/dL (7-18); Calcium,Total 8.9 mg/dL (8.5-10.1); Chloride 110 mmol/L (98-107); Creatinine, Serum 1.12 mg/dL (0.70-1.30); EST Glomerular Filtration Rate 69 mL/min (>60); Est Glom Filt Rate - Afr Amer 84 mL/min (>60); Estimated Creatinine Clearance 78.58 ml/min; Glucose 96 mg/dL (74-106); Potassium 4.1 mmol/L (3.5-5.1); Sodium Level 140 mmol/L (136-145)
[2020-08-17 16:27] LABS: Absolute Lymphocyte Count 1.34 X10^3/uL (0.83-4.51); Absolute Neutrophil Count 2.8 X10^3/uL (2.0-7.7); Basophil# 0.08 X10^3/uL; Basophil% 1.5 % (0-1); Eosinophil# 0.47 X10^3/uL; Eosinophils% 8.9 % (0-5); Hemoglobin 14.8 g/dL (13.0-16.5); Lymphocyte # 1.34 X10^3/ul (4.0); Lymphocyte % 25.3 % (19-41); Mean Corp Hgb Conc 33.6 g/dL (32-36); Mean Corpuscular Hgb 29.4 pg (27.0-32.0); Mean Corpuscular Volume 87.3 fL (80-94); Mean Platelet Vol. 10.8 fl (6.2-12.0); Monocyte# 0.57 X10^3/uL; Monocyte% 10.8 % (0-10); NRBC Flagged by Analyzer 0 % (0-5); Neutrophil # 2.82 X10^3/uL (2.7-7.7); Neutrophil % 53.3 % (47-70); Platelet Count 175 K/mm3 (150-450); RBC Distribution Width CV 12.7 % (11.6-14.6); RBC Distribution Width SD 40.5 fl (35.1-43.9); Red Blood Count 5.04 M/mm3 (4.6-6.2); White Blood Count 5.3 K/mm3 (4.4-11.0)
[2020-08-17 16:54] LABS: BNP,B-Type NATRIURETIC PEPTIDE 109.6 pg/mL (0-100)
[2020-08-17 17:10] VITALS: BP 148/92; PULSE 64; RESP 18; O2SAT 95; O2SAT 97
[2020-08-17] MEDS: predniSONE 20 MG Tablet 60 MG PO (18:11)
== END 2020-08-17 18:12 | disposition home or self-care (01) ==
PROVIDERS: Emergency Provider Emergency Medicine; PCP Family Medicine
DX: J44.1 Chronic obstructive pulmonary disease with (acute) exacerbation (principal); J44.0 Chronic obstructive pulmonary disease with (acute) lower respiratory infection; J40 Bronchitis, not specified as acute or chronic; J45.50 Severe persistent asthma, uncomplicated; R06.02 Shortness of breath; E78.5 Hyperlipidemia, unspecified; Z87.891 Personal history of nicotine dependence
CPT/HCPCS: 71045; 80048; 83880; 84484; 85025; 87633; 87635; 93005; 99285; A4216; U0003

== ENCOUNTER → 2020-09-23 17:38 | Outpatient (CLI) | payer MEDICARE, OTHER, SELFPAY | PROVIDERS: PCP Family Medicine; Referring Provider Nurse Practitioner Acute Care; Visit Provider Nurse Practitioner Acute Care | DX: R05 Cough (principal) | CPT/HCPCS: 87635; C9803; U0003 ==

== ENCOUNTER → 2020-09-28 | Outpatient (CLI) | payer MEDICARE, OTHER, SELFPAY | END | disposition home or self-care (01) | LOC: LABSPEC 15:47 | PROVIDERS: PCP Family Medicine; Visit Provider Nurse Practitioner Acute Care | DX: J47.9 Bronchiectasis, uncomplicated (principal) | CPT/HCPCS: 87070; 87205 ==

== ENCOUNTER → 2021-01-18 10:11 | Outpatient (CLI) | payer MEDICARE, OTHER, SELFPAY ==
[2020-07-27 10:39] VITALS: BMI 26.7
--- NOTE | 2021-01-18 16:07 | PFTCOMP ---
COMPLETE PULMONARY FUNCTION TEST INTERPRETATION Brief HPI: Patient is a 70 year old male, currently under the care of [myself Dr. Ramirez], who presents to [facility] for complete pulmonary function tests secondary to diagnosis of severe persistent asthma. Respiratory therapist reports good effort and reproducible results. Interpretation: Forced expiration spirometry shows [no a mild moderate moderately-severe severe very severe] large airways obstructive ventilatory defect with an FEV1 of 100% predicted. There is no significant bronchodilator response by strict ATS criteria. Spirograms are of good quality and plateau [slowly, indicating slowly emptying areas of the lungs]. The respiratory flow volume loop shows [decreased expiratory flow rates at high lung volumes consistent with small airways obstruction]. Lung volumes by body plethysmography show [a normal an elevated, a decreased] total lung capacity at 8.41 L, 109% predicted. [All other lung volumes are within normal limits.] Diffusion capacity by carbon monoxide is [normal elevated,decreased] at 114% predicted. The airway resistance is [normal elevated]. [Compared to previous pulmonary function tests from] 03/31/2019, [there has been no significant change a significant change in]. Impression: These pulmonary function tests are within normal limits.
== END ==
PROVIDERS: PCP Family Medicine; Referring Provider Internal Medicine Critical Care Medicine; Visit Provider Internal Medicine Critical Care Medicine
DX: J45.50 Severe persistent asthma, uncomplicated (principal); J47.9 Bronchiectasis, uncomplicated
CPT/HCPCS: 94060; 94726; 94729

== ENCOUNTER 2021-12-16 10:04 | Outpatient (CLI) | payer MEDICARE, OTHER, SELFPAY | END 2021-12-16 23:59 | disposition home or self-care (01) | LOC: LAB 10:07 | PROVIDERS: Visit Provider Nurse Practitioner Acute Care | DX: J47.9 Bronchiectasis, uncomplicated (principal) | CPT/HCPCS: 87070; 87205 ==

== ENCOUNTER → 2025-08-07 | Outpatient (CLI) | payer MEDICARE, OTHER, SELFPAY | END | disposition home or self-care (01) | LOC: LAB 08:15 | PROVIDERS: Referring Provider Nurse Practitioner Family; Visit Provider Nurse Practitioner Family | DX: J47.9 Bronchiectasis, uncomplicated (principal) | CPT/HCPCS: 87070; 87077; 87205 ==